=== PATIENT | male | born 1950 | race Caucasian/White ===

== ENCOUNTER 2017-04-24 11:45 | Emergency (ER) | payer MEDICARE, OTHER ==
[2017-04-24] MEDS ORDERED: Sodium Chloride 0.9% 10 ML Syringe FLUSH PRN (11:48)
[2017-04-24] MEDS ORDERED: Sodium Chloride 0.9% 2.5 ML Syringe FLUSH PRN (11:48)
[2017-04-24] MEDS ORDERED: Sodium Chloride 0.9% 1,000 ML IV ONE ×2 (11:48→12:42)
[2017-04-24] MEDS ORDERED: Aspirin 81 MG Tab.Chew PO ONE (11:48)
[2017-04-24] MEDS ORDERED: Famotidine 20 MG/2 ML SDV IVPUSH ONE (11:48)
--- NOTE | 2017-04-24 12:10 | EDM.PDOC ---
ED HPI GENERAL MEDICAL PROBLEM - General Chief Complaint: Chest Pain Stated Complaint: CHEST PAIN Time Seen by Provider: 04/24/17 12:01 Source of Information: Reports: Patient History Limitations: Reports: No Limitations - History of Present Illness INITIAL COMMENTS - FREE TEXT/NARRATIVE: HISTORY AND PHYSICAL: []67-year-old gentleman presenting with midsternal chest pain for 1 week. Pain occurred after eating something and felt like he was going to get stuck and then he has had a slight cough ever since. History of Present Illness: [Patient has a TENS unit to his back pain level 04/28. 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 Past medical history: As per history of present illness and as reviewed below otherwise noncontributory. Surgical history: As per history of present illness and as reviewed below otherwise noncontributory. Social history: No reported history of drug or alcohol abuse. Family history: As per history of present illness and as reviewed below otherwise noncontributory. Physical exam: Alert gentleman. Does not look in acute distress skin is warm and dry tattoo present to mid chest. HEENT: Atraumatic, normocehpalic, pupils reactive, negative for conjunctival pallor or scleral icterus, mucous membranes moist, throat clear, neck supple, nontender, trachea midline. Lungs: Clear to auscultation, breath sounds equal bilaterally, chest tender with palpation midsternal Heart: S1S2, regular, negative for clicks, rubs, or JVD. EKG with sinus rhythm. Abdomen: Soft, nondistended, nontender. Negative for masses or hepatossplenmegaly. Negative for costovertebral tenderness. Pelvis: Stable nontender. Genitourinary: Deferred. Rectal: Deferred Extremities: Atraumatic, negative for cords or calf pain. Neurovascular unremarkable. Neuro: Awake, alert, oriented. Cranial nerves II through XII unremarkable. Cerebellum unremarkable. Motor and sensory unremarkable throughout. Exam nonfocal. Patient's pain was reduced with nitroglycerin to a 1-2/10. Nitropaste was applied. Monitor now showing frequent sinus pauses related to reduced 20-30 bpm then returns to 60s and 70s. 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 Ledbetter at [facility] in [place], [place] who requested patient tranfer. Possible angiogram today then will determine whether pacemaker is needed. Patient is agreeable to this recommended course of action Diagnostics: [Chest pain protocol] Therapeutics: [Aspirin by mouth Nitrostat sublingual 3 Nitropaste] Impression: [Midsternal chest pain Sick sinus syndrome Plan: [Transfer to [facility] for ground ambulance FORMS have been completed] Definitive disposition and diagnosis as appropriate pending reevaluation and review of above. Onset: Gradual Duration: Day(s): (1 week), Heavy Location: Reports: Chest (Midsternal), Other (Patient back 04/28 with a Tens Unit on.) Quality: Reports: Same as Previous Episode Severity: Moderate Associated Symptoms: Reports: Chest Pain, Cough mid/sternal Pain Score (Numeric/FACES): 4 - Related Data Allergies Allergy/AdvReac Type Severity Reaction Status Date / Time No Known Allergies Allergy Verified 04/24/17 12:09 Home Meds: Home Meds Aspirin [Ecotrin] 1 tab PO DAILY 10/04/14 [History] Cholecalciferol (Vitamin D3) [D3-2000] 1,000 unit PO DAILY 10/04/14 [History] Isosorbide Mononitrate [Imdur] 1 tab PO DAILY 10/04/14 [History] Metoprolol Tartrate 50 mg PO DAILY 10/04/14 [History] Towner-3 Fatty Acids/Fish Oil [Fish Oil 1,200 mg Softgel] 1 tab PO DAILY [History] atorvaSTATin Calcium [Atorvastatin Calcium] 1 tab PO BEDTIME 10/04/14 [History] Baclofen 2 tab PO BID 01/05/17 [History] Levothyroxine 0.05 mg PO DAILY 01/05/17 [History] metFORMIN HCl [Metformin HCl] 1,000 mg PO BID 01/05/17 [History] Past Medical History HEENT History: Reports: Other (See Below) Other HEENT History: wears glasses Cardiovascular History: Reports: CAD, High Cholesterol, Hypertension Other Cardiovascular History: [place] x2 Musculoskeletal History: Reports: Back Pain, Chronic Other Musculoskeletal History: chronic neck and back pain, lumbar stenosis, chronic pain syndrome Endocrine/Metabolic History: Reports: Diabetes, Type II, Hypothyroidism Other Endocrine/Metabolic History: states "pre diabetic" Dermatologic History: Reports: Other (See Below) Other Dermatologic History: Granuloma annulare - Past Surgical History Cardiovascular Surgical History: Reports: Coronary Artery Stent Neurological Surgical History: Reports: Lumbar Spine Social & Family History - Tobacco Use Smoking Status *Q: Former Smoker Years of Tobacco use: 40 Packs/Tins Daily: 0.2 Month Tobacco Last Used: quit smoking 18 yrs ago, chews 1 can of chewing tobacco per week Second Hand Smoke Exposure: No - Alcohol Use Days Per Week of Alcohol Use: 0 Number of Drinks Per Day: 3 Total Drinks Per Week: 0 - Recreational Drug Use Recreational Drug Use: No ED ROS GENERAL - Review of Systems Review Of Systems: ROS reveals no pertinent complaints other than HPI. ED EXAM, GENERAL - Physical Exam Exam: See Below (see dictation) Course - Vital Signs Last Recorded V/S: Last Vital Signs Temp 36.2 C 04/24/17 12:09 Pulse 80 04/24/17 12:09 Resp 16 04/24/17 12:09 BP 112/67 04/24/17 12:26 Pulse Ox 95 04/24/17 12:19 - Orders/Labs/Meds Orders: Active Orders 24 hr Category Date Time Status Cardiac Monitoring [RC] . DIRECTED Care 04/24/17 11:48 Active EKG Documentation Completion [RC] STAT Care 04/24/17 11:48 Active Oxygen Therapy [RC] ASDIRECTED Care 04/24/17 11:48 Active Pulse Oximetry [RC] ASDIRECTED Care 04/24/17 11:48 Active UA W/MICROSCOPIC [URIN] Stat Lab 04/24/17 11:48 Uncollected Sodium Chloride 0.9% [Saline Flush] Med 04/24/17 11:48 Active 10 ml FLUSH ASDIRECTED PRN Sodium Chloride 0.9% [Saline Flush] Med 04/24/17 11:48 Active 2.5 ml FLUSH ASDIRECTED PRN Peripheral IV Insertion Adult [OM.PC] Stat Oth 04/24/17 11:48 Ordered Medication Orders Sodium Chloride (Saline Flush) 10 ml FLUSH ASDIRECTED PRN PRN Reason: Keep Vein Open Sodium Chloride (Saline Flush) 2.5 ml FLUSH ASDIRECTED PRN PRN Reason: Keep Vein Open Labs: Laboratory Tests 04/24/17 04/24/17 04/24/17 Range/Units 11:57 11:57 11:57 WBC 9.35 (4.0-11.0) K/uL RBC 5.48 (4.50-5.90) M/uL Hgb 17.3 H (13.0-17.0) g/dL Hct 49.0 (38.0-50.0) % MCV 89.4 (80.0-98.0) fL MCH 31.6 (27.0-32.0) pg MCHC 35.3 (31.0-37.0) g/dL RDW Std Deviation 42.7 (28.0-62.0) fl RDW Coeff of Samantha 13 (11.0-15.0) % Plt Count 167 (150-400) K/uL MPV 10.40 (7.40-12.00) fL Neut % (Auto) 64.2 (48.0-80.0) % Lymph % (Auto) 24.8 (16.0-40.0) % [place] % (Auto) 9.3 (0.0-15.0) % Eos % (Auto) 1.5 (0.0-7.0) % Baso % (Auto) 0.2 (0.0-1.5) % Neut # (Auto) 6.0 H (1.4-5.7) K/uL Lymph # (Auto) 2.3 (0.6-2.4) K/uL [place] # (Auto) 0.9 H (0.0-0.8) K/uL Eos # (Auto) 0.1 (0.0-0.7) K/uL Baso # (Auto) 0.0 (0.0-0.1) K/uL Nucleated RBC % 0.0 /100WBC Nucleated RBCs # 0 K/uL INR 1.00 (0.86-1.11) Sodium 135 L (136-146) mmol/L Potassium 3.5 (3.5-5.1) mmol/L Chloride 98 (98-110) mmol/L Carbon Dioxide 22 (21-31) mmol/L BUN 27 H (6.0-23.0) mg/dL Creatinine 1.0 (0.6-1.5) mg/dL Est Cr Clr Drug Dosing 74.25 mL/min Estimated GFR (MDRD) > 60.0 ml/min Glucose 147 H (60-110) mg/dL Calcium 9.0 (8.8-10.8) mg/dL Total Bilirubin 1.1 (0.1-1.5) mg/dL AST 34 (5-40) IU/L ALT 44 (8-54) IU/L Alkaline Phosphatase 63 (40-150) Troponin I (0.0-0.29) NG/ML Total Protein 7.6 (6.0-8.0) g/dL Albumin 4.4 (3.4-4.8) g/dL Globulin 3.2 (2.0-3.5) g/dL Albumin/Globulin Ratio 1.4 (1.3-2.8) Amylase 45 (10-90) U/L Lipase 34 (7-80) U/L /05/05 Range/Units 11:57 WBC (4.0-11.0) K/uL RBC (4.50-5.90) M/uL Hgb (13.0-17.0) g/dL Hct (38.0-50.0) % MCV (80.0-98.0) fL MCH (27.0-32.0) pg MCHC (31.0-37.0) g/dL RDW Std Deviation (28.0-62.0) fl RDW Coeff of Samantha (11.0-15.0) % Plt Count (150-400) K/uL MPV (7.40-12.00) fL Neut % (Auto) (48.0-80.0) % Lymph % (Auto) (16.0-40.0) % [place] % (Auto) (0.0-15.0) % Eos % (Auto) (0.0-7.0) % Baso % (Auto) (0.0-1.5) % Neut # (Auto) (1.4-5.7) K/uL Lymph # (Auto) (0.6-2.4) K/uL [place] # (Auto) (0.0-0.8) K/uL Eos # (Auto) (0.0-0.7) K/uL Baso # (Auto) (0.0-0.1) K/uL Nucleated RBC % /100WBC Nucleated RBCs # K/uL INR (0.86-1.11) Sodium (136-146) mmol/L Potassium (3.5-5.1) mmol/L Chloride (98-110) mmol/L Carbon Dioxide (21-31) mmol/L BUN (6.0-23.0) mg/dL Creatinine (0.6-1.5) mg/dL Est Cr Clr Drug Dosing mL/min Estimated GFR (MDRD) ml/min Glucose (60-110) mg/dL Calcium (8.8-10.8) mg/dL Total Bilirubin (0.1-1.5) mg/dL AST (5-40) IU/L ALT (8-54) IU/L Alkaline Phosphatase (40-150) Troponin I < 0.10 (0.0-0.29) NG/ML Total Protein (6.0-8.0) g/dL Albumin (3.4-4.8) g/dL Globulin (2.0-3.5) g/dL Albumin/Globulin Ratio (1.3-2.8) Amylase (10-90) U/L Lipase (7-80) U/L Meds: Medications Generic Name Dose Route Start Last Admin Trade Name Freq PRN Reason Stop Dose Admin Sodium Chloride 10 ml 04/24/17 11:48 Saline Flush FLUSH ASDIRECTED PRN Keep Vein Open Sodium Chloride 2.5 ml 04/24/17 11:48 Saline Flush FLUSH ASDIRECTED PRN Keep Vein Open Discontinued Medications Generic Name Dose Route Start Last Admin Trade Name Freq PRN Reason Stop Dose Admin Aspirin 324 mg 04/24/17 11:48 04/24/17 12:25 Aspirin PO 04/24/17 11:49 324 mg ONETIME ONE Administration Famotidine 20 mg 04/24/17 11:48 04/24/17 12:23 Pepcid IVPUSH 04/24/17 11:49 20 mg ONETIME ONE Administration Sodium Chloride 1,000 mls @ 999 mls/hr 04/24/17 11:48 04/24/17 12:23 Normal Saline IV 04/24/17 12:48 999 mls/hr .Bolus ONE Administration Sodium Chloride 1,000 mls @ 999 mls/hr 04/24/17 12:42 Normal Saline IV 04/24/17 13:42 STAT ONE Morphine Sulfate 2 mg 04/24/17 12:41 Morphine IV 04/24/17 12:42 ONETIME ONE Nitroglycerin 0.4 mg 04/24/17 12:11 04/24/17 12:26 Nitrostat SL 04/24/17 12:22 0.4 mg Q5M PRN Administration Chest Pain Nitroglycerin 1 gm 04/24/17 12:11 04/24/17 12:27 Nitro-Bid 2% TOP 04/24/17 12:12 1 gm ONETIME ONE Administration Ondansetron HCl 4 mg 04/24/17 12:41 Zofran IVPUSH 04/24/17 12:42 ONETIME ONE Departure - Departure Time of Disposition: 13:01 Disposition: DC/Tfer to Acute Hospital 02 Reason for Transfer *Q: Primary PCI Indicated Condition: good Clinical Impression: Sick sinus syndrome, Atypical chest pain Referrals: PCP,None [Primary Care Provider] - Forms: ED Department Discharge - My Orders Last 24 Hours: My Active Orders 04/24/17 11:48 Cardiac Monitoring [RC] . DIRECTED EKG Documentation Completion [RC] STAT Oxygen Therapy [RC] ASDIRECTED Pulse Oximetry [RC] ASDIRECTED UA W/MICROSCOPIC [URIN] Stat Sodium Chloride 0.9% [Saline Flush] 10 ml FLUSH ASDIRECTED PRN Sodium Chloride 0.9% [Saline Flush] 2.5 ml FLUSH ASDIRECTED PRN Peripheral IV Insertion Adult [OM.PC] Stat - Assessment/Plan Last 24 Hours: My Active Orders 04/24/17 11:48 Cardiac Monitoring [RC] . DIRECTED EKG Documentation Completion [RC] STAT Oxygen Therapy [RC] ASDIRECTED Pulse Oximetry [RC] ASDIRECTED UA W/MICROSCOPIC [URIN] Stat Sodium Chloride 0.9% [Saline Flush] 10 ml FLUSH ASDIRECTED PRN Sodium Chloride 0.9% [Saline Flush] 2.5 ml FLUSH ASDIRECTED PRN Peripheral IV Insertion Adult [OM.PC] Stat
[2017-04-24] MEDS ORDERED: Nitroglycerin 2% Oint 1 GM UD Packet TOP ONE (12:11)
--- NOTE | 2017-04-24 12:15 | CR ---
EXAMINATION: Portable chest radiograph. HISTORY: Chest pain. FINDINGS: The trachea is midline. The cardiomediastinal silhouette is within normal limits. No pulmonary infil trates, effusions or pneumothorax. Aortic calcifications are noted. Osseous structures appear unremarkable. Spinal stimulator leads project over the midthoracic spine. IMPRESSION: No acute cardiopulmonary process.
[2017-04-24] MEDS: Nitroglycerin 0.4 MG Tab.SL SL PRN ×2 (12:21→12:26)
[2017-04-24 12:33] LABS: CHLORIDE,CL 98 mmol/L (98-110); SODIUM,NA 135 mmol/L (136-146)
[2017-04-24] MEDS ORDERED: Ondansetron 4 MG/2 ML SDV IVPUSH ONE (12:41)
[2017-04-24] MEDS ORDERED: Morphine 10 MG/ML Syringe IV ONE (12:41)
[2017-04-24 15:03] VITALS: BP 111/76
== END 2017-04-24 14:57 ==
LOC: MW.ED 11:45
DX: I49.5 Sick sinus syndrome (principal); R07.89 Other chest pain; I25.10 Atherosclerotic heart disease of native coronary artery without angina pectoris; I10 Essential (primary) hypertension; E78.00 Pure hypercholesterolemia, unspecified; I25.2 Old myocardial infarction; E11.9 Type 2 diabetes mellitus without complications; E03.9 Hypothyroidism, unspecified; Z87.891 Personal history of nicotine dependence; Z79.899 Other long term (current) drug therapy; Z95.5 Presence of coronary angioplasty implant and graft; Z79.84 Long term (current) use of oral hypoglycemic drugs; Z79.82 Long term (current) use of aspirin
CPT/HCPCS: 36415; 71010; 80053; 81001; 82150; 83690; 84484; 85025; 85610; 93005; 96361; 96374; 96375; 99285; A9270; J2270; J2405; J7040

== ENCOUNTER 2017-04-30 16:13 | Emergency (ER) | payer MEDICARE, OTHER ==
--- NOTE | 2017-04-30 16:32 | EDM.PDOC ---
ED HPI GENERAL MEDICAL PROBLEM - General Chief Complaint: Chest Pain Stated Complaint: PT HAS DIFFICULTY BREATHING Time Seen by Provider: 04/30/17 16:19 Source of Information: Reports: Patient History Limitations: Reports: No Limitations - History of Present Illness INITIAL COMMENTS - FREE TEXT/NARRATIVE: History of present illness: []Patient came home from [place] 3 days ago after having 5 stents placed for ongoing chest pain. Today patient complains of left lower chest pain that he has had for over 2 months it's associated with intermittent fevers and "horrible " cough. Review of systems: As per history of present illness and below otherwise all systems reviewed and negative. Past medical history: As per history of present illness and as reviewed below otherwise noncontributory. Surgical history: As per history of present illness and as reviewed below otherwise noncontributory. Social history: No reported history of drug or alcohol abuse. Family history: As per history of present illness and as reviewed below otherwise noncontributory. Physical exam: General: Well developed, well nourished in NAD HEENT: Atraumatic, normocephalic, pupils reactive, negative for conjunctival pallor or scleral icterus, mucous membranes moist, throat clear, neck supple, nontender, trachea midline. Lungs: Crackles present in left base. Otherwise no wheezing and lungs are clear. Heart: S1S2, regular, negative for clicks, rubs, or JVD. Abdomen: Soft, nondistended, nontender. Negative for masses or hepatosplenomegaly. Negative for costovertebral tenderness. Pelvis: Stable nontender. Genitourinary: Deferred. Rectal: Deferred. Extremities: Atraumatic, negative for cords or calf pain. Neurovascular unremarkable. Neuro: Awake, alert, oriented. Cranial nerves II through XII unremarkable. Cerebellum unremarkable. Motor and sensory unremarkable throughout. Exam nonfocal. Diagnostics: []Chest x-ray and labs were done his elevated white count, x-rays are negative Therapeutics: []Patient was hydrated pain meds were given for chronic back pain while he was awaiting results Impression: []Bronchitis Plan: []Incentive spirometer, Augmentin, albuterol inhaler. Follow-up with PMD return if symptoms worsen or change Definitive disposition and diagnosis as appropriate pending reevaluation and review of above. chest Pain Score (Numeric/FACES): 5 - Related Data Allergies Allergy/AdvReac Type Severity Reaction Status Date / Time No Known Allergies Allergy Verified 04/30/17 16:20 Home Meds: Home Meds Aspirin [Ecotrin] 1 tab PO DAILY 10/04/14 [History] Cholecalciferol (Vitamin D3) [D3-2000] 1,000 unit PO DAILY 10/04/14 [History] atorvaSTATin Calcium [Atorvastatin Calcium] 80 tab PO BEDTIME 10/04/14 [History] metFORMIN HCl [Metformin HCl] 500 mg PO BID 01/05/17 [History] Albuterol Sulfate [Ventolin Hfa] 8 gm IH Q4HR PRN #1 hfa.aer.ad 04/30/17 [Rx] Amoxicillin/Clavulanate K [Augmentin 875 MG/125 MG] 1 tab PO Q12HR #14 tablet [Rx] Carvedilol 12.5 mg PO BID 04/30/17 [History] Cyclobenzaprine [Flexeril] 10 mg PO TID PRN 04/30/17 [History] Isosorbide Dinitrate 30 mg PO DAILY 04/30/17 [History] Lactobacillus Rhamnosus GG [Culturelle] 1 cap PO DAILY 04/30/17 [History] Levothyroxine [Synthroid] 50 mcg PO ACBREAKFAST 04/30/17 [History] Lisinopril 10 mg PO DAILY 04/30/17 [History] Meloxicam 15 mg PO DAILY 04/30/17 [History] Nitroglycerin [Nitrostat] 0.4 mg SL Q5M PRN 04/30/17 [History] Prasugrel HCl [Effient] 10 mg PO DAILY 04/30/17 [History] Past Medical History HEENT History: Reports: Other (See Below) Other HEENT History: wears glasses Cardiovascular History: Reports: CAD, High Cholesterol, Hypertension Other Cardiovascular History: [place] x2 Musculoskeletal History: Reports: Back Pain, Chronic Other Musculoskeletal History: chronic neck and back pain, lumbar stenosis, chronic pain syndrome Endocrine/Metabolic History: Reports: Diabetes, Type II, Hypothyroidism Other Endocrine/Metabolic History: states "pre diabetic" Dermatologic History: Reports: Other (See Below) Other Dermatologic History: Granuloma annulare - Past Surgical History Cardiovascular Surgical History: Reports: Coronary Artery Stent Neurological Surgical History: Reports: Lumbar Spine Social & Family History - Tobacco Use Smoking Status *Q: Former Smoker Years of Tobacco use: 40 Packs/Tins Daily: 0.2 Used Tobacco, but Quit: Yes Month Tobacco Last Used: quit smoking 18 yrs ago, chews 1 can of chewing tobacco per week Second Hand Smoke Exposure: No - Caffeine Use Caffeine Use: Reports: Coffee Other Caffeine Use: 1 cup a day - Alcohol Use Days Per Week of Alcohol Use: 0 Number of Drinks Per Day: 3 Total Drinks Per Week: 0 - Recreational Drug Use Recreational Drug Use: No ED ROS GENERAL - Review of Systems Review Of Systems: See Below ED EXAM, GENERAL - Physical Exam Exam: See Below (See history of present illness) Course - Vital Signs Last Recorded V/S: Last Vital Signs Temp 36.6 C 04/30/17 16:20 Pulse 71 04/30/17 16:20 Resp 20 04/30/17 16:20 BP 108/68 04/30/17 16:20 Pulse Ox 97 04/30/17 16:20 - Orders/Labs/Meds Orders: Active Orders 24 hr Category Date Time Status Chest 2V [CR] Stat Exams 04/30/17 16:27 Taken CULTURE BLOOD [BC] Stat Lab 04/30/17 16:42 Received CULTURE BLOOD [BC] Stat Lab 04/30/17 16:49 Received HYDROmorphone [Dilaudid] Med 04/30/17 17:44 Active 0.5 mg IVPUSH Q1H PRN Blood Culture x2 Reflex Set [OM.PC] Stat Oth 04/30/17 16:27 Ordered Saline Lock Insert [OM.PC] Stat Oth 04/30/17 16:26 Ordered Medication Orders Hydromorphone HCl (Dilaudid) 0.5 mg IVPUSH Q1H PRN PRN Reason: Pain Labs: Laboratory Tests 04/30/17 04/30/17 04/30/17 Range/Units 16:42 16:42 16:42 WBC 12.47 H (4.0-11.0) K/uL RBC 4.73 (4.50-5.90) M/uL Hgb 14.7 (13.0-17.0) g/dL Hct 42.9 (38.0-50.0) % MCV 90.7 (80.0-98.0) fL MCH 31.1 (27.0-32.0) pg MCHC 34.3 (31.0-37.0) g/dL RDW Std Deviation 43.5 (28.0-62.0) fl RDW Coeff of Samantha 13 (11.0-15.0) % Plt Count 335 (150-400) K/uL MPV 10.00 (7.40-12.00) fL Add Manual Diff YES Neutrophils % (Manual) 56 (48.0-80.0) % Band Neutrophils % 16 % Lymphocytes % (Manual) 21 (16.0-40.0) % Monocytes % (Manual) 4 (0.0-15.0) % Eosinophils % (Manual) 2 (0.0-7.0) % Basophils % (Manual) 1 (0.0-1.5) % Nucleated RBC % 0.0 /100WBC Absolute Seg Neuts 7.0 Band Neutrophils # 2.0 Lymphocytes # (Manual) 2.6 Monocytes # (Manual) 0.5 Eosinophils # (Manual) 0.2 Basophils # (Manual) 0 Nucleated RBCs # 0 K/uL Sodium 141 (136-146) mmol/L Potassium 3.9 (3.5-5.1) mmol/L Chloride 109 (98-110) mmol/L Carbon Dioxide 19 L (21-31) mmol/L BUN 24 H (6.0-23.0) mg/dL Creatinine 0.9 (0.6-1.5) mg/dL Est Cr Clr Drug Dosing 79.98 mL/min Estimated GFR (MDRD) > 60.0 ml/min Glucose 95 (60-110) mg/dL Calcium 9.3 (8.8-10.8) mg/dL Total Bilirubin 1.6 H (0.1-1.5) mg/dL AST 27 (5-40) IU/L ALT 27 (8-54) IU/L Alkaline Phosphatase 52 (40-150) Troponin I (0.0-0.29) NG/ML B-Natriuretic Peptide 70 (<100) PG/ML Total Protein 7.3 (6.0-8.0) g/dL Albumin 4.3 (3.4-4.8) g/dL Globulin 3.0 (2.0-3.5) g/dL Albumin/Globulin Ratio 1.4 (1.3-2.8) 04/30/17 Range/Units 16:42 WBC (4.0-11.0) K/uL RBC (4.50-5.90) M/uL Hgb (13.0-17.0) g/dL Hct (38.0-50.0) % MCV (80.0-98.0) fL MCH (27.0-32.0) pg MCHC (31.0-37.0) g/dL RDW Std Deviation (28.0-62.0) fl RDW Coeff of Samantha (11.0-15.0) % Plt Count (150-400) K/uL MPV (7.40-12.00) fL Add Manual Diff Neutrophils % (Manual) (48.0-80.0) % Band Neutrophils % % Lymphocytes % (Manual) (16.0-40.0) % Monocytes % (Manual) (0.0-15.0) % Eosinophils % (Manual) (0.0-7.0) % Basophils % (Manual) (0.0-1.5) % Nucleated RBC % /100WBC Absolute Seg Neuts Band Neutrophils # Lymphocytes # (Manual) Monocytes # (Manual) Eosinophils # (Manual) Basophils # (Manual) Nucleated RBCs # K/uL Sodium (136-146) mmol/L Potassium (3.5-5.1) mmol/L Chloride (98-110) mmol/L Carbon Dioxide (21-31) mmol/L BUN (6.0-23.0) mg/dL Creatinine (0.6-1.5) mg/dL Est Cr Clr Drug Dosing mL/min Estimated GFR (MDRD) ml/min Glucose (60-110) mg/dL Calcium (8.8-10.8) mg/dL Total Bilirubin (0.1-1.5) mg/dL AST (5-40) IU/L ALT (8-54) IU/L Alkaline Phosphatase (40-150) Troponin I 0.14 (0.0-0.29) NG/ML B-Natriuretic Peptide (<100) PG/ML Total Protein (6.0-8.0) g/dL Albumin (3.4-4.8) g/dL Globulin (2.0-3.5) g/dL Albumin/Globulin Ratio (1.3-2.8) Meds: Medications Generic Name Dose Route Start Last Admin Trade Name Freq PRN Reason Stop Dose Admin Hydromorphone HCl 0.5 mg 04/30/17 17:44 Dilaudid IVPUSH Q1H PRN Pain Discontinued Medications Generic Name Dose Route Start Last Admin Trade Name Allison PRN Reason Stop Dose Admin Ondansetron HCl 4 mg 04/30/17 17:44 Zofran IVPUSH 04/30/17 17:45 ONETIME ONE Departure - Departure Time of Disposition: 18:07 Disposition: Home, Self-Care 01 Condition: good Clinical Impression: Bronchitis Prescriptions: Albuterol Sulfate [Ventolin Hfa] 8 gm IH Q4HR PRN #1 hfa.aer.ad PRN Reason: Shortness Of Breath Amoxicillin/Clavulanate K [Augmentin 875 MG/125 MG] 1 tab PO Q12HR #14 tablet Forms: ED Department Discharge Additional Instructions: The following information is given to patients seen in the emergency department who are being discharged to home. This information is to outline your options for follow-up care. We provide all patients seen in our emergency department with a follow-up referral. The need for follow-up, as well as the timing and circumstances, are variable depending upon the specifics of your emergency department visit. If you don't have a primary care physician on staff, we will provide you with a referral. We always advise you to contact your personal physician following an emergency department visit to inform them of the circumstance of the visit and for follow-up with them and/or the need for any referrals to a consulting specialist. The emergency department will also refer you to a specialist when appropriate. This referral assures that you have the opportunity for follow-up care with a specialist. All of these measure are taken in an effort to provide you with optimal care, which includes your follow-up. Under all circumstances we always encourage you to contact your private physician who remains a resource for coordinating your care. When calling for follow-up care, please make the office aware that this follow-up is from your recent emergency room visit. If for any reason you are refused follow-up, please contact the [facility] Emergency Department at and asked to speak to the emergency department charge nurse. Albuterol and Augmentin as directed. Use incentive spirometer 3-4 times a day. Follow-up with your PMD if any symptoms worsen [facility] [address] [place] [id number] - My Orders Last 24 Hours: My Active Orders 04/30/17 16:26 Saline Lock Insert [OM.PC] Stat 04/30/17 16:27 Chest 2V [CR] Stat Blood Culture x2 Reflex Set [OM.PC] Stat 04/30/17 16:42 CULTURE BLOOD [BC] Stat 04/30/17 16:49 CULTURE BLOOD [BC] Stat 04/30/17 17:44 HYDROmorphone [Dilaudid] 0.5 mg IVPUSH Q1H PRN - Assessment/Plan Last 24 Hours: My Active Orders 04/30/17 16:26 Saline Lock Insert [OM.PC] Stat 04/30/17 16:27 Chest 2V [CR] Stat Blood Culture x2 Reflex Set [OM.PC] Stat 04/30/17 16:42 CULTURE BLOOD [BC] Stat 04/30/17 16:49 CULTURE BLOOD [BC] Stat 04/30/17 17:44 HYDROmorphone [Dilaudid] 0.5 mg IVPUSH Q1H PRN
[2017-04-30 17:25] LABS: CHLORIDE,CL 109 mmol/L (98-110); SODIUM,NA 141 mmol/L (136-146)
[2017-04-30] MEDS ORDERED: Ondansetron 4 MG/2 ML SDV IVPUSH ONE (17:44)
[2017-04-30] MEDS ORDERED: HYDROmorphone 1 MG/ML Syringe IVPUSH PRN (17:44)
[2017-04-30 18:54] VITALS: BP 100/58
--- NOTE | 2017-05-01 11:10 | CR ---
EXAM DATE: 04/30/17 PATIENT'S AGE: 67 Patient: LAW COLLINS Facility: [place], [place] Site . Site : [id number] Study: XRay Chest [id number] 5:21:37 PM Ordering Physician: Aurelio De La Cruz Final Report: INDICATION: Left-sided chest pain. TECHNIQUE: Chest 2 views. COMPARISON: 04/24/2017 FINDINGS: Cardiovascular and mediastinum: Heart size and vasculature are normal in caliber and appearance. Mediastinum is within normal limits. Lungs and pleural spaces: Lungs are clear. No sign of infiltrate or mass. No sign of pleural effusion. No pneumothorax. Bones and soft tissues: Neurostimulator projects over the mid thoracic spine noted. IMPRESSION: Unremarkable chest. Dictated by Anibal Reynolds MD @ 04/30/2017 5:54:54 PM Dictated by: Anibal Reynolds MD @ 04/30/2017 17:55:01 (Electronic Signature) Report Signed by Proxy. MARCOS
== END 2017-04-30 18:53 | disposition home or self-care (01) ==
LOC: MW.ED 16:13
DX: J40 Bronchitis, not specified as acute or chronic (principal); I10 Essential (primary) hypertension; I25.10 Atherosclerotic heart disease of native coronary artery without angina pectoris; E78.00 Pure hypercholesterolemia, unspecified; I25.2 Old myocardial infarction; E11.9 Type 2 diabetes mellitus without complications; E03.9 Hypothyroidism, unspecified; Z95.5 Presence of coronary angioplasty implant and graft; Z98.890 Other specified postprocedural states; Z87.891 Personal history of nicotine dependence; Z79.84 Long term (current) use of oral hypoglycemic drugs; Z79.899 Other long term (current) drug therapy; Z79.82 Long term (current) use of aspirin
CPT/HCPCS: 36415; 71020; 80053; 83880; 84484; 85025; 87040; 93005; 96374; 96375; 99285; J1170; J2405; 99284

== ENCOUNTER 2019-03-11 12:38 | Observation (INO) | payer OTHER ==
[2019-03-11] MEDS ORDERED: Sodium Chloride 0.9% 10 ML Syringe FLUSH PRN (12:40)
[2019-03-11] MEDS ORDERED: Sodium Chloride 0.9% 2.5 ML Syringe FLUSH PRN (12:40)
--- NOTE | 2019-03-11 12:45 | EDM.PDOC ---
ED HPI GENERAL MEDICAL PROBLEM - General Chief Complaint: Chest Pain Stated Complaint: CHEST PAINS Time Seen by Provider: 03/11/19 12:39 Source of Information: Reports: Patient History Limitations: Reports: No Limitations - History of Present Illness INITIAL COMMENTS - FREE TEXT/NARRATIVE: HISTORY AND PHYSICAL: History of present illness: Patient is a 69-year-old male whose presented to the emergency room from the [place] clinic with complaints of chest pain and left arm pain. He states he has had intermittent bouts of left-sided chest pain for several months. He states that over the past one week these episodes have become more frequent, and today it has been constant. States pain does radiate into his left shoulder. Patient states he is unsure if this is new as he does chronically have left shoulder and back pain due to a previous work-related injury. He states the pain is reproducible when he palpates on his left anterior chest. Patient does have a history of heart disease, states he has six cardiac stents. States his last AR was in 2017. He last saw a occupational rehabilitation aide, Dr. Finney last year. Patient denies any fever, chills, headache, change in vision, syncope or near syncope. Denies any back pain, shortness of breath or cough. Denies any abdominal pain, nausea, vomiting, diarrhea, constipation or dysuria. Has not noted any blood in urine or stool. Patient has been eating and drinking appropriately. Review of systems: As per history of present illness and below otherwise all systems reviewed and negative. Past medical history: As per history of present illness and as reviewed below otherwise noncontributory. Surgical history: As per history of present illness and as reviewed below otherwise noncontributory. Social history: See social history for further information Family history: As per history of present illness and as reviewed below otherwise noncontributory. Physical exam: General: Well-developed and well nourished 69-year-old male. Alert and oriented. Nontoxic appearing and in no acute distress. HEENT: Atraumatic, normocephalic, pupils equal and reactive bilaterally, negative for conjunctival pallor or scleral icterus, mucous membranes moist, TMs normal bilaterally, throat clear, neck supple, nontender, trachea midline. No drooling or trismus noted. No meningeal signs. No hot potato voice noted. Lungs: Clear to auscultation, breath sounds equal bilaterally, chest pain is reproducible to the left anterior chest wall. Heart: S1S2, regular rate and rhythm without overt murmur Abdomen: Soft, nondistended, nontender. Negative for masses or hepatosplenomegaly. Negative for costovertebral tenderness. Pelvis: Stable nontender. Genitourinary: Deferred. Rectal: Deferred. Skin: Intact, warm, dry. No lesions or rashes noted. Extremities: Atraumatic, moves all extremities per self without difficulty or deficits, negative for cords or calf pain. Neurovascular unremarkable. Neuro: Awake, alert, oriented. Cranial nerves II through XII unremarkable. Cerebellum unremarkable. Motor and sensory unremarkable throughout. Exam nonfocal. Notes: Patient had 324 mg aspirin prior to arrival. He is currently rating his pain 2 out of 10. Patient received morphine and states that it did not alleviate his discomfort. Did give him Toradol IV which she states he feels "better". Chest x-ray shows no acute findings. Lab work is within normal limits. Dr Don was consulted on this case and agreeable to keeping this patient for observation. Patient also is aware of his diagnostic findings and agreeable to staying overnight. Vital signs remain stable. We'll continue to monitor Diagnostics: CBC, CMP, troponin, PT/INR, chest x-ray, Therapeutics: Saline lock, morphine, Toradol Impression: Chest pain rule out AR Plan: Observation admission with telemetry to [facility] Definitive disposition and diagnosis as appropriate pending reevaluation and review of above. chest Pain Score (Numeric/FACES): 5 - Related Data Allergies Allergy/AdvReac Type Severity Reaction Status Date / Time No Known Allergies Allergy Verified 03/11/19 12:45 Home Meds: Home Meds Albuterol [Proventil Neb Soln] 1 dose INH ASDIRECTED 03/11/19 [History] Aspirin 81 mg PO DAILY 03/11/19 [History] Aspirin 325 mg PO DAILY 03/11/19 [History] Baclofen 20 mg PO TID 03/11/19 [History] Cetirizine HCl [All Day Allergy] 10 mg PO DAILY 03/11/19 [History] Clobetasol [Clobetasol Propionate 0.05% Cream] 1 dose TOP BID 03/11/19 [History] Clopidogrel Bisulfate [Clopidogrel] 75 mg PO DAILY 03/11/19 [History] Isosorbide Mononitrate [Imdur] 1 tab PO DAILY 03/11/19 [History] Ketotifen [Ketotifen 0.025% Ophth Soln] 1 drop EYEBOTH DAILY 03/11/19 [History] Latanoprost/Pf [Latanoprost 0.005% Eye Drop] 1 drop EYEBOTH DAILY 03/11/19 [ History] Levothyroxine Sodium 0.5 mg PO DAILY 03/11/19 [History] Losartan [Cozaar] 25 mg PO DAILY 03/11/19 [History] Metoprolol Tartrate 100 mg OP BID 03/11/19 [History] Nitroglycerin 0.4 mg PO ASDIRECTED PRN 03/11/19 [History] Olodaterol HCl [Striverdi Respimat] 2 puff INH DAILY 03/11/19 [History] Potassium Chloride 20 meq PO TID 03/11/19 [History] atorvaSTATin Calcium [Atorvastatin Calcium] 80 mg PO BEDTIME 03/11/19 [History] metFORMIN HCl [Metformin HCl] 1,000 mg PO BID 03/11/19 [History] Past Medical History HEENT History: Reports: Other (See Below) Other HEENT History: wears glasses Cardiovascular History: Reports: CAD, High Cholesterol, Hypertension Other Cardiovascular History: AR x2 Musculoskeletal History: Reports: Back Pain, Chronic Other Musculoskeletal History: chronic neck and back pain, lumbar stenosis, chronic pain syndrome Endocrine/Metabolic History: Reports: Diabetes, Type II, Hypothyroidism Other Endocrine/Metabolic History: states "pre diabetic" Dermatologic History: Reports: Other (See Below) Other Dermatologic History: Granuloma annulare - Past Surgical History Cardiovascular Surgical History: Reports: Coronary Artery Stent Neurological Surgical History: Reports: Lumbar Spine Social & Family History - Family History Family Medical History: Noncontributory - Caffeine Use Caffeine Use: Reports: Coffee Other Caffeine Use: 1 cup a day ED ROS GENERAL - Review of Systems Review Of Systems: ROS reveals no pertinent complaints other than HPI. ED EXAM, GENERAL - Physical Exam Exam: See Below (See dictation) Course - Vital Signs Last Recorded V/S: Last Vital Signs Temp 97.5 F 03/11/19 12:42 Pulse 61 03/11/19 13:23 Resp 18 03/11/19 13:23 BP 121/81 03/11/19 13:23 Pulse Ox 98 03/11/19 13:23 - Orders/Labs/Meds Orders: Active Orders 24 hr Category Date Time Status Admission Status [Patient Status] [ADT] Stat ADT 03/11/19 14:09 Ordered Cardiac Monitoring [RC] . DIRECTED Care 03/11/19 12:40 Active EKG Documentation Completion [RC] STAT Care 03/11/19 12:40 Active Sodium Chloride 0.9% [Saline Flush] Med 03/11/19 12:40 Active 10 ml FLUSH ASDIRECTED PRN Sodium Chloride 0.9% [Saline Flush] Med 03/11/19 12:40 Active 2.5 ml FLUSH ASDIRECTED PRN Saline Lock Insert [OM.PC] Stat Oth 03/11/19 12:40 Ordered Medication Orders Sodium Chloride (Saline Flush) 10 ml FLUSH ASDIRECTED PRN PRN Reason: Keep Vein Open Sodium Chloride (Saline Flush) 2.5 ml FLUSH ASDIRECTED PRN PRN Reason: Keep Vein Open Labs: Laboratory Tests 03/11/19 03/11/19 03/11/19 Range/Units 12:45 12:45 12:45 WBC 11.26 H (4.0-11.0) K/uL RBC 4.53 (4.50-5.90) M/uL Hgb 14.1 (13.0-17.0) g/dL Hct 42.2 (38.0-50.0) % MCV 93.2 (80.0-98.0) fL MCH 31.1 (27.0-32.0) pg MCHC 33.4 (31.0-37.0) g/dL RDW Std Deviation 46.4 (28.0-62.0) fl RDW Coeff of Samantha 14 (11.0-15.0) % Plt Count 235 (150-400) K/uL MPV 10.30 (7.40-12.00) fL Neut % (Auto) 66.2 (48.0-80.0) % Lymph % (Auto) 21.8 (16.0-40.0) % [place] % (Auto) 8.0 (0.0-15.0) % Eos % (Auto) 3.6 (0.0-7.0) % Baso % (Auto) 0.4 (0.0-1.5) % Neut # (Auto) 7.5 H (1.4-5.7) K/uL Lymph # (Auto) 2.5 H (0.6-2.4) K/uL [place] # (Auto) 0.9 H (0.0-0.8) K/uL Eos # (Auto) 0.4 (0.0-0.7) K/uL Baso # (Auto) 0.1 (0.0-0.1) K/uL Nucleated RBC % 0.0 /100WBC Nucleated RBCs # 0 K/uL INR 0.97 Sodium 139 (136-148) mmol/L Potassium 4.2 (3.5-5.1) mmol/L Chloride 104 (98-107) mmol/L Carbon Dioxide 22.2 (21.0-32.0) mmol/L BUN 11 (7.0-18.0) mg/dL Creatinine 0.9 (0.8-1.3) mg/dL Est Cr Clr Drug Dosing 77.73 mL/min Estimated GFR (MDRD) > 60.0 ml/min Glucose 90 (74-106) mg/dL Calcium 8.9 (8.5-10.1) mg/dL Total Bilirubin 1.1 H (0.2-1.0) mg/dL AST 23 (15-37) IU/L ALT 25 (14-63) IU/L Alkaline Phosphatase 48 (46-116) U/L Troponin I < 0.050 (0.000-0.056) ng/mL Total Protein 7.1 (6.4-8.2) g/dL Albumin 4.0 (3.4-5.0) g/dL Globulin 3.1 (2.6-4.0) g/dL Albumin/Globulin Ratio 1.3 (0.9-1.6) Meds: Medications Generic Name Dose Route Start Last Admin Trade Name Freq PRN Reason Stop Dose Admin Sodium Chloride 10 ml 03/11/19 12:40 Saline Flush FLUSH ASDIRECTED PRN Keep Vein Open Sodium Chloride 2.5 ml 03/11/19 12:40 Saline Flush FLUSH ASDIRECTED PRN Keep Vein Open Discontinued Medications Generic Name Dose Route Start Last Admin Trade Name Freq PRN Reason Stop Dose Admin Ketorolac Tromethamine 30 mg 03/11/19 13:56 03/11/19 14:02 Toradol IVPUSH 03/11/19 13:57 30 mg ONETIME ONE Administration Morphine Sulfate 2 mg 03/11/19 13:11 03/11/19 13:19 Morphine IVPUSH 03/11/19 13:12 2 mg ONETIME ONE Administration Departure - Departure Time of Disposition: 14:12 Disposition: Refer to Observation Clinical Impression: Chest pain, rule out acute myocardial infarction Referrals: PCP,None [Primary Care Provider] - Forms: ED Department Discharge - My Orders Last 24 Hours: My Active Orders 03/11/19 12:40 Cardiac Monitoring [RC] . DIRECTED EKG Documentation Completion [RC] STAT Sodium Chloride 0.9% [Saline Flush] 10 ml FLUSH ASDIRECTED PRN Sodium Chloride 0.9% [Saline Flush] 2.5 ml FLUSH ASDIRECTED PRN Saline Lock Insert [OM.PC] Stat 03/11/19 14:09 Admission Status [Patient Status] [ADT] Stat - Assessment/Plan Last 24 Hours: My Active Orders 03/11/19 12:40 Cardiac Monitoring [RC] . DIRECTED EKG Documentation Completion [RC] STAT Sodium Chloride 0.9% [Saline Flush] 10 ml FLUSH ASDIRECTED PRN Sodium Chloride 0.9% [Saline Flush] 2.5 ml FLUSH ASDIRECTED PRN Saline Lock Insert [OM.PC] Stat 03/11/19 14:09 Admission Status [Patient Status] [ADT] Stat
[2019-03-11] MEDS ORDERED: Morphine 2 MG/ML Syringe IVPUSH ONE (13:11)
--- NOTE | 2019-03-11 13:12 | CR ---
EXAMINATION: Portable chest radiograph. HISTORY: Chest pain. FINDINGS: The trachea is midline. The cardiomediastinal silhouette is within normal limits. No pulmonary infiltrates, effusions or pneumothorax. Aortic calcifications are noted. Osseous structures appear unremarkable. Spinal stimulator leads are noted projecting over the midthoracic spine. IMPRESSION: No acute cardiopulmonary process.
[2019-03-11] MEDS ORDERED: Ketorolac 30 MG/ML SDV IVPUSH ONE (13:56)
[2019-03-11 14:05] LABS: CHLORIDE,CL 104 mmol/L (98-107); SODIUM,NA 139 mmol/L (136-148)
[2019-03-11] MEDS ORDERED: Albuterol 8 GM Inhaler INH SCH (15:15)
--- NOTE | 2019-03-11 15:42 | PCM.HP ---
H&P History of Present Illness - General Date of Service: 03/11/19 Admit Problem/Dx: Admission Diagnosis/Problem Admission Diagnosis/Problem Chest pain, rule out acute myocardial infarction - History of Present Illness Initial Comments - Free Text/Narative: 69 yo male with pmh of CAD with PR in 2017 with six stents who presents to the ED with complaint of chest pain. Patient reports upper left chest pain that radiates to the back that is worse with deep inspiration. It has occurs on and off for the past two weeks. He reports shortness of breath with productive cough that is worse in the morning. He has sinus congestion with post nasal drip. In the ED he was evaluated with EKG and cardiac enzymes which were negative for sings of acute ischemia. chest Pain Score (Numeric/FACES): 4 - Related Data Allergies/Adverse Reactions: Allergies Allergy/AdvReac Type Severity Reaction Status Date / Time No Known Allergies Allergy Verified 03/11/19 12:45 Home Medications: Home Meds Albuterol [Proventil Neb Soln] 1 dose INH ASDIRECTED 03/11/19 [History] Aspirin 81 mg PO DAILY 03/11/19 [History] Aspirin 325 mg PO DAILY 03/11/19 [History] Baclofen 20 mg PO TID 03/11/19 [History] Cetirizine HCl [All Day Allergy] 10 mg PO DAILY 03/11/19 [History] Clobetasol [Clobetasol Propionate 0.05% Cream] 1 dose TOP BID 03/11/19 [History] Clopidogrel Bisulfate [Clopidogrel] 75 mg PO DAILY 03/11/19 [History] Isosorbide Mononitrate [Imdur] 1 tab PO DAILY 03/11/19 [History] Ketotifen [Ketotifen 0.025% Ophth Soln] 1 drop EYEBOTH DAILY 03/11/19 [History] Latanoprost/Pf [Latanoprost 0.005% Eye Drop] 1 drop EYEBOTH DAILY 03/11/19 [ History] Levothyroxine Sodium 0.5 mg PO DAILY 03/11/19 [History] Losartan [Cozaar] 25 mg PO DAILY 03/11/19 [History] Metoprolol Tartrate 50 mg PO BID 03/11/19 [History] Nitroglycerin 0.4 mg PO ASDIRECTED PRN 03/11/19 [History] Olodaterol HCl [Striverdi Respimat] 2 puff INH DAILY 03/11/19 [History] Potassium Chloride 20 meq PO TID 03/11/19 [History] atorvaSTATin Calcium [Atorvastatin Calcium] 80 mg PO BEDTIME 03/11/19 [History] metFORMIN HCl [Metformin HCl] 1,000 mg PO BID 03/11/19 [History] Past Medical History HEENT History: Reports: Other (See Below) Other HEENT History: wears glasses Cardiovascular History: Reports: CAD, High Cholesterol, Hypertension, Stents, Other (See Below) Other Cardiovascular History: PR x3. Carotid atherosclerosis Respiratory History: Reports: None Gastrointestinal History: Reports: None Genitourinary History: Reports: None Musculoskeletal History: Reports: Back Pain, Chronic Other Musculoskeletal History: chronic neck and back pain, lumbar stenosis, chronic pain syndrome Endocrine/Metabolic History: Reports: Diabetes, Type II, Hypothyroidism Other Endocrine/Metabolic History: states "pre diabetic" Immunologic History: Reports: None Oncologic (Cancer) History: Reports: None Dermatologic History: Reports: Other (See Below) Other Dermatologic History: Granuloma annulare - Infectious Disease History Infectious Disease History: Reports: Chicken Pox, Measles, Mumps - Past Surgical History Head Surgeries/Procedures: Reports: None Cardiovascular Surgical History: Reports: Coronary Artery Stent Neurological Surgical History: Reports: Lumbar Spine Social & Family History - Family History Family Medical History: Noncontributory - Tobacco Use Smoking Status *Q: Former Smoker Used Tobacco, but Quit: Yes Month/Year Tobacco Last Used: 1999 - Caffeine Use Caffeine Use: Reports: Coffee Other Caffeine Use: 1 cup a day Caffeine Use Comment: 2 cups of coffee in morning - Alcohol Use Days Per Week of Alcohol Use: 7 Number of Drinks Per Day: 3 Total Drinks Per Week: 21 - Recreational Drug Use Recreational Drug Use: No Drug Use in Last 12 Months: Yes Recreational Drug Type: Reports: Marijuana/Hashish Recreational Drug Use Frequency: Daily H&P Review of Systems - Review of Systems: Review Of Systems: ROS reveals no pertinent complaints other than HPI. Exam - Exam Exam: See Below - Vital Signs Vital Signs: Last Vital Signs Temp 36.2 C 03/11/19 14:37 Pulse 63 03/11/19 14:37 Resp 18 03/11/19 14:37 BP 148/89 H 03/11/19 14:37 Pulse Ox 97 03/11/19 14:37 Weight: 86.999 kg - Exam General: Alert, Oriented HEENT: Conjunctiva Clear Lungs: Clear to Auscultation, Normal Respiratory Effort Cardiovascular: Regular Rate, Regular Rhythm GI/Abdominal Exam: Soft, Non-Tender Extremities: Non-Tender, No Pedal Edema Skin: Warm, Dry, Intact - Patient Data Lab Results Last 24 hrs: Laboratory Results - last 24 hr 03/11/19 03/11/19 03/11/19 Range/Units 12:45 12:45 12:45 WBC 11.26 H (4.0-11.0) K/uL RBC 4.53 (4.50-5.90) M/uL Hgb 14.1 (13.0-17.0) g/dL Hct 42.2 (38.0-50.0) % MCV 93.2 (80.0-98.0) fL MCH 31.1 (27.0-32.0) pg MCHC 33.4 (31.0-37.0) g/dL RDW Std Deviation 46.4 (28.0-62.0) fl RDW Coeff of Samantha 14 (11.0-15.0) % Plt Count 235 (150-400) K/uL MPV 10.30 (7.40-12.00) fL Neut % (Auto) 66.2 (48.0-80.0) % Lymph % (Auto) 21.8 (16.0-40.0) % [place] % (Auto) 8.0 (0.0-15.0) % Eos % (Auto) 3.6 (0.0-7.0) % Baso % (Auto) 0.4 (0.0-1.5) % Neut # (Auto) 7.5 H (1.4-5.7) K/uL Lymph # (Auto) 2.5 H (0.6-2.4) K/uL [place] # (Auto) 0.9 H (0.0-0.8) K/uL Eos # (Auto) 0.4 (0.0-0.7) K/uL Baso # (Auto) 0.1 (0.0-0.1) K/uL Nucleated RBC % 0.0 /100WBC Nucleated RBCs # 0 K/uL INR 0.97 Sodium 139 (136-148) mmol/L Potassium 4.2 (3.5-5.1) mmol/L Chloride 104 (98-107) mmol/L Carbon Dioxide 22.2 (21.0-32.0) mmol/L BUN 11 (7.0-18.0) mg/dL Creatinine 0.9 (0.8-1.3) mg/dL Est Cr Clr Drug Dosing 77.73 mL/min Estimated GFR (MDRD) > 60.0 ml/min Glucose 90 (74-106) mg/dL Calcium 8.9 (8.5-10.1) mg/dL Total Bilirubin 1.1 H (0.2-1.0) mg/dL AST 23 (15-37) IU/L ALT 25 (14-63) IU/L Alkaline Phosphatase 48 (46-116) U/L Troponin I < 0.050 (0.000-0.056) ng/mL Total Protein 7.1 (6.4-8.2) g/dL Albumin 4.0 (3.4-5.0) g/dL Globulin 3.1 (2.6-4.0) g/dL Albumin/Globulin Ratio 1.3 (0.9-1.6) Result Diagrams: 03/12/19 05:23 03/12/19 05:23 Problem List Initiated/Reviewed/Updated: Yes Orders Last 24hrs: Active Orders 24 hr Category Date Time Status Admission Status [Patient Status] [ADT] Stat ADT 03/11/19 14:09 Active Cardiac Monitoring [RC] . DIRECTED Care 03/11/19 12:40 Active Cardiac Monitoring [RC] CONTINUOUS Care 03/11/19 15:17 Ordered EKG Documentation Completion [RC] STAT Care 03/11/19 12:40 Active Oxygen Therapy [RC] PRN Care 03/11/19 15:16 Ordered Telemetry Monitoring [Cardiac Monitoring] [RC] . Care 03/11/19 14:38 Active DIRECTED Up ad Nela [RC] ASDIRECTED Care 03/11/19 15:16 Ordered VTE/DVT Education [RC] PER UNIT ROUTINE Care 03/11/19 15:16 Ordered Vital Signs [RC] Q4H Care 03/11/19 15:16 Ordered Regular Diet [DIET] Diet 03/11/19 Breakfast Ordered BASIC METABOLIC PANEL,BMP [CHEM] AM Lab 03/12/19 05:11 Ordered CBC WITH AUTO DIFF [HEME] AM Lab 03/12/19 05:11 Ordered TROPONIN I [CHEM] Q6H Lab 03/11/19 19:00 Ordered TROPONIN I [CHEM] Q6H Lab 03/12/19 01:00 Ordered Albuterol Med 03/11/19 15:15 Ordered 1 dose INH ASDIRECTED Aspirin Med 03/12/19 09:00 Ordered 325 mg PO DAILY Baclofen [Baclofen] Med 03/11/19 22:00 Ordered 20 mg PO TID Cetirizine HCl [All Day Allergy] Med 03/12/19 09:00 Ordered 10 mg PO DAILY Clobetasol Med 03/11/19 21:00 Ordered 1 dose TOP BID Clopidogrel [Plavix] Med 03/12/19 09:00 Ordered 75 mg PO DAILY Fluticasone Propionate [Flonase] Med 03/12/19 09:00 Ordered 1 gm NASBOTH DAILY Isosorbide Mononitrate [Imdur] Med 03/12/19 09:00 Ordered 30 mg PO DAILY Ketotifen Med 03/12/19 09:00 Ordered 1 drop EYEBOTH DAILY Latanoprost/Pf [Latanoprost 0.005% Eye Drop] Med 03/12/19 09:00 Ordered 1 drop EYEBOTH DAILY Levothyroxine Sodium [Levothyroxine Sodium] Med 03/12/19 09:00 Ordered 0.5 mg PO DAILY Losartan Med 03/12/19 09:00 Ordered 25 mg PO DAILY Metoprolol Tartrate Med 03/11/19 21:00 Ordered 100 mg OP BID Olodaterol HCl [Striverdi Respimat] Med 03/12/19 09:00 Ordered 2 puff INH DAILY Sodium Chloride 0.9% [Saline Flush] Med 03/11/19 12:40 Active 10 ml FLUSH ASDIRECTED PRN Sodium Chloride 0.9% [Saline Flush] Med 03/11/19 12:40 Active 2.5 ml FLUSH ASDIRECTED PRN atorvaSTATin Calcium [Atorvastatin Calcium] Med 03/11/19 21:00 Ordered 80 mg PO BEDTIME metFORMIN HCl [Metformin HCl] Med 03/11/19 21:00 Ordered 1,000 mg PO BID Saline Lock Insert [OM.PC] Stat Oth 03/11/19 12:40 Ordered Resuscitation Status Routine Resus Stat 03/11/19 15:16 Ordered Medication Orders Albuterol (Ventolin Hfa) 1 gm INH ASDIRECTED [facility] Aspirin (Aspirin) 325 mg PO DAILY [facility] Atorvastatin Calcium (Lipitor) 80 mg PO BEDTIME [facility] Baclofen (Lioresal) 20 mg PO TID [facility] Cetirizine HCl (Zyrtec) 10 mg PO DAILY [facility] Clopidogrel Bisulfate (Plavix) 75 mg PO DAILY [facility] Fluticasone Propionate (Flonase) 1 gm NASBOTH DAILY [facility] Isosorbide Mononitrate (Imdur) 30 mg PO DAILY [facility] Latanoprost (Xalatan 0.005% Ophth Soln) 1 ml EYEBOTH DAILY [facility] Levothyroxine Sodium (Synthroid) 50 mcg PO ACBREAKFAST [facility] Losartan Potassium (Cozaar) 25 mg PO DAILY [facility] Metformin HCl (Glucophage) 1,000 mg PO BIDMEALS [facility] Metoprolol Tartrate (Lopressor) 100 mg PO BID [facility] Clobetasol 1 Dose 1 each TOP BID [facility] Ketotifen 1 Drop 1 each EYEBOTH DAILY [facility] [Striverdi Respimat] (2 Puff) 2 each INH DAILY [facility] Sodium Chloride (Saline Flush) 10 ml FLUSH ASDIRECTED PRN PRN Reason: Keep Vein Open Sodium Chloride (Saline Flush) 2.5 ml FLUSH ASDIRECTED PRN PRN Reason: Keep Vein Open Assessment/Plan Comment:: 69 yo male admitted for atypical chest pain. He was ruled out for acute coronary syndrome with serial negative cardiac enzymes and EKGs. He was discharged home to have follow up with Dr. Quinteros and his primary care physician.
[2019-03-11] MEDS: Acetaminophen 325 MG Tab PO PRN (16:25)
[2019-03-11] MEDS: metFORMIN 500 MG Tab PO SCH (17:04)
[2019-03-11] MEDS ORDERED: Baclofen 10 MG Tab PO SCH ×2 (21:00→22:00)
[2019-03-11] MEDS ORDERED: Metoprolol Tartrate 50 MG Tab PO SCH ×2 (21:00→21:30)
[2019-03-11] MEDS ORDERED: atorvaSTATin 40 MG Tab PO SCH (21:00)
[2019-03-11] MEDS: CLOBETASOL TOP SCH (21:03)
[2019-03-11] MEDS ORDERED: Benzonatate 100 MG Cap PO PRN (21:27)
[2019-03-12 06:06] LABS: CHLORIDE,CL 105 mmol/L (98-107); SODIUM,NA 141 mmol/L (136-148)
[2019-03-12] MEDS ORDERED: Levothyroxine 50 MCG Tab PO SCH (07:30)
[2019-03-12] MEDS: Acetaminophen 325 MG Tab PO PRN (07:48)
[2019-03-12 08:03] VITALS: BP 138/77
[2019-03-12] MEDS ORDERED: METFORMIN 1000 MG PO SCH (08:05)
[2019-03-12] MEDS ORDERED: VENTOLIN HFA INH PRN (08:15)
[2019-03-12] MEDS ORDERED: Baclofen 10 MG Tab PO PRN (08:15)
[2019-03-12] MEDS ORDERED: SYNTHROID 50 MCG PO SCH (08:15)
[2019-03-12] MEDS: CLOBETASOL TOP SCH (08:23)
[2019-03-12] MEDS ORDERED: Cetirizine 10 MG Tab PO SCH (09:00)
[2019-03-12] MEDS ORDERED: Patient's Own Medication 1 Each NASBOTH SCH (09:00)
[2019-03-12] MEDS ORDERED: METOPROLOL TARTRATE 100 MG PO SCH (09:00)
[2019-03-12] MEDS ORDERED: Isosorbide Mononitrate 30 MG Tab.ER PO SCH (09:00)
[2019-03-12] MEDS ORDERED: LOSARTAN 25 MG PO SCH (09:00)
[2019-03-12] MEDS ORDERED: STRIVERDI RESPIMAT INH SCH (09:00)
[2019-03-12] MEDS ORDERED: Aspirin 325 MG Tab PO SCH (09:00)
[2019-03-12] MEDS ORDERED: Clopidogrel 75 MG Tab PO SCH (09:00)
[2019-03-12] MEDS ORDERED: Ketotifen 1 DROP EYEBOTH SCH (09:00)
[2019-03-12] MEDS ORDERED: Latanoprost 0.005% Ophth Soln 2.5 ML Bottle EYEBOTH SCH (09:00)
[2019-03-12] MEDS: metFORMIN 500 MG Tab PO SCH (11:57)
== END 2019-03-12 12:07 | disposition home or self-care (01) ==
LOC: MW.ED 12:38 → MW.MS 14:27
PROVIDERS: ADMIT Internal Medicine; ATTEND Internal Medicine
DX: R07.89 Other chest pain (principal); I25.10 Atherosclerotic heart disease of native coronary artery without angina pectoris; I25.2 Old myocardial infarction; I10 Essential (primary) hypertension; E11.9 Type 2 diabetes mellitus without complications; E78.00 Pure hypercholesterolemia, unspecified; E03.9 Hypothyroidism, unspecified; Z95.5 Presence of coronary angioplasty implant and graft; Z87.891 Personal history of nicotine dependence; Z79.82 Long term (current) use of aspirin; Z79.02 Long term (current) use of antithrombotics/antiplatelets; Z79.84 Long term (current) use of oral hypoglycemic drugs; Z79.899 Other long term (current) drug therapy
CPT/HCPCS: 36415; 71045; 71045-26; 80048; 80053; 84484; 85025; 85610; 93005; 96374; 96375; 99283; 99285-25; A9270-GY; G0378; J1885; J2270

== ENCOUNTER 2019-06-01 15:11 | Observation (INO) | payer MEDICARE ==
[2019-06-01] MEDS ORDERED: Sodium Chloride 0.9% 10 ML Syringe FLUSH PRN (15:17)
[2019-06-01] MEDS ORDERED: Sodium Chloride 0.9% 2.5 ML Syringe FLUSH PRN (15:17)
[2019-06-01] MEDS ORDERED: Aspirin 81 MG Tab.Chew PO ONE (15:17)
--- NOTE | 2019-06-01 15:20 | EDM.PDOC ---
ED HPI GENERAL MEDICAL PROBLEM - General Chief Complaint: Chest Pain Stated Complaint: AMB Time Seen by Provider: 06/01/19 15:12 Source of Information: Reports: Patient History Limitations: Reports: No Limitations - History of Present Illness INITIAL COMMENTS - FREE TEXT/NARRATIVE: History of present illness: []Patient complained of dizziness approximately 45 minutes prior to arrival. EMS was called and they responded however patient refused treatment and transport. They were called back shortly to his house for complaint of chest pain. Patient has a significant history of coronary artery disease with several stents placed. Review of systems: As per history of present illness and below otherwise all systems reviewed and negative. Past medical history: As per history of present illness and as reviewed below otherwise noncontributory. Surgical history: As per history of present illness and as reviewed below otherwise noncontributory. Social history: No reported history of drug or alcohol abuse. Family history: As per history of present illness and as reviewed below otherwise noncontributory. Physical exam: General: Well developed, well nourished in NAD HEENT: Atraumatic, normocephalic, pupils reactive, negative for conjunctival pallor or scleral icterus, mucous membranes moist, throat clear, neck supple, nontender, trachea midline. Lungs: Clear to auscultation, breath sounds equal bilaterally, chest nontender. Heart: S1S2, regular, negative for clicks, rubs, or JVD. Abdomen: NABS, Soft, nondistended, nontender. Negative for masses or hepatosplenomegaly. Negative for costovertebral tenderness. Pelvis: Stable nontender. Genitourinary: Deferred. Rectal: Deferred. Extremities: Atraumatic, negative for cords or calf pain. Neurovascular unremarkable. Neuro: Awake, alert, oriented. Cranial nerves II through XII unremarkable. Cerebellum unremarkable. Motor and sensory unremarkable throughout. Exam nonfocal. Skin:warm and dry Diagnostics: EKG, CBC, chemistry, troponin, chest x-ray Therapeutics: Aspirin, nitroglycerin ED Course: Stable but Dr. Don agrees to admit Impression: Chest pain, history of coronary artery disease Prescriptions: Plan: It to [facility] telemetry for observation and rule out [place] Definitive disposition and diagnosis as appropriate pending reevaluation and review of above. Chest Pain Pain Score (Numeric/FACES): 5 - Related Data Allergies Allergy/AdvReac Type Severity Reaction Status Date / Time No Known Allergies Allergy Verified 06/01/19 15:13 Home Meds: Home Meds Albuterol [Proventil Neb Soln] 1 dose INH ASDIRECTED 03/11/19 [History] Aspirin 81 mg PO DAILY 03/11/19 [History] Aspirin 325 mg PO DAILY 03/11/19 [History] Baclofen 20 mg PO TID 03/11/19 [History] Cetirizine HCl [All Day Allergy] 10 mg PO DAILY 03/11/19 [History] Clobetasol [Clobetasol Propionate 0.05% Cream] 1 dose TOP BID 03/11/19 [History] Clopidogrel Bisulfate [Clopidogrel] 75 mg PO DAILY 03/11/19 [History] Isosorbide Mononitrate [Imdur] 1 tab PO DAILY 03/11/19 [History] Ketotifen [Ketotifen 0.025% Ophth Soln] 1 drop EYEBOTH DAILY 03/11/19 [History] Latanoprost/Pf [Latanoprost 0.005% Eye Drop] 1 drop EYEBOTH DAILY 03/11/19 [ History] Levothyroxine Sodium 0.5 mg PO DAILY 03/11/19 [History] Losartan [Cozaar] 25 mg PO DAILY 03/11/19 [History] Metoprolol Tartrate 50 mg PO BID 03/11/19 [History] Nitroglycerin 0.4 mg PO ASDIRECTED PRN 03/11/19 [History] Olodaterol HCl [Striverdi Respimat] 2 puff INH DAILY 03/11/19 [History] Potassium Chloride 20 meq PO TID 03/11/19 [History] atorvaSTATin Calcium [Atorvastatin Calcium] 80 mg PO BEDTIME 03/11/19 [History] metFORMIN HCl [Metformin HCl] 1,000 mg PO BID 03/11/19 [History] Diclofenac Sodium 100 gm TP DAILY 06/01/19 [History] Gabapentin [Neurontin] 300 mg PO DAILY 06/01/19 [History] Ranolazine [Ranexa] 500 mg PO DAILY 06/01/19 [History] Past Medical History HEENT History: Reports: Other (See Below) Other HEENT History: wears glasses Cardiovascular History: Reports: CAD, High Cholesterol, Hypertension, Stents, Other (See Below) Other Cardiovascular History: [place] x3. Carotid atherosclerosis Respiratory History: Reports: None Gastrointestinal History: Reports: None Genitourinary History: Reports: None Musculoskeletal History: Reports: Back Pain, Chronic Other Musculoskeletal History: chronic neck and back pain, lumbar stenosis, chronic pain syndrome Endocrine/Metabolic History: Reports: Diabetes, Type II, Hypothyroidism Other Endocrine/Metabolic History: states "pre diabetic" Immunologic History: Reports: None Oncologic (Cancer) History: Reports: None Dermatologic History: Reports: Other (See Below) Other Dermatologic History: Granuloma annulare - Infectious Disease History Infectious Disease History: Reports: Chicken Pox, Measles, Mumps - Past Surgical History Head Surgeries/Procedures: Reports: None Cardiovascular Surgical History: Reports: Coronary Artery Stent Neurological Surgical History: Reports: Lumbar Spine Other Neurological Surgeries/Procedures: TENS unit Social & Family History - Family History Family Medical History: Noncontributory - Tobacco Use Smoking Status *Q: Former Smoker Used Tobacco, but Quit: Yes Month/Year Tobacco Last Used: 40 - Caffeine Use Caffeine Use: Reports: Coffee Other Caffeine Use: 1 cup a day Caffeine Use Comment: 2 cups of coffee in morning - Recreational Drug Use Recreational Drug Use: Yes Drug Use in Last 12 Months: Yes Recreational Drug Type: Reports: Marijuana/Hashish Recreational Drug Use Frequency: Daily ED ROS GENERAL - Review of Systems Review Of Systems: See Below ED EXAM, GENERAL - Physical Exam Exam: See Below Course - Vital Signs Last Recorded V/S: Last Vital Signs Temp 97.9 F 06/01/19 15:13 Pulse 77 06/01/19 15:13 Resp 17 06/01/19 15:13 BP 123/88 06/01/19 15:44 Pulse Ox 97 06/01/19 15:13 - Orders/Labs/Meds Orders: Active Orders 24 hr Category Date Time Status Patient Status [ADT] Stat ADT 06/01/19 16:15 Ordered EKG Documentation Completion [RC] STAT Care 06/01/19 15:17 Active UA W/MICROSCOPIC [URIN] Stat Lab 06/01/19 16:13 Ordered Sodium Chloride 0.9% [Saline Flush] Med 06/01/19 15:17 Active 10 ml FLUSH ASDIRECTED PRN Sodium Chloride 0.9% [Saline Flush] Med 06/01/19 15:17 Active 2.5 ml FLUSH ASDIRECTED PRN Saline Lock Insert [OM.PC] Stat Oth 06/01/19 15:17 Ordered Medication Orders Sodium Chloride (Saline Flush) 10 ml FLUSH ASDIRECTED PRN PRN Reason: Keep Vein Open Last Admin: 06/01/19 15:33 Dose: 10 ml Sodium Chloride (Saline Flush) 2.5 ml FLUSH ASDIRECTED PRN PRN Reason: Keep Vein Open Last Admin: 06/01/19 15:33 Dose: 2.5 ml Labs: Laboratory Tests 06/01/19 06/01/19 Range/Units 15:25 15:25 WBC 17.71 H (4.0-11.0) K/uL RBC 4.28 L (4.50-5.90) M/uL Hgb 13.7 (13.0-17.0) g/dL Hct 40.7 (38.0-50.0) % MCV 95.1 (80.0-98.0) fL MCH 32.0 (27.0-32.0) pg MCHC 33.7 (31.0-37.0) g/dL RDW Std Deviation 46.1 (28.0-62.0) fl RDW Coeff of Samantha 13 (11.0-15.0) % Plt Count 265 (150-400) K/uL MPV 10.30 (7.40-12.00) fL Neut % (Auto) 87.1 H (48.0-80.0) % Lymph % (Auto) 7.1 L (16.0-40.0) % [facility] % (Auto) 5.1 (0.0-15.0) % Eos % (Auto) 0.6 (0.0-7.0) % Baso % (Auto) 0.1 (0.0-1.5) % Neut # (Auto) 15.4 H (1.4-5.7) K/uL Lymph # (Auto) 1.3 (0.6-2.4) K/uL [facility] # (Auto) 0.9 H (0.0-0.8) K/uL Eos # (Auto) 0.1 (0.0-0.7) K/uL Baso # (Auto) 0.0 (0.0-0.1) K/uL Nucleated RBC % 0.0 /100WBC Nucleated RBCs # 0 K/uL Sodium 137 (136-148) mmol/L Potassium 4.5 (3.5-5.1) mmol/L Chloride 103 (98-107) mmol/L Carbon Dioxide 22.6 (21.0-32.0) mmol/L BUN 20 H (7.0-18.0) mg/dL Creatinine 1.1 (0.8-1.3) mg/dL Est Cr Clr Drug Dosing 63.60 mL/min Estimated GFR (MDRD) > 60.0 ml/min Glucose 108 H (74-106) mg/dL Calcium 9.4 (8.5-10.1) mg/dL Total Bilirubin 0.6 (0.2-1.0) mg/dL AST 15 (15-37) IU/L ALT 25 (14-63) IU/L Alkaline Phosphatase 48 (46-116) U/L Troponin I < 0.050 (0.000-0.056) ng/mL Total Protein 7.0 (6.4-8.2) g/dL Albumin 3.9 (3.4-5.0) g/dL Globulin 3.1 (2.6-4.0) g/dL Albumin/Globulin Ratio 1.3 (0.9-1.6) Meds: Medications Generic Name Dose Route Start Last Admin Trade Name Freq PRN Reason Stop Dose Admin Sodium Chloride 10 ml 06/01/19 15:17 06/01/19 15:33 Saline Flush FLUSH 10 ml ASDIRECTED PRN Administration Keep Vein Open Sodium Chloride 2.5 ml 06/01/19 15:17 06/01/19 15:33 Saline Flush FLUSH 2.5 ml ASDIRECTED PRN Administration Keep Vein Open Discontinued Medications Generic Name Dose Route Start Last Admin Trade Name Freq PRN Reason Stop Dose Admin Aspirin 324 mg 06/01/19 15:17 06/01/19 15:31 Aspirin PO 06/01/19 15:18 324 mg ONETIME ONE Administration Nitroglycerin 0.4 mg 06/01/19 15:17 06/01/19 15:44 Nitrostat SL 0.4 mg Q5M PRN Administration Chest Pain Departure - Departure Time of Disposition: 16:17 Disposition: Home, Self-Care 01 Condition: Good Clinical Impression: Chest pain Qualifiers: Chest pain type: unspecified Qualified Code(s): R07.9 - Chest pain, unspecified Referrals: PCP,Unknown [Primary Care Provider] - Forms: ED Department Discharge - My Orders Last 24 Hours: My Active Orders 06/01/19 15:17 EKG Documentation Completion [RC] STAT Sodium Chloride 0.9% [Saline Flush] 10 ml FLUSH ASDIRECTED PRN Sodium Chloride 0.9% [Saline Flush] 2.5 ml FLUSH ASDIRECTED PRN Saline Lock Insert [OM.PC] Stat 06/01/19 16:13 UA W/MICROSCOPIC [URIN] Stat 06/01/19 16:15 Patient Status [ADT] Stat - Assessment/Plan Last 24 Hours: My Active Orders 06/01/19 15:17 EKG Documentation Completion [RC] STAT Sodium Chloride 0.9% [Saline Flush] 10 ml FLUSH ASDIRECTED PRN Sodium Chloride 0.9% [Saline Flush] 2.5 ml FLUSH ASDIRECTED PRN Saline Lock Insert [OM.PC] Stat 06/01/19 16:13 UA W/MICROSCOPIC [URIN] Stat 06/01/19 16:15 Patient Status [ADT] Stat
[2019-06-01] MEDS: Nitroglycerin 0.4 MG Tab.SL SL PRN ×3 (15:33→15:44)
--- NOTE | 2019-06-01 16:02 | CR ---
INDICATION: Chest pain. TECHNIQUE: AP chest. COMPARISON: March 11, 2019. FINDINGS: Clear lungs. Normal heart size and pulmonary vascularity. The included skeletal thorax is unremarkable. Spinal cord stimulation device lead wires within the thoracic spinal canal unchanged. IMPRESSION: No acute cardiopulmonary process identified. No change. Dictated by Michael Sherwood MD @ Jun 01 2019 4:01PM Signed by Dr. Michael Sherwood @ Jun 01 2019 4:02PM
[2019-06-01 16:07] LABS: CHLORIDE,CL 103 mmol/L (98-107); SODIUM,NA 137 mmol/L (136-148)
[2019-06-01] MEDS: Insulin Aspart 100 Units/ML 3 ML Pen SUBCUT SCH (17:51)
[2019-06-01] MEDS ORDERED: Albuterol 8 GM Inhaler INH PRN (20:14)
[2019-06-01] MEDS ORDERED: ALBUTEROL INH PRN (20:14)
[2019-06-01] MEDS ORDERED: Baclofen 10 MG Tab PO PRN (20:14)
[2019-06-01] MEDS ORDERED: Fluticasone Propionate Nasal Spray 16 GM Bottle NAS PRN (20:14)
[2019-06-01] MEDS ORDERED: Albuterol/Ipratropium 3.0-0.5 MG/3 ML Neb Soln NEB PRN (20:16)
--- NOTE | 2019-06-01 20:22 | PCM.HP ---
H&P History of Present Illness - General Date of Service: 06/01/19 Admit Problem/Dx: Admission Diagnosis/Problem Admission Diagnosis/Problem Chest pain - History of Present Illness Initial Comments - Free Text/Narative: 69 yo male with pmh of CAD with multiple stents who presents to the ED with complaints of chest pain. Patient reports two different types of chest pain. Patient has a sharp chest pain on his left that radiates to the back. PAtient also has a chest burning sensation that occurs after a coughing fit. He has been struggling with a chronic productive cough for a year. He reports copious amounts of clear to brownish sputum that sometimes makes it difficult for him to breath. It occurs mostly in the morning after waking up. He also reports runny nose. Dairy apparently makes it worse. He has tried antihistamines, Flonase, nebulizers, steroids, and PPI but it has not helped much. He went to an ENT and they planned on a scope when he is cleared by cardiology. Chest Pain Pain Score (Numeric/FACES): 3 Lower Back Pain Score (Numeric/FACES): 7 - Related Data Allergies/Adverse Reactions: Allergies Allergy/AdvReac Type Severity Reaction Status Date / Time No Known Allergies Allergy Verified 06/01/19 17:10 Home Medications: Home Meds Albuterol [Proventil Neb Soln] 1 dose INH BID PRN 03/11/19 [History] Aspirin 81 mg PO DAILY 03/11/19 [History] Baclofen 10 - 20 mg PO TID 03/11/19 [History] Clopidogrel Bisulfate [Clopidogrel] 75 mg PO DAILY 03/11/19 [History] Isosorbide Mononitrate [Imdur] 1 tab PO DAILY 03/11/19 [History] Latanoprost/Pf [Latanoprost 0.005% Eye Drop] 1 drop EYEBOTH BEDTIME 03/11/19 [ History] Levothyroxine Sodium 50 mcg PO DAILY 03/11/19 [History] Losartan [Cozaar] 50 mg PO DAILY 03/11/19 [History] Metoprolol Tartrate 50 mg PO BID 03/11/19 [History] Nitroglycerin 0.4 mg PO ASDIRECTED PRN 03/11/19 [History] Potassium Chloride 10 meq PO TID 03/11/19 [History] atorvaSTATin Calcium [Atorvastatin Calcium] 80 mg PO BEDTIME 03/11/19 [History] metFORMIN HCl [Metformin HCl] 1,000 mg PO BID 03/11/19 [History] Albuterol [Ventolin HFA] 1 puff IH BID PRN 06/01/19 [History] Fluticasone Propionate [Flonase Allergy Relief] 2 spray NS DAILY PRN 06/01/19 [ History] Krill/Om-3/DHA/EPA/Phospho/Ast [Megared [place]-3 Krill Oil Sfgl] 1 cap PO DAILY 06/01/19 [History] Past Medical History HEENT History: Reports: Glaucoma, Other (See Below) Other HEENT History: wears glasses Cardiovascular History: Reports: CAD, High Cholesterol, Hypertension, Stents, Other (See Below) Other Cardiovascular History: [place] x3. Carotid atherosclerosis Respiratory History: Reports: None Gastrointestinal History: Reports: None Genitourinary History: Reports: None Musculoskeletal History: Reports: Back Pain, Chronic Other Musculoskeletal History: chronic neck and back pain, lumbar stenosis, chronic pain syndrome Endocrine/Metabolic History: Reports: Diabetes, Type II, Hypothyroidism Other Endocrine/Metabolic History: states "pre diabetic" Immunologic History: Reports: None Oncologic (Cancer) History: Reports: None Dermatologic History: Reports: Other (See Below) Other Dermatologic History: Granuloma annulare - Infectious Disease History Infectious Disease History: Reports: Chicken Pox, Measles, Mumps, Shingles - Past Surgical History Head Surgeries/Procedures: Reports: None Cardiovascular Surgical History: Reports: Coronary Artery Stent Neurological Surgical History: Reports: Lumbar Spine Other Neurological Surgeries/Procedures: TENS unit Social & Family History - Family History Family Medical History: Noncontributory - Tobacco Use Smoking Status *Q: Former Smoker Used Tobacco, but Quit: Yes Month/Year Tobacco Last Used: 11/1991 Tobacco Use Comment: Client stopped smoking 25 years ago and stopped chewing 3 years ago Second Hand Smoke Exposure: No - Caffeine Use Caffeine Use: Reports: Coffee Other Caffeine Use: 1 cup a day Caffeine Use Comment: 2 cups of coffee in morning - Recreational Drug Use Recreational Drug Use: Yes Drug Use in Last 12 Months: Yes Recreational Drug Type: Reports: Marijuana/Hashish Recreational Drug Use Frequency: Daily H&P Review of Systems - Review of Systems: Review Of Systems: See Below Exam - Exam Exam: See Below - Vital Signs Vital Signs: Last Vital Signs Temp 36.6 C 06/01/19 17:00 Pulse 64 06/01/19 17:00 Resp 19 06/01/19 17:00 BP 158/75 H 06/01/19 17:00 Pulse Ox 97 06/01/19 17:00 Weight: 86.818 kg - Exam General: Alert, Oriented HEENT: Mucosa Moist & [place] Lungs: Clear to Auscultation, Normal Respiratory Effort Cardiovascular: Regular Rate, Regular Rhythm GI/Abdominal Exam: Soft, Non-Tender Extremities: Non-Tender, No Pedal Edema Skin: Warm, Dry, Intact - Patient Data Lab Results Last 24 hrs: Laboratory Results - last 24 hr 06/01/19 06/01/19 06/01/19 Range/Units 15:25 15:25 17:10 WBC 17.71 H (4.0-11.0) K/uL RBC 4.28 L (4.50-5.90) M/uL Hgb 13.7 (13.0-17.0) g/dL Hct 40.7 (38.0-50.0) % MCV 95.1 (80.0-98.0) fL MCH 32.0 (27.0-32.0) pg MCHC 33.7 (31.0-37.0) g/dL RDW Std Deviation 46.1 (28.0-62.0) fl RDW Coeff of Samantha 13 (11.0-15.0) % Plt Count 265 (150-400) K/uL MPV 10.30 (7.40-12.00) fL Neut % (Auto) 87.1 H (48.0-80.0) % Lymph % (Auto) 7.1 L (16.0-40.0) % [place] % (Auto) 5.1 (0.0-15.0) % Eos % (Auto) 0.6 (0.0-7.0) % Baso % (Auto) 0.1 (0.0-1.5) % Neut # (Auto) 15.4 H (1.4-5.7) K/uL Lymph # (Auto) 1.3 (0.6-2.4) K/uL [place] # (Auto) 0.9 H (0.0-0.8) K/uL Eos # (Auto) 0.1 (0.0-0.7) K/uL Baso # (Auto) 0.0 (0.0-0.1) K/uL Nucleated RBC % 0.0 /100WBC Nucleated RBCs # 0 K/uL Sodium 137 (136-148) mmol/L Potassium 4.5 (3.5-5.1) mmol/L Chloride 103 (98-107) mmol/L Carbon Dioxide 22.6 (21.0-32.0) mmol/L BUN 20 H (7.0-18.0) mg/dL Creatinine 1.1 (0.8-1.3) mg/dL Est Cr Clr Drug Dosing 63.60 mL/min Estimated GFR (MDRD) > 60.0 ml/min Glucose 108 H (74-106) mg/dL POC Glucose (60-110) mg/dL Calcium 9.4 (8.5-10.1) mg/dL Total Bilirubin 0.6 (0.2-1.0) mg/dL AST 15 (15-37) IU/L ALT 25 (14-63) IU/L Alkaline Phosphatase 48 (46-116) U/L Troponin I < 0.050 (0.000-0.056) ng/mL Total Protein 7.0 (6.4-8.2) g/dL Albumin 3.9 (3.4-5.0) g/dL Globulin 3.1 (2.6-4.0) g/dL Albumin/Globulin Ratio 1.3 (0.9-1.6) Urine Color YELLOW Urine Appearance CLEAR Urine pH 6.0 (5.0-8.0) Ur Specific [place] 1.015 (1.001-1.035) Urine Protein NEGATIVE (NEGATIVE) mg/dL Urine Glucose (UA) NEGATIVE (NEGATIVE) mg/dL Urine Ketones NEGATIVE (NEGATIVE) mg/dL Urine Occult Blood NEGATIVE (NEGATIVE) Urine Nitrite NEGATIVE (NEGATIVE) Urine Bilirubin NEGATIVE (NEGATIVE) Urine Urobilinogen 0.2 (<2.0) EU/dL Ur Leukocyte Esterase NEGATIVE (NEGATIVE) Urine RBC 0-2 (0-2/HPF) Urine WBC 0-3 (0-5/HPF) Ur Epithelial Cells RARE (NONE-FEW) Urine Bacteria FEW (NEGATIVE) 06/01/19 Range/Units 17:22 WBC (4.0-11.0) K/uL RBC (4.50-5.90) M/uL Hgb (13.0-17.0) g/dL Hct (38.0-50.0) % MCV (80.0-98.0) fL MCH (27.0-32.0) pg MCHC (31.0-37.0) g/dL RDW Std Deviation (28.0-62.0) fl RDW Coeff of Samantha (11.0-15.0) % Plt Count (150-400) K/uL MPV (7.40-12.00) fL Neut % (Auto) (48.0-80.0) % Lymph % (Auto) (16.0-40.0) % [place] % (Auto) (0.0-15.0) % Eos % (Auto) (0.0-7.0) % Baso % (Auto) (0.0-1.5) % Neut # (Auto) (1.4-5.7) K/uL Lymph # (Auto) (0.6-2.4) K/uL [place] # (Auto) (0.0-0.8) K/uL Eos # (Auto) (0.0-0.7) K/uL Baso # (Auto) (0.0-0.1) K/uL Nucleated RBC % /100WBC Nucleated RBCs # K/uL Sodium (136-148) mmol/L Potassium (3.5-5.1) mmol/L Chloride (98-107) mmol/L Carbon Dioxide (21.0-32.0) mmol/L BUN (7.0-18.0) mg/dL Creatinine (0.8-1.3) mg/dL Est Cr Clr Drug Dosing mL/min Estimated GFR (MDRD) ml/min Glucose (74-106) mg/dL POC Glucose 100 (60-110) mg/dL Calcium (8.5-10.1) mg/dL Total Bilirubin (0.2-1.0) mg/dL AST (15-37) IU/L ALT (14-63) IU/L Alkaline Phosphatase (46-116) U/L Troponin I (0.000-0.056) ng/mL Total Protein (6.4-8.2) g/dL Albumin (3.4-5.0) g/dL Globulin (2.6-4.0) g/dL Albumin/Globulin Ratio (0.9-1.6) Urine Color Urine Appearance Urine pH (5.0-8.0) Ur Specific [place] (1.001-1.035) Urine Protein (NEGATIVE) mg/dL Urine Glucose (UA) (NEGATIVE) mg/dL Urine Ketones (NEGATIVE) mg/dL Urine Occult Blood (NEGATIVE) Urine Nitrite (NEGATIVE) Urine Bilirubin (NEGATIVE) Urine Urobilinogen (<2.0) EU/dL Ur Leukocyte Esterase (NEGATIVE) Urine RBC (0-2/HPF) Urine WBC (0-5/HPF) Ur Epithelial Cells (NONE-FEW) Urine Bacteria (NEGATIVE) Result Diagrams: 06/02/19 03:00 06/02/19 03:00 Problem List Initiated/Reviewed/Updated: Yes Orders Last 24hrs: Active Orders 24 hr Category Date Time Status Patient Status [ADT] Stat ADT 06/01/19 16:15 Active Antiembolic Devices [RC] PER UNIT ROUTINE Care 06/01/19 20:17 Ordered Oxygen Therapy [RC] PRN Care 06/01/19 20:16 Ordered RT Aerosol Therapy [RC] ASDIRECTED Care 06/01/19 20:17 Ordered Up ad Nela [RC] ASDIRECTED Care 06/01/19 20:16 Ordered VTE/DVT Education [RC] PER UNIT ROUTINE Care 06/01/19 20:16 Ordered Vital Signs [RC] Q4H Care 06/01/19 20:16 Ordered Consult to Diabetic Nurse Specialist [CONS] Routine Cons 06/01/19 17:21 Active [employer] Diet [DIET] Diet 06/01/19 Dinner Active BASIC METABOLIC PANEL,BMP [CHEM] AM Lab 06/02/19 05:11 Ordered CBC WITH AUTO DIFF [HEME] AM Lab 06/02/19 05:11 Ordered TROPONIN I [CHEM] Routine Lab 06/01/19 21:00 Ordered TROPONIN I [CHEM] Timed Lab 06/02/19 03:00 Ordered Albuterol Med 06/01/19 20:14 Ordered 1 dose INH BID PRN Albuterol [Ventolin HFA] Med 06/01/19 20:14 Ordered DOSE gm INH BID PRN Albuterol/Ipratropium [DuoNeb 3.0-0.5 MG/3 ML] Med 06/01/19 20:16 Ordered 3 ml NEB Q4HRRT PRN Aspirin Med 06/02/19 09:00 Ordered 81 mg PO DAILY Baclofen [Baclofen] Med 06/01/19 20:14 Ordered 10 mg PO TID PRN Clopidogrel [Plavix] Med 06/02/19 09:00 Ordered 75 mg PO DAILY Fluticasone Propionate [Flonase Allergy Relief] Med 06/01/19 20:14 Ordered 2 spray NS DAILY PRN Insulin Aspart [NovoLOG] Med 06/01/19 17:00 Active See Protocol SUBCUT TIDAC Isosorbide Mononitrate [Imdur] Med 06/02/19 09:00 Ordered 30 mg PO DAILY Latanoprost [Xalatan 0.005% Ophth Soln] Med 06/01/19 21:00 Active 0 ml EYEBOTH BEDTIME Levothyroxine Sodium [Levothyroxine Sodium] Med 06/02/19 09:00 Ordered 50 mcg PO DAILY Losartan Med 06/02/19 09:00 Ordered 50 mg PO DAILY Non-Formulary Medication [NF Drug] Med 06/01/19 21:00 Active 50 each PO BID Sodium Chloride 0.9% [Saline Flush] Med 06/01/19 15:17 Active 10 ml FLUSH ASDIRECTED PRN Sodium Chloride 0.9% [Saline Flush] Med 06/01/19 15:17 Active 2.5 ml FLUSH ASDIRECTED PRN atorvaSTATin Calcium [Atorvastatin Calcium] Med 06/01/19 21:00 Active 80 mg PO BEDTIME levoFLOXacin [Levaquin] Med 06/01/19 20:15 Ordered 500 mg PO Q24H Saline Lock Insert [OM.PC] Stat Oth 06/01/19 15:17 Ordered Sequential Compression Device [OM.PC] Per Unit Routine Oth 06/01/19 20:16 Ordered Resuscitation Status Routine Resus Stat 06/01/19 20:16 Ordered Medication Orders Albuterol (Ventolin Hfa) gm INH BID PRN PRN Reason: Shortness of Breath Aspirin (Aspirin) 81 mg PO DAILY RICHARD Clopidogrel Bisulfate (Plavix) 75 mg PO DAILY RICHARD Insulin Aspart (Novolog) 0 unit SUBCUT TIDAC RICHARD; Protocol Last Admin: 06/01/19 17:51 Dose: Not Given Isosorbide Mononitrate (Imdur) 30 mg PO DAILY RICHARD Latanoprost (Xalatan 0.005% Ophth Soln) 0 ml EYEBOTH BEDTIME RICHARD Levofloxacin (Levaquin) 500 mg PO Q24H RICHARD Atorvastatin Calcium [Atorvastatin Calcium] 80mg Own Med 80 mg PO BEDTIME RICHARD Metoprolol Tartrate 100 Mg Tab Own Med 50 each PO BID RICHARD Non-Formulary Medication (Albuterol) 1 dose INH BID PRN PRN Reason: Shortness of Breath Non-Formulary Medication (Baclofen [Baclofen]) 10 mg PO TID PRN PRN Reason: spasms Non-Formulary Medication (Fluticasone Propionate [Flonase Allergy Relief]) 2 spray NS DAILY PRN PRN Reason: Allergies Non-Formulary Medication (Levothyroxine Sodium [Levothyroxine Sodium]) 50 mcg PO DAILY RICHARD Non-Formulary Medication (Losartan) 50 mg PO DAILY RICHARD Sodium Chloride (Saline Flush) 10 ml FLUSH ASDIRECTED PRN PRN Reason: Keep Vein Open Last Admin: 06/01/19 15:33 Dose: 10 ml Sodium Chloride (Saline Flush) 2.5 ml FLUSH ASDIRECTED PRN PRN Reason: Keep Vein Open Last Admin: 06/01/19 15:33 Dose: 2.5 ml Assessment/Plan Comment:: 69 yo male admitted for chest pain. He ruled out for acute coronary syndrome with serial negative cardiac enzymes. He had no events on telemetry overnight. He is to be discharged home. He was place on levaquin 500mg for five days due to his leukocytosis with history of productive cough. I recommend to him to see an gizzard peeler regarding his chronic cough and [facility] wants [facility] I also recommended that he tilt the head of his bed as his cough could also be coming from reflux.
[2019-06-01] MEDS: METOPROLOL TARTRATE 100 MG PO SCH (20:58)
[2019-06-01] MEDS ORDERED: Latanoprost 0.005% Ophth Soln 2.5 ML Bottle ** OWN MED EYEBOTH SCH (21:00)
[2019-06-01] MEDS ORDERED: ATORVASTATIN CALCIUM 80 MG PO SCH (21:00)
[2019-06-01] MEDS ORDERED: Levofloxacin 500 MG Tab PO SCH (21:00)
[2019-06-02 06:34] LABS: CHLORIDE,CL 103 mmol/L (98-107); SODIUM,NA 139 mmol/L (136-148)
[2019-06-02 08:05] VITALS: BP 140/75
[2019-06-02] MEDS: Insulin Aspart 100 Units/ML 3 ML Pen SUBCUT SCH ×2 (08:30→12:59)
[2019-06-02] MEDS: METOPROLOL TARTRATE 100 MG PO SCH (08:30)
[2019-06-02] MEDS ORDERED: Levothyroxine 50 MCG Tab PO SCH (09:00)
[2019-06-02] MEDS ORDERED: Clopidogrel 75 MG Tab PO SCH (09:00)
[2019-06-02] MEDS ORDERED: Losartan 50 MG Tab PO SCH (09:00)
[2019-06-02] MEDS ORDERED: Isosorbide Mononitrate 30 MG Tab.ER PO SCH (09:00)
[2019-06-02] MEDS ORDERED: Aspirin 81 MG Tab.Chew PO SCH (09:00)
== END 2019-06-02 12:18 | disposition home or self-care (01) ==
LOC: MW.ED 15:11 → MW.MS 16:18
PROVIDERS: ADMIT Internal Medicine; ATTEND Internal Medicine
DX: R07.9 Chest pain, unspecified (principal); I25.10 Atherosclerotic heart disease of native coronary artery without angina pectoris; I10 Essential (primary) hypertension; I25.2 Old myocardial infarction; I65.29 Occlusion and stenosis of unspecified carotid artery; E11.9 Type 2 diabetes mellitus without complications; E78.00 Pure hypercholesterolemia, unspecified; E03.9 Hypothyroidism, unspecified; Z95.5 Presence of coronary angioplasty implant and graft; Z87.891 Personal history of nicotine dependence; Z79.82 Long term (current) use of aspirin; Z79.02 Long term (current) use of antithrombotics/antiplatelets; Z79.84 Long term (current) use of oral hypoglycemic drugs; Z79.899 Other long term (current) drug therapy
CPT/HCPCS: 36415; 71045; 80048; 80053; 81001; 82962; 84484; 85025; 99285; A9270; G0378

== ENCOUNTER 2019-11-22 10:18 | Emergency (ER) | payer OTHER ==
--- NOTE | 2019-11-22 10:46 | EDM.PDOC ---
ED HPI GENERAL MEDICAL PROBLEM - General Chief Complaint: Chest Pain Stated Complaint: CHEST PAIN Time Seen by Provider: 11/22/19 10:19 Source of Information: Reports: Patient History Limitations: Reports: No Limitations - History of Present Illness INITIAL COMMENTS - FREE TEXT/NARRATIVE: Patient is a 69-year-old male with complicated history of having 3 weeks of chest discomfort on the left side that seems to radiate to the shoulder area. [facility] of his chest and x-rays of his neck and shoulder for this ongoing pain. Patient states symptoms of been much worse since last night and rates pain 10 out of 10 intensity. He denies any diaphoresis any nausea vomiting or shortness of breath beyond his usual COPD symptoms. Patient denies having any cough or fever or chills. Any bloody or tarry looking stools or swelling to his ankles or calfs. Patient denies that his pain is worse with taking a deep breath but is worse with movement of his torso. He does have a history of PTCAs with 7 stents being placed. Not remember when his last stress test was a scheduled to see his ear nose throat surgeon next week. Onset: Gradual, Unknown/Unsure Duration: Getting Worse Location: Reports: Chest Quality: Reports: Ache, Pressure Severity: Severe Improves with: Reports: None Worsens with: Reports: Movement Context: Denies: Activity Associated Symptoms: Reports: No Other Symptoms chest Pain Score (Numeric/FACES): 7 - Related Data Allergies Allergy/AdvReac Type Severity Reaction Status Date / Time No Known Allergies Allergy Verified 11/22/19 10:22 Home Meds: Home Meds Albuterol [Proventil Neb Soln] 1 dose INH BID PRN 03/11/19 [History] Aspirin 81 mg PO DAILY 03/11/19 [History] Baclofen 10 - 20 mg PO TID 03/11/19 [History] Clopidogrel Bisulfate [Clopidogrel] 75 mg PO DAILY 03/11/19 [History] Isosorbide Mononitrate [Imdur] 1 tab PO DAILY 03/11/19 [History] Latanoprost/Pf [Latanoprost 0.005% Eye Drop] 1 drop EYEBOTH BEDTIME 03/11/19 [ History] Levothyroxine Sodium 50 mcg PO DAILY 03/11/19 [History] Losartan [Cozaar] 50 mg PO DAILY 03/11/19 [History] Metoprolol Tartrate 50 mg PO BID 03/11/19 [History] Nitroglycerin 0.4 mg PO ASDIRECTED PRN 03/11/19 [History] Potassium Chloride 10 meq PO TID 03/11/19 [History] atorvaSTATin Calcium [Atorvastatin Calcium] 80 mg PO BEDTIME 03/11/19 [History] metFORMIN HCl [Metformin HCl] 1,000 mg PO BID 03/11/19 [History] Albuterol [Ventolin HFA] 1 puff IH BID PRN 06/01/19 [History] Fluticasone Propionate [Flonase Allergy Relief] 2 spray NS DAILY PRN 06/01/19 [ History] Krill/Om-3/DHA/EPA/Phospho/Ast [Megared [place]-3 Krill Oil Sfgl] 1 cap PO DAILY 06/01/19 [History] Acetaminophen/HYDROcodone [[place] 325-5 MG] 1 tab PO Q6H PRN #10 tablet 11/22/19 [Rx] Lidocaine 5% [Lidoderm 5%] 1 patch TOP DAILY PRN #10 patch 11/22/19 [Rx] Pantoprazole Sodium 1 tab PO DAILY 11/22/19 [History] Tamsulosin HCl [Flomax] 0.4 mg PO DAILY 11/22/19 [History] busPIRone [Buspar] 5 mg PO BID 11/22/19 [History] Past Medical History HEENT History: Reports: Glaucoma, Impaired Vision, Other (See Below) Other HEENT History: wears glasses Cardiovascular History: Reports: CAD, High Cholesterol, Hypertension, Stents, Other (See Below) Other Cardiovascular History: [place] x3. Carotid atherosclerosis Respiratory History: Reports: None Gastrointestinal History: Reports: None Genitourinary History: Reports: BPH Musculoskeletal History: Reports: Back Pain, Chronic Other Musculoskeletal History: chronic neck and back pain, lumbar stenosis, chronic pain syndrome Endocrine/Metabolic History: Reports: Diabetes, Type II, Hypothyroidism Other Endocrine/Metabolic History: states "pre diabetic" Immunologic History: Reports: None Oncologic (Cancer) History: Reports: None Dermatologic History: Reports: Other (See Below) Other Dermatologic History: Granuloma annulare - Infectious Disease History Infectious Disease History: Reports: Chicken Pox, Measles, Mumps, Shingles - Past Surgical History Head Surgeries/Procedures: Reports: None HEENT Surgical History: Reports: Cataract Surgery, Eye Surgery, LASIK Cardiovascular Surgical History: Reports: Coronary Artery Stent Neurological Surgical History: Reports: Lumbar Spine Other Neurological Surgeries/Procedures: TENS unit Social & Family History - Family History Family Medical History: Noncontributory - Tobacco Use Smoking Status *Q: Former Smoker Used Tobacco, but Quit: Yes Month/Year Tobacco Last Used: 1994 - Caffeine Use Caffeine Use: Reports: Coffee Other Caffeine Use: 1 cup a day Caffeine Use Comment: 2 cups of coffee in morning - Recreational Drug Use Recreational Drug Use: No ED ROS GENERAL - Review of Systems Review Of Systems: Comprehensive ROS is negative, except as noted in HPI. ED EXAM, GENERAL - Physical Exam Exam: See Below Free Text/Narrative:: Exam: See Below Exam Limited By: No Limitations Head: Atraumatic Neck: Normal Inspection. No: Carotid Bruit, Lymphadenopathy (R)(L) Respiratory/Chest: No Respiratory Distress, Lungs Clear, Normal Breath Sounds, No Accessory Muscle Use. Left-sided anterior chest is somewhat tender and partially reproduces pain symptoms. Cardiovascular: Normal Peripheral Pulses, Regular Rate, Rhythm, No Edema, No JVD GI/Abdominal: Normal Bowel Sounds, Tender. No: Non-Tender, no splenomegaly Back Exam: Normal Inspection. No: CVA Tenderness (R) Extremities: Normal Inspection. No: No Pedal Edema Neurological: Alert, Oriented, Normal Cognition Psychiatric: Normal Affect Skin Exam: Warm Lymphatic: No Adenopathy EKG INTERPRETATION EKG Date: 11/22/19 Rhythm: Other (Sinus bradycardia with a heart rate of 48) P-Wave: Present QRS: Normal ST-T: Normal Course - Vital Signs Last Recorded V/S: Last Vital Signs Temp 35.8 C 11/22/19 10:20 Pulse 48 L 11/22/19 10:20 Resp 18 11/22/19 10:20 BP 150/86 H 11/22/19 10:20 Pulse Ox 98 11/22/19 10:20 - Orders/Labs/Meds Orders: Active Orders 24 hr Category Date Time Status EKG Documentation Completion [RC] STAT Care 11/22/19 10:44 Active Labs: Laboratory Tests 11/22/19 11/22/19 11/22/19 Range/Units 10:40 10:40 10:40 WBC 12.47 H (4.0-11.0) K/uL RBC 4.45 L (4.50-5.90) M/uL Hgb 14.0 (13.0-17.0) g/dL Hct 40.7 (38.0-50.0) % MCV 91.5 (80.0-98.0) fL MCH 31.5 (27.0-32.0) pg MCHC 34.4 (31.0-37.0) g/dL RDW Std Deviation 42.2 (28.0-62.0) fl RDW Coeff of Samantha 13 (11.0-15.0) % Plt Count 259 (150-400) K/uL MPV 10.70 (7.40-12.00) fL Neut % (Auto) 71.1 (48.0-80.0) % Lymph % (Auto) 18.9 (16.0-40.0) % [place] % (Auto) 7.8 (0.0-15.0) % Eos % (Auto) 2.0 (0.0-7.0) % Baso % (Auto) 0.2 (0.0-1.5) % Neut # (Auto) 8.9 H (1.4-5.7) K/uL Lymph # (Auto) 2.4 (0.6-2.4) K/uL [place] # (Auto) 1.0 H (0.0-0.8) K/uL Eos # (Auto) 0.3 (0.0-0.7) K/uL Baso # (Auto) 0.0 (0.0-0.1) K/uL Nucleated RBC % 0.0 /100WBC Nucleated RBCs # 0 K/uL INR 1.03 D-Dimer, Quantitative 0.25 (0.0-0.50) mg/L FEU Sodium 133 L (136-148) mmol/L Potassium 4.1 (3.5-5.1) mmol/L Chloride 97 L (98-107) mmol/L Carbon Dioxide 24.1 (21.0-32.0) mmol/L BUN 14 (7.0-18.0) mg/dL Creatinine 0.8 (0.8-1.3) mg/dL Est Cr Clr Drug Dosing 87.45 mL/min Estimated GFR (MDRD) > 60.0 ml/min Glucose 92 (74-106) mg/dL Calcium 8.9 (8.5-10.1) mg/dL Total Bilirubin 1.1 H (0.2-1.0) mg/dL AST 18 (15-37) IU/L ALT 21 (14-63) IU/L Alkaline Phosphatase 52 (46-116) U/L Troponin I (0.000-0.056) ng/mL Total Protein 7.0 (6.4-8.2) g/dL Albumin 3.9 (3.4-5.0) g/dL Globulin 3.1 (2.6-4.0) g/dL Albumin/Globulin Ratio 1.3 (0.9-1.6) 11/22/19 Range/Units 10:40 WBC (4.0-11.0) K/uL RBC (4.50-5.90) M/uL Hgb (13.0-17.0) g/dL Hct (38.0-50.0) % MCV (80.0-98.0) fL MCH (27.0-32.0) pg MCHC (31.0-37.0) g/dL RDW Std Deviation (28.0-62.0) fl RDW Coeff of Samantha (11.0-15.0) % Plt Count (150-400) K/uL MPV (7.40-12.00) fL Neut % (Auto) (48.0-80.0) % Lymph % (Auto) (16.0-40.0) % [place] % (Auto) (0.0-15.0) % Eos % (Auto) (0.0-7.0) % Baso % (Auto) (0.0-1.5) % Neut # (Auto) (1.4-5.7) K/uL Lymph # (Auto) (0.6-2.4) K/uL [place] # (Auto) (0.0-0.8) K/uL Eos # (Auto) (0.0-0.7) K/uL Baso # (Auto) (0.0-0.1) K/uL Nucleated RBC % /100WBC Nucleated RBCs # K/uL INR D-Dimer, Quantitative (0.0-0.50) mg/L FEU Sodium (136-148) mmol/L Potassium (3.5-5.1) mmol/L Chloride (98-107) mmol/L Carbon Dioxide (21.0-32.0) mmol/L BUN (7.0-18.0) mg/dL Creatinine (0.8-1.3) mg/dL Est Cr Clr Drug Dosing mL/min Estimated GFR (MDRD) ml/min Glucose (74-106) mg/dL Calcium (8.5-10.1) mg/dL Total Bilirubin (0.2-1.0) mg/dL AST (15-37) IU/L ALT (14-63) IU/L Alkaline Phosphatase (46-116) U/L Troponin I < 0.050 (0.000-0.056) ng/mL Total Protein (6.4-8.2) g/dL Albumin (3.4-5.0) g/dL Globulin (2.6-4.0) g/dL Albumin/Globulin Ratio (0.9-1.6) Meds: Medications Discontinued Medications Generic Name Dose Route Start Last Admin Trade Name Allison PRN Reason Stop Dose Admin Morphine Sulfate 2 mg 11/22/19 10:48 11/22/19 10:52 Morphine IVPUSH 11/22/19 10:49 2 mg ONETIME ONE Administration - Re-Assessments/Exams Free Text/Narrative Re-Assessment/Exam: 11/22/19 11:47 Chest x-ray and lab work including troponin and d-dimer are all negative. Patient remains bradycardic with heart rate in the low 50s and high 40s. He is not symptomatic with this. Since his chest pain could be partially reproduced by pushing on his anterior chest wall I am placing a Lidoderm patch and will give him prescription for a few Norman and more lighted Derm. He has an appointment to follow-up with his PCP this week. I am recommending he stop his Lopressor secondary to his bradycardia until he sees his PCP. Departure - Departure Time of Disposition: 11:59 Disposition: Home, Self-Care 01 Condition: Good Clinical Impression: Atypical chest pain, Bradycardia, Beta jessica toxicity Instructions: Nonspecific Chest Pain, Chest Wall Pain, [id number], Bradycardia, Adult Referrals: Walker Lucio MD [Primary Care Provider] - Forms: ED Department Discharge Additional Instructions: Hold your Lopressor until you see your PCP this week. Lidoderm and Norman as needed for your chest wall pain. Return to ER if having exertional chest pain symptoms or feeling worse. The following information is given to patients seen in the emergency department who are being discharged to home. This information is to outline your options for follow-up care. We provide all patients seen in our emergency department with a follow-up referral. The need for follow-up, as well as the timing and circumstances, are variable depending upon the specifics of your emergency department visit. If you don't have a primary care physician on staff, we will provide you with a referral. We always advise you to contact your personal physician following an emergency department visit to inform them of the circumstance of the visit and for follow-up with them and/or the need for any referrals to a consulting specialist. The emergency department will also refer you to a specialist when appropriate. This referral assures that you have the opportunity for follow-up care with a specialist. All of these measure are taken in an effort to provide you with optimal care, which includes your follow-up. Under all circumstances we always encourage you to contact your private physician who remains a resource for coordinating your care. When calling for follow-up care, please make the office aware that this follow-up is from your recent emergency room visit. If for any reason you are refused follow-up, please contact the [facility] Emergency Department at and asked to speak to the emergency department charge nurse. Sepsis Event Note - Evaluation Sepsis Screening Result: No Definite Risk - Focused Exam Vital Signs: Vital Signs Temp Pulse Resp BP Pulse Ox 11/22/19 10:20 35.8 C 48 L 18 150/86 H 98 Date Exam was Performed: 11/22/19 Time Exam was Performed: 11:45 - My Orders Last 24 Hours: My Active Orders 11/22/19 10:44 EKG Documentation Completion [RC] STAT - Assessment/Plan Last 24 Hours: My Active Orders 11/22/19 10:44 EKG Documentation Completion [RC] STAT
[2019-11-22] MEDS ORDERED: Morphine 2 MG/ML Syringe IVPUSH ONE (10:48)
[2019-11-22 11:09] LABS: BLOOD UREA NITROGEN,BUN 14 mg/dL (7.0-18.0); CARBON DIOXIDE,CO2 24.1 mmol/L (21.0-32.0); CHLORIDE,CL 97 mmol/L (98-107); GLUCOSE RANDOM 92 mg/dL (74-106); POTASSIUM,K 4.1 mmol/L (3.5-5.1); SODIUM,NA 133 mmol/L (136-148)
--- NOTE | 2019-11-22 11:09 | CR ---
INDICATION: chest pain TECHNIQUE: Chest 1 view. COMPARISON: None. FINDINGS: Cardiovascular and mediastinum: Heart size and vasculature are normal in caliber and appearance. Mediastinum is within normal limits. Lungs and pleural space: Lungs are clear. No sign of infiltrate or mass. No sign of pleural effusion. No pneumothorax. Bones and soft tissues: No significant findings. IMPRESSION: Unremarkable chest. Dictated by: Anibal Reynolds MD @ 11/22/2019 11:08:40 (Electronically Signed)
[2019-11-22] MEDS ORDERED: Lidocaine 5% 700 MG Patch TOP ONE (11:56)
[2019-11-22 12:06] VITALS: BP 119/78; PULSE 49
== END 2019-11-22 12:12 | disposition home or self-care (01) ==
LOC: MW.ED 10:18
DX: R00.1 Bradycardia, unspecified (principal); R07.89 Other chest pain; T44.7X5A Adverse effect of beta-adrenoreceptor antagonists, initial encounter; I10 Essential (primary) hypertension; E11.9 Type 2 diabetes mellitus without complications; Z79.899 Other long term (current) drug therapy; Z79.82 Long term (current) use of aspirin; Z87.891 Personal history of nicotine dependence
CPT/HCPCS: 36415; 71045; 80053; 84484; 85025; 85379; 85610; 93005; 96374; 99285; A9270; J2270; 99283

== ENCOUNTER 2019-11-25 09:33 | Observation (INO) | payer MEDICARE, OTHER ==
[2019-11-25] MEDS ORDERED: Aspirin 81 MG Tab.Chew PO ONE (10:08)
[2019-11-25 10:28] LABS: BLOOD UREA NITROGEN,BUN 12 mg/dL (7.0-18.0); CARBON DIOXIDE,CO2 25.4 mmol/L (21.0-32.0); CHLORIDE,CL 100 mmol/L (98-107); GLUCOSE RANDOM 101 mg/dL (74-106); POTASSIUM,K 3.6 mmol/L (3.5-5.1); SODIUM,NA 140 mmol/L (136-148)
--- NOTE | 2019-11-25 11:02 | EDM.PDOC ---
ED [facility] GENERAL MEDICAL PROBLEM - General Chief Complaint: Chest Pain Stated Complaint: CHEST PAIN Time Seen by Provider: 11/25/19 10:20 Source of Information: Reports: Patient History Limitations: Reports: No Limitations - History of Present Illness INITIAL COMMENTS - FREE TEXT/NARRATIVE: Patient is a 69-year-old male with past medical history of hyper tension and cardiovascular disease status post 7 stents presenting with chief complaint of chest discomfort and shortness of breath. Patient states his symptoms have been ongoing for the past 3 days. Patient states they seem to have worsened this morning and he experienced a syncopal episode while in his recliner. Patient did not fall and strike his head and was appropriate and alert, recovering quickly after the event. Patient does not have any seizure history and is never had an episode like this in the past. In addition to that documented in the HPI above, the additional ROS was obtained : Constitutional: Denies fevers or chills Eyes: Denies vision changes ENMT: Denies sore throat CV: Per HPI Resp: Per HPI GI: Denies vomiting or diarrhea : Denies painful urination MSK: Denies recent trauma Skin: Denies new rashes Neuro: Denies new numbness or tingling or weakness Endocrine: Denies unexpected weight loss Heme: Denies bleeding disorders I have reviewed the triage vital signs Const: Well nourished, well developed, appears stated age Eyes: PERRL, no conjunctival injection HENT: NCAT, Neck supple without meningismus CV: RRR, Warm, well-perfused extremities RESP: Slightly tachypneic, lungs are clear bilaterally GI: soft, non-tender, non-distended, no masses MSK: No gross deformities appreciated Skin: Warm, dry. 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 Sensation and motor function of extremities grossly intact. Psych: Appropriate mood and affect Assessment and plan Patient is a 69-year-old male with a past medical history of hypertension and coronary artery disease presenting with a chief complaint of chest pain and shortness of breath. Symptom duration has been several days and have worsened today. In addition, patient had syncopal episode. Patient's labs demonstrate elevated white blood cell count to 16,000 but troponin was negative and EKG did not demonstrate any acute ischemic changes. A CT scan was done to rule out pulmonary embolism, which was negative for pulmonary embolism but did demonstrate some ground glass opacities which may represent infection but could be the source of his shortness of breath. Patient covered with antibiotics in the emergency room and will require admission to the hospital given advanced age , comorbidities and hypoxia on room air. chest Pain Score (Numeric/FACES): 6 - Related Data Allergies Allergy/AdvReac Type Severity Reaction Status Date / Time No Known Allergies Allergy Verified 11/22/19 10:22 Home Meds: Home Meds Albuterol [Proventil Neb Soln] 1 dose INH BID PRN 03/11/19 [History] Aspirin 81 mg PO DAILY 03/11/19 [History] Baclofen 10 - 20 mg PO TID 03/11/19 [History] Clopidogrel Bisulfate [Clopidogrel] 75 mg PO DAILY 03/11/19 [History] Isosorbide Mononitrate [Imdur] 1 tab PO DAILY 03/11/19 [History] Latanoprost/Pf [Latanoprost 0.005% Eye Drop] 1 drop EYEBOTH BEDTIME 03/11/19 [ History] Levothyroxine Sodium 50 mcg PO DAILY 03/11/19 [History] Losartan [Cozaar] 50 mg PO DAILY 03/11/19 [History] Metoprolol Tartrate 50 mg PO BID 03/11/19 [History] Nitroglycerin 0.4 mg PO ASDIRECTED PRN 03/11/19 [History] Potassium Chloride 10 meq PO TID 03/11/19 [History] atorvaSTATin Calcium [Atorvastatin Calcium] 80 mg PO BEDTIME 03/11/19 [History] metFORMIN HCl [Metformin HCl] 1,000 mg PO BID 03/11/19 [History] Albuterol [Ventolin HFA] 1 puff IH BID PRN 06/01/19 [History] Fluticasone Propionate [Flonase Allergy Relief] 2 spray NS DAILY PRN 06/01/19 [ History] Krill/Om-3/DHA/EPA/Phospho/Ast [Megared [place]-3 Krill Oil Sfgl] 1 cap PO DAILY 06/01/19 [History] Acetaminophen/HYDROcodone [[place] 325-5 MG] 1 tab PO Q6H PRN #10 tablet 11/22/19 [Rx] Lidocaine 5% [Lidoderm 5%] 1 patch TOP DAILY PRN #10 patch 11/22/19 [Rx] Pantoprazole Sodium 1 tab PO DAILY 11/22/19 [History] Tamsulosin HCl [Flomax] 0.4 mg PO DAILY 11/22/19 [History] busPIRone [Buspar] 5 mg PO BID 11/22/19 [History] Past Medical History HEENT History: Reports: Glaucoma, Impaired Vision, Other (See Below) Other HEENT History: wears glasses Cardiovascular History: Reports: CAD, High Cholesterol, Hypertension, Stents, Other (See Below) Other Cardiovascular History: [place] x3. Carotid atherosclerosis Respiratory History: Reports: None Gastrointestinal History: Reports: None Genitourinary History: Reports: BPH Musculoskeletal History: Reports: Back Pain, Chronic Other Musculoskeletal History: chronic neck and back pain, lumbar stenosis, chronic pain syndrome Endocrine/Metabolic History: Reports: Diabetes, Type II, Hypothyroidism Other Endocrine/Metabolic History: states "pre diabetic" Immunologic History: Reports: None Oncologic (Cancer) History: Reports: None Dermatologic History: Reports: Other (See Below) Other Dermatologic History: Granuloma annulare - Infectious Disease History Infectious Disease History: Reports: Chicken Pox, Shingles - Past Surgical History Head Surgeries/Procedures: Reports: None HEENT Surgical History: Reports: Cataract Surgery, Eye Surgery, LASIK Cardiovascular Surgical History: Reports: Coronary Artery Stent Neurological Surgical History: Reports: Lumbar Spine Other Neurological Surgeries/Procedures: TENS unit Social & Family History - Family History Family Medical History: Noncontributory - Tobacco Use Smoking Status *Q: Never Smoker - Caffeine Use Caffeine Use: Reports: Coffee Other Caffeine Use: 1 cup a day Caffeine Use Comment: 2 cups of coffee in morning - Alcohol Use Number of Drinks Per Day: 2 - Recreational Drug Use Recreational Drug Use: No ED ROS GENERAL - Review of Systems Review Of Systems: See Below ED EXAM, GENERAL - Physical Exam Exam: See Below Course - Vital Signs Last Recorded V/S: Last Vital Signs Temp 35.8 C 11/25/19 11:31 Pulse 78 11/25/19 11:31 Resp 16 11/25/19 09:37 BP 153/78 H 11/25/19 11:31 Pulse Ox 98 11/25/19 11:31 - Orders/Labs/Meds Orders: Active Orders 24 hr Category Date Time Status EKG 12 Lead [EKG Documentation Completion] [RC] STAT Care 11/25/19 10:08 Active EKG 12 Lead [EKG Documentation Completion] [RC] STAT Care 11/25/19 10:23 Active INFLUENZA A+B AG SCREEN [RM] Stat Lab 11/25/19 12:59 Ordered Azithromycin [Zithromax] 500 mg Med 11/25/19 13:00 Active Sodium Chloride 0.9% [Normal Saline (AdvBag)] 250 ml IV ONETIME cefTRIAXone [Rocephin] 1 gm Med 11/25/19 12:56 Active Sodium Chloride 0.9% [Normal Saline] 50 ml IV ONETIME Medication Orders Azithromycin 500 mg/ Sodium (Chloride) 250 mls @ 250 mls/hr IV ONETIME RICHARD Ceftriaxone Sodium 1 gm/ (Sodium Chloride) 50 mls @ 200 mls/hr IV ONETIME ONE Stop: 11/25/19 13:10 Labs: Laboratory Tests 11/25/19 11/25/19 11/25/19 Range/Units 09:38 09:38 09:38 WBC 16.06 H (4.0-11.0) K/uL RBC 5.00 (4.50-5.90) M/uL Hgb 15.9 (13.0-17.0) g/dL Hct 46.5 (38.0-50.0) % MCV 93.0 (80.0-98.0) fL MCH 31.8 (27.0-32.0) pg MCHC 34.2 (31.0-37.0) g/dL RDW Std Deviation 44.1 (28.0-62.0) fl RDW Coeff of Samantha 13 (11.0-15.0) % Plt Count 292 (150-400) K/uL MPV 11.00 (7.40-12.00) fL Neut % (Auto) 74.3 (48.0-80.0) % Lymph % (Auto) 17.7 (16.0-40.0) % [place] % (Auto) 6.4 (0.0-15.0) % Eos % (Auto) 1.4 (0.0-7.0) % Baso % (Auto) 0.2 (0.0-1.5) % Neut # (Auto) 11.9 H (1.4-5.7) K/uL Lymph # (Auto) 2.8 H (0.6-2.4) K/uL [place] # (Auto) 1.0 H (0.0-0.8) K/uL Eos # (Auto) 0.2 (0.0-0.7) K/uL Baso # (Auto) 0.0 (0.0-0.1) K/uL Nucleated RBC % 0.0 /100WBC Nucleated RBCs # 0 K/uL INR 0.96 Sodium 140 (136-148) mmol/L Potassium 3.6 (3.5-5.1) mmol/L Chloride 100 (98-107) mmol/L Carbon Dioxide 25.4 (21.0-32.0) mmol/L BUN 12 (7.0-18.0) mg/dL Creatinine 1.0 (0.8-1.3) mg/dL Est Cr Clr Drug Dosing 69.96 mL/min Estimated GFR (MDRD) > 60.0 ml/min Glucose 101 (74-106) mg/dL Calcium 10.2 H (8.5-10.1) mg/dL Total Bilirubin 0.9 (0.2-1.0) mg/dL AST 16 (15-37) IU/L ALT 24 (14-63) IU/L Alkaline Phosphatase 61 (46-116) U/L Troponin I < 0.050 (0.000-0.056) ng/mL B-Natriuretic Peptide (<100) PG/ML Total Protein 8.5 H (6.4-8.2) g/dL Albumin 4.6 (3.4-5.0) g/dL Globulin 3.9 (2.6-4.0) g/dL Albumin/Globulin Ratio 1.2 (0.9-1.6) 11/25/19 Range/Units 09:38 WBC (4.0-11.0) K/uL RBC (4.50-5.90) M/uL Hgb (13.0-17.0) g/dL Hct (38.0-50.0) % MCV (80.0-98.0) fL MCH (27.0-32.0) pg MCHC (31.0-37.0) g/dL RDW Std Deviation (28.0-62.0) fl RDW Coeff of Samantha (11.0-15.0) % Plt Count (150-400) K/uL MPV (7.40-12.00) fL Neut % (Auto) (48.0-80.0) % Lymph % (Auto) (16.0-40.0) % [place] % (Auto) (0.0-15.0) % Eos % (Auto) (0.0-7.0) % Baso % (Auto) (0.0-1.5) % Neut # (Auto) (1.4-5.7) K/uL Lymph # (Auto) (0.6-2.4) K/uL [place] # (Auto) (0.0-0.8) K/uL Eos # (Auto) (0.0-0.7) K/uL Baso # (Auto) (0.0-0.1) K/uL Nucleated RBC % /100WBC Nucleated RBCs # K/uL INR Sodium (136-148) mmol/L Potassium (3.5-5.1) mmol/L Chloride (98-107) mmol/L Carbon Dioxide (21.0-32.0) mmol/L BUN (7.0-18.0) mg/dL Creatinine (0.8-1.3) mg/dL Est Cr Clr Drug Dosing mL/min Estimated GFR (MDRD) ml/min Glucose (74-106) mg/dL Calcium (8.5-10.1) mg/dL Total Bilirubin (0.2-1.0) mg/dL AST (15-37) IU/L ALT (14-63) IU/L Alkaline Phosphatase (46-116) U/L Troponin I (0.000-0.056) ng/mL B-Natriuretic Peptide 52 (<100) PG/ML Total Protein (6.4-8.2) g/dL Albumin (3.4-5.0) g/dL Globulin (2.6-4.0) g/dL Albumin/Globulin Ratio (0.9-1.6) Meds: Medications Generic Name Dose Route Start Last Admin Trade Name Freq PRN Reason Stop Dose Admin Azithromycin 500 mg/ Sodium 250 mls @ 250 mls/hr 11/25/19 13:00 Chloride IV ONETIME RICHARD Ceftriaxone Sodium 1 gm/ 50 mls @ 200 mls/hr 11/25/19 12:56 Sodium Chloride IV 11/25/19 13:10 ONETIME ONE Discontinued Medications Generic Name Dose Route Start Last Admin Trade Name Allison PRN Reason Stop Dose Admin Aspirin 324 mg 11/25/19 10:08 11/25/19 10:38 Aspirin PO 11/25/19 10:09 324 mg ONETIME ONE Administration Iopamidol 50 ml 11/25/19 11:18 11/25/19 11:21 [id number] (76%) IV 11/25/19 11:19 50 ml ONETIME STA Administration Departure - Departure Time of Disposition: 13:07 Disposition: Admitted As Inpatient 64 Clinical Impression: Pneumonia Referrals: Eliezer Edwards, [employer] [Primary Care Provider] - Forms: ED Department Discharge Sepsis Event Note - Evaluation Sepsis Screening Result: No Definite Risk - Focused Exam Vital Signs: Vital Signs Temp Pulse Resp BP Pulse Ox 11/25/19 11:31 35.8 C 78 153/78 H 98 11/25/19 09:37 36.0 C 94 16 144/94 H 99 Date Exam was Performed: 11/25/19 Time Exam was Performed: 13:05 - My Orders Last 24 Hours: My Active Orders 11/25/19 10:08 EKG 12 Lead [EKG Documentation Completion] [RC] STAT 11/25/19 10:23 EKG 12 Lead [EKG Documentation Completion] [RC] STAT 11/25/19 12:56 cefTRIAXone [Rocephin] 1 gm Sodium Chloride 0.9% [Normal Saline] 50 ml IV ONETIME 11/25/19 12:59 INFLUENZA A+B AG SCREEN [RM] Stat 11/25/19 13:00 Azithromycin [Zithromax] 500 mg Sodium Chloride 0.9% [Normal Saline (AdvBag)] 250 ml IV ONETIME - Assessment/Plan Last 24 Hours: My Active Orders 11/25/19 10:08 EKG 12 Lead [EKG Documentation Completion] [RC] STAT 11/25/19 10:23 EKG 12 Lead [EKG Documentation Completion] [RC] STAT 11/25/19 12:56 cefTRIAXone [Rocephin] 1 gm Sodium Chloride 0.9% [Normal Saline] 50 ml IV ONETIME 11/25/19 12:59 INFLUENZA A+B AG SCREEN [RM] Stat 11/25/19 13:00 Azithromycin [Zithromax] 500 mg Sodium Chloride 0.9% [Normal Saline (AdvBag)] 250 ml IV ONETIME
[2019-11-25] MEDS ORDERED: Iopamidol 755 MG/ML 50 ML Bottle IV STA (11:18)
--- NOTE | 2019-11-25 12:45 | CT ---
INDICATION: Chest pain. Passed out. Rule out pulmonary embolism. TECHNIQUE: Volumetric helical scanning of the thorax was performed during infusion of 50 cc of Isovue 370 contrast material IV, timing optimized for pulmonary arterial opacification. Coronal and sagittal reconstructions were obtained. COMPARISON: Chest x-ray of 11/22/2019. FINDINGS: The images are of acceptable quality and demonstrate uniform vascular enhancement within the pulmonary arteries. No pulmonary arterial filling defect is identified. The heart size is normal. Calcified coronary arterial plaque is demonstrated. The fusiform enlargement of the ascending aorta to 4.4 cm in diameter is noted. Nonspecific ground-glass opacity is present in both lungs and mild bronchial wall thickening is noted. No pleural effusion is demonstrated. No mediastinal or hilar lymphadenopathy is demonstrated. Images of the upper abdomen are unremarkable. IMPRESSION: 1. Negative for pulmonary embolism. 2. Nonspecific ground-glass opacity in both lungs and mild bronchial wall thickening. 3. Coronary artery disease. 4. Fusiform enlargement of the ascending aorta to 4.4 cm in diameter. Please note that all CT scans at this facility use dose modulation, iterative reconstruction, and/or weight-based dosing when appropriate to reduce radiation dose to as low as reasonably achievable. Dictated by Get Conroy MD @ Nov 25 2019 12:39PM Signed by Dr. Get Conroy @ Nov 25 2019 12:44PM
[2019-11-25] MEDS ORDERED: cefTRIAXone 1 GM in Sodium Chloride 0.9% 50 ML IV ONE (12:56)
[2019-11-25] MEDS ORDERED: Azithromycin 500 MG in Sodium Chloride 0.9% 250 ML IV SCH (13:00)
[2019-11-25] MEDS ORDERED: cefTRIAXone 1 GM in Premix Bag 1 BAG IV ONE (13:30)
[2019-11-25] MEDS ORDERED: Acetaminophen 325 MG Tab PO PRN (14:46)
[2019-11-25] MEDS ORDERED: Ondansetron 4 MG/2 ML SDV IVPUSH PRN (14:46)
--- NOTE | 2019-11-25 14:49 | PCM.HP.2 ---
H&P History of Present Illness - General Date of Service: 11/25/19 Admit Problem/Dx: Admission Diagnosis/Problem Admission Diagnosis/Problem Shortness of breath Source of Information: Patient History Limitations: Reports: No Limitations - History of Present Illness Initial Comments - Free Text/Narative: This 69 year old male with pmh of CAD with stenting x 7, HTN, dyslipidemia, COPD and chronic pain presented to the ED today with concerns of dyspnea, chest pain and passing out. He reports the chest pain has been intermittent for ever 2 weeks, it is sharp in nature, worse with certain positioning, not necessarily activity. Nitro at home intermittently helps chest pain. It hurts worse when back is flat up against recliner back, while sitting up. He denies diaphoresis, but reports chills last night. He reports not eating or drinking well and has lost approximately 15 lbs in 2 months time, not trying. He reports he is being worked up for this, but GI recommended pulmonology clearance first, appointment is on December 17. He reports intermittent cough, non productive, but has overall started not feeling well over the last few days. Denies diarrhea or constipation, no black or blood stools. No abdominal pain or urinary concerns. No focal neurological deficits. We discussed syncope more, he reports this happens alot at home. It is mainly when he changes position and is standing when he will become lightheaded dizzy and everything goes black. Last night was very similar and felt very out of it all night. In the ED leukocytosis noted at 16,000, BMP WNL. Troponin negative. CT angio obtained to rule out PE, this revealed no PE, non specific ground glass opacity in both lungs and mild bronchial wall thickening. Thoracic aortic aneurysm noted , 4.4 cm, last measured 4.3 cm in 2016. Influenza negative. He was treated with Azithromycin and Rocephin for atypica pneumonia. He will be admitted for CAP as well as chest pain rule out ACS. Had stress test in 05/[address] Bowen. I spoke with Dr Bowen regarding admission, he recommended rule out ACS and would likely follow up with outpatient stress test unless enzymes elevate. chest Pain Score (Numeric/FACES): 6 - Related Data Allergies/Adverse Reactions: Allergies Allergy/AdvReac Type Severity Reaction Status Date / Time No Known Allergies Allergy Verified 11/25/19 14:50 Home Medications: Home Meds Albuterol [Proventil Neb Soln] 1 dose INH BID PRN 03/11/19 [History] Aspirin 81 mg PO DAILY 03/11/19 [History] Baclofen 10 - 20 mg PO TID 03/11/19 [History] Clopidogrel Bisulfate [Clopidogrel] 75 mg PO DAILY 03/11/19 [History] Isosorbide Mononitrate [Imdur] 1 tab PO DAILY 03/11/19 [History] Latanoprost/Pf [Latanoprost 0.005% Eye Drop] 1 drop EYEBOTH BEDTIME 03/11/19 [ History] Levothyroxine Sodium 50 mcg PO DAILY 03/11/19 [History] Losartan [Cozaar] 50 mg PO DAILY 03/11/19 [History] Metoprolol Tartrate 50 mg PO BID 03/11/19 [History] Nitroglycerin 0.4 mg PO ASDIRECTED PRN 03/11/19 [History] Potassium Chloride 10 meq PO TID 03/11/19 [History] atorvaSTATin Calcium [Atorvastatin Calcium] 80 mg PO BEDTIME 03/11/19 [History] metFORMIN HCl [Metformin HCl] 1,000 mg PO BID 03/11/19 [History] Albuterol [Ventolin HFA] 1 puff IH BID PRN 06/01/19 [History] Fluticasone Propionate [Flonase Allergy Relief] 2 spray NS DAILY PRN 06/01/19 [ History] Krill/Om-3/DHA/EPA/Phospho/Ast [Megared [place]-3 Krill Oil Sfgl] 1 cap PO DAILY 06/01/19 [History] Acetaminophen/HYDROcodone [[place] 325-5 MG] 1 tab PO Q6H PRN #10 tablet 11/22/19 [Rx] Lidocaine 5% [Lidoderm 5%] 1 patch TOP DAILY PRN #10 patch 11/22/19 [Rx] Pantoprazole Sodium 1 tab PO DAILY 11/22/19 [History] Tamsulosin HCl [Flomax] 0.4 mg PO DAILY 11/22/19 [History] busPIRone [Buspar] 5 mg PO BID 11/22/19 [History] Past Medical History HEENT History: Reports: Glaucoma, Impaired Vision, Other (See Below) Other HEENT History: wears glasses Cardiovascular History: Reports: CAD, High Cholesterol, Hypertension, NE, Stents , Other (See Below) Other Cardiovascular History: NE x3. Carotid atherosclerosis Respiratory History: Reports: COPD, SOB Gastrointestinal History: Reports: None Genitourinary History: Reports: BPH Musculoskeletal History: Reports: Back Pain, Chronic Other Musculoskeletal History: chronic neck and back pain, lumbar stenosis, chronic pain syndrome Endocrine/Metabolic History: Reports: Diabetes, Type II, Hypothyroidism Other Endocrine/Metabolic History: states "pre diabetic" Immunologic History: Reports: None Oncologic (Cancer) History: Reports: None Dermatologic History: Reports: Other (See Below) Other Dermatologic History: Granuloma annulare - Infectious Disease History Infectious Disease History: Reports: Chicken Pox, Shingles - Past Surgical History Head Surgeries/Procedures: Reports: None HEENT Surgical History: Reports: Cataract Surgery, Eye Surgery, LASIK Cardiovascular Surgical History: Reports: Coronary Artery Stent Neurological Surgical History: Reports: Lumbar Spine Other Neurological Surgeries/Procedures: TENS unit Social & Family History - Family History Family Medical History: Noncontributory - Tobacco Use Smoking Status *Q: Never Smoker - Caffeine Use Caffeine Use: Reports: Coffee Other Caffeine Use: 1 cup a day Caffeine Use Comment: 2 cups of coffee in morning - Alcohol Use Number of Drinks Per Day: 2 - Recreational Drug Use Recreational Drug Use: No H&P Review of Systems - Review of Systems: Review Of Systems: See Below General: Reports: Chills, Malaise, Fatigue Pulmonary: Reports: Shortness of Breath, Cough. Denies: Wheezing, Sputum, Hemoptysis Cardiovascular: Reports: Chest Pain, Lightheadedness, Syncope. Denies: Edema Genitourinary: Reports: No Symptoms. Denies: Dysuria, Frequency Musculoskeletal: Reports: Neck Pain (chronic), Back Pain (chronic), Joint Pain ( L shoulder, chronic) Psychiatric: Reports: No Symptoms Neurological: Reports: No Symptoms Hematologic/Lymphatic: Reports: No Symptoms Immunologic: Reports: No Symptoms Exam - Exam Exam: See Below - Vital Signs Vital Signs: Last Vital Signs Temp 97 F 11/25/19 14:46 Pulse 60 11/25/19 14:46 Resp 18 11/25/19 14:46 BP 141/76 H 11/25/19 14:46 Pulse Ox 98 11/25/19 14:46 Weight: 77.111 kg - Exam General: Alert, Oriented, Cooperative HEENT: Conjunctiva Clear, Mucosa Moist & [place], Posterior Pharynx Clear Lungs: Clear to Auscultation, Normal Respiratory Effort, Other (tenderness noted to palpation of L lateral chest, just medial to L axilla, reproduces pain. ) Cardiovascular: Regular Rate, Regular Rhythm GI/Abdominal Exam: Normal Bowel Sounds, Soft, Non-Tender Back Exam: Normal Inspection, Full Range of Motion Extremities: Normal Inspection, Normal Range of Motion, Non-Tender, No Pedal Edema Neuro Extensive - Mental Status: Alert, Oriented x3 Neuro Extensive - Motor, Sensory, Reflexes: CN II-XII Intact, Normal Gait Psychiatric: Alert, Anxious - Patient Data Lab Results Last 24 hrs: Laboratory Results - last 24 hr 11/25/19 11/25/19 11/25/19 Range/Units 09:38 09:38 09:38 WBC 16.06 H (4.0-11.0) K/uL RBC 5.00 (4.50-5.90) M/uL Hgb 15.9 (13.0-17.0) g/dL Hct 46.5 (38.0-50.0) % MCV 93.0 (80.0-98.0) fL MCH 31.8 (27.0-32.0) pg MCHC 34.2 (31.0-37.0) g/dL RDW Std Deviation 44.1 (28.0-62.0) fl RDW Coeff of Samantha 13 (11.0-15.0) % Plt Count 292 (150-400) K/uL MPV 11.00 (7.40-12.00) fL Neut % (Auto) 74.3 (48.0-80.0) % Lymph % (Auto) 17.7 (16.0-40.0) % [place] % (Auto) 6.4 (0.0-15.0) % Eos % (Auto) 1.4 (0.0-7.0) % Baso % (Auto) 0.2 (0.0-1.5) % Neut # (Auto) 11.9 H (1.4-5.7) K/uL Lymph # (Auto) 2.8 H (0.6-2.4) K/uL [place] # (Auto) 1.0 H (0.0-0.8) K/uL Eos # (Auto) 0.2 (0.0-0.7) K/uL Baso # (Auto) 0.0 (0.0-0.1) K/uL Nucleated RBC % 0.0 /100WBC Nucleated RBCs # 0 K/uL INR 0.96 Sodium 140 (136-148) mmol/L Potassium 3.6 (3.5-5.1) mmol/L Chloride 100 (98-107) mmol/L Carbon Dioxide 25.4 (21.0-32.0) mmol/L BUN 12 (7.0-18.0) mg/dL Creatinine 1.0 (0.8-1.3) mg/dL Est Cr Clr Drug Dosing 69.96 mL/min Estimated GFR (MDRD) > 60.0 ml/min Glucose 101 (74-106) mg/dL Calcium 10.2 H (8.5-10.1) mg/dL Total Bilirubin 0.9 (0.2-1.0) mg/dL AST 16 (15-37) IU/L ALT 24 (14-63) IU/L Alkaline Phosphatase 61 (46-116) U/L Troponin I < 0.050 (0.000-0.056) ng/mL B-Natriuretic Peptide (<100) PG/ML Total Protein 8.5 H (6.4-8.2) g/dL Albumin 4.6 (3.4-5.0) g/dL Globulin 3.9 (2.6-4.0) g/dL Albumin/Globulin Ratio 1.2 (0.9-1.6) 11/25/19 Range/Units 09:38 WBC (4.0-11.0) K/uL RBC (4.50-5.90) M/uL Hgb (13.0-17.0) g/dL Hct (38.0-50.0) % MCV (80.0-98.0) fL MCH (27.0-32.0) pg MCHC (31.0-37.0) g/dL RDW Std Deviation (28.0-62.0) fl RDW Coeff of Samantha (11.0-15.0) % Plt Count (150-400) K/uL MPV (7.40-12.00) fL Neut % (Auto) (48.0-80.0) % Lymph % (Auto) (16.0-40.0) % [place] % (Auto) (0.0-15.0) % Eos % (Auto) (0.0-7.0) % Baso % (Auto) (0.0-1.5) % Neut # (Auto) (1.4-5.7) K/uL Lymph # (Auto) (0.6-2.4) K/uL [place] # (Auto) (0.0-0.8) K/uL Eos # (Auto) (0.0-0.7) K/uL Baso # (Auto) (0.0-0.1) K/uL Nucleated RBC % /100WBC Nucleated RBCs # K/uL INR Sodium (136-148) mmol/L Potassium (3.5-5.1) mmol/L Chloride (98-107) mmol/L Carbon Dioxide (21.0-32.0) mmol/L BUN (7.0-18.0) mg/dL Creatinine (0.8-1.3) mg/dL Est Cr Clr Drug Dosing mL/min Estimated GFR (MDRD) ml/min Glucose (74-106) mg/dL Calcium (8.5-10.1) mg/dL Total Bilirubin (0.2-1.0) mg/dL AST (15-37) IU/L ALT (14-63) IU/L Alkaline Phosphatase (46-116) U/L Troponin I (0.000-0.056) ng/mL B-Natriuretic Peptide 52 (<100) PG/ML Total Protein (6.4-8.2) g/dL Albumin (3.4-5.0) g/dL Globulin (2.6-4.0) g/dL Albumin/Globulin Ratio (0.9-1.6) Result Diagrams: 11/25/19 09:38 11/25/19 09:38 [place] Results Last 24 hrs: Microbiology 11/25/19 13:28 Influenza Type A Antigen Screen - Final Nasopharyngeal Swab NEGATIVE INFLUENZA A VIRUS AG REFERENCE RANGE: NEGATIVE Influenza Type B Antigen Screen - Final NEGATIVE INFLUENZA B VIRUS AG REFERENCE RANGE: NEGATIVE EKG INTERPRETATION EKG Date: 11/25/19 Rhythm: NSR Rate (Beats/Min): 64 P-Wave: Present QRS: Normal ST-T: Normal QT: Normal Sepsis Event Note - Evaluation Sepsis Screening Result: No Definite Risk - Focused Exam Vital Signs: Vital Signs Temp Pulse Resp BP Pulse Ox 11/25/19 14:46 97 F 60 18 141/76 H 98 11/25/19 14:21 64 16 138/75 97 11/25/19 11:31 96.5 F 78 153/78 H 98 11/25/19 09:37 96.8 F 94 16 144/94 H 99 Date Exam was Performed: 11/25/19 Time Exam was Performed: 16:05 - Problem List (1) Atypical chest pain SNOMED Code(s): 399082493 ICD Code: R07.89 - OTHER CHEST PAIN Status: Acute Current Visit: No (2) Pneumonia SNOMED Code(s): 412480376 ICD Code: J18.9 - PNEUMONIA, UNSPECIFIED ORGANISM Status: Acute Current Visit: Yes Qualifiers: Pneumonia type: due to unspecified organism Laterality: bilateral Lung location: unspecified part of lung Qualified Code(s): J18.9 - Pneumonia, unspecified organism (3) HTN (hypertension) SNOMED Code(s): 48630437 ICD Code: I10 - ESSENTIAL (PRIMARY) HYPERTENSION Status: Chronic Current Visit: Yes (4) CAD (coronary artery disease) SNOMED Code(s): 37836556 ICD Code: I25.10 - ATHSCL HEART DISEASE OF [place] CORONARY ARTERY W/O ANG PCTRS Status: Chronic Current Visit: Yes (5) Dyslipidemia SNOMED Code(s): 613963317 ICD Code: E78.5 - HYPERLIPIDEMIA, UNSPECIFIED Status: Chronic Current Visit: Yes (6) History of coronary artery stent placement SNOMED Code(s): 711051804, 210046349 ICD Code: Z95.5 - PRESENCE OF CORONARY ANGIOPLASTY IMPLANT AND GRAFT Status : Chronic Current Visit: Yes (7) Back pain, chronic SNOMED Code(s): 848321814 ICD Code: M54.9 - DORSALGIA, UNSPECIFIED; G89.29 - OTHER CHRONIC PAIN Status: Acute Current Visit: No Problem List Initiated/Reviewed/Updated: Yes Orders Last 24hrs: Active Orders 24 hr Category Date Time Status Admission Status [Patient Status] [ADT] Stat ADT 11/25/19 13:39 Active EKG 12 Lead [EKG Documentation Completion] [RC] STAT Care 11/25/19 10:08 Active EKG 12 Lead [EKG Documentation Completion] [RC] STAT Care 11/25/19 10:23 Active Intake and Output [RC] QSHIFT Care 11/25/19 14:47 Ordered Oxygen Therapy [RC] PRN Care 11/25/19 14:46 Ordered Telemetry Monitoring [Cardiac Monitoring] [RC] . Care 11/25/19 14:39 Ordered DIRECTED VTE/DVT Education [RC] PER UNIT ROUTINE Care 11/25/19 14:46 Ordered Vital Signs [RC] Q4H Care 11/25/19 14:46 Ordered Heart Healthy Diet [DIET] Diet 11/25/19 Lunch Ordered BASIC METABOLIC PANEL,BMP [CHEM] AM Lab 11/26/19 05:11 Ordered CBC WITH AUTO DIFF [HEME] AM Lab 11/26/19 05:11 Ordered TROPONIN I [CHEM] Q3H Lab 11/25/19 15:00 Ordered TROPONIN I [CHEM] Q3H Lab 11/25/19 18:00 Ordered Acetaminophen [Tylenol] Med 11/25/19 14:46 Ordered 650 mg PO Q4H PRN Azithromycin [Zithromax] Med 11/26/19 09:00 Ordered 500 mg PO Q24H Azithromycin [Zithromax] 500 mg Med 11/25/19 13:00 Active Sodium Chloride 0.9% [Normal Saline (AdvBag)] 250 ml IV ONETIME Ondansetron [Zofran] Med 11/25/19 14:46 Ordered 4 mg IVPUSH Q4H PRN cefTRIAXone [Rocephin in Dextrose,Iso-Osm 1 GM/50 ML] 1 Med 11/26/19 12:00 Ordered gm Premix Bag 1 bag IV Q24H Resuscitation Status Routine Resus Stat 11/25/19 14:46 Ordered Medication Orders Azithromycin (Zithromax) 500 mg PO Q24H RICHARD Azithromycin 500 mg/ Sodium (Chloride) 250 mls @ 250 mls/hr IV ONETIME RICHARD Last Admin: 11/25/19 14:17 Dose: 250 mls/hr Ceftriaxone Sodium/Dextrose 1 (gm/ Premix) 50 mls @ 100 mls/hr IV Q24H [facility] Assessment/Plan Comment:: This 69 year old male admitted with atypical chest pain and CAP. 1. Atypical chest pain: Trend troponins, monitor on telemetry. Will give Nitro now and Morphine. PRN Oxygen as needed for comfort. 2. CAP: Suspected with Ct angio findings, will treat with Azithromycin and Rocpehin. IS every 1 hour. Duonebs PRN. 3. HTN: Hold meds for now, will check Orthostatic BPs due to syncope. IVFs for now and monitor. 4. CAD: Continue ASA statin and Plavix. Patient had been holding Metoprolol since he came to ED a few days ago, ED MD told him his heart rate was too low. 5. Chronic pain: Takes Baclofen. Continue VTE prophylaxis: Heparin Dispo: 1 day - Mortality Measure Prognosis:: Good
[2019-11-25] MEDS ORDERED: Nitroglycerin 0.4 MG Tab.SL SL PRN (15:29)
[2019-11-25] MEDS ORDERED: Pantoprazole 40 MG in Sodium Chloride 0.9% 10 ML IV SCH (15:30)
[2019-11-25] MEDS: Morphine 2 MG/ML SYRINGE IVPUSH PRN ×2 (15:45→20:14)
[2019-11-25] MEDS ORDERED: Albuterol/Ipratropium 3.0-0.5 MG/3 ML Neb Soln NEB PRN (16:25)
[2019-11-25] MEDS ORDERED: Sodium Chloride 0.9% 500 ML IV ONE (16:39)
[2019-11-25] MEDS ORDERED: Acetaminophen/HYDROcodone 325-5 MG Tab PO PRN (16:43)
[2019-11-25] MEDS: Heparin Sodium 5,000 Units/ML Vial SUBCUT SCH (17:03)
[2019-11-25] MEDS: Insulin Aspart 100 Units/ML 3 ML Pen SUBCUT SCH (17:04)
[2019-11-25] MEDS ORDERED: Alum Hydrox/Mag Hydrox/Simeth 15 ML, Lidocaine 2% 5 ML PO ONE ×2 (19:50)
[2019-11-25] MEDS ORDERED: atorvaSTATin 40 MG Tab PO SCH (21:00)
[2019-11-26] MEDS: Heparin Sodium 5,000 Units/ML Vial SUBCUT SCH ×2 (00:59→08:34)
[2019-11-26] MEDS: Morphine 2 MG/ML SYRINGE IVPUSH PRN ×3 (03:48→14:32)
[2019-11-26 06:43] LABS: BLOOD UREA NITROGEN,BUN 13 mg/dL (7.0-18.0); CARBON DIOXIDE,CO2 26.5 mmol/L (21.0-32.0); CHLORIDE,CL 104 mmol/L (98-107); GLUCOSE RANDOM 111 mg/dL (74-106); POTASSIUM,K 3.9 mmol/L (3.5-5.1); SODIUM,NA 141 mmol/L (136-148)
[2019-11-26] MEDS: Insulin Aspart 100 Units/ML 3 ML Pen SUBCUT SCH ×2 (06:43→11:35)
[2019-11-26] MEDS ORDERED: Levothyroxine 50 MCG Tab PO SCH (08:00)
[2019-11-26] MEDS ORDERED: Baclofen 10 MG Tab PO PRN (08:03)
[2019-11-26] MEDS ORDERED: Aspirin 81 MG Tab.Chew PO SCH (09:00)
[2019-11-26] MEDS ORDERED: Budesonide/Formoterol 160-4.5 MCG/Puff 6 GM Inhaler INH SCH (09:00)
[2019-11-26] MEDS ORDERED: Clopidogrel 75 MG Tab PO SCH (09:00)
[2019-11-26] MEDS ORDERED: Losartan 50 MG Tab PO SCH (09:00)
[2019-11-26] MEDS ORDERED: busPIRone 5 MG Tab PO SCH (09:00)
[2019-11-26] MEDS ORDERED: Azithromycin 250 MG Tab PO SCH (09:00)
[2019-11-26] MEDS ORDERED: Isosorbide Mononitrate 30 MG Tab.ER PO SCH (09:00)
[2019-11-26] MEDS ORDERED: Non-Formulary Medication 1 Each (Losartan 50 MG) PO SCH (09:00)
[2019-11-26] MEDS ORDERED: Lidocaine 5% 700 MG Patch TOP SCH (09:30)
[2019-11-26] MEDS ORDERED: cefTRIAXone 1 GM in Premix Bag 1 BAG IV SCH (12:00)
[2019-11-26 12:22] VITALS: BP 103/64; PULSE 84
--- NOTE | 2019-11-26 12:35 | PCM.DCSUM1 ---
Discharge Summary - Hospital Course Brief History: This 69 year old male with pmh of CAD with stenting x 7, HTN, dyslipidemia, COPD and chronic pain presented to the ED today with concerns of dyspnea, chest pain and passing out. He reports the chest pain has been intermittent for ever 2 weeks, it is sharp in nature, worse with certain positioning, not necessarily activity. Nitro at home intermittently helps chest pain. It hurts worse when back is flat up against recliner back, while sitting up. He denies diaphoresis, but reports chills last night. He reports not eating or drinking well and has lost approximately 15 lbs in 2 months time, not trying. He reports he is being worked up for this, but GI recommended pulmonology clearance first, appointment is on December 17. He reports intermittent cough, non productive, but has overall started not feeling well over the last few days. Denies diarrhea or constipation, no black or blood stools. No abdominal pain or urinary concerns. No focal neurological deficits. We discussed syncope more, he reports this happens alot at home. It is mainly when he changes position and is standing when he will become lightheaded dizzy and everything goes black. Last night was very similar and felt very out of it all night. In the ED leukocytosis noted at 16,000, BMP WNL. Troponin negative. CT angio obtained to rule out PE, this revealed no PE, non specific ground glass opacity in both lungs and mild bronchial wall thickening. Thoracic aortic aneurysm noted, 4.4 cm, last measured 4.3 cm in 2016. Influenza negative. He was treated with Azithromycin and Rocephin for atypica pneumonia. He will be admitted for CAP as well as chest pain rule out ACS. Had stress test in 05/[address] Bowen. I spoke with Dr Bowen regarding admission, he recommended rule out ACS and would likely follow up with outpatient stress test unless enzymes elevate. Diagnosis: Stroke: No - Discharge Data Discharge Date: 11/26/19 Discharge Disposition: Home, Self-Care 01 Condition: Good - Referral to Home Health Primary Care Physician: Eliezer Edwards EHR TRAINER - Discharge Diagnosis/Problem(s) (1) Atypical chest pain SNOMED Code(s): 304488812 ICD Code: R07.89 - OTHER CHEST PAIN Status: Acute (2) Pneumonia SNOMED Code(s): 506336992 ICD Code: J18.9 - PNEUMONIA, UNSPECIFIED ORGANISM Status: Acute Qualifiers: Pneumonia type: due to unspecified organism Laterality: bilateral Lung location: unspecified part of lung Qualified Code(s): J18.9 - Pneumonia, unspecified organism (3) HTN (hypertension) SNOMED Code(s): 12445615 ICD Code: I10 - ESSENTIAL (PRIMARY) HYPERTENSION Status: Chronic (4) CAD (coronary artery disease) SNOMED Code(s): 58414412 ICD Code: I25.10 - ATHSCL HEART DISEASE OF [place] CORONARY ARTERY W/O ANG PCTRS Status: Chronic (5) Dyslipidemia SNOMED Code(s): 027878848 ICD Code: E78.5 - HYPERLIPIDEMIA, UNSPECIFIED Status: Chronic (6) History of coronary artery stent placement SNOMED Code(s): 089799059, 715640316 ICD Code: Z95.5 - PRESENCE OF CORONARY ANGIOPLASTY IMPLANT AND GRAFT Status : Chronic (7) Back pain, chronic SNOMED Code(s): 734055435 ICD Code: M54.9 - DORSALGIA, UNSPECIFIED; G89.29 - OTHER CHRONIC PAIN Status: Acute - Patient Instructions Diet: Heart Healthy Diet Activity: No Strenuous Activities Activity, Other: Sling to L to help with pain Driving: Do Not Drive Showering/Bathing: May Shower Notify Provider of: Fever, Increased Pain, Swelling and Redness, Drainage, Nausea and/or Vomiting - Discharge Plan *PRESCRIPTION DRUG MONITORING PROGRAM REVIEWED*: Not Applicable *COPY OF PRESCRIPTION DRUG MONITORING REPORT IN PATIENT MERE: Not Applicable Prescriptions/Med Rec: RX: Azithromycin [Zithromax] 500 mg PO Q24H #6 tablet RX: Lidocaine 5% [Lidoderm 5%] 700 mg TOP Q24H #5 patch RX: oxyCODONE 5 mg PO Q6H PRN #20 tab PRN Reason: Pain RX: predniSONE 40 mg PO WITHBREAKFAST #8 tab Home Medications: Home Meds RX: Baclofen 10 mg PO TID PRN 03/11/19 [History] RX: Clopidogrel Bisulfate [Clopidogrel] 75 mg PO DAILY 03/11/19 [History] RX: Isosorbide Mononitrate [Imdur] 30 mg PO DAILY 03/11/19 [History] RX: Latanoprost/Pf [Latanoprost 0.005% Eye Drop] 1 drop EYEBOTH BEDTIME [History] RX: Levothyroxine Sodium 50 mcg PO ACBREAKFAST 03/11/19 [History] RX: Losartan [Cozaar] 50 mg PO DAILY 03/11/19 [History] RX: Metoprolol Tartrate 50 mg PO BID 03/11/19 [History] RX: Potassium Chloride 10 meq PO TID 03/11/19 [History] RX: atorvaSTATin Calcium [Atorvastatin Calcium] 80 mg PO BEDTIME 03/11/19 [ History] RX: metFORMIN HCl [Metformin HCl] 1,000 mg PO BID 03/11/19 [History] RX: Albuterol [Ventolin HFA] 2 puff IH Q6H PRN 06/01/19 [History] RX: Pantoprazole Sodium 40 mg PO DAILY 11/22/19 [History] RX: Tamsulosin HCl [Flomax] 0.4 mg PO DAILY 11/22/19 [History] RX: busPIRone [Buspar] 10 mg PO BID 11/22/19 [History] RX: Aspirin 81 mg PO DAILY 11/25/19 [History] RX: Budesonide/Formoterol [Symbicort 160-4.5 MCG] 2 puff INH BID 11/25/19 [ History] RX: Azithromycin [Zithromax] 500 mg PO Q24H #6 tablet 11/26/19 [Rx] RX: Lidocaine 5% [Lidoderm 5%] 700 mg TOP Q24H #5 patch 11/26/19 [Rx] RX: oxyCODONE 5 mg PO Q6H PRN #20 tab 11/26/19 [Rx] RX: predniSONE 40 mg PO WITHBREAKFAST #8 tab 11/26/19 [Rx] Patient Handouts: Shoulder Pain, Oxycodone tablets or capsules, Nonspecific Chest Pain, Azithromycin tablets, Prednisone tablets, Lidocaine dermal patch, Community-Acquired Pneumonia, Adult, [id number] Referrals: Jim Mooer MD [Physician] - 12/04/19 9:30 am Eliezer Edwards NP [Primary Care Provider] - - Discharge Summary/Plan Comment DC Time >30 min.: No Discharge Summary/Plan Comment: Admitting Diagnoses: Atypical chest pain L shoulder pain CAP Discharge Diagnoses: Atypical chest pain L shoulder pain CAP Other PMH: CAD, [place] with stenting x7 HTN COPD U[place]ano was admitted related to chest pain and significant CAD risk. ACS was ruled out x 2, troponins negative and EKG remained SR with no ST elevation. He was reporting L shoulder and L pectoral pain especially with movement of his L shoulder. He reports an old oild field injury years ago, that has progressively started given him pain. He says over the last month this pain has progressed to its worst which is now. He says the pain has gotten so bad that it has caused his to pass out at times at home. He reports [facility],but doesn't want to rely on those as they just make him feel off. He was previously given Lidocaine patch, which helped a lot with pain. Xrays and Chest CT from previous ED do not show any acute fractures. We discussed pain control so we are able to get him to outpatient Orthopedic surgery, which he agrees with. He will be discharged home with some Oxycodone to help with pain PRN along with Lidocaine patches. We will refer him to Orthopedics for further evaluation for pain of L shoulder. Provided sling as movement of L shoulder exacerbates pain significantly. Neck pain is included, but denies parasthesias. Pain is located in L pectoralis region and L shoulder, which again is exacerbated by movement. He was also suspected to have mild bronchitis vs CAP. He was treated with Azithromycin and Rocephin. He will be sent home on Azithromycin for 4 more days as well as short taper of Prednisone, 40 mg x 4 days. He is to return to ED or clinic for concerns. - General Info Date of Service: 11/26/19 Admission Dx/Problem (Free Text: Admission Diagnosis/Problem Admission Diagnosis/Problem Shortness of breath Subjective Update: Feeling ok this morning, reports pain continues, improved slightly with lidocaine patch. Functional Status: Reports: Pain Controlled - Review of Systems General: Reports: No Symptoms. Denies: Weakness, Fatigue Pulmonary: Reports: No Symptoms. Denies: Shortness of Breath Cardiovascular: Reports: No Symptoms. Denies: Chest Pain Gastrointestinal: Reports: No Symptoms. Denies: Abdominal Pain, Nausea, Vomiting Genitourinary: Reports: No Symptoms. Denies: Dysuria, Frequency Musculoskeletal: Reports: Shoulder Pain (L shoulder and pectoralis pain) Neurological: Reports: No Symptoms Psychiatric: Reports: No Symptoms - Patient Data Vitals - Most Recent: Last Vital Signs Temp 97.3 F 11/26/19 12:00 Pulse 84 11/26/19 12:00 Resp 16 11/26/19 12:00 BP 103/64 11/26/19 12:00 Pulse Ox 95 11/26/19 12:00 Orthostatic Blood Pressure [ 182/98 Standing] Orthostatic Blood Pressure [ 125/80 Supine] Orthostatic Blood Pressure [ 147/85 Sitting] Weight - Most Recent: 77.111 kg I&O - Last 24 hours: Intake & Output 11/25/19 11/26/19 11/26/19 22:59 06:59 14:59 Intake Total 310 800 Output Total 200 400 Balance 110 400 Lab Results - Last 24 hrs: Laboratory Results - last 24 hr 11/25/19 11/25/19 11/25/19 Range/Units 15:07 17:00 17:49 WBC (4.0-11.0) K/uL RBC (4.50-5.90) M/uL Hgb (13.0-17.0) g/dL Hct (38.0-50.0) % MCV (80.0-98.0) fL MCH (27.0-32.0) pg MCHC (31.0-37.0) g/dL RDW Std Deviation (28.0-62.0) fl RDW Coeff of Samantha (11.0-15.0) % Plt Count (150-400) K/uL MPV (7.40-12.00) fL Neut % (Auto) (48.0-80.0) % Lymph % (Auto) (16.0-40.0) % [place] % (Auto) (0.0-15.0) % Eos % (Auto) (0.0-7.0) % Baso % (Auto) (0.0-1.5) % Neut # (Auto) (1.4-5.7) K/uL Lymph # (Auto) (0.6-2.4) K/uL [place] # (Auto) (0.0-0.8) K/uL Eos # (Auto) (0.0-0.7) K/uL Baso # (Auto) (0.0-0.1) K/uL Nucleated RBC % /100WBC Nucleated RBCs # K/uL Sodium (136-148) mmol/L Potassium (3.5-5.1) mmol/L Chloride (98-107) mmol/L Carbon Dioxide (21.0-32.0) mmol/L BUN (7.0-18.0) mg/dL Creatinine (0.8-1.3) mg/dL Est Cr Clr Drug Dosing mL/min Estimated GFR (MDRD) ml/min Glucose (74-106) mg/dL POC Glucose 80 (60-110) mg/dL Calcium (8.5-10.1) mg/dL Troponin I < 0.050 < 0.050 (0.000-0.056) ng/mL Urine Color Urine Appearance Urine pH (5.0-8.0) Ur Specific [place] (1.001-1.035) Urine Protein (NEGATIVE) mg/dL Urine Glucose (UA) (NEGATIVE) mg/dL Urine Ketones (NEGATIVE) mg/dL Urine Occult Blood (NEGATIVE) Urine Nitrite (NEGATIVE) Urine Bilirubin (NEGATIVE) Urine Urobilinogen (<2.0) EU/dL Ur Leukocyte Esterase (NEGATIVE) Urine RBC (0-2/HPF) Urine WBC (0-5/HPF) Ur Epithelial Cells (NONE-FEW) Urine Bacteria (NEGATIVE) Urine Mucus (NONE-MOD) Urine Sperm (NEGATIVE) Urine Opiates Screen (NEGATIVE) Ur Oxycodone Screen (NEGATIVE) Urine Methadone Screen (NEGATIVE) Ur Barbiturates Screen (NEGATIVE) Ur Phencyclidine Scrn (NEGATIVE) Ur Amphetamine Screen (NEGATIVE) U Methamphetamines Scrn (NEGATIVE) U Benzodiazepines Scrn (NEGATIVE) U Cocaine Metab Screen (NEGATIVE) U Marijuana (THC) Screen (NEGATIVE) 11/25/19 11/25/19 11/25/19 Range/Units 19:17 19:17 20:19 WBC (4.0-11.0) K/uL RBC (4.50-5.90) M/uL Hgb (13.0-17.0) g/dL Hct (38.0-50.0) % MCV (80.0-98.0) fL MCH (27.0-32.0) pg MCHC (31.0-37.0) g/dL RDW Std Deviation (28.0-62.0) fl RDW Coeff of Samantha (11.0-15.0) % Plt Count (150-400) K/uL MPV (7.40-12.00) fL Neut % (Auto) (48.0-80.0) % Lymph % (Auto) (16.0-40.0) % [place] % (Auto) (0.0-15.0) % Eos % (Auto) (0.0-7.0) % Baso % (Auto) (0.0-1.5) % Neut # (Auto) (1.4-5.7) K/uL Lymph # (Auto) (0.6-2.4) K/uL [place] # (Auto) (0.0-0.8) K/uL Eos # (Auto) (0.0-0.7) K/uL Baso # (Auto) (0.0-0.1) K/uL Nucleated RBC % /100WBC Nucleated RBCs # K/uL Sodium (136-148) mmol/L Potassium (3.5-5.1) mmol/L Chloride (98-107) mmol/L Carbon Dioxide (21.0-32.0) mmol/L BUN (7.0-18.0) mg/dL Creatinine (0.8-1.3) mg/dL Est Cr Clr Drug Dosing mL/min Estimated GFR (MDRD) ml/min Glucose (74-106) mg/dL POC Glucose (60-110) mg/dL Calcium (8.5-10.1) mg/dL Troponin I < 0.050 (0.000-0.056) ng/mL Urine Color YELLOW Urine Appearance SLT CLOUDY Urine pH 8.5 H (5.0-8.0) Ur Specific [place] 1.020 (1.001-1.035) Urine Protein 30 H (NEGATIVE) mg/dL Urine Glucose (UA) NEGATIVE (NEGATIVE) mg/dL Urine Ketones 40 H (NEGATIVE) mg/dL Urine Occult Blood NEGATIVE (NEGATIVE) Urine Nitrite NEGATIVE (NEGATIVE) Urine Bilirubin NEGATIVE (NEGATIVE) Urine Urobilinogen 1.0 (<2.0) EU/dL Ur Leukocyte Esterase NEGATIVE (NEGATIVE) Urine RBC NONE SEEN (0-2/HPF) Urine WBC 0-1 (0-5/HPF) Ur Epithelial Cells NOT SEEN (NONE-FEW) Urine Bacteria RARE (NEGATIVE) Urine Mucus LIGHT (NONE-MOD) Urine Sperm FEW (NEGATIVE) Urine Opiates Screen POSITIVE (NEGATIVE) Ur Oxycodone Screen NEGATIVE (NEGATIVE) Urine Methadone Screen NEGATIVE (NEGATIVE) Ur Barbiturates Screen NEGATIVE (NEGATIVE) Ur Phencyclidine Scrn NEGATIVE (NEGATIVE) Ur Amphetamine Screen NEGATIVE (NEGATIVE) U Methamphetamines Scrn NEGATIVE (NEGATIVE) U Benzodiazepines Scrn NEGATIVE (NEGATIVE) U Cocaine Metab Screen NEGATIVE (NEGATIVE) U Marijuana (THC) Screen POSITIVE (NEGATIVE) 11/25/19 11/26/19 11/26/19 Range/Units 22:45 01:45 05:57 WBC 10.64 (4.0-11.0) K/uL RBC 4.33 L (4.50-5.90) M/uL Hgb 13.6 (13.0-17.0) g/dL Hct 40.6 (38.0-50.0) % MCV 93.8 (80.0-98.0) fL MCH 31.4 (27.0-32.0) pg MCHC 33.5 (31.0-37.0) g/dL RDW Std Deviation 44.8 (28.0-62.0) fl RDW Coeff of Samantha 13 (11.0-15.0) % Plt Count 228 (150-400) K/uL MPV 10.80 (7.40-12.00) fL Neut % (Auto) 73.2 (48.0-80.0) % Lymph % (Auto) 17.3 (16.0-40.0) % [place] % (Auto) 7.2 (0.0-15.0) % Eos % (Auto) 2.0 (0.0-7.0) % Baso % (Auto) 0.3 (0.0-1.5) % Neut # (Auto) 7.8 H (1.4-5.7) K/uL Lymph # (Auto) 1.8 (0.6-2.4) K/uL [place] # (Auto) 0.8 (0.0-0.8) K/uL Eos # (Auto) 0.2 (0.0-0.7) K/uL Baso # (Auto) 0.0 (0.0-0.1) K/uL Nucleated RBC % 0.0 /100WBC Nucleated RBCs # 0 K/uL Sodium (136-148) mmol/L Potassium (3.5-5.1) mmol/L Chloride (98-107) mmol/L Carbon Dioxide (21.0-32.0) mmol/L BUN (7.0-18.0) mg/dL Creatinine (0.8-1.3) mg/dL Est Cr Clr Drug Dosing mL/min Estimated GFR (MDRD) ml/min Glucose (74-106) mg/dL POC Glucose (60-110) mg/dL Calcium (8.5-10.1) mg/dL Troponin I < 0.050 < 0.050 (0.000-0.056) ng/mL Urine Color Urine Appearance Urine pH (5.0-8.0) Ur Specific [place] (1.001-1.035) Urine Protein (NEGATIVE) mg/dL Urine Glucose (UA) (NEGATIVE) mg/dL Urine Ketones (NEGATIVE) mg/dL Urine Occult Blood (NEGATIVE) Urine Nitrite (NEGATIVE) Urine Bilirubin (NEGATIVE) Urine Urobilinogen (<2.0) EU/dL Ur Leukocyte Esterase (NEGATIVE) Urine RBC (0-2/HPF) Urine WBC (0-5/HPF) Ur Epithelial Cells (NONE-FEW) Urine Bacteria (NEGATIVE) Urine Mucus (NONE-MOD) Urine Sperm (NEGATIVE) Urine Opiates Screen (NEGATIVE) Ur Oxycodone Screen (NEGATIVE) Urine Methadone Screen (NEGATIVE) Ur Barbiturates Screen (NEGATIVE) Ur Phencyclidine Scrn (NEGATIVE) Ur Amphetamine Screen (NEGATIVE) U Methamphetamines Scrn (NEGATIVE) U Benzodiazepines Scrn (NEGATIVE) U Cocaine Metab Screen (NEGATIVE) U Marijuana (THC) Screen (NEGATIVE) 11/26/19 11/26/19 11/26/19 Range/Units 05:57 06:05 11:32 WBC (4.0-11.0) K/uL RBC (4.50-5.90) M/uL Hgb (13.0-17.0) g/dL Hct (38.0-50.0) % MCV (80.0-98.0) fL MCH (27.0-32.0) pg MCHC (31.0-37.0) g/dL RDW Std Deviation (28.0-62.0) fl RDW Coeff of Samantha (11.0-15.0) % Plt Count (150-400) K/uL MPV (7.40-12.00) fL Neut % (Auto) (48.0-80.0) % Lymph % (Auto) (16.0-40.0) % [place] % (Auto) (0.0-15.0) % Eos % (Auto) (0.0-7.0) % Baso % (Auto) (0.0-1.5) % Neut # (Auto) (1.4-5.7) K/uL Lymph # (Auto) (0.6-2.4) K/uL [place] # (Auto) (0.0-0.8) K/uL Eos # (Auto) (0.0-0.7) K/uL Baso # (Auto) (0.0-0.1) K/uL Nucleated RBC % /100WBC Nucleated RBCs # K/uL Sodium 141 (136-148) mmol/L Potassium 3.9 (3.5-5.1) mmol/L Chloride 104 (98-107) mmol/L Carbon Dioxide 26.5 (21.0-32.0) mmol/L BUN 13 (7.0-18.0) mg/dL Creatinine 0.8 (0.8-1.3) mg/dL Est Cr Clr Drug Dosing 87.45 mL/min Estimated GFR (MDRD) > 60.0 ml/min Glucose 111 H (74-106) mg/dL POC Glucose 111 H 127 H (60-110) mg/dL Calcium 9.1 (8.5-10.1) mg/dL Troponin I (0.000-0.056) ng/mL Urine Color Urine Appearance Urine pH (5.0-8.0) Ur Specific [place] (1.001-1.035) Urine Protein (NEGATIVE) mg/dL Urine Glucose (UA) (NEGATIVE) mg/dL Urine Ketones (NEGATIVE) mg/dL Urine Occult Blood (NEGATIVE) Urine Nitrite (NEGATIVE) Urine Bilirubin (NEGATIVE) Urine Urobilinogen (<2.0) EU/dL Ur Leukocyte Esterase (NEGATIVE) Urine RBC (0-2/HPF) Urine WBC (0-5/HPF) Ur Epithelial Cells (NONE-FEW) Urine Bacteria (NEGATIVE) Urine Mucus (NONE-MOD) Urine Sperm (NEGATIVE) Urine Opiates Screen (NEGATIVE) Ur Oxycodone Screen (NEGATIVE) Urine Methadone Screen (NEGATIVE) Ur Barbiturates Screen (NEGATIVE) Ur Phencyclidine Scrn (NEGATIVE) Ur Amphetamine Screen (NEGATIVE) U Methamphetamines Scrn (NEGATIVE) U Benzodiazepines Scrn (NEGATIVE) U Cocaine Metab Screen (NEGATIVE) U Marijuana (THC) Screen (NEGATIVE) MARY ELLEN Results - Last 24 hrs: Microbiology 11/25/19 13:28 Influenza Type A Antigen Screen - Final Nasopharyngeal Swab NEGATIVE INFLUENZA A VIRUS AG REFERENCE RANGE: NEGATIVE Influenza Type B Antigen Screen - Final NEGATIVE INFLUENZA B VIRUS AG REFERENCE RANGE: NEGATIVE Med Orders - Current: Current Medications Acetaminophen (Tylenol) 650 mg PO Q4H PRN PRN Reason: Pain (Mild 1-3)/fever Hydrocodone Bitart/Acetaminophen ([place] 325-5 Mg) 1 tab PO Q4H PRN PRN Reason: Pain Last Admin: 11/26/19 11:04 Dose: 1 tab Albuterol/Ipratropium (Duoneb 3.0-0.5 Mg/3 Ml) 3 ml NEB Q4HRRT PRN PRN Reason: wheezing,sob Last Admin: 11/25/19 16:51 Dose: 3 ml Aspirin (Aspirin) 81 mg PO DAILY [facility] Last Admin: 11/26/19 08:34 Dose: 81 mg Atorvastatin Calcium (Lipitor) 80 mg PO BEDTIME [facility] Last Admin: 11/25/19 20:13 Dose: 80 mg Azithromycin (Zithromax) 500 mg PO Q24H [facility] Last Admin: 11/26/19 08:33 Dose: 500 mg Baclofen (Lioresal) 10 mg PO TID PRN PRN Reason: Muscle Spasm Buspirone HCl (Buspar) 10 mg PO BID [facility] Last Admin: 11/26/19 08:34 Dose: 10 mg Clopidogrel Bisulfate (Plavix) 75 mg PO DAILY [facility] Last Admin: 11/26/19 08:34 Dose: 75 mg Heparin Sodium (Porcine) (Heparin Sodium) 5,000 units SUBCUT Q8H [facility] Last Admin: 11/26/19 08:34 Dose: 5,000 units Ceftriaxone Sodium/Dextrose 1 (gm/ Premix) 50 mls @ 100 mls/hr IV Q24H [facility] Last Admin: 11/26/19 11:10 Dose: 100 mls/hr Pantoprazole Sodium 40 mg/ (Sodium Chloride) 10 mls @ 300 mls/hr IV Q24H [facility] Last Admin: 11/25/19 15:44 Dose: 300 mls/hr Insulin Aspart (Novolog) 0 unit SUBCUT TIDAC [facility]; Protocol Last Admin: 11/26/19 11:35 Dose: Not Given Isosorbide Mononitrate (Imdur) 30 mg PO DAILY [facility] Last Admin: 11/26/19 08:32 Dose: 30 mg Latanoprost (Xalatan 0.005% Ophth Soln) 1 ml EYEBOTH BEDTIME [facility] Levothyroxine Sodium (Synthroid) 50 mcg PO ACBREAKFAST [facility] Last Admin: 11/26/19 09:23 Dose: 50 mcg Lidocaine (Lidoderm 5%) 700 mg TOP Q24H [facility] Last Admin: 11/26/19 10:23 Dose: 700 mg Losartan Potassium (Cozaar) 25 mg PO DAILY [facility] Last Admin: 11/26/19 08:33 Dose: 25 mg Morphine Sulfate (Morphine) 2 mg IVPUSH Q4H PRN PRN Reason: Pain Last Admin: 11/26/19 08:25 Dose: 2 mg Nitroglycerin (Nitrostat) 0.4 mg SL Q5M PRN PRN Reason: Chest Pain Last Admin: 11/25/19 15:45 Dose: 0.4 mg Ondansetron HCl (Zofran) 4 mg IVPUSH Q4H PRN PRN Reason: Nausea Last Admin: 11/26/19 09:35 Dose: 4 mg Budesonide/Formoterol 160-4.5 Mcg/Puff 6 Gm Inhaler 2 each INH BID [facility] Last Admin: 11/26/19 08:36 Dose: Not Given Discontinued Medications Aspirin (Aspirin) 324 mg PO ONETIME ONE Stop: 11/25/19 10:09 Last Admin: 11/25/19 10:38 Dose: 324 mg Al Hydroxide/Mg Hydroxide 15 (ml/ Lidocaine HCl 5 ml) 0 ml PO ONETIME ONE Stop: 11/25/19 19:51 Last Admin: 11/25/19 21:01 Dose: 1 each Azithromycin 500 mg/ Sodium (Chloride) 250 mls @ 250 mls/hr IV ONETIME [facility] Last Admin: 11/25/19 14:17 Dose: 250 mls/hr Ceftriaxone Sodium 1 gm/ (Sodium Chloride) 50 mls @ 200 mls/hr IV ONETIME ONE Stop: 11/25/19 13:10 Last Admin: 11/25/19 15:24 Dose: Not Given Ceftriaxone Sodium/Dextrose 1 (gm/ Premix) 50 mls @ 200 mls/hr IV ONETIME ONE Stop: 11/25/19 13:44 Last Admin: 11/25/19 13:30 Dose: 200 mls/hr Sodium Chloride (Normal Saline) 500 mls @ 150 mls/hr IV ONETIME ONE Stop: 11/25/19 19:58 Last Admin: 11/25/19 17:03 Dose: 150 mls/hr Iopamidol (Isovue-370 (76%)) 50 ml IV ONETIME STA Stop: 11/25/19 11:19 Last Admin: 11/25/19 11:21 Dose: 50 ml Non-Formulary Medication (Losartan) 50 mg PO DAILY RICHARD - Exam General: Reports: Alert, Oriented, Cooperative, No Acute Distress Neck: Reports: Supple, Other (hurts with movement towards left, otherwise no other pain. ) Lungs: Reports: Clear to Auscultation, Normal Respiratory Effort Cardiovascular: Reports: Regular Rate, Regular Rhythm GI/Abdominal Exam: Normal Bowel Sounds, Soft, Non-Tender Back Exam: Reports: Normal Inspection, Full Range of Motion Neurological: Reports: No New Focal Deficit Psy/Mental Status: Reports: Alert, Normal Affect, Normal Mood
[2019-11-26] MEDS ORDERED: Latanoprost 0.005% Ophth Soln 2.5 ML Bottle EYEBOTH SCH (21:00)
== END 2019-11-26 14:50 | disposition home or self-care (01) ==
LOC: MW.ED 09:33 → MW.MS 13:54
PROVIDERS: ADMIT Student in an Organized Health Care Education/Training Program; ATTEND Student in an Organized Health Care Education/Training Program
DX: R07.89 Other chest pain (principal); J18.9 Pneumonia, unspecified organism; I25.10 Atherosclerotic heart disease of native coronary artery without angina pectoris; I10 Essential (primary) hypertension; E78.5 Hyperlipidemia, unspecified; J44.9 Chronic obstructive pulmonary disease, unspecified; D72.829 Elevated white blood cell count, unspecified; E78.00 Pure hypercholesterolemia, unspecified; N40.0 Benign prostatic hyperplasia without lower urinary tract symptoms; E11.9 Type 2 diabetes mellitus without complications; E03.9 Hypothyroidism, unspecified; M54.9 Dorsalgia, unspecified; G89.29 Other chronic pain; Z95.5 Presence of coronary angioplasty implant and graft; Z79.82 Long term (current) use of aspirin; Z79.02 Long term (current) use of antithrombotics/antiplatelets; Z79.84 Long term (current) use of oral hypoglycemic drugs; Z79.899 Other long term (current) drug therapy
CPT/HCPCS: 36415; 71275; 80048; 80053; 80305; 81001; 82962; 83880; 84484; 85025; 85610; 87804; 93005; 94640; 96361; 96365; 96372; 96375; 96376; 99285; A9270; C9113; G0378; J0456; J0696; J1644; J2270; J2405; J7040; J7050; Q9967; 96374; J7620-GY

== ENCOUNTER 2020-09-21 15:17 | Emergency (ER) | payer MEDICARE, OTHER ==
--- NOTE | 2020-09-21 15:22 | EDM.PDOC ---
ED HPI GENERAL MEDICAL PROBLEM - General Stated Complaint: POSSIBLE COVID SYMPTOMS Time Seen by Provider: 09/21/20 15:18 Source of Information: Reports: Patient - History of Present Illness INITIAL COMMENTS - FREE TEXT/NARRATIVE: 70-year-old male past medical history CAD w/ stents, hypertension, COPD not on home O2 presents for concern for Covid infection. Patient notes symptoms for roughly 2 days. He notes a nonproductive cough, body aches, chest tightness, nausea without vomiting, diarrhea, shortness of breath. Shortness of breath is worse with ambulation. He notes positive exposure via his son who tested positive, and a friend of his who was over the last week who also tested positive. He has had subjective fevers with chills, sweats. Chest Pain Score (Numeric/FACES): 3 - Related Data Allergies Allergy/AdvReac Type Severity Reaction Status Date / Time No Known Allergies Allergy Verified 09/21/20 15:30 Home Meds: Home Meds Baclofen 10 mg PO TID PRN 03/11/19 [History] Clopidogrel Bisulfate [Clopidogrel] 75 mg PO DAILY 03/11/19 [History] Isosorbide Mononitrate [Imdur] 30 mg PO DAILY 03/11/19 [History] Latanoprost/Pf [Latanoprost 0.005% Eye Drop] 1 drop EYEBOTH BEDTIME 03/11/19 [History] Levothyroxine Sodium 50 mcg PO ACBREAKFAST 03/11/19 [History] Losartan [Cozaar] 50 mg PO DAILY 03/11/19 [History] Metoprolol Tartrate 50 mg PO BID 03/11/19 [History] Potassium Chloride 10 meq PO TID 03/11/19 [History] atorvaSTATin Calcium [Atorvastatin Calcium] 80 mg PO BEDTIME 03/11/19 [History] metFORMIN HCl [Metformin HCl] 1,000 mg PO BID 03/11/19 [History] Albuterol [Ventolin HFA] 2 puff IH Q6H PRN 06/01/19 [History] Pantoprazole Sodium 40 mg PO DAILY 11/22/19 [History] Tamsulosin HCl [Flomax] 0.4 mg PO DAILY 11/22/19 [History] busPIRone [Buspar] 10 mg PO BID 11/22/19 [History] Aspirin 81 mg PO DAILY 11/25/19 [History] Budesonide/Formoterol [Symbicort 160-4.5 MCG] 2 puff INH BID 11/25/19 [History] Azithromycin [Zithromax] 500 mg PO Q24H #6 tablet 11/26/19 [Rx] Lidocaine 5% [Lidoderm 5%] 700 mg TOP Q24H #5 patch 11/26/19 [Rx] oxyCODONE 5 mg PO Q6H PRN #20 tab 11/26/19 [Rx] predniSONE 40 mg PO WITHBREAKFAST #8 tab 11/26/19 [Rx] Past Medical History HEENT History: Reports: Glaucoma, Impaired Vision, Other (See Below) Other HEENT History: wears glasses Cardiovascular History: Reports: CAD, High Cholesterol, Hypertension, SC, Stents, Other (See Below) Other Cardiovascular History: SC x3. Carotid atherosclerosis Respiratory History: Reports: COPD, SOB Gastrointestinal History: Reports: None Genitourinary History: Reports: BPH Musculoskeletal History: Reports: Back Pain, Chronic Other Musculoskeletal History: chronic neck and back pain, lumbar stenosis, chronic pain syndrome Endocrine/Metabolic History: Reports: Diabetes, Type II, Hypothyroidism Other Endocrine/Metabolic History: states "pre diabetic" Immunologic History: Reports: None Oncologic (Cancer) History: Reports: None Dermatologic History: Reports: Other (See Below) Other Dermatologic History: Granuloma annulare - Infectious Disease History Infectious Disease History: Reports: Chicken Pox, Shingles - Past Surgical History Head Surgeries/Procedures: Reports: None HEENT Surgical History: Reports: Cataract Surgery, Eye Surgery, LASIK Cardiovascular Surgical History: Reports: Coronary Artery Stent Neurological Surgical History: Reports: Lumbar Spine Other Neurological Surgeries/Procedures: TENS unit Social & Family History - Family History Family Medical History: Noncontributory HEENT: Reports: Cataract Cardiac: Reports: CAD, SC OBGYN: Reports: Neurological: Reports: CVA, TIA Endocrine/Metabolic: Reports: Diabetes, Type I, Diabetes, type II - Caffeine Use Caffeine Use: Reports: Coffee Other Caffeine Use: 1 cup a day Caffeine Use Comment: 2 cups of coffee in morning ED ROS GENERAL - Review of Systems Review Of Systems: Comprehensive ROS is negative, except as noted in HPI. ED EXAM, GENERAL - Physical Exam Exam: See Below Exam Limited By: No Limitations General Appearance: Alert, WD/WN, No Apparent Distress Throat/Mouth: Normal Voice, No Airway Compromise Head: Atraumatic, Normocephalic Neck: Normal Inspection Respiratory/Chest: No Respiratory Distress, Lungs Clear, Normal Breath Sounds, No Accessory Muscle Use Cardiovascular: Normal Peripheral Pulses, No Edema, Tachycardia GI/Abdominal: Soft, Non-Tender Extremities: Normal Inspection Neurological: Alert Psychiatric: Normal Affect, Normal Mood Skin Exam: Warm, Dry, Intact, Normal Color #1 Interpretation EKG Date: 09/21/20 Time: 16:06 Rhythm: NSR Rate (Beats/Min): 94 Reynolds: Normal P-Wave: Present QRS: Normal ST-T: Normal QT: Normal Comparison: NA - No Prior EKG Course - Vital Signs Last Recorded V/S: Last Vital Signs Temp 97 F 09/21/20 16:15 Pulse 77 09/21/20 18:11 Resp 14 09/21/20 18:11 BP 114/79 09/21/20 18:11 Pulse Ox 93 L 09/21/20 18:11 - Orders/Labs/Meds Orders: Active Orders 24 hr Category Date Time Status Cardiac Monitoring [RC] . DIRECTED Care 09/21/20 15:30 Active EKG Documentation Completion [RC] STAT Care 09/21/20 15:30 Active Pulse Oximetry [RC] ASDIRECTED Care 09/21/20 15:30 Active B-TYPE NATRIURETIC PEPTIDE,BNP [CHEM] Stat Lab 09/21/20 15:45 Received CORONAVIRUS COVID-19 PCR PHL Stat Lab 09/21/20 15:45 Received CULTURE BLOOD [BC] Stat Lab 09/21/20 15:45 Received CULTURE BLOOD [BC] Stat Lab 09/21/20 16:30 Received Sodium Chloride 0.9% [Saline Flush] Med 09/21/20 15:30 Active 10 ml FLUSH ASDIRECTED PRN Sodium Chloride 0.9% [Saline Flush] Med 09/21/20 15:30 Active 2.5 ml FLUSH ASDIRECTED PRN Blood Culture x2 Reflex Set [OM.PC] Stat Oth 09/21/20 16:14 Ordered Saline Lock Insert [OM.PC] Stat Oth 09/21/20 15:30 Ordered Medication Orders Sodium Chloride (Saline Flush) 10 ml FLUSH ASDIRECTED PRN PRN Reason: Keep Vein Open Last Admin: 09/21/20 15:57 Dose: 10 ml Documented by: NORMA Sodium Chloride (Saline Flush) 2.5 ml FLUSH ASDIRECTED PRN PRN Reason: Keep Vein Open Last Admin: 09/21/20 15:57 Dose: 2.5 ml Documented by: NORMA Labs: Laboratory Tests 09/21/20 09/21/20 09/21/20 Range/Units 15:45 15:45 15:45 WBC 9.09 (4.0-11.0) K/uL RBC 4.80 (4.50-5.90) M/uL Hgb 14.3 (13.0-17.0) g/dL Hct 44.5 (38.0-50.0) % MCV 92.7 (80.0-98.0) fL MCH 29.8 (27.0-32.0) pg MCHC 32.1 (31.0-37.0) g/dL RDW Std Deviation 48.0 (28.0-62.0) fl RDW Coeff of Samantha 14 (11.0-15.0) % Plt Count 271 (150-400) K/uL MPV 10.20 (7.40-12.00) fL Neut % (Auto) 83.6 H (48.0-80.0) % Lymph % (Auto) 10.1 L (16.0-40.0) % [facility] % (Auto) 6.2 (0.0-15.0) % Eos % (Auto) 0.0 (0.0-7.0) % Baso % (Auto) 0.1 (0.0-1.5) % Neut # (Auto) 7.6 H (1.4-5.7) K/uL Lymph # (Auto) 0.9 (0.6-2.4) K/uL [facility] [place] # (Auto) 0.6 (0.0-0.8) K/uL Eos # (Auto) 0.0 (0.0-0.7) K/uL Baso # (Auto) 0.0 (0.0-0.1) K/uL Nucleated RBC % 0.0 /100WBC Nucleated RBCs # 0 K/uL INR APTT (18.6-31.3) SEC D-Dimer, Quantitative 0.56 H (0.0-0.50) mg/L FEU ABG pH (7.35-7.45) ABG pCO2 (35-45) mmHG ABG pO2 (75-100) mmHG ABG HCO3 (22-26) mEq/L ABG Total CO2 ABG Base Excess (-2.0-2.0) Lactate 6.3 H* (0.20-2.00) mmol/L Sodium (136-148) mmol/L Potassium (3.5-5.1) mmol/L Chloride (98-107) mmol/L Carbon Dioxide (21.0-32.0) mmol/L BUN (7.0-18.0) mg/dL Creatinine (0.8-1.3) mg/dL Est Cr Clr Drug Dosing mL/min Estimated GFR (MDRD) ml/min Glucose (74-106) mg/dL Calcium (8.5-10.1) mg/dL Total Bilirubin (0.2-1.0) mg/dL AST (15-37) IU/L ALT (14-63) IU/L Alkaline Phosphatase (46-116) U/L Troponin I (0.000-0.056) ng/mL C-Reactive Protein (0.00-0.90) mg/dL Total Protein (6.4-8.2) g/dL Albumin (3.4-5.0) g/dL Globulin (2.6-4.0) g/dL Albumin/Globulin Ratio (0.9-1.6) SARS CoV-2 RNA Rapid JESSICA (NEGATIVE) 09/21/20 09/21/20 09/21/20 Range/Units 15:45 15:45 15:45 WBC (4.0-11.0) K/uL RBC (4.50-5.90) M/uL Hgb (13.0-17.0) g/dL Hct (38.0-50.0) % MCV (80.0-98.0) fL MCH (27.0-32.0) pg MCHC (31.0-37.0) g/dL RDW Std Deviation (28.0-62.0) fl RDW Coeff of Samantha (11.0-15.0) % Plt Count (150-400) K/uL MPV (7.40-12.00) fL Neut % (Auto) (48.0-80.0) % Lymph % (Auto) (16.0-40.0) % [facility] [place] % (Auto) (0.0-15.0) % Eos % (Auto) (0.0-7.0) % Baso % (Auto) (0.0-1.5) % Neut # (Auto) (1.4-5.7) K/uL Lymph # (Auto) (0.6-2.4) K/uL [facility] [place] [facility] # (Auto) (0.0-0.8) K/uL Eos # (Auto) (0.0-0.7) K/uL Baso # (Auto) (0.0-0.1) K/uL Nucleated RBC % /100WBC Nucleated RBCs # K/uL INR 0.97 APTT 23.6 (18.6-31.3) SEC D-Dimer, Quantitative (0.0-0.50) mg/L FEU ABG pH (7.35-7.45) ABG pCO2 (35-45) mmHG ABG pO2 (75-100) mmHG ABG HCO3 (22-26) mEq/L ABG Total CO2 ABG Base Excess (-2.0-2.0) Lactate (0.20-2.00) mmol/L Sodium 139 (136-148) mmol/L Potassium 4.5 (3.5-5.1) mmol/L Chloride 100 (98-107) mmol/L Carbon Dioxide 20.5 L (21.0-32.0) mmol/L BUN 15 (7.0-18.0) mg/dL Creatinine 1.2 (0.8-1.3) mg/dL Est Cr Clr Drug Dosing 57.45 mL/min Estimated GFR (MDRD) 59.5 ml/min Glucose 124 H (74-106) mg/dL Calcium 9.4 (8.5-10.1) mg/dL Total Bilirubin 0.4 (0.2-1.0) mg/dL AST 40 H (15-37) IU/L ALT 55 (14-63) IU/L Alkaline Phosphatase 59 (46-116) U/L Troponin I < 0.050 (0.000-0.056) ng/mL C-Reactive Protein <0.20 (0.00-0.90) mg/dL Total Protein 7.7 (6.4-8.2) g/dL Albumin 4.2 (3.4-5.0) g/dL Globulin 3.5 (2.6-4.0) g/dL Albumin/Globulin Ratio 1.2 (0.9-1.6) SARS CoV-2 RNA Rapid JESSICA POSITIVE H (NEGATIVE) 09/21/20 09/21/20 Range/Units 16:22 18:25 WBC (4.0-11.0) K/uL RBC (4.50-5.90) M/uL Hgb (13.0-17.0) g/dL Hct (38.0-50.0) % MCV (80.0-98.0) fL MCH (27.0-32.0) pg MCHC (31.0-37.0) g/dL RDW Std Deviation (28.0-62.0) fl RDW Coeff of Samantha (11.0-15.0) % Plt Count (150-400) K/uL MPV (7.40-12.00) fL Neut % (Auto) (48.0-80.0) % Lymph % (Auto) (16.0-40.0) % [facility] [place] [facility] % (Auto) (0.0-15.0) % Eos % (Auto) (0.0-7.0) % Baso % (Auto) (0.0-1.5) % Neut # (Auto) (1.4-5.7) K/uL Lymph # (Auto) (0.6-2.4) K/uL [facility] [place] [facility] # (Auto) (0.0-0.8) K/uL Eos # (Auto) (0.0-0.7) K/uL Baso # (Auto) (0.0-0.1) K/uL Nucleated RBC % /100WBC Nucleated RBCs # K/uL INR APTT (18.6-31.3) SEC D-Dimer, Quantitative (0.0-0.50) mg/L FEU ABG pH 7.400 (7.35-7.45) ABG pCO2 31 L (35-45) mmHG ABG pO2 89 (75-100) mmHG ABG HCO3 19 L (22-26) mEq/L ABG Total CO2 17.1 ABG Base Excess -4.6 L (-2.0-2.0) Lactate 5.2 H* (0.20-2.00) mmol/L Sodium (136-148) mmol/L Potassium (3.5-5.1) mmol/L Chloride (98-107) mmol/L Carbon Dioxide (21.0-32.0) mmol/L BUN (7.0-18.0) mg/dL Creatinine (0.8-1.3) mg/dL Est Cr Clr Drug Dosing mL/min Estimated GFR (MDRD) ml/min Glucose (74-106) mg/dL Calcium (8.5-10.1) mg/dL Total Bilirubin (0.2-1.0) mg/dL AST (15-37) IU/L ALT (14-63) IU/L Alkaline Phosphatase (46-116) U/L Troponin I (0.000-0.056) ng/mL C-Reactive Protein (0.00-0.90) mg/dL Total Protein (6.4-8.2) g/dL Albumin (3.4-5.0) g/dL Globulin (2.6-4.0) g/dL Albumin/Globulin Ratio (0.9-1.6) SARS CoV-2 RNA Rapid JESSICA (NEGATIVE) Meds: Medications Generic Name Dose Route Start Last Admin Trade Name Freq PRN Reason Stop Dose Admin Sodium Chloride 10 ml 09/21/20 15:30 09/21/20 15:57 Saline Flush FLUSH 10 ml ASDIRECTED PRN Administration Keep Vein Open Sodium Chloride 2.5 ml 09/21/20 15:30 09/21/20 15:57 Saline Flush FLUSH 2.5 ml ASDIRECTED PRN Administration Keep Vein Open Discontinued Medications Generic Name Dose Route Start Last Admin Trade Name Freq PRN Reason Stop Dose Admin Acetaminophen 1,000 mg 09/21/20 15:30 09/21/20 15:56 Tylenol Extra Strength PO 09/21/20 15:31 1,000 mg ONETIME ONE Administration Sodium Chloride 1,000 mls @ 999 mls/hr 09/21/20 15:30 09/21/20 15:56 Normal Saline IV 09/21/20 16:30 999 mls/hr .Bolus ONE Administration Sodium Chloride 1,000 mls @ 999 mls/hr 09/21/20 16:39 09/21/20 16:59 Normal Saline IV 09/21/20 17:39 999 mls/hr .Bolus ONE Administration Ketorolac Tromethamine 15 mg 09/21/20 15:31 09/21/20 15:55 Toradol IVPUSH 09/21/20 15:32 15 mg ONETIME ONE Administration - Re-Assessments/Exams Free Text/Narrative Re-Assessment/Exam: 09/21/20 15:33 Patient presents with signs and symptoms consistent with COVID-19 infection. Will get Covid swab. Will get chest x-ray, labs, EKG. Will treat symptomatically with IV fluid bolus, Toradol, Tylenol. Patient is oxygenating well on room air. We will follow up results and disposition accordingly. 09/21/20 16:09 Lactate markedly elevated to 6. Will get ABG to check patient's acid-base status. 09/21/20 16:54 Covid testing is positive, chest x-ray is without evidence of Covid pneumonia. D-dimer is negative when age-adjusted. will follow-up repeat lactate after fluid bolus and disposition accordingly. 09/21/20 18:39 Patient's repeat lactate is still quite elevated. I had a very long discussion with patient regarding admission. Patient is not wanting to stay in the hospital, especially considering we do not have any beds available at this hospital and he would require transfer. He does not have evidence of pneumonia on his chest x-ray, and the rest of his labs are unremarkable. No evidence of blood clot considering age-adjusted D-dimer is normal. His oxygenation has remained normal throughout his stay despite no supplemental O2. I explained the results of the elevated lactate to the patient, and that this can be a sign of severe illness. He is understanding, but still elects not to stay in the hospital. He states that he lives nearby, he will return to the hospital for any worsening symptoms. I explained to the patient that with Covid patients can often appear well and then quickly turn. He is understanding of this, he understands the risks of going home. I will not make the patient signed out AGAINST MEDICAL ADVICE. Departure - Departure Time of Disposition: 18:41 Disposition: Home, Self-Care 01 Condition: Fair Clinical Impression: COVID-19 - Discharge Information Instructions: COVID-19, COVID-19: How to Protect Yourself and Others - CDC, Prevent the Spread of COVID-19 if You Are Sick - [facility] Referrals: PCP,None [Primary Care Provider] - Additional Instructions: Your lab work is remarkable for positive COVID-19 infection. Your chest x-ray does not show any evidence of Covid pneumonia. Your blood work elevated lactate, this is a lab that we used to determine severity of infection. If you start to feel worsening shortness of breath, chest tightness, or any concerning symptom development, you are encouraged to return to the emergency department for reassessment. Patients with COVID-19 will often feel well initially, and deteriorate quickly. For this reason you were encouraged to come to the emergency department for any changes in symptoms that are concerning to you. The following information is given to patients seen in the emergency department who are being discharged to home. This information is to outline your options for follow-up care. We provide all patients seen in our emergency department with a follow-up referral. The need for follow-up, as well as the timing and circumstances, are variable depending upon the specifics of your emergency department visit. If you don't have a primary care physician on staff, we will provide you with a referral. We always advise you to contact your personal physician following an emergency department visit to inform them of the circumstance of the visit and for follow-up with them and/or the need for any referrals to a consulting specialist. The emergency department will also refer you to a specialist when appropriate. This referral assures that you have the opportunity for follow-up care with a specialist. All of these measure are taken in an effort to provide you with optimal care, which includes your follow-up. Under all circumstances we always encourage you to contact your private physician who remains a resource for coordinating your care. When calling for follow-up care, please make the office aware that this follow-up is from your recent emergency room visit. If for any reason you are refused follow-up, please contact the [facility] Emergency Department at and asked to speak to the emergency department charge nurse. Please follow up with your primary care physician. If you do not have a primary care physician, see below: [facility] [address] [place] [address] [id number] [address] Sepsis Event Note (ED) - Focused Exam Vital Signs: Vital Signs Temp Pulse Resp BP Pulse Ox 09/21/20 18:11 77 14 114/79 93 L 09/21/20 17:56 86 26 H 106/72 95 09/21/20 17:41 84 19 114/69 94 L 09/21/20 17:26 89 20 110/77 94 L 09/21/20 17:11 89 25 H 126/87 94 L 09/21/20 16:56 89 26 H 127/74 93 L 09/21/20 16:41 91 27 H 127/84 95 09/21/20 16:28 84 17 93 L 09/21/20 16:15 97 F 95 18 119/75 91 L 09/21/20 15:30 97.2 F 110 H 20 141/78 H 96 - My Orders Last 24 Hours: My Active Orders 09/21/20 15:30 Cardiac Monitoring [RC] . DIRECTED EKG Documentation Completion [RC] STAT Pulse Oximetry [RC] ASDIRECTED Sodium Chloride 0.9% [Saline Flush] 10 ml FLUSH ASDIRECTED PRN Sodium Chloride 0.9% [Saline Flush] 2.5 ml FLUSH ASDIRECTED PRN Saline Lock Insert [OM.PC] Stat 09/21/20 15:45 B-TYPE NATRIURETIC PEPTIDE,BNP [CHEM] Stat CORONAVIRUS COVID-19 PCR PHL Stat CULTURE BLOOD [BC] Stat 09/21/20 16:14 Blood Culture x2 Reflex Set [OM.PC] Stat 09/21/20 16:30 CULTURE BLOOD [BC] Stat - Assessment/Plan Last 24 Hours: My Active Orders 09/21/20 15:30 Cardiac Monitoring [RC] . DIRECTED EKG Documentation Completion [RC] STAT Pulse Oximetry [RC] ASDIRECTED Sodium Chloride 0.9% [Saline Flush] 10 ml FLUSH ASDIRECTED PRN Sodium Chloride 0.9% [Saline Flush] 2.5 ml FLUSH ASDIRECTED PRN Saline Lock Insert [OM.PC] Stat 09/21/20 15:45 B-TYPE NATRIURETIC PEPTIDE,BNP [CHEM] Stat CORONAVIRUS COVID-19 PCR PHL Stat CULTURE BLOOD [BC] Stat 09/21/20 16:14 Blood Culture x2 Reflex Set [OM.PC] Stat 09/21/20 16:30 CULTURE BLOOD [BC] Stat
[2020-09-21] MEDS ORDERED: Acetaminophen 500 MG Tab PO ONE (15:30)
[2020-09-21] MEDS ORDERED: Sodium Chloride 0.9% 10 ML Syringe FLUSH PRN (15:30)
[2020-09-21] MEDS ORDERED: Sodium Chloride 0.9% 2.5 ML Syringe FLUSH PRN (15:30)
[2020-09-21] MEDS ORDERED: Sodium Chloride 0.9% 1,000 ML IV ONE ×2 (15:30→16:39)
[2020-09-21] MEDS ORDERED: Ketorolac 15 MG/ML SDV IVPUSH ONE (15:31)
[2020-09-21 16:23] LABS: BLOOD UREA NITROGEN,BUN 15 mg/dL (7.0-18.0); CARBON DIOXIDE,CO2 20.5 mmol/L (21.0-32.0); CHLORIDE,CL 100 mmol/L (98-107); GLUCOSE RANDOM 124 mg/dL (74-106); POTASSIUM,K 4.5 mmol/L (3.5-5.1); SODIUM,NA 139 mmol/L (136-148)
--- NOTE | 2020-09-21 16:24 | CR ---
INDICATION: Cough, sahu virus 19 infection TECHNIQUE: Chest 1 views COMPARISON: Two view chest December 05, 2019 FINDINGS: There is mild hyperinflation and chronic interstitial change without evidence of dense consolidation, effusion, or pneumothorax. The cardiac silhouette is mildly prominent, similar to previous exam. The bony thorax is grossly intact. There is no pneumothorax. IMPRESSION: Stable mild hyperinflation and chronic interstitial change without dense consolidation. Dictated by Gab Santiago MD @ Sep 21 2020 4:21PM Signed by Dr. Gab Santiago @ Sep 21 2020 4:22PM
[2020-09-21 19:00] VITALS: BP 125/85; PULSE 84
== END 2020-09-21 19:01 | disposition home or self-care (01) ==
LOC: MW.ED 15:17
DX: U07.1 COVID-19 (principal); I25.2 Old myocardial infarction; I10 Essential (primary) hypertension; E03.9 Hypothyroidism, unspecified; J44.9 Chronic obstructive pulmonary disease, unspecified; I25.10 Atherosclerotic heart disease of native coronary artery without angina pectoris; E11.9 Type 2 diabetes mellitus without complications; Z95.5 Presence of coronary angioplasty implant and graft; Z79.82 Long term (current) use of aspirin; Z79.84 Long term (current) use of oral hypoglycemic drugs; Z79.02 Long term (current) use of antithrombotics/antiplatelets; Z79.899 Other long term (current) drug therapy
CPT/HCPCS: 36415; 36600; 71045; 80053; 82803; 83605; 83880; 84484; 85025; 85379; 85610; 85730; 86140; 87040; 93005; 96374; 99284; A9270; J1885; J7030; U0002; 93010; 99283

== ENCOUNTER 2020-09-25 05:11 | Emergency (ER) | payer MEDICARE, OTHER ==
[2020-09-25] MEDS ORDERED: Sodium Chloride 0.9% 2.5 ML Syringe FLUSH PRN (05:32)
[2020-09-25] MEDS ORDERED: Sodium Chloride 0.9% 10 ML Syringe FLUSH PRN (05:32)
[2020-09-25] MEDS ORDERED: Sodium Chloride 0.9% 1,000 ML IV ONE (05:34)
--- NOTE | 2020-09-25 05:35 | EDM.PDOC ---
ED HPI GENERAL MEDICAL PROBLEM - General Chief Complaint: General Stated Complaint: SOB Time Seen by Provider: 09/25/20 05:14 - History of Present Illness INITIAL COMMENTS - FREE TEXT/NARRATIVE: HISTORY AND PHYSICAL: History of present illness: This is a 70-year-old gentleman with a history significant for coronary disease, COPD, sick sinus syndrome, hypertension, hyperlipidemia, recently tested positive for coronavirus who presents ER today secondary to waking up at approximately 3 in the morning with a headache and increased shortness of breath. Patient denies any recent fevers, shakes, chills. Patient reports has been nauseous but no vomiting or diarrhea. Patient denies any dysuria, frequency, urgency. Patient denies any chest pain or pressure, or abdominal pain. Patient reports has been taking Tylenol at home for his headache symptoms. Review of systems: As per history of present illness and below otherwise all systems reviewed and negative. Past medical history: As per history of present illness and as reviewed below otherwise noncontributory. Surgical history: As per history of present illness and as reviewed below otherwise noncontributory. Social history: No reported history of drug or alcohol abuse. Family history: As per history of present illness and as reviewed below otherwise noncontributory. Physical exam: HEENT: Atraumatic, normocephalic, pupils reactive, negative for conjunctival pallor or scleral icterus, mucous membranes moist, throat clear, neck supple, nontender, trachea midline. Lungs: Clear to auscultation, breath sounds equal bilaterally, chest nontender. Heart: S1S2, regular, negative for clicks, rubs, or JVD. Abdomen: Soft, nondistended, nontender. Negative for masses or hepatosplenomegaly. Negative for costovertebral tenderness. Pelvis: Stable nontender. Genitourinary: Deferred. Rectal: Deferred. Extremities: Atraumatic, negative for cords or calf pain. Neurovascular unremarkable. Neuro: Awake, alert, oriented. Cranial nerves II through XII unremarkable. Cerebellum unremarkable. Motor and sensory unremarkable throughout. Exam nonfocal. Neck supple, no nuchal rigidity, no photophobia, no Kernig's sign or Brudzinski sign, patient does not present with signs or symptoms of be consistent with meningitis. Diagnostics: EKG: As interpreted by ER physician: Joanna: Nonspecific ST-T wave abnormalities Normal axis No evidence of ST elevation TX Normal sinus rhythm heart rate of 87 Chest Xray: Normal cardiac silhouette No infiltrates or effusions identified. No PTX No evidence of acute bony fracture. As interpreted by ER MD: Joanna CBC, CMP, troponin, D-dimer within normal limits Assessment and plan: This is a 70-year-old gentleman who was recently diagnosed with coronavirus who presents ER today secondary to shortness of breath and headache. Patient denies any other symptomatology at this time. Patient reports that he has COPD but does not utilize any O2 at home. Here in the ER, patient's lungs are clear without any wheezing rales or rhonchi. Patient appears to be no respiratory distress. Patient is oxygen level is 96% on room air and is resting comfortably speaking in full sentences does not appear to be in any respiratory distress. Patient's ER work-up is been unremarkable. Patient has a normal CBC, CMP, troponin, D-dimer. Patient's chest x-ray reveals no significant pathology or concerns. Patient is clinically hemodynamically stable for discharge to home. I have discussed with the patient return precautions. Reassessment at the time of disposition demonstrates that the patient is in no acute distress. The patie nt has remained stable throughout the entire ED visit and is without objective evidence for acute process requiring urgent intervention or hospitalization. The patient is stable for discharge, counseling is provided as documented above, discussed symptomatic treatment and specific conditions for return. I have spoken with the patient/caregiver and discussed todays findings, in addition to providing specific details for the plan of care. Questions are answered and there is agreement with the plan. [] Definitive disposition and diagnosis as appropriate pending reevaluation and review of above. chronic chest pain Pain Score (Numeric/FACES): 3 - Related Data Allergies Allergy/AdvReac Type Severity Reaction Status Date / Time No Known Allergies Allergy Verified 09/25/20 05:23 Home Meds: Home Meds Baclofen 10 mg PO TID PRN 03/11/19 [History] Clopidogrel Bisulfate [Clopidogrel] 75 mg PO DAILY 03/11/19 [History] Isosorbide Mononitrate [Imdur] 30 mg PO DAILY 03/11/19 [History] Latanoprost/Pf [Latanoprost 0.005% Eye Drop] 1 drop EYEBOTH BEDTIME 03/11/19 [History] Levothyroxine Sodium 50 mcg PO ACBREAKFAST 03/11/19 [History] Losartan [Cozaar] 50 mg PO DAILY 03/11/19 [History] Metoprolol Tartrate 50 mg PO BID 03/11/19 [History] Potassium Chloride 10 meq PO TID 03/11/19 [History] atorvaSTATin Calcium [Atorvastatin Calcium] 80 mg PO BEDTIME 03/11/19 [History] metFORMIN HCl [Metformin HCl] 1,000 mg PO BID 03/11/19 [History] Albuterol [Ventolin HFA] 2 puff IH Q6H PRN 06/01/19 [History] Pantoprazole Sodium 40 mg PO DAILY 11/22/19 [History] Tamsulosin HCl [Flomax] 0.4 mg PO DAILY 11/22/19 [History] busPIRone [Buspar] 10 mg PO BID 11/22/19 [History] Aspirin 81 mg PO DAILY 11/25/19 [History] Budesonide/Formoterol [Symbicort 160-4.5 MCG] 2 puff INH BID 11/25/19 [History] Azithromycin [Zithromax] 500 mg PO Q24H #6 tablet 11/26/19 [Rx] Lidocaine 5% [Lidoderm 5%] 700 mg TOP Q24H #5 patch 11/26/19 [Rx] oxyCODONE 5 mg PO Q6H PRN #20 tab 11/26/19 [Rx] predniSONE 40 mg PO WITHBREAKFAST #8 tab 11/26/19 [Rx] Past Medical History HEENT History: Reports: Glaucoma, Impaired Vision, Other (See Below) Other HEENT History: wears glasses Cardiovascular History: Reports: CAD, High Cholesterol, Hypertension, [place], Stents, Other (See Below) Other Cardiovascular History: TX x3. Carotid atherosclerosis Respiratory History: Reports: COPD, SOB Gastrointestinal History: Reports: None Genitourinary History: Reports: BPH Musculoskeletal History: Reports: Back Pain, Chronic Other Musculoskeletal History: chronic neck and back pain, lumbar stenosis, chronic pain syndrome Endocrine/Metabolic History: Reports: Diabetes, Type II, Hypothyroidism Other Endocrine/Metabolic History: states "pre diabetic" Immunologic History: Reports: None Oncologic (Cancer) History: Reports: None Dermatologic History: Reports: Other (See Below) Other Dermatologic History: Granuloma annulare - Infectious Disease History Infectious Disease History: Reports: Chicken Pox, Measles, Mumps, Rubella - Past Surgical History Head Surgeries/Procedures: Reports: None HEENT Surgical History: Reports: Cataract Surgery, Eye Surgery, LASIK Cardiovascular Surgical History: Reports: Coronary Artery Stent Neurological Surgical History: Reports: Lumbar Spine Other Neurological Surgeries/Procedures: TENS unit Social & Family History - Family History Family Medical History: Noncontributory HEENT: Reports: Cataract Cardiac: Reports: CAD, TX OBGYN: Reports: Neurological: Reports: CVA, TIA Endocrine/Metabolic: Reports: Diabetes, Type I, Diabetes, type II - Caffeine Use Caffeine Use: Reports: Coffee Other Caffeine Use: 1 cup a day Caffeine Use Comment: 2 cups of coffee in morning - Recreational Drug Use Recreational Drug Type: Reports: Marijuana/Hashish ED ROS GENERAL - Review of Systems Review Of Systems: See Below ED EXAM, GENERAL - Physical Exam Exam: See Below Exam Limited By: No Limitations General Appearance: Alert, WD/WN, No Apparent Distress Ears: Normal External Exam Nose: Normal Inspection Throat/Mouth: Normal Inspection, Normal Lips Head: Atraumatic, Normocephalic Neck: Normal Inspection, Supple, Non-Tender Respiratory/Chest: No Respiratory Distress, Lungs Clear, Normal Breath Sounds, No Accessory Muscle Use, Chest Non-Tender Cardiovascular: Normal Peripheral Pulses, Regular Rate, Rhythm, No Edema, No JVD GI/Abdominal: Normal Bowel Sounds, Soft, Non-Tender, No Organomegaly, No Distention, No Abnormal Bruit, No Mass, Pelvis Stable (Male) Exam: No Hernia Back Exam: Normal Inspection Extremities: Normal Inspection, Normal Range of Motion Neurological: Alert, Oriented, CN II-XII Intact, Normal Cognition, Normal Gait, Normal Reflexes, No Motor/Sensory Deficits Psychiatric: Normal Affect Skin Exam: Warm, Dry, Intact Lymphatic: No Adenopathy #1 Interpretation EKG Interpretation Comments: EKG: As interpreted by ER physician: Joanna: Nonspecific ST-T wave abnormalities Normal axis No evidence of ST elevation TX Normal sinus rhythm heart rate of 87 Course - Vital Signs Last Recorded V/S: Last Vital Signs Temp 96.3 F L 09/25/20 05:19 Pulse 92 09/25/20 05:19 Resp 18 09/25/20 05:19 BP 120/80 09/25/20 05:19 Pulse Ox 96 09/25/20 05:19 - Orders/Labs/Meds Orders: Active Orders 24 hr Category Date Time Status EKG Documentation Completion [RC] AM Care 09/25/20 05:32 Active Sodium Chloride 0.9% [Saline Flush] Med 09/25/20 05:32 Active 10 ml FLUSH ASDIRECTED PRN Sodium Chloride 0.9% [Saline Flush] Med 09/25/20 05:32 Active 2.5 ml FLUSH ASDIRECTED PRN Saline Lock Insert [OM.PC] Stat Oth 09/25/20 05:32 Ordered Medication Orders Sodium Chloride (Saline Flush) 10 ml FLUSH ASDIRECTED PRN PRN Reason: Keep Vein Open Last Admin: 09/25/20 05:41 Dose: 10 ml Documented by: MEDARDO Sodium Chloride (Saline Flush) 2.5 ml FLUSH ASDIRECTED PRN PRN Reason: Keep Vein Open Last Admin: 09/25/20 05:41 Dose: 2.5 ml Documented by: [id number] Labs: Laboratory Tests 09/25/20 09/25/20 09/25/20 Range/Units 05:40 05:40 05:40 WBC 10.77 (4.0-11.0) K/uL RBC 4.44 L (4.50-5.90) M/uL Hgb 13.4 (13.0-17.0) g/dL Hct 40.8 (38.0-50.0) % MCV 91.9 (80.0-98.0) fL MCH 30.2 (27.0-32.0) pg MCHC 32.8 (31.0-37.0) g/dL RDW Std Deviation 46.8 (28.0-62.0) fl RDW Coeff of Samantha 14 (11.0-15.0) % Plt Count 231 (150-400) K/uL MPV 10.80 (7.40-12.00) fL Neut % (Auto) 82.8 H (48.0-80.0) % Lymph % (Auto) 7.3 L (16.0-40.0) % Holt % (Auto) 9.2 (0.0-15.0) % Eos % (Auto) 0.6 (0.0-7.0) % Baso % (Auto) 0.1 (0.0-1.5) % Neut # (Auto) 8.9 H (1.4-5.7) K/uL Lymph # (Auto) 0.8 (0.6-2.4) K/uL Holt # (Auto) 1.0 H (0.0-0.8) K/uL Eos # (Auto) 0.1 (0.0-0.7) K/uL Baso # (Auto) 0.0 (0.0-0.1) K/uL Nucleated RBC % 0.0 /100WBC Nucleated RBCs # 0 K/uL D-Dimer, Quantitative 0.22 (0.0-0.50) mg/L FEU Sodium 137 (136-148) mmol/L Potassium 3.6 (3.5-5.1) mmol/L Chloride 99 (98-107) mmol/L Carbon Dioxide 26.4 (21.0-32.0) mmol/L BUN 21 H (7.0-18.0) mg/dL Creatinine 1.0 (0.8-1.3) mg/dL Est Cr Clr Drug Dosing 68.94 mL/min Estimated GFR (MDRD) > 60.0 ml/min Glucose 99 (74-106) mg/dL Calcium 9.1 (8.5-10.1) mg/dL Total Bilirubin 0.4 (0.2-1.0) mg/dL AST 25 (15-37) IU/L ALT 43 (14-63) IU/L Alkaline Phosphatase 60 (46-116) U/L Troponin I < 0.050 (0.000-0.056) ng/mL Total Protein 6.4 (6.4-8.2) g/dL Albumin 3.7 (3.4-5.0) g/dL Globulin 2.7 (2.6-4.0) g/dL Albumin/Globulin Ratio 1.4 (0.9-1.6) Meds: Medications Generic Name Dose Route Start Last Admin Trade Name Freq PRN Reason Stop Dose Admin Sodium Chloride 10 ml 09/25/20 05:32 09/25/20 05:41 Saline Flush FLUSH 10 ml ASDIRECTED PRN Administration Keep Vein Open Sodium Chloride 2.5 ml 09/25/20 05:32 09/25/20 05:41 Saline Flush FLUSH 2.5 ml ASDIRECTED PRN Administration Keep Vein Open Discontinued Medications Generic Name Dose Route Start Last Admin Trade Name Allison PRN Reason Stop Dose Admin Sodium Chloride 1,000 mls @ 999 mls/hr 09/25/20 05:34 09/25/20 05:42 Normal Saline IV 09/25/20 06:34 999 mls/hr .Bolus ONE Administration Departure - Departure Time of Disposition: 06:49 Disposition: Home, Self-Care 01 Condition: Good Clinical Impression: COVID-19 virus infection - Discharge Information Instructions: COVID-19 Frequently Asked Questions, COVID-19: How to Protect Yourself and Others - CDC, Prevent the Spread of COVID-19 if You Are Sick - CDC, COVID-19 Referrals: PCP,None [Primary Care Provider] - Forms: ED Department Discharge Additional Instructions: You were seen and evaluated in the ER today secondary to your coronavirus infection resulting in headaches and shortness of breath. Your work-up in the ER is unremarkable. Your EKG does not show any evidence of any damage to your heart. Your chest x-ray does not show any inflammation within your lungs. All your labs including your CBC and your electrolytes are all normal. Your heart enzyme does not show any damage to your heart. 1. Your COVID-19 screening is positive. That means you do have the coronavirus and you are considered contagious. Your vital signs and oxygen saturation are well enough that you were able to monitor your symptoms at home. Continue to monitor for trouble breathing, new confusion or inability to arouse, bluish lips or face or any of the other symptoms we discussed -if this occurs please return to the emergency room. 2. Please self quarantine over the next 10 days. Inform any persons that you have been in contact with since you started becoming symptomatic that you have tested positive; they should be made aware and take the appropriate steps as needed. 3. You can take NyQuil during the evening to help get a restful night sleep. May alternate Tylenol and ibuprofen as needed for pain and fever management. 4. The [facility] department will be calling you and following up with you. The [facility] COVID 19 Hotline phone number , They are open Sunday - Sunday 7am - 7pm. Follow up with your primary care provider for re-evaluation and re-testing after the 10 day quarantine and discuss when you should be seen. The following information is given to patients seen in the emergency department who are being discharged to home. This information is to outline your options for follow-up care. We provide all patients seen in our emergency department with a follow-up referral. The need for follow-up, as well as the timing and circumstances, are variable depending upon the specifics of your emergency department visit. If you don't have a primary care physician on staff, we will provide you with a referral. We always advise you to contact your personal physician following an emergency department visit to inform them of the circumstance of the visit and for follow-up with them and/or the need for any referrals to a consulting specialist. The emergency department will also refer you to a specialist when appropriate. This referral assures that you have the opportunity for follow-up care with a specialist. All of these measure are taken in an effort to provide you with optimal care, which includes your follow-up. Under all circumstances we always encourage you to contact your private physician who remains a resource for coordinating your care. When calling for follow-up care, please make the office aware that this follow-up is from your recent emergency room visit. If for any reason you are refused follow-up, please contact the [facility] Emergency Department at and asked to speak to the emergency department charge nurse. [facility] [address] [place] [address] [place] [address] Sepsis Event Note (ED) - Evaluation Sepsis Screening Result: No Definite Risk - Focused Exam Vital Signs: Vital Signs Temp Pulse Resp BP Pulse Ox 09/25/20 05:19 96.3 F L 92 18 120/80 96 - My Orders Last 24 Hours: My Active Orders 09/25/20 05:32 EKG Documentation Completion [RC] AM Sodium Chloride 0.9% [Saline Flush] 10 ml FLUSH ASDIRECTED PRN Sodium Chloride 0.9% [Saline Flush] 2.5 ml FLUSH ASDIRECTED PRN Saline Lock Insert [OM.PC] Stat - Assessment/Plan Last 24 Hours: My Active Orders 09/25/20 05:32 EKG Documentation Completion [RC] AM Sodium Chloride 0.9% [Saline Flush] 10 ml FLUSH ASDIRECTED PRN Sodium Chloride 0.9% [Saline Flush] 2.5 ml FLUSH ASDIRECTED PRN Saline Lock Insert [OM.PC] Stat
[2020-09-25 06:43] LABS: BLOOD UREA NITROGEN,BUN 21 mg/dL (7.0-18.0); CARBON DIOXIDE,CO2 26.4 mmol/L (21.0-32.0); CHLORIDE,CL 99 mmol/L (98-107); GLUCOSE RANDOM 99 mg/dL (74-106); POTASSIUM,K 3.6 mmol/L (3.5-5.1); SODIUM,NA 137 mmol/L (136-148)
--- NOTE | 2020-09-25 06:43 | CR ---
Indication: Shortness of breath, COVID Technique: Chest 1 view Comparison: Chest x-ray 09/21/2020 Findings/Impression: Cardiovascular and mediastinum: Normal heart size with atherosclerotic calcification. Lungs and pleural space: Lungs are clear. No sign of infiltrate or mass. No sign of pleural effusion. No pneumothorax. Bones and soft tissues: Stimulator wires overlie the mid thoracic spine. Dictated by Nura Seay MD @ Sep 25 2020 6:41AM Signed by Dr. Nura Seay @ Sep 25 2020 6:42AM
[2020-09-25 06:52] VITALS: BP 147/76; PULSE 68
== END 2020-09-25 06:55 | disposition home or self-care (01) ==
LOC: MW.ED 05:11
DX: U07.1 COVID-19 (principal); J44.9 Chronic obstructive pulmonary disease, unspecified; I25.10 Atherosclerotic heart disease of native coronary artery without angina pectoris; I10 Essential (primary) hypertension; E78.5 Hyperlipidemia, unspecified; E11.9 Type 2 diabetes mellitus without complications; E03.9 Hypothyroidism, unspecified; N40.0 Benign prostatic hyperplasia without lower urinary tract symptoms; I25.2 Old myocardial infarction; Z79.84 Long term (current) use of oral hypoglycemic drugs; Z79.899 Other long term (current) drug therapy; Z79.82 Long term (current) use of aspirin; Z79.02 Long term (current) use of antithrombotics/antiplatelets; Z95.5 Presence of coronary angioplasty implant and graft
CPT/HCPCS: 36415; 71045; 80053; 84484; 85025; 85379; 93005; 99285; J7030; 93010; 99283

== ENCOUNTER 2020-10-15 12:40 | Emergency (ER) | payer OTHER ==
[2020-10-15] MEDS ORDERED: Sodium Chloride 0.9% 10 ML Syringe FLUSH PRN ×2 (12:55→13:35)
[2020-10-15] MEDS ORDERED: Aspirin 325 MG Tab PO ONE (12:56)
[2020-10-15] MEDS ORDERED: Morphine 4 MG/ML Syringe IVPUSH ONE (13:06)
[2020-10-15] MEDS ORDERED: Morphine 4 MG/ML Syringe ONE (13:08)
[2020-10-15] MEDS: Sodium Chloride 0.9% 2.5 ML Syringe FLUSH PRN ×2 (13:13→13:16)
[2020-10-15 13:22] LABS: BLOOD UREA NITROGEN,BUN 16 mg/dL (7.0-18.0); CARBON DIOXIDE,CO2 27.8 mmol/L (21.0-32.0); CHLORIDE,CL 100 mmol/L (98-107); GLUCOSE RANDOM 146 mg/dL (74-106); POTASSIUM,K 3.7 mmol/L (3.5-5.1); SODIUM,NA 138 mmol/L (136-148)
--- NOTE | 2020-10-15 13:27 | CR ---
Indication: Chest pain Technique: Chest 1 view Comparison: September 25, 2020 Findings/Impression: Normal cardiomediastinal silhouette. i there s some new patchy opacity in the left mid lung field. This may represent atelectasis or infection. No sign of pleural effusion or pneumothorax. Neurostimulator device projects over the lower thoracic spine. Dictated by Thelma Kelley MD @ Oct 15 2020 1:24PM Signed by Dr. Thelma Kelley @ Oct 15 2020 1:25PM
[2020-10-15] MEDS ORDERED: Magnesium Sulfate (4.06 MEQ/ML) 5 GM/10 ML SDV IV STA (13:30)
[2020-10-15] MEDS ORDERED: Sodium Chloride 0.9% 1,000 ML IV ONE ×2 (13:35→13:38)
[2020-10-15] MEDS ORDERED: Sodium Chloride 0.9% 2.5 ML Syringe FLUSH PRN (13:35)
[2020-10-15] MEDS ORDERED: cefTRIAXone 1 GM in Sodium Chloride 0.9% 100 ML IV ONE (13:35)
[2020-10-15] MEDS ORDERED: cefTRIAXone 1 GM in Premix Bag 1 BAG IV ONE (13:42)
[2020-10-15] MEDS ORDERED: Azithromycin 500 MG in Sodium Chloride 0.9% 250 ML IV SCH (13:45)
[2020-10-15] MEDS ORDERED: Magnesium Sulfate/Water 2 GM/50 ML BAG IV ONE (13:45)
[2020-10-15] MEDS ORDERED: Iopamidol 755 MG/ML 500 ML Multipack Bottle IVPUSH ONE (15:11)
--- NOTE | 2020-10-15 15:36 | CT ---
INDICATION: Patient with elevated D-dimer. History of COVID 3 weeks prior COMPARISON: A chest radiograph from 10/15/[address] dated November 25, 2019 TECHNIQUE: : CT examination of the chest was performed with the uneventful intravenous administration of 100 cc of Isovue 370 while thin axial sections were obtained from above the apices of the lungs to the lung bases. Please note that all CT scans at this facility use dose modulation, iterative reconstruction, and/or weight-based dosing when appropriate to reduce radiation dose to as low as reasonably achievable. FINDINGS: : HEART and MEDIASTINUM: Heart size normal. No mediastinal or hilar adenopathy or mass. Significant appearing atherosclerotic vascular calcifications including the coronary is and the great vessels. There is valvular calcification. There is fusiform aneurysmal dilatation of the ascending aorta at 4.5 centimeters. No visible dissection. PULMONARY ARTERIAL CIRCULATION: There is no visible intraluminal filling defect to suggest pulmonary embolus. LUNGS: Patchy ground-glass opacities almost exclusively on the left. Bibasilar atelectasis. The appearance is relatively typical of COVID but the unilateral nature is not. There is no pleural effusion or pneumothorax. PLEURAL SPACES: There is no pleural effusion, pneumothorax or pleural based mass. VISUALIZED UPPER ABDOMEN: The limited visualized upper abdominal structures appear normal. OSSEOUS STRUCTURES: Age-appropriate appearance. No acute fracture or destructive process. TUBES and LINES: None. IMPRESSION: 1. There is no evidence of pulmonary embolus. 2. Patchy ground-glass opacities almost exclusively on the left. This is relatively mild. Bibasilar atelectasis. The appearance is consistent with the history of COVID though other etiologies are possible. The unilateral nature is somewhat unusual. 3. Atherosclerotic vascular and valvular calcifications. Fusiform aneurysmal dilatation of the ascending aorta of 4.5 centimeters. No visible dissection. No adenopathy. No pericardial effusion Please note that all CT scans at this facility use dose modulation, iterative reconstruction, and/or weight-based dosing when appropriate to reduce radiation dose to as low as reasonably achievable. Dictated by Huang Desir MD @ Oct 15 2020 3:26PM Signed by Dr. Huang Desir @ Oct 15 2020 3:34PM
--- NOTE | 2020-10-15 16:10 | EDM.PDOC ---
ED HPI GENERAL MEDICAL PROBLEM - General Chief Complaint: Chest Pain Stated Complaint: CHEST PAIN Time Seen by Provider: 10/15/20 12:46 - History of Present Illness INITIAL COMMENTS - FREE TEXT/NARRATIVE: CHIEF COMPLAINT(S): Chest pain HISTORY OF PRESENT ILLNESS: This is a 70-year-old man with a past medical history of coronavirus, CAD status post stents who comes to the emergency department with a chief complaint of chest pain. The patient states that he got his shingles shot approximately 4 days ago in his left shoulder. He states that he feels like he got sick after it. He states that he has been experiencing fatigue and then he started to develop left-sided chest pain which started in his right shoulder radiating up his neck into his left chest. He states that he did not have any vomiting but did feel nauseous. He denies any exertional chest pain or dyspnea but states that he does experience some shortness of breath. He denies any cough. He states that he rates his pain as 10 out of 10. States that he is not yet tried any thing for the pain. He denies any relieving symptoms. He describes the pain as constant and sharp. He denies any numbness or tingling. He states he has continued headache from the coronavirus which feels the same. REVIEW OF SYSTEMS: Constitutional: Denies fever, chills. Eyes: Denies eye pain Ears, Nose, Mouth, & Throat: Denies earache Cardiovascular: Positive for chest pain Respiratory: Denies shortness of breath Gastrointestinal: Denies Nausea, vomiting, diarrhea, hematochezia. Genitourinary: Denies hematuria Skin:Denies a rash Neurological: Denies blurred vision Psychiatric: Denies depression PAST MEDICAL HISTORY: As per history of present illness and as reviewed below otherwise noncontributory. SURGICAL HISTORY: As per history of present illness and as reviewed below otherwise noncontributory. SOCIAL HISTORY: As per history of present illness and as reviewed below otherwise noncontributory. FAMILY HISTORY: As per history of present illness and as reviewed below otherwise noncontributory. EXAMINATION OF ORGAN SYSTEMS/BODY AREAS: Constitutional: Blood pressure is 170/96, heart rate 106, respiratory rate 22 with an oxygen saturation 96% on room air. Temperature 36.8 General: Overall well-appearing man who is in no acute distress Psychiatric: Appropriate mood and affect. Eyes: No scleral icterus or conjunctival erythema ENMT: Moist mucous membranes. No pharyngeal erythema Cardiovascular: Tachycardic but regular no gallops, murmurs, or rubs. Bilateral upper extremity pulses symmetric and intact. No peripheral edema. No JVD. Respiratory: Patient is speaking in full sentences. Does not appear to be in any respiratory distress. There are crackles in the left lower lung field posteriorly. Otherwise lungs are clear. No wheezes. Gastrointestinal: Soft, non-tender, non-distended. Normoactive bowel sounds Genitourinary: No suprapubic tenderness Musculoskeletal: Normal range of motion. Left upper extremity Skin: No lesions or abrasions. No overlying skin changes of the left deltoid Neurological: Alert, GCS 15 MEDICAL DECISION MAKING AND COURSE IN THE ED WITH INTERPRETATION/REVIEW OF DIAGNOSTIC STUDIES: This is a 70-year-old man and with a past medical history of CAD status post stents and recent coronavirus infection who comes to the emergency department with acute left-sided chest pain and shortness of breath wh o is mildly tachycardic but overall appears well. An EKG was obtained which did not reveal any acute signs of ischemia. Will obtain CBC, CMP, troponin, D- dimer. Will obtain a chest x-ray. Differential at this time includes pneumonia, ACS Laboratory: CBC reveals a leukocytosis of 19.9 with lymphopenia and neutrophilic predominance. D-dimer is elevated at 0.69. CMP reveals hyperglycemia at 146, hypomagnesemia at 1.6 mild elevation in bilirubin at 1.4 and an AST of 13. Twelve-lead EKG interpreted by myself. Sinus tachycardia at a rate of 108beats per minute. Left axis. ME interval is 154ms. QRS duration is 84ms. ST segments are normal without elevations or depressions. No Q waves present. Hypertrophy not noted. No changes demonstrated from prior EKG dated September 21, 2020. Interpretation: Sinus tachycardia After labs and given the initial tachycardia and tachypnea I did order blood cultures, lactic acid and provided the patient with 2 L of normal saline. I started the patient on ceftriaxone and azithromycin for community-acquired pneumonia. Given the elevated D-dimer I did obtain a CT PE. Patient was amenable to this plan. On my reevaluation the patient stated the pain had significantly improved. Given the hypomagnesemia I also replenish the patient with magnesium IV. The radiological images were viewed by myself along with reading the report from the radiologist. Chest x-ray reveals a patchy opacity in the mid left lung. Angiogram of the chest does not reveal any evidence of acute pulmonary embolism. There is patchy groundglass opacities mostly exclusively on the left. There is fusiform aneurysmal dilation of the ascending aorta of 4.5 cm. No visible dissection. No pericardial effusion. Laboratory: Lactic acid was 1.4. On reevaluation I did discuss the results with the patient. At this time his tachycardia had resolved and the patient remained normotensive without any hypoxia. Given no lactic acidosis and signs of pneumonia on chest x-ray I do believe the patient is stable for discharge. I described to the patient that he should turkey picker cefdinir and azithromycin and use them as prescribed. Given the thoracic aortic aneurysm I did review the patient's chart and this does appear to be in prior CTs. The patient was not aware of this. Therefore I contacted cardiothoracic surgeon Dr. Lan to ensure follow-up for the patient. I did provide the patient with a number to contact to set up an appointment. Patient will return to the emergency department for any new or worsening symptoms. The patient was amenable discharge at this time and had no further questions DISPOSITION: The patient was discharged home in stable condition. The patient will follow up with cardiothoracic surgery and primary care physician CONDITION: Fair PROCEDURES: None FINAL IMPRESSION(S)/DIAGNOSES: 1. Acute left sided pneumonia 2. Acute coronavirus 3. Thoracic aortic aneurysm [place] Al M.D. chest Pain Score (Numeric/FACES): 9 - Related Data Allergies Allergy/AdvReac Type Severity Reaction Status Date / Time No Known Allergies Allergy Verified 10/15/20 12:52 Home Meds: Home Meds Baclofen 10 mg PO TID PRN 03/11/19 [History] Clopidogrel Bisulfate [Clopidogrel] 75 mg PO DAILY 03/11/19 [History] Isosorbide Mononitrate [Imdur] 30 mg PO DAILY 03/11/19 [History] Latanoprost/Pf [Latanoprost 0.005% Eye Drop] 1 drop EYEBOTH BEDTIME 03/11/19 [History] Levothyroxine Sodium 50 mcg PO ACBREAKFAST 03/11/19 [History] Losartan [Cozaar] 50 mg PO DAILY 03/11/19 [History] Metoprolol Tartrate 50 mg PO BID 03/11/19 [History] Potassium Chloride 10 meq PO TID 03/11/19 [History] atorvaSTATin Calcium [Atorvastatin Calcium] 80 mg PO BEDTIME 03/11/19 [History] metFORMIN HCl [Metformin HCl] 1,000 mg PO BID 03/11/19 [History] Albuterol [Ventolin HFA] 2 puff IH Q6H PRN 06/01/19 [History] Pantoprazole Sodium 40 mg PO DAILY 11/22/19 [History] Tamsulosin HCl [Flomax] 0.4 mg PO DAILY 11/22/19 [History] busPIRone [Buspar] 10 mg PO BID 11/22/19 [History] Aspirin 81 mg PO DAILY 11/25/19 [History] Budesonide/Formoterol [Symbicort 160-4.5 MCG] 2 puff INH BID 11/25/19 [History] Azithromycin [Zithromax] 500 mg PO Q24H #6 tablet 11/26/19 [Rx] Lidocaine 5% [Lidoderm 5%] 700 mg TOP Q24H #5 patch 11/26/19 [Rx] oxyCODONE 5 mg PO Q6H PRN #20 tab 11/26/19 [Rx] predniSONE 40 mg PO WITHBREAKFAST #8 tab 11/26/19 [Rx] Azithromycin 500 mg PO ONETIME #1 tablet 10/15/20 [Rx] Azithromycin [Zithromax] 250 mg PO DAILY #4 tab 10/15/20 [Rx] Cefdinir 300 mg PO BID #14 capsule 10/15/20 [Rx] Past Medical History HEENT History: Reports: Glaucoma, Impaired Vision, Other (See Below) Other HEENT History: wears glasses Cardiovascular History: Reports: CAD, High Cholesterol, Hypertension, [place], Stents, Other (See Below) Other Cardiovascular History: [place] x3. Carotid atherosclerosis Respiratory History: Reports: COPD, SOB Gastrointestinal History: Reports: None Genitourinary History: Reports: BPH Musculoskeletal History: Reports: Back Pain, Chronic Other Musculoskeletal History: chronic neck and back pain, lumbar stenosis, chronic pain syndrome Neurological History: Reports: None Endocrine/Metabolic History: Reports: Diabetes, Type II, Hypothyroidism Other Endocrine/Metabolic History: states "pre diabetic" Immunologic History: Reports: None Oncologic (Cancer) History: Reports: None Dermatologic History: Reports: Other (See Below) Other Dermatologic History: Granuloma annulare - Infectious Disease History Infectious Disease History: Reports: Chicken Pox, Measles, Mumps, Rubella - Past Surgical History Head Surgeries/Procedures: Reports: None HEENT Surgical History: Reports: Cataract Surgery, Eye Surgery, LASIK Cardiovascular Surgical History: Reports: Coronary Artery Stent Respiratory Surgical History: Reports: None Male Surgical History: Reports: None Endocrine Surgical History: Reports: None Neurological Surgical History: Reports: Lumbar Spine Other Neurological Surgeries/Procedures: TENS unit Other Musculoskeletal Surgeries/Procedures:: back surgery x2 Dermatological Surgical History: Reports: None Social & Family History - Family History Family Medical History: No Pertinent Family History HEENT: Reports: Cataract Cardiac: Reports: CAD, [place] OBGYN: Reports: Neurological: Reports: CVA, TIA Endocrine/Metabolic: Reports: Diabetes, Type I, Diabetes, type II - Tobacco Use Tobacco Use Status *Q: Former Tobacco User Used Tobacco, but Quit: Yes Month/Year Tobacco Last Used: "over 20 years" - Caffeine Use Caffeine Use: Reports: Coffee Other Caffeine Use: 1 cup a day Caffeine Use Comment: 2 cups of coffee in morning - Recreational Drug Use Recreational Drug Use: No ED ROS GENERAL - Review of Systems Review Of Systems: See Below ED EXAM, GENERAL - Physical Exam Exam: See Below Course - Vital Signs Last Recorded V/S: Last Vital Signs Temp 36.8 C 10/15/20 12:47 Pulse 88 10/15/20 14:47 Resp 20 10/15/20 14:47 BP 145/88 H 10/15/20 14:47 Pulse Ox 96 10/15/20 14:47 - Orders/Labs/Meds Orders: Active Orders 24 hr Category Date Time Status Blood Pressure Mgt: Sepsis [RC] Q15MX2 Care 10/15/20 13:36 Active Cardiac Monitoring [RC] . DIRECTED Care 10/15/20 12:55 Active EKG 12 Lead [EKG Documentation Completion] [RC] STAT Care 10/15/20 13:07 Active EKG 12 Lead [EKG Documentation Completion] [RC] STAT Care 10/15/20 13:17 Active Pulse Oximetry [RC] ASDIRECTED Care 10/15/20 12:55 Active CULTURE BLOOD [BC] Stat Lab 10/15/20 13:55 Received CULTURE BLOOD [BC] Stat Lab 10/15/20 13:56 Received Azithromycin [Zithromax] 500 mg Med 10/15/20 13:45 Active Sodium Chloride 0.9% [Normal Saline (AdvBag)] 250 ml IV ONETIME Sodium Chloride 0.9% [Saline Flush] Med 10/15/20 12:55 Active 10 ml FLUSH ASDIRECTED PRN Sodium Chloride 0.9% [Saline Flush] Med 10/15/20 13:35 Active 10 ml FLUSH ASDIRECTED PRN Sodium Chloride 0.9% [Saline Flush] Med 10/15/20 12:55 Active 2.5 ml FLUSH ASDIRECTED PRN Sodium Chloride 0.9% [Saline Flush] Med 10/15/20 13:35 Active 2.5 ml FLUSH ASDIRECTED PRN Blood Culture x2 Reflex Set [OM.PC] Stat Oth 10/15/20 13:35 Ordered Saline Lock Insert [OM.PC] Stat Oth 10/15/20 12:55 Ordered Saline Lock Insert [OM.PC] Stat Oth 10/15/20 13:35 Ordered Medication Orders Azithromycin 500 mg/ Sodium (Chloride) 250 mls @ 250 mls/hr IV ONETIME RICHARD Last Admin: 10/15/20 14:36 Dose: 250 mls/hr Documented by: SERENA Sodium Chloride (Saline Flush) 10 ml FLUSH ASDIRECTED PRN PRN Reason: Keep Vein Open Sodium Chloride (Saline Flush) 2.5 ml FLUSH ASDIRECTED PRN PRN Reason: Keep Vein Open Last Admin: 10/15/20 13:16 Dose: 2.5 ml Documented by: Admin: 10/15/20 13:13 Dose: 2.5 ml Documented by: SERENA Sodium Chloride (Saline Flush) 10 ml FLUSH ASDIRECTED PRN PRN Reason: Keep Vein Open Sodium Chloride (Saline Flush) 2.5 ml FLUSH ASDIRECTED PRN PRN Reason: Keep Vein Open Labs: Laboratory Tests 10/15/20 10/15/20 10/15/20 Range/Units 12:49 12:49 12:49 WBC 19.19 H (4.0-11.0) K/uL RBC 4.67 (4.50-5.90) M/uL Hgb 13.9 (13.0-17.0) g/dL Hct 42.9 (38.0-50.0) % MCV 91.9 (80.0-98.0) fL MCH 29.8 (27.0-32.0) pg MCHC 32.4 (31.0-37.0) g/dL RDW Std Deviation 45.9 (28.0-62.0) fl RDW Coeff of Samantha 14 (11.0-15.0) % Plt Count 365 (150-400) K/uL MPV 10.20 (7.40-12.00) fL Neut % (Auto) 79.0 (48.0-80.0) % Lymph % (Auto) 10.0 L (16.0-40.0) % [place] % (Auto) 10.0 (0.0-15.0) % Eos % (Auto) 0.9 (0.0-7.0) % Baso % (Auto) 0.1 (0.0-1.5) % Neut # (Auto) 15.2 H (1.4-5.7) K/uL Lymph # (Auto) 1.9 (0.6-2.4) K/uL [place] # (Auto) 1.9 H (0.0-0.8) K/uL Eos # (Auto) 0.2 (0.0-0.7) K/uL Baso # (Auto) 0.0 (0.0-0.1) K/uL Nucleated RBC % 0.0 /100WBC Nucleated RBCs # 0 K/uL D-Dimer, Quantitative 0.69 H (0.0-0.50) mg/L FEU Lactate (0.20-2.00) mmol/L Sodium 138 (136-148) mmol/L Potassium 3.7 (3.5-5.1) mmol/L Chloride 100 (98-107) mmol/L Carbon Dioxide 27.8 (21.0-32.0) mmol/L BUN 16 (7.0-18.0) mg/dL Creatinine 0.9 (0.8-1.3) mg/dL Est Cr Clr Drug Dosing TNP Estimated GFR (MDRD) > 60.0 ml/min Glucose 146 H (74-106) mg/dL Calcium 9.4 (8.5-10.1) mg/dL Magnesium 1.6 L (1.8-2.4) mg/dL Total Bilirubin 1.4 H (0.2-1.0) mg/dL AST 13 L (15-37) IU/L ALT 30 (14-63) IU/L Alkaline Phosphatase 73 (46-116) U/L Troponin I < 0.050 (0.000-0.056) ng/mL Total Protein 8.5 H (6.4-8.2) g/dL Albumin 3.6 (3.4-5.0) g/dL Globulin 4.9 H (2.6-4.0) g/dL Albumin/Globulin Ratio 0.7 L (0.9-1.6) 10/15/20 Range/Units 13:56 WBC (4.0-11.0) K/uL RBC (4.50-5.90) M/uL Hgb (13.0-17.0) g/dL Hct (38.0-50.0) % MCV (80.0-98.0) fL MCH (27.0-32.0) pg MCHC (31.0-37.0) g/dL RDW Std Deviation (28.0-62.0) fl RDW Coeff of Samantha (11.0-15.0) % Plt Count (150-400) K/uL MPV (7.40-12.00) fL Neut % (Auto) (48.0-80.0) % Lymph % (Auto) (16.0-40.0) % [place] % (Auto) (0.0-15.0) % Eos % (Auto) (0.0-7.0) % Baso % (Auto) (0.0-1.5) % Neut # (Auto) (1.4-5.7) K/uL Lymph # (Auto) (0.6-2.4) K/uL [place] # (Auto) (0.0-0.8) K/uL Eos # (Auto) (0.0-0.7) K/uL Baso # (Auto) (0.0-0.1) K/uL Nucleated RBC % /100WBC Nucleated RBCs # K/uL D-Dimer, Quantitative (0.0-0.50) mg/L FEU Lactate 1.4 (0.20-2.00) mmol/L Sodium (136-148) mmol/L Potassium (3.5-5.1) mmol/L Chloride (98-107) mmol/L Carbon Dioxide (21.0-32.0) mmol/L BUN (7.0-18.0) mg/dL Creatinine (0.8-1.3) mg/dL Est Cr Clr Drug Dosing Estimated GFR (MDRD) ml/min Glucose (74-106) mg/dL Calcium (8.5-10.1) mg/dL Magnesium (1.8-2.4) mg/dL Total Bilirubin (0.2-1.0) mg/dL AST (15-37) IU/L ALT (14-63) IU/L Alkaline Phosphatase (46-116) U/L Troponin I (0.000-0.056) ng/mL Total Protein (6.4-8.2) g/dL Albumin (3.4-5.0) g/dL Globulin (2.6-4.0) g/dL Albumin/Globulin Ratio (0.9-1.6) Meds: Medications Generic Name Dose Route Start Last Admin Trade Name Freq PRN Reason Stop Dose Admin Azithromycin 500 mg/ Sodium 250 mls @ 250 mls/hr 10/15/20 13:45 10/15/20 14:36 Chloride IV 250 mls/hr ONETIME RICHARD Administration Sodium Chloride 10 ml 10/15/20 12:55 Saline Flush FLUSH ASDIRECTED PRN Keep Vein Open Sodium Chloride 2.5 ml 10/15/20 12:55 10/15/20 13:16 Saline Flush FLUSH 2.5 ml ASDIRECTED PRN Administration Keep Vein Open Sodium Chloride 10 ml 10/15/20 13:35 Saline Flush FLUSH ASDIRECTED PRN Keep Vein Open Sodium Chloride 2.5 ml 10/15/20 13:35 Saline Flush FLUSH ASDIRECTED PRN Keep Vein Open Discontinued Medications Generic Name Dose Route Start Last Admin Trade Name Freq PRN Reason Stop Dose Admin Aspirin 325 mg 10/15/20 12:56 10/15/20 13:12 Aspirin PO 10/15/20 12:57 325 mg ONETIME ONE Administration Magnesium Sulfate 2 gm in 50 mls @ 50 mls/hr 10/15/20 13:45 10/15/20 13:57 Magnesium Sulfate In Water Premix IV 10/15/20 14:44 50 mls/hr ONETIME ONE Administration Sodium Chloride 1,000 mls @ 999 mls/hr 10/15/20 13:35 10/15/20 13:49 Normal Saline IV 10/15/20 14:35 999 mls/hr BOLUS ONE Administration Protocol Sodium Chloride 1,000 mls @ 999 mls/hr 10/15/20 13:38 10/15/20 14:42 Normal Saline IV 10/15/20 14:38 999 mls/hr .Bolus ONE Administration Ceftriaxone Sodium/Dextrose 1 50 mls @ 100 mls/hr 10/15/20 13:42 10/15/20 13:47 gm/ Premix IV 10/15/20 14:11 100 mls/hr ONETIME ONE Administration Ceftriaxone Sodium/Dextrose Confirm 10/15/20 13:41 10/15/20 14:07 Rocephin In Dextrose,Iso-Osm 1 Gm/50 Ml Administered 10/15/20 13:42 Not Given Dose 50 mls @ as directed .ROUTE .STK-MED ONE Iopamidol 100 ml 10/15/20 15:11 10/15/20 15:12 Isovue Multipack-370 (76%) IVPUSH 10/15/20 15:12 100 ml ONETIME ONE Administration Morphine Sulfate 4 mg 10/15/20 13:06 10/15/20 13:13 Morphine IVPUSH 10/15/20 13:07 4 mg ONETIME ONE Administration Morphine Sulfate Confirm 10/15/20 13:08 10/15/20 13:15 Morphine Administered 10/15/20 13:09 Not Given Dose 4 mg .ROUTE .STK-MED ONE Departure - Departure Time of Disposition: 16:06 Disposition: Home, Self-Care 01 Condition: Fair Clinical Impression: COVID-19 virus infection, Pneumonia Aortic aneurysm Qualifiers: Aortic location: thoracic aorta Presence of rupture: without rupture Qualified Code(s): I71.2 - Thoracic aortic aneurysm, without rupture - Discharge Information *PRESCRIPTION DRUG MONITORING PROGRAM REVIEWED*: No *COPY OF PRESCRIPTION DRUG MONITORING REPORT IN PATIENT MERE: No Prescriptions: Azithromycin 500 mg PO ONETIME #1 tablet Cefdinir 300 mg PO BID #14 capsule Azithromycin [Zithromax] 250 mg PO DAILY #4 tab Instructions: COVID-19, Thoracic Aortic Aneurysm, Community-Acquired Pneumonia, Adult, [id number] Referrals: PCP,None [Primary Care Provider] - Forms: ED Department Discharge Additional Instructions: The patient is informed of any results of their evaluation and diagnostic workup and all questions are answered. They are given discharge instructions and return precautions. The patient is stable for discharge. The patient states they understand and agree with the plan and that they will return if their symptoms get worse or if they have any new concerns. The following information is given to patients seen in the emergency department who are being discharged to home. This information is to outline your options for follow-up care. We provide all patients seen in our emergency department with a follow-up referral. The need for follow-up, as well as the timing and circumstances, are variable depending upon the specifics of your emergency department visit. If you don't have a primary care physician on staff, we will provide you with a referral. We always advise you to contact your personal physician following an emergency department visit to inform them of the circumstance of the visit and for follow-up with them and/or the need for any referrals to a consulting specialist. The emergency department will also refer you to a specialist when appropriate. This referral assures that you have the opportunity for follow-up care with a specialist. All of these measure are taken in an effort to provide you with optimal care, which includes your follow-up. Under all circumstances we always encourage you to contact your private physician who remains a resource for coordinating your care. When calling for follow-up care, please make the office aware that this follow-up is from your recent emergency room visit. If for any reason you are refused follow-up, please contact the [facility] Emergency Department at and asked to speak to the emergency department charge nurse. Your evaluated today on an emergent basis. You were diagnosed with a left sided pneumonia. Please take the cefdinir and azithromycin as prescribed. In addition incidentally were found to have a thoracic aortic aneurysm. I did contact a cardiothoracic surgeon at [facility] Dr. Lan. Please contact his office to schedule a follow up appointment. Please return to the emergency department if you are to have any new or worsening symptoms such as chest pain or worsening shortness of breath. Continue to take Tylenol and Motrin for pain relief. [facility] - Cardiothoracic Surgery [phone] [facility] - Primary Care [address], [place] [address] [facility] [address] [place] [address] Sepsis Event Note (ED) - Evaluation Sepsis Screening Result: No Definite Risk - Focused Exam Vital Signs: Vital Signs Temp Pulse Resp BP Pulse Ox 10/15/20 14:47 88 20 145/88 H 96 10/15/20 14:00 95 19 151/96 H 97 10/15/20 13:45 100 20 149/95 H 95 10/15/20 13:30 99 20 139/93 H 97 10/15/20 13:15 103 H 20 155/95 H 95 10/15/20 13:00 104 H 20 157/97 H 94 L 10/15/20 12:47 36.8 C 106 H 22 H 170/96 H 96 - My Orders Last 24 Hours: My Active Orders 10/15/20 12:55 Cardiac Monitoring [RC] . DIRECTED Pulse Oximetry [RC] ASDIRECTED Sodium Chloride 0.9% [Saline Flush] 10 ml FLUSH ASDIRECTED PRN Sodium Chloride 0.9% [Saline Flush] 2.5 ml FLUSH ASDIRECTED PRN Saline Lock Insert [OM.PC] Stat 10/15/20 13:07 EKG 12 Lead [EKG Documentation Completion] [RC] STAT 10/15/20 13:17 EKG 12 Lead [EKG Documentation Completion] [RC] STAT 10/15/20 13:35 Sodium Chloride 0.9% [Saline Flush] 10 ml FLUSH ASDIRECTED PRN Sodium Chloride 0.9% [Saline Flush] 2.5 ml FLUSH ASDIRECTED PRN Blood Culture x2 Reflex Set [OM.PC] Stat Saline Lock Insert [OM.PC] Stat 10/15/20 13:36 Blood Pressure Mgt: Sepsis [RC] Q15MX2 10/15/20 13:45 Azithromycin [Zithromax] 500 mg Sodium Chloride 0.9% [Normal Saline (AdvBag)] 250 ml IV ONETIME 10/15/20 13:55 CULTURE BLOOD [BC] Stat 10/15/20 13:56 CULTURE BLOOD [BC] Stat - Assessment/Plan Last 24 Hours: My Active Orders 10/15/20 12:55 Cardiac Monitoring [RC] . DIRECTED Pulse Oximetry [RC] ASDIRECTED Sodium Chloride 0.9% [Saline Flush] 10 ml FLUSH ASDIRECTED PRN Sodium Chloride 0.9% [Saline Flush] 2.5 ml FLUSH ASDIRECTED PRN Saline Lock Insert [OM.PC] Stat 10/15/20 13:07 EKG 12 Lead [EKG Documentation Completion] [RC] STAT 10/15/20 13:17 EKG 12 Lead [EKG Documentation Completion] [RC] STAT 10/15/20 13:35 Sodium Chloride 0.9% [Saline Flush] 10 ml FLUSH ASDIRECTED PRN Sodium Chloride 0.9% [Saline Flush] 2.5 ml FLUSH ASDIRECTED PRN Blood Culture x2 Reflex Set [OM.PC] Stat Saline Lock Insert [OM.PC] Stat 10/15/20 13:36 Blood Pressure Mgt: Sepsis [RC] Q15MX2 10/15/20 13:45 Azithromycin [Zithromax] 500 mg Sodium Chloride 0.9% [Normal Saline (AdvBag)] 250 ml IV ONETIME 10/15/20 13:55 CULTURE BLOOD [BC] Stat 10/15/20 13:56 CULTURE BLOOD [BC] Stat
[2020-10-15 18:13] VITALS: BP 147/89; PULSE 88
== END 2020-10-15 16:25 | disposition home or self-care (01) ==
LOC: MW.ED 12:40
DX: U07.1 COVID-19 (principal); J12.89 Other viral pneumonia; I71.2 Thoracic aortic aneurysm, without rupture; I25.10 Atherosclerotic heart disease of native coronary artery without angina pectoris; I10 Essential (primary) hypertension; I25.2 Old myocardial infarction; J44.9 Chronic obstructive pulmonary disease, unspecified; E11.9 Type 2 diabetes mellitus without complications; E03.9 Hypothyroidism, unspecified; E78.00 Pure hypercholesterolemia, unspecified; N40.0 Benign prostatic hyperplasia without lower urinary tract symptoms; Z95.5 Presence of coronary angioplasty implant and graft; Z79.02 Long term (current) use of antithrombotics/antiplatelets; Z87.891 Personal history of nicotine dependence; Z79.84 Long term (current) use of oral hypoglycemic drugs; Z79.82 Long term (current) use of aspirin
CPT/HCPCS: 36415; 71045; 71275; 80053; 83605; 83735; 84484; 85025; 85379; 87040; 93005; 96365; 96368; 96375; 99285; A9270; J0456; J0696; J2270; J3475; J7030; J7050; Q9967; 93010; 99283

== ENCOUNTER 2021-01-28 11:16 | Emergency (ER) | payer MEDICARE, OTHER ==
[2021-01-28] MEDS ORDERED: methylPREDNISolone Sodium Succinate 125 MG/2 ML SDV IVPUSH ONE (11:25)
[2021-01-28] MEDS ORDERED: Sodium Chloride 0.9% 10 ML Syringe FLUSH PRN (11:25)
[2021-01-28] MEDS ORDERED: Albuterol/Ipratropium 3.0-0.5 MG/3 ML Neb Soln NEB ONE (11:25)
[2021-01-28] MEDS ORDERED: Sodium Chloride 0.9% 2.5 ML Syringe FLUSH PRN (11:25)
--- NOTE | 2021-01-28 11:31 | EDM.PDOC ---
ED HPI GENERAL MEDICAL PROBLEM - General Chief Complaint: Respiratory Problem Stated Complaint: HARD TO BREATH Time Seen by Provider: 01/28/21 11:18 - History of Present Illness INITIAL COMMENTS - FREE TEXT/NARRATIVE: History of present illness: [] Patient has 2 weeks of increasing shortness of breath, pain with soreness when he coughs in the anterior chest. The patient has no fever and chills. His pain was bad enough [facility] told to come directly [facility]. The patient has coronary vessel stents and is on clopidogrel. The patient also has COPD and has inhalers and nebulizers. The patient has been on prednisone in the past but is not currently. His diabetes is not difficult to manage even when he is on steroids. Review of systems: As per history of present illness and below otherwise all systems reviewed and negative. Past medical history: As per history of present illness and as reviewed below otherwise noncontributory. Surgical history: As per history of present illness and as reviewed below otherwise noncontributory. Social history: No reported history of drug or alcohol abuse. Family history: As per history of present illness and as reviewed below otherwise noncontributor y. Physical exam: Constitutional - well developed, well-nourished and in no acute distress HEENT - normocephalic, no evidence of trauma - external nose and mouth normal - no mass in neck and no JVD - mucosae moist EYES - full EOM, PERRL, no icterus - no evidence of inflammation, injection, or drainage Respiratory - no respiratory distress, equal bilateral expansion, lungs clear to auscultation and diminished in both lungs. He has prolonged expiratory phase of respiration and uses accessory muscle slightly. Cardiovascular - Regular Rhythm with S1 and S2 appreciated and no murmur, gallop or rub. GI - abdomen soft without distension or organomegaly - normal bowel sounds - no guard or rebound Musculoskeletal no gross deformity of long bones or joints - no tenderness, swelling or edema Neurologic - Alert and oriented times four - CN II-XII grossly intact - motor sensory and coordination symmetrically normal Psychiatric - appropriate mood and affect with normal thought content Hematologic - No petechiae or purpura - mucosa appropriate color and sclera not pale - normal nail bed color and refill Integument - no rash or evidence of trauma - normal turgor Diagnostics: [] Therapeutics: [] Impression: [] Plan: [] Definitive disposition and diagnosis as appropriate pending reevaluation and review of above. Chest Pain Score (Numeric/FACES): 4 - Related Data Allergies Allergy/AdvReac Type Severity Reaction Status Date / Time No Known Allergies Allergy Verified 01/28/21 11:28 Home Meds: Home Meds Baclofen 10 mg PO TID PRN 03/11/19 [History] Clopidogrel Bisulfate [Clopidogrel] 75 mg PO DAILY 03/11/19 [History] Isosorbide Mononitrate [Imdur] 30 mg PO DAILY 03/11/19 [History] Latanoprost/Pf [Latanoprost 0.005% Eye Drop] 1 drop EYEBOTH BEDTIME 03/11/19 [History] Levothyroxine Sodium 50 mcg PO ACBREAKFAST 03/11/19 [History] Losartan [Cozaar] 50 mg PO DAILY 03/11/19 [History] Metoprolol Tartrate 50 mg PO BID 03/11/19 [History] Potassium Chloride 10 meq PO TID 03/11/19 [History] atorvaSTATin Calcium [Atorvastatin Calcium] 80 mg PO BEDTIME 03/11/19 [History] metFORMIN HCl [Metformin HCl] 1,000 mg PO BID 03/11/19 [History] Albuterol [Ventolin HFA] 2 puff IH Q6H PRN 06/01/19 [History] Pantoprazole Sodium 40 mg PO DAILY 11/22/19 [History] Tamsulosin HCl [Flomax] 0.4 mg PO DAILY 11/22/19 [History] busPIRone [Buspar] 10 mg PO BID 11/22/19 [History] Aspirin 81 mg PO DAILY 11/25/19 [History] Budesonide/Formoterol [Symbicort 160-4.5 MCG] 2 puff INH BID 11/25/19 [History] Azithromycin [Zithromax] 500 mg PO Q24H #6 tablet 11/26/19 [Rx] Lidocaine 5% [Lidoderm 5%] 700 mg TOP Q24H #5 patch 11/26/19 [Rx] oxyCODONE 5 mg PO Q6H PRN #20 tab 11/26/19 [Rx] predniSONE 40 mg PO WITHBREAKFAST #8 tab 11/26/19 [Rx] Azithromycin 500 mg PO ONETIME #1 tablet 11/27/20 [Rx] Azithromycin [Zithromax] 250 mg PO DAILY #4 tab 10/15/20 [Rx] Cefdinir 300 mg PO BID #14 capsule 10/15/20 [Rx] predniSONE [Prednisone] 60 mg PO DAILY #21 tablet 01/28/21 [Rx] Past Medical History HEENT History: Reports: Glaucoma, Impaired Vision, Other (See Below) Other HEENT History: wears glasses Cardiovascular History: Reports: CAD, High Cholesterol, Hypertension, MA, Stents, Other (See Below) Other Cardiovascular History: MA x3. Carotid atherosclerosis Respiratory History: Reports: COPD, SOB Gastrointestinal History: Reports: None Genitourinary History: Reports: BPH Musculoskeletal History: Reports: Back Pain, Chronic Other Musculoskeletal History: chronic neck and back pain, lumbar stenosis, chronic pain syndrome Neurological History: Reports: None Endocrine/Metabolic History: Reports: Diabetes, Type II, Hypothyroidism Other Endocrine/Metabolic History: states "pre diabetic" Immunologic History: Reports: None Oncologic (Cancer) History: Reports: None Dermatologic History: Reports: Other (See Below) Other Dermatologic History: Granuloma annulare - Infectious Disease History Infectious Disease History: Reports: Chicken Pox, Measles, Mumps, Rubella - Past Surgical History Head Surgeries/Procedures: Reports: None HEENT Surgical History: Reports: Cataract Surgery, Eye Surgery, LASIK Cardiovascular Surgical History: Reports: Coronary Artery Stent Respiratory Surgical History: Reports: None Male Surgical History: Reports: None Endocrine Surgical History: Reports: None Neurological Surgical History: Reports: Lumbar Spine Other Neurological Surgeries/Procedures: TENS unit Other Musculoskeletal Surgeries/Procedures:: back surgery x2 Dermatological Surgical History: Reports: None Social & Family History - Family History Family Medical History: No Pertinent Family History HEENT: Reports: Cataract Cardiac: Reports: CAD, MA OBGYN: Reports: Neurological: Reports: CVA, TIA Endocrine/Metabolic: Reports: Diabetes, Type I, Diabetes, type II - Caffeine Use Caffeine Use: Reports: Coffee Other Caffeine Use: 1 cup a day Caffeine Use Comment: 2 cups of coffee in morning ED ROS GENERAL - Review of Systems Review Of Systems: Comprehensive ROS is negative, except as noted in HPI. ED EXAM, GENERAL - Physical Exam Exam: See Below Free Text/Narrative:: My physical exam is in the HPI #1 Interpretation EKG Interpretation Comments: EKG done at 11:14 AM sinus rhythm heart rate 91 axis -3 SD interval 164 QT 436 normal R wave progression with some nonspecific T wave abnormalities in the lateral leads. Compared to 10/15/2020 no obvious change but PACs no longer present-impression no acute injury. Course - Vital Signs Text/Narrative:: 1230 hrs. patient feels better breathing well. Awaiting Covid results and BNP. Last Recorded V/S: Last Vital Signs Temp 36.8 C 01/28/21 11:28 Pulse 90 01/28/21 12:27 Resp 18 01/28/21 11:28 BP 120/71 01/28/21 12:27 Pulse Ox 94 L 01/28/21 12:27 - Orders/Labs/Meds Orders: Active Orders 24 hr Category Date Time Status EKG Documentation Completion [RC] AM Care 01/28/21 11:25 Active Sodium Chloride 0.9% [Saline Flush] Med 01/28/21 11:25 Active 10 ml FLUSH ASDIRECTED PRN Sodium Chloride 0.9% [Saline Flush] Med 01/28/21 11:25 Active 2.5 ml FLUSH ASDIRECTED PRN Saline Lock Insert [OM.PC] Stat Oth 01/28/21 11:25 Ordered Labs: Laboratory Tests 01/28/21 01/28/21 01/28/21 Range/Units 11:22 11:22 11:22 WBC 13.17 H (4.0-11.0) K/uL RBC 4.80 (4.50-5.90) M/uL Hgb 13.9 (13.0-17.0) g/dL Hct 43.5 (38.0-50.0) % MCV 90.6 (80.0-98.0) fL MCH 29.0 (27.0-32.0) pg MCHC 32.0 (31.0-37.0) g/dL RDW Std Deviation 49.6 (28.0-62.0) fl RDW Coeff of Samantha 15 (11.0-15.0) % Plt Count 305 (150-400) K/uL MPV 10.70 (7.40-12.00) fL Neut % (Auto) 70.4 (48.0-80.0) % Lymph % (Auto) 19.9 (16.0-40.0) % [place] % (Auto) 6.8 (0.0-15.0) % Eos % (Auto) 2.7 (0.0-7.0) % Baso % (Auto) 0.2 (0.0-1.5) % Neut # (Auto) 9.3 H (1.4-5.7) K/uL Lymph # (Auto) 2.6 H (0.6-2.4) K/uL [place] # (Auto) 0.9 H (0.0-0.8) K/uL Eos # (Auto) 0.4 (0.0-0.7) K/uL Baso # (Auto) 0.0 (0.0-0.1) K/uL Nucleated RBC % 0.0 /100WBC Nucleated RBCs # 0 K/uL Sodium 136 (136-148) mmol/L Potassium 4.5 (3.5-5.1) mmol/L Chloride 101 (98-107) mmol/L Carbon Dioxide 24.7 (21.0-32.0) mmol/L BUN 15 (7.0-18.0) mg/dL Creatinine 0.9 (0.8-1.3) mg/dL Est Cr Clr Drug Dosing 75.48 mL/min Estimated GFR (MDRD) > 60.0 ml/min Glucose 90 (74-106) mg/dL Calcium 9.4 (8.5-10.1) mg/dL Total Bilirubin 0.5 (0.2-1.0) mg/dL AST 22 (15-37) IU/L ALT 37 (14-63) IU/L Alkaline Phosphatase 59 (46-116) U/L Troponin I < 0.050 (0.000-0.056) ng/mL B-Natriuretic Peptide 59 (<100) PG/ML Total Protein 7.6 (6.4-8.2) g/dL Albumin 3.9 (3.4-5.0) g/dL Globulin 3.7 (2.6-4.0) g/dL Albumin/Globulin Ratio 1.1 (0.9-1.6) Influenza Type A RNA (NEGATIVE) Influenza Type B RNA (NEGATIVE) SARS-CoV-2 RNA (JESSICA) (NEGATIVE) 01/28/21 Range/Units 11:36 WBC (4.0-11.0) K/uL RBC (4.50-5.90) M/uL Hgb (13.0-17.0) g/dL Hct (38.0-50.0) % MCV (80.0-98.0) fL MCH (27.0-32.0) pg MCHC (31.0-37.0) g/dL RDW Std Deviation (28.0-62.0) fl RDW Coeff of Samantha (11.0-15.0) % Plt Count (150-400) K/uL MPV (7.40-12.00) fL Neut % (Auto) (48.0-80.0) % Lymph % (Auto) (16.0-40.0) % [place] % (Auto) (0.0-15.0) % Eos % (Auto) (0.0-7.0) % Baso % (Auto) (0.0-1.5) % Neut # (Auto) (1.4-5.7) K/uL Lymph # (Auto) (0.6-2.4) K/uL [place] # (Auto) (0.0-0.8) K/uL Eos # (Auto) (0.0-0.7) K/uL Baso # (Auto) (0.0-0.1) K/uL Nucleated RBC % /100WBC Nucleated RBCs # K/uL Sodium (136-148) mmol/L Potassium (3.5-5.1) mmol/L Chloride (98-107) mmol/L Carbon Dioxide (21.0-32.0) mmol/L BUN (7.0-18.0) mg/dL Creatinine (0.8-1.3) mg/dL Est Cr Clr Drug Dosing mL/min Estimated GFR (MDRD) ml/min Glucose (74-106) mg/dL Calcium (8.5-10.1) mg/dL Total Bilirubin (0.2-1.0) mg/dL AST (15-37) IU/L ALT (14-63) IU/L Alkaline Phosphatase (46-116) U/L Troponin I (0.000-0.056) ng/mL B-Natriuretic Peptide (<100) PG/ML Total Protein (6.4-8.2) g/dL Albumin (3.4-5.0) g/dL Globulin (2.6-4.0) g/dL Albumin/Globulin Ratio (0.9-1.6) Influenza Type A RNA NEGATIVE (NEGATIVE) Influenza Type B RNA NEGATIVE (NEGATIVE) SARS-CoV-2 RNA (JESSICA) NEGATIVE (NEGATIVE) Departure - Departure Time of Disposition: 12:44 Disposition: Home, Self-Care 01 Condition: Good Clinical Impression: COPD exacerbation Chest pain Qualifiers: Chest pain type: unspecified Qualified Code(s): R07.9 - Chest pain, unspecified - Discharge Information Instructions: Chronic Obstructive Pulmonary Disease Referrals: Eliezer Edwards NP [Primary Care Provider] - Forms: ED Department Discharge Additional Instructions: [facility] - Primary Care [address] [place] [id number] [facility] [address] [place] [id number] The following information is given to patients seen in the emergency department who are being discharged to home. This information is to outline your options for follow-up care. We provide all patients seen in our emergency department with a follow-up referral. The need for follow-up, as well as the timing and circumstances, are variable depending upon the specifics of your emergency department visit. If you don't have a primary care physician on staff, we will provide you with a referral. We always advise you to contact your personal physician following an emergency department visit to inform them of the circumstance of the visit and for follow-up with them and/or the need for any referrals to a consulting specialist. The emergency department will also refer you to a specialist when appropriate. This referral assures that you have the opportunity for follow-up care with a specialist. All of these measure are taken in an effort to provide you with optimal care, which includes your follow-up. Under all circumstances we always encourage you to contact your private physician who remains a resource for coordinating your care. When calling for follow-up care, please make the office aware that this follow-up is from your recent emergency room visit. If for any reason you are refused follow-up, please contact the [facility] Emergency Department at and asked to speak to the emergency department charge nurse. Sepsis Event Note (ED) - Focused Exam Vital Signs: Vital Signs Temp Pulse Resp BP Pulse Ox 01/28/21 12:27 90 120/71 94 L 01/28/21 12:12 83 107/61 94 L 01/28/21 11:28 36.8 C 88 18 149/84 H 96 - My Orders Last 24 Hours: My Active Orders 01/28/21 11:25 EKG Documentation Completion [RC] AM Sodium Chloride 0.9% [Saline Flush] 10 ml FLUSH ASDIRECTED PRN Sodium Chloride 0.9% [Saline Flush] 2.5 ml FLUSH ASDIRECTED PRN Saline Lock Insert [OM.PC] Stat - Assessment/Plan Last 24 Hours: My Active Orders 01/28/21 11:25 EKG Documentation Completion [RC] AM Sodium Chloride 0.9% [Saline Flush] 10 ml FLUSH ASDIRECTED PRN Sodium Chloride 0.9% [Saline Flush] 2.5 ml FLUSH ASDIRECTED PRN Saline Lock Insert [OM.PC] Stat
--- NOTE | 2021-01-28 11:48 | CR ---
INDICATION: Cough; dyspnea. COMPARISON: Portable AP chest 10/15/2020. TECHNIQUE: Portable AP chest. FINDINGS: Normal size cardiac silhouette. Clear lung car without evidence of acute pneumonic infiltrates or CHF. No pneumothorax or pleural effusion. IMPRESSION: Negative chest. Dictated by Stefania Dumont MD @ Jan 28 2021 11:46AM Signed by Dr. Stefania Dumont @ Jan 28 2021 11:47AM
[2021-01-28 12:00] LABS: BLOOD UREA NITROGEN,BUN 15 mg/dL (7.0-18.0); CARBON DIOXIDE,CO2 24.7 mmol/L (21.0-32.0); CHLORIDE,CL 101 mmol/L (98-107); GLUCOSE RANDOM 90 mg/dL (74-106); POTASSIUM,K 4.5 mmol/L (3.5-5.1); SODIUM,NA 136 mmol/L (136-148)
[2021-01-28 12:31] LABS: CORONAVIRUS COVID-19 NAA NEGATIVE (NEGATIVE); INFLUENZA A NAA NEGATIVE (NEGATIVE); INFLUENZA B NAA NEGATIVE (NEGATIVE)
[2021-01-28 12:40] VITALS: BP 120/71; PULSE 90
== END 2021-01-28 13:06 | disposition home or self-care (01) ==
LOC: MW.ED 11:16
DX: J44.1 Chronic obstructive pulmonary disease with (acute) exacerbation (principal); I25.10 Atherosclerotic heart disease of native coronary artery without angina pectoris; E78.00 Pure hypercholesterolemia, unspecified; I10 Essential (primary) hypertension; I25.2 Old myocardial infarction; N40.0 Benign prostatic hyperplasia without lower urinary tract symptoms; E11.9 Type 2 diabetes mellitus without complications; E03.9 Hypothyroidism, unspecified; Z79.02 Long term (current) use of antithrombotics/antiplatelets; Z79.82 Long term (current) use of aspirin; Z79.84 Long term (current) use of oral hypoglycemic drugs; Z79.899 Other long term (current) drug therapy; Z20.822 Contact with and (suspected) exposure to COVID-19
CPT/HCPCS: 0240U; 36415; 71045; 80053; 83880; 84484; 85025; 93005; 96374; 99285; J2930; 93010; 99283; J7620-GY

== ENCOUNTER 2021-05-09 14:13 | Emergency (ER) | payer OTHER, MEDICARE ==
[2021-05-09 14:31] VITALS: BP 134/86; PULSE 103
== END 2021-05-09 15:11 | disposition left against medical advice (07) ==
LOC: MW.ED 14:13
DX: M54.9 Dorsalgia, unspecified (principal); Z53.21 Procedure and treatment not carried out due to patient leaving prior to being seen by health care provider

== ENCOUNTER 2021-08-23 10:09 | Emergency (ER) | payer MEDICARE, OTHER ==
[2021-08-23] MEDS ORDERED: Sodium Chloride 0.9% 10 ML Syringe FLUSH PRN (10:11)
[2021-08-23] MEDS ORDERED: Sodium Chloride 0.9% 2.5 ML Syringe FLUSH PRN (10:11)
--- NOTE | 2021-08-23 10:21 | EDM.PDOC ---
ED HPI GENERAL MEDICAL PROBLEM - General Chief Complaint: Chest Pain Stated Complaint: CHEST PAIN Time Seen by Provider: 08/23/21 10:11 Source of Information: Reports: Patient History Limitations: Reports: No Limitations - History of Present Illness INITIAL COMMENTS - FREE TEXT/NARRATIVE: 71-year-old male past medical history CAD, hypertension, hyperlipidemia, aortic aneurysm, COPD, Covid infection earlier this year presents for chest/abd pain x1-week. Patient notes the pain started in his left-sided upper and lower abdomen. It seems to radiate up into his left chest. Is been going on for about a week. It seems to be worsening. Patient thought that he might be constipated so tried some stool softeners but has not relieved the pain. He has been having normal bowel movements. Associated with mild shortness of breath. He notes his last cardiac cath was about 3 years ago. He states that he thinks he has around 3-7 stents. - Related Data Allergies Allergy/AdvReac Type Severity Reaction Status Date / Time No Known Allergies Allergy Verified 08/23/21 10:35 Home Meds: Home Meds Clopidogrel Bisulfate [Clopidogrel] 75 mg PO DAILY 03/11/19 [History] Isosorbide Mononitrate [Imdur] 30 mg PO DAILY 03/11/19 [History] Latanoprost/Pf [Latanoprost 0.005% Eye Drop] 1 drop EYEBOTH BEDTIME 03/11/19 [History] Levothyroxine Sodium 50 mcg PO ACBREAKFAST 03/11/19 [History] Losartan [Cozaar] 25 mg PO DAILY 03/11/19 [History] Metoprolol Tartrate 50 mg PO BID 03/11/19 [History] Potassium Chloride 10 meq PO TID 03/11/19 [History] atorvaSTATin Calcium [Atorvastatin Calcium] 80 mg PO BEDTIME 03/11/19 [History] metFORMIN HCl [Metformin HCl] 1,000 mg PO BID 03/11/19 [History] Albuterol [Ventolin HFA] 2 puff IH Q6H PRN 06/01/19 [History] Pantoprazole Sodium 40 mg PO DAILY 11/22/19 [History] Tamsulosin HCl [Flomax] 0.4 mg PO DAILY 11/22/19 [History] busPIRone [Buspar] 10 mg PO BID 11/22/19 [History] Aspirin 81 mg PO DAILY 11/25/19 [History] Lidocaine 5% [Lidoderm 5%] 700 mg TOP Q24H #5 patch 11/26/19 [Rx] Fluticasone Propionate [Flonase Allergy Relief] 2 spray NASBOTH DAILY 01/28/21 [History] Gabapentin [Neurontin] 100 mg PO TID PRN 01/28/21 [History] Nitroglycerin [Nitrostat] 0.4 mg SL ASDIRECTED PRN 01/28/21 [History] predniSONE [Prednisone] 60 mg PO DAILY #21 tablet 01/28/21 [Rx] Amoxicillin/Potassium Clav [Augmentin 875-125 Tablet] 1 each PO BID 10 Days #20 tablet 08/23/21 [Rx] Past Medical History HEENT History: Reports: Glaucoma, Impaired Vision, Other (See Below) Other HEENT History: wears glasses Cardiovascular History: Reports: CAD, High Cholesterol, Hypertension, MO, Stents, Other (See Below) Other Cardiovascular History: MO x3. Carotid atherosclerosis Respiratory History: Reports: COPD, SOB Gastrointestinal History: Reports: None Genitourinary History: Reports: BPH Musculoskeletal History: Reports: Back Pain, Chronic Other Musculoskeletal History: chronic neck and back pain, lumbar stenosis, chronic pain syndrome Neurological History: Reports: None Endocrine/Metabolic History: Reports: Diabetes, Type II, Hypothyroidism Other Endocrine/Metabolic History: states "pre diabetic" Immunologic History: Reports: None Oncologic (Cancer) History: Reports: None Dermatologic History: Reports: Other (See Below) Other Dermatologic History: Granuloma annulare - Infectious Disease History Infectious Disease History: Reports: Chicken Pox, Measles, Mumps, Rubella - Past Surgical History Head Surgeries/Procedures: Reports: None HEENT Surgical History: Reports: Cataract Surgery, Eye Surgery, LASIK Cardiovascular Surgical History: Reports: Coronary Artery Stent Respiratory Surgical History: Reports: None Male Surgical History: Reports: None Endocrine Surgical History: Reports: None Neurological Surgical History: Reports: Lumbar Spine Other Neurological Surgeries/Procedures: TENS unit Other Musculoskeletal Surgeries/Procedures:: back surgery x2 Dermatological Surgical History: Reports: None Social & Family History - Family History Family Medical History: No Pertinent Family History HEENT: Reports: Cataract Cardiac: Reports: CAD, MO OBGYN: Reports: Neurological: Reports: CVA, TIA Endocrine/Metabolic: Reports: Diabetes, Type I, Diabetes, type II - Caffeine Use Caffeine Use: Reports: None Other Caffeine Use: 1 cup a day Caffeine Use Comment: 2 cups of coffee in morning ED ROS GENERAL - Review of Systems Review Of Systems: Comprehensive ROS is negative, except as noted in HPI. ED EXAM, GENERAL - Physical Exam Exam: See Below Exam Limited By: No Limitations General Appearance: Alert, WD/WN, No Apparent Distress Ears: Hearing Grossly Normal Throat/Mouth: Normal Voice, No Airway Compromise Head: Atraumatic, Normocephalic Respiratory/Chest: No Respiratory Distress, Lungs Clear, Normal Breath Sounds, No Accessory Muscle Use Cardiovascular: Normal Peripheral Pulses, Regular Rate, Rhythm, No Edema GI/Abdominal: Soft, Non-Tender Extremities: Normal Inspection Neurological: Alert, Normal Cognition, Normal Gait Psychiatric: Normal Affect, Normal Mood Skin Exam: Warm, Dry, Intact, Normal Color #1 Interpretation EKG Date: 08/23/21 Time: 10:20 Rhythm: NSR Rate (Beats/Min): 98 [place]: Normal P-Wave: Present QRS: Normal ST-T: Normal QT: Normal CA/PQ Interval: 162 EKG Interpretation Comments: no acute ischemic changes Course - Vital Signs Last Recorded V/S: Last Vital Signs Temp 97.0 F 08/23/21 10:36 Pulse 96 08/23/21 13:47 Resp 16 08/23/21 13:47 BP 126/86 08/23/21 13:47 Pulse Ox 96 08/23/21 13:47 - Orders/Labs/Meds Orders: Active Orders 24 hr Category Date Time Status Saline Lock Insert [OM.PC] Stat Oth 08/23/21 10:11 Ordered Labs: Laboratory Tests 08/23/21 08/23/21 08/23/21 Range/Units 10:31 10:31 11:01 WBC 13.30 H (4.0-11.0) K/uL RBC 4.64 (4.50-5.90) M/uL Hgb 14.5 (13.0-17.0) g/dL Hct 43.1 (38.0-50.0) % MCV 92.9 (80.0-98.0) fL MCH 31.3 (27.0-32.0) pg MCHC 33.6 (31.0-37.0) g/dL RDW Std Deviation 51.7 (28.0-62.0) fl RDW Coeff of Samantha 15 (11.0-15.0) % Plt Count 318 (150-400) K/uL MPV 10.20 (7.40-12.00) fL Neut % (Auto) 75.3 (48.0-80.0) % Lymph % (Auto) 16.2 (16.0-40.0) % Barren % (Auto) 6.8 (0.0-15.0) % Eos % (Auto) 1.5 (0.0-7.0) % Baso % (Auto) 0.2 (0.0-1.5) % Neut # (Auto) 10.0 H (1.4-5.7) K/uL Lymph # (Auto) 2.2 (0.6-2.4) K/uL Barren # (Auto) 0.9 H (0.0-0.8) K/uL Eos # (Auto) 0.2 (0.0-0.7) K/uL Baso # (Auto) 0.0 (0.0-0.1) K/uL Nucleated RBC % 0.0 /100WBC Nucleated RBCs # 0 K/uL Sodium 141 (136-148) mmol/L Potassium 4.3 (3.5-5.1) mmol/L Chloride 102 (98-107) mmol/L Carbon Dioxide 27.8 (21.0-32.0) mmol/L BUN 13 (7.0-18.0) mg/dL Creatinine 1.0 (0.8-1.3) mg/dL Est Cr Clr Drug Dosing TNP Estimated GFR (MDRD) > 60.0 ml/min Glucose 136 H (74-106) mg/dL Calcium 8.7 (8.5-10.1) mg/dL Total Bilirubin 1.2 H (0.2-1.0) mg/dL AST 38 H (15-37) IU/L ALT 49 (14-63) IU/L Alkaline Phosphatase 75 (46-116) U/L Troponin I < 0.050 (0.000-0.056) ng/mL Total Protein 7.1 (6.4-8.2) g/dL Albumin 3.6 (3.4-5.0) g/dL Globulin 3.5 (2.6-4.0) g/dL Albumin/Globulin Ratio 1.0 (0.9-1.6) SARS-CoV-2 RNA (JESSICA) NEGATIVE (NEGATIVE) Meds: Medications Discontinued Medications Generic Name Dose Route Start Last Admin Trade Name Allison PRN Reason Stop Dose Admin Iopamidol 100 ml 08/23/21 11:44 08/23/21 11:44 Iopamidol 755 Mg/Ml 500 Ml Multipack Bottle IVPUSH 08/23/21 11:45 100 ml ONETIME STA Administration Morphine Sulfate 4 mg 08/23/21 10:40 08/23/21 13:08 Morphine 4 Mg/Ml Vial IVPUSH 08/23/21 10:41 Not Given ONETIME ONE Morphine Sulfate 4 mg 08/23/21 11:09 08/23/21 11:16 Morphine 4 Mg/Ml Syringe IVPUSH 08/23/21 11:10 4 mg ONETIME ONE Administration Ondansetron HCl 4 mg 08/23/21 10:40 08/23/21 11:16 Ondansetron 4 Mg/2 Ml Sdv IVPUSH 08/23/21 10:41 4 mg ONETIME ONE Administration Sodium Chloride 10 ml 08/23/21 10:11 Sodium Chloride 0.9% 10 Ml Syringe FLUSH ASDIRECTED PRN Keep Vein Open Sodium Chloride 2.5 ml 08/23/21 10:11 Sodium Chloride 0.9% 2.5 Ml Syringe FLUSH ASDIRECTED PRN Keep Vein Open - Re-Assessments/Exams Free Text/Narrative Re-Assessment/Exam: 08/23/21 10:39 EKG without acute ischemic changes. Will get labs including troponin. Will get CTA chest abdomen pelvis to assess aortic aneurysm. Departure - Departure Time of Disposition: 14:17 Disposition: Home, Self-Care 01 Condition: Good Clinical Impression: Diverticulitis - Discharge Information Prescriptions: Amoxicillin/Potassium Clav [Augmentin 875-125 Tablet] 1 each PO BID 10 Days #20 tablet Instructions: Diverticulitis Referrals: PCP,None [Primary Care Provider] - Forms: ED Department Discharge Additional Instructions: Your labs and imaging were unremarkable. Your pain however is consistent with diverticulitis so we will treat you with antibiotics. Please keep your follow- up appointment with your doctor on . If anything changes pain now and then please come back to the emergency department for reassessment. The following information is given to patients seen in the emergency department who are being discharged to home. This information is to outline your options for follow-up care. We provide all patients seen in our emergency department with a follow-up referral. The need for follow-up, as well as the timing and circumstances, are variable depending upon the specifics of your emergency department visit. If you don't have a primary care physician on staff, we will provide you with a referral. We always advise you to contact your personal physician following an emergency department visit to inform them of the circumstance of the visit and for follow-up with them and/or the need for any referrals to a consulting specialist. The emergency department will also refer you to a specialist when appropriate. This referral assures that you have the opportunity for follow-up care with a specialist. All of these measure are taken in an effort to provide you with optimal care, which includes your follow-up. Under all circumstances we always encourage you to contact your private physician who remains a resource for coordinating your care. When calling for follow-up care, please make the office aware that this follow-up is from your recent emergency room visit. If for any reason you are refused follow-up, please contact the [facility] Emergency Department at and asked to speak to the emergency department charge nurse. Please follow up with your primary care physician. If you do not have a primary care physician, see below: [facility] [address] [place] [id number] [facility] [address] [place] [id number] [facility] [address] [place] [id number] Sepsis Event Note (ED) - Focused Exam Vital Signs: Vital Signs Temp Pulse Resp BP Pulse Ox 08/23/21 13:47 96 16 126/86 96 08/23/21 12:47 85 16 131/91 H 96 08/23/21 11:29 82 15 136/90 95 08/23/21 10:36 97.0 F 93 16 144/96 H 98 08/23/21 10:28 102 H 16 155/81 H 95
[2021-08-23] MEDS ORDERED: Morphine 4 MG/ML VIAL IVPUSH ONE (10:40)
[2021-08-23] MEDS ORDERED: Ondansetron 4 MG/2 ML SDV IVPUSH ONE (10:40)
[2021-08-23] MEDS ORDERED: Morphine 4 MG/ML Syringe IVPUSH ONE (11:09)
[2021-08-23 11:13] LABS: BLOOD UREA NITROGEN,BUN 13 mg/dL (7.0-18.0); CARBON DIOXIDE,CO2 27.8 mmol/L (21.0-32.0); CHLORIDE,CL 102 mmol/L (98-107); GLUCOSE RANDOM 136 mg/dL (74-106); POTASSIUM,K 4.3 mmol/L (3.5-5.1); SODIUM,NA 141 mmol/L (136-148)
--- NOTE | 2021-08-23 11:21 | CR ---
INDICATION: Chest pain TECHNIQUE: Chest 1 view. COMPARISON: 01/28/21 FINDINGS: Cardiovascular and mediastinum: Heart size and vasculature are normal in caliber and appearance. Mediastinum is within normal limits. Lungs and pleural space: Lungs are clear. No sign of infiltrate or mass. No sign of pleural effusion. No pneumothorax. Bones and soft tissues: No significant findings. IMPRESSION: Unremarkable chest. Dictated by: Anibal Reynolds MD @ 08/23/2021 11:20:15 (Electronically Signed)
[2021-08-23] MEDS ORDERED: Iopamidol 755 MG/ML 500 ML Multipack Bottle IVPUSH STA (11:44)
--- NOTE | 2021-08-23 14:06 | CT ---
INDICATION: History of aortic aneurysm ; Left-sided chest pain and abdominal pain. COMPARISON: CT chest with intravenous contrast 10/15/2020. TECHNIQUE: CT chest without intravenous contrast; CT angio chest with intravenous contrast; coronal and sagittal reformats. FINDINGS: The ascending thoracic aorta is dilated measuring 4.7 cm in diameter; was measuring 4.4 cm on in September 2020 . No evidence of intramural hematoma involving the thoracic aorta. No evidence of aortic aneurysm or dissection. The origin of the great vessels is unremarkable . Normal size cardiac silhouette without any pericardial effusion. Coronary artery calcifications. No CT evidence of pulmonary thromboembolism . No abnormal intra pulmonary nodular densities are identified .no evidence of pleural effusion or chest wall pathology. No endobronchial pathology. IMPRESSION: 1. Dilated ascending thoracic aorta measuring 4.7 cm in diameter; was measuring 4.4 cm in 2019. 2. No evidence of intramural hematoma involving the thoracic aorta. 3. No evidence of aortic aneurysm or dissection. 4. No evidence of pulmonary thromboembolism. Please note that all CT scans at this facility use dose modulation, iterative reconstruction, and/or weight-based dosing when appropriate to reduce radiation dose to as low as reasonably achievable. Dictated by Stefania Dumont MD @ 08/23/2021 2:04:34 PM (Electronically Signed)
--- NOTE | 2021-08-23 14:10 | CT ---
INDICATION: History of aortic aneurysm; chest pain; abdominal pain. COMPARISON: CT angio chest with intravenous contrast 10/15/2008. TECHNIQUE: CT abdomen and pelvis without intravenous contrast; CT angio abdomen and pelvis with intravenous contrast; coronal and sagittal reformats. FINDINGS: No focal hepatic or splenic pathology. No pancreatic pathology. Gallbladder is unremarkable. No adrenal pathology. No kidney stones or obstructive uropathy. Symmetric perfusion of both the kidneys without any obstructive uropathy or perinephric pathology. No retroperitoneal lymphadenopathy. Diverticulosis sigmoid colon without any CT evidence of diverticulitis or abscess. No pneumoperitoneum or intestinal obstruction . The abdominal aorta and the visceral arteries are unremarkable. No CT evidence of intestinal ischemia or infarction . Intrathecal catheter identified at the level of T7 and T8 . IMPRESSION: 1. No evidence of abdominal aortic aneurysm . 2. The visceral arteries are unremarkable. 3. Intrathecal catheter identified. 4. Negative CT abdomen and pelvis with intravenous contrast otherwise. Please note that all CT scans at this facility use dose modulation, iterative reconstruction, and/or weight-based dosing when appropriate to reduce radiation dose to as low as reasonably achievable. Dictated by Stefania Dumont MD @ 08/23/2021 2:09:41 PM (Electronically Signed)
[2021-08-23 14:44] VITALS: BP 141/84; PULSE 93
== END 2021-08-23 14:40 | disposition home or self-care (01) ==
LOC: MW.ED 10:09
DX: K57.32 Diverticulitis of large intestine without perforation or abscess without bleeding (principal); I25.10 Atherosclerotic heart disease of native coronary artery without angina pectoris; I10 Essential (primary) hypertension; J44.9 Chronic obstructive pulmonary disease, unspecified; E78.00 Pure hypercholesterolemia, unspecified; I25.2 Old myocardial infarction; E11.9 Type 2 diabetes mellitus without complications; E03.9 Hypothyroidism, unspecified; Z79.82 Long term (current) use of aspirin; Z79.899 Other long term (current) drug therapy; Z20.822 Contact with and (suspected) exposure to COVID-19
CPT/HCPCS: 36415; 71045; 71275; 74174; 80053; 84484; 85025; 93005; 96374; 96375; 99284; J2270; J2405; Q9967; U0002

== ENCOUNTER 2021-09-14 11:43 | Inpatient (IN) | payer OTHER, MEDICARE ==
[2021-09-14] MEDS ORDERED: Sodium Chloride 0.9% 1,000 ML IV ONE (11:53)
[2021-09-14] MEDS ORDERED: Morphine 2 MG/ML SYRINGE IVPUSH ONE ×3 (11:57→14:34)
[2021-09-14] MEDS ORDERED: Alum Hydrox/Mag Hydrox/Simeth 15 ML, Metoclopramide 5 MG, Lidocaine 2% 5 ML PO ONE ×3 (11:59)
--- NOTE | 2021-09-14 11:59 | PCM.EKG ---
#1 Interpretation EKG Date: 09/14/21 Time: 11:44 EKG Interpretation Comments: 111, sinus tachycardia, ST depression in lead II aVF and anterior precordial leads, relatively unchanged as compared to 08/23/2021
--- NOTE | 2021-09-14 12:10 | EDM.PDOC ---
ED HPI GENERAL MEDICAL PROBLEM - General Chief Complaint: Chest Pain Stated Complaint: CHEST PAIN Time Seen by Provider: 09/14/21 11:53 Source of Information: Reports: Patient History Limitations: Reports: No Limitations - History of Present Illness INITIAL COMMENTS - FREE TEXT/NARRATIVE: HISTORY AND PHYSICAL: History of present illness: Patient is a 71-year-old male, with a history of coronary artery disease, hypertension, hyperlipidemia, aortic aneurysm, COPD, who presents emergency room today with concern of left sided lower chest pain and upper abdominal pain that has been ongoing for the past 1 month, worsening over the past 2 days, with now pain radiating to the back. Patient states he has a hard time differentiating chest versus abdominal pain as he states that it feels like it is both. Patient states that it has been constant for 1 month and states that he has had multiple emergency room evaluations, and follow-up with his primary [facility] provider [facility]. However, patient states over the past 2 days, now the pain has become more intense and states that he is also had associated nausea. Patient states that since the onset of his discomfort 1 month ago, he has lost approximately 15 to 20 pounds as he is having a hard time eating. Patient states he did have a cardiac catheterization about 3 years ago and has approximately 3-7 stents, but is unsure of the exact number. Patient does state he had a HIDA scan done by the [facility] in relation to this pain and was told his "bowels are dying off "but states patient has no idea what this means and unsure of any diagnosis. Patient also notes that sometimes the pain comes in waves and states that it is sharp and does make him feel short of breath during these intense moments of pain, but states he is otherwise not short of breath. Patient denies fever, chills, or cough. Denies headache, neck stiff ness, change in vision, syncope, or near syncope. Denies vomiting, diarrhea, constipation, or dysuria. Has not noted any blood in urine or stool. Review of systems: As per history of present illness and below otherwise all systems reviewed and negative. Past medical history: As per history of present illness and as reviewed below otherwise noncontributory. Surgical history: As per history of present illness and as reviewed below otherwise noncontributory. Social history: See social history for further information Family history: As per history of present illness and as reviewed below otherwise noncontributory. Physical exam: General: Patient is alert, oriented, and in no acute distress. Patient sitting on exam table, appearing uncomfortable, holding lower chest/upper abdomen. Patient is mildly tachycardic 110s on exam, otherwise vitally stable and reviewed by me HEENT: Atraumatic, normocephalic, pupils equal and reactive bilaterally, negative for conjunctival pallor or scleral icterus, mucous membranes moist, throat clear, neck supple, nontender, trachea midline. No drooling or trismus noted. No meningeal signs. No hot potato voice noted. Lungs: Clear to auscultation, breath sounds equal bilaterally, chest nontender. Heart: S1S2, regular rate and rhythm without overt murmur Abdomen: RUQ/LUE pain to palpation of exam. Otherwise, soft, nondistended. Negative for masses or hepatosplenomegaly. Negative for costovertebral tenderness. Pelvis: Stable nontender. Genitourinary: Deferred. Rectal: Deferred. Skin: Intact, warm, dry. No lesions or rashes noted. Extremities: Atraumatic, negative for cords or calf pain. Neurovascular unremarkable. Neuro: Awake, alert, oriented. Cranial nerves II through XII unremarkable. Cerebellum unremarkable. Motor and sensory unremarkable throughout. Exam nonfocal. Notes: Patient is a 71 year old male, with a history of coronary artery disease status post multiple stents, hypertension, hyperlipidemia, aortic aneurysm, and COPD, who presents emergency room today with difficulty discerning chest versus upper abdominal pain x 1 month worsening the past 1-2 days, now radiating to the back. Upon arrival to the ED, patient is uncomfortable appearing holding his lower chest/upper abdomen area. He is mildly tachycardic 110s on exam, otherwise vitally stable. Patient does have tenderness to palpation of his upper abdomen with negative Batres's and negative rebound tenderness, no pulsatile mass. Otherwise, remainder of exam unremarkable. At this time, with patient's known aortic aneurysm, with new onset radiation of pain to the back, concerning for possible aneurysm rupture versus dissection. Will obtain cardiac evaluation, angiography chest abdomen pelvis. See Dr. Flores dictation for specific EKG interpretation. However, on his tachycardia with rate of 111. Unchanged from prior EKG on 08/23/2021. CBC does show a leukocytosis with white blood cell count of 15.04, otherwise mild derangements of CBC unremarkable. CMP mild derangements are unremarkable. Troponin negative. Lipase is mildly elevated at 437, concerning for possible pancreatitis. Repeat delta trop remains negative. Angiography of the chest shows no aortic dissection or pulmonary embolism. Stable dilation of the ascending aorta. Coronary artery disease. Angiography of the abdomen and pelvis shows no abdominal aortic aneurysm or dissection. No acute intra-abdominal process identified. Hepatic steatosis. Colonic diverticulosis Upon reevaluation of patient, he does have improvement of his symptoms with therapeutics given today in the emergency room. Patient did not discuss this in his initial HPI, but upon second interview, patient notes that he has had diarrhea over the past 1 month and states that he has been on vancomycin PO empirically for possible C. difficile infection. Given unclear clinical cause at this time for patients symptoms,and patient complicated medical history, differential including possible cdiff colitis vs early pancreatitis, vs ACS, I did recommend admission for further observation, telemetry and diagnostic completion. Pending stool studies at this time. I did call and speak to the hospitalist on-call, Dr. Slater, and thoroughly discussed patient's case. Will admit to inpatient to Dr. Slater on telemetry. Voices understanding and is agreeable to plan of care. Denies any further questions or concerns at this time. Diagnostics: EKG, CBC, CMP, Lipase, UA, Lactate, Angio CTA chest/abd/pelvis, Stool culture/shiga, ova and parasite, cdiff Therapeutics: NS, GI cocktail, Morphine, ASA, dilaudid Impression: Chest pain, r/o ACS Mild pancreatitis Diarrhea, possible c difficile colitis, pending stool studies Plan: Admit to inpatient to Dr. Slater on telemetry Definitive disposition and diagnosis as appropriate pending reevaluation and review of above. - Related Data Allergies Allergy/AdvReac Type Severity Reaction Status Date / Time No Known Allergies Allergy Verified 08/23/21 10:35 Home Meds: Home Meds Clopidogrel Bisulfate [Clopidogrel] 75 mg PO DAILY 03/11/19 [History] Isosorbide Mononitrate [Imdur] 30 mg PO DAILY 03/11/19 [History] Latanoprost/Pf [Latanoprost 0.005% Eye Drop] 1 drop EYEBOTH BEDTIME 03/11/19 [History] Levothyroxine Sodium 50 mcg PO ACBREAKFAST 03/11/19 [History] Losartan [Cozaar] 25 mg PO DAILY 03/11/19 [History] Metoprolol Tartrate 50 mg PO BID 03/11/19 [History] Potassium Chloride 10 meq PO TID 03/11/19 [History] atorvaSTATin Calcium [Atorvastatin Calcium] 80 mg PO BEDTIME 03/11/19 [History] metFORMIN HCl [Metformin HCl] 1,000 mg PO BID 03/11/19 [History] Albuterol [Ventolin HFA] 2 puff IH Q6H PRN 06/01/19 [History] Pantoprazole Sodium 40 mg PO DAILY 11/22/19 [History] Tamsulosin HCl [Flomax] 0.4 mg PO DAILY 11/22/19 [History] busPIRone [Buspar] 10 mg PO BID 11/22/19 [History] Aspirin 81 mg PO DAILY 11/25/19 [History] Lidocaine 5% [Lidoderm 5%] 700 mg TOP Q24H #5 patch 11/26/19 [Rx] Fluticasone Propionate [Flonase Allergy Relief] 2 spray NASBOTH DAILY 01/28/21 [History] Gabapentin [Neurontin] 100 mg PO TID PRN 01/28/21 [History] Nitroglycerin [Nitrostat] 0.4 mg SL ASDIRECTED PRN 01/28/21 [History] predniSONE [Prednisone] 60 mg PO DAILY #21 tablet 01/28/21 [Rx] Amoxicillin/Potassium Clav [Augmentin 875-125 Tablet] 1 each PO BID 10 Days #20 tablet 08/23/21 [Rx] Past Medical History HEENT History: Reports: Glaucoma, Impaired Vision, Other (See Below) Other HEENT History: wears glasses Cardiovascular History: Reports: CAD, High Cholesterol, Hypertension, [place], Chucky nts, Other (See Below) Other Cardiovascular History: [place] x3. Carotid atherosclerosis Respiratory History: Reports: COPD, SOB Gastrointestinal History: Reports: None Genitourinary History: Reports: BPH Musculoskeletal History: Reports: Back Pain, Chronic Other Musculoskeletal History: chronic neck and back pain, lumbar stenosis, chronic pain syndrome Neurological History: Reports: None Endocrine/Metabolic History: Reports: Diabetes, Type II, Hypothyroidism Other Endocrine/Metabolic History: states "pre diabetic" Immunologic History: Reports: None Oncologic (Cancer) History: Reports: None Dermatologic History: Reports: Other (See Below) Other Dermatologic History: Granuloma annulare - Infectious Disease History Infectious Disease History: Reports: Chicken Pox, Measles, Mumps, Rubella - Past Surgical History Head Surgeries/Procedures: Reports: None HEENT Surgical History: Reports: Cataract Surgery, Eye Surgery, LASIK Cardiovascular Surgical History: Reports: Coronary Artery Stent Respiratory Surgical History: Reports: None Male Surgical History: Reports: None Endocrine Surgical History: Reports: None Neurological Surgical History: Reports: Lumbar Spine Other Neurological Surgeries/Procedures: TENS unit Other Musculoskeletal Surgeries/Procedures:: back surgery x2 Dermatological Surgical History: Reports: None Social & Family History - Family History Family Medical History: No Pertinent Family History HEENT: Reports: Cataract Cardiac: Reports: CAD, [place] OBGYN: Reports: Neurological: Reports: CVA, TIA Endocrine/Metabolic: Reports: Diabetes, Type I, Diabetes, type II - Caffeine Use Caffeine Use: Reports: None Other Caffeine Use: 1 cup a day Caffeine Use Comment: 2 cups of coffee in morning ED ROS GENERAL - Review of Systems Review Of Systems: Comprehensive ROS is negative, except as noted in HPI. ED EXAM, GENERAL - Physical Exam Exam: See Below (see dictation) Course - Vital Signs Last Recorded V/S: Last Vital Signs Temp 97.1 F 09/14/21 12:30 Pulse 83 09/14/21 12:30 Resp 16 09/14/21 12:30 BP 101/52 L 09/14/21 12:30 Pulse Ox 97 09/14/21 12:30 - Orders/Labs/Meds Orders: Active Orders 24 hr Category Date Time Status C DIFFICILE AG/TOXIN W/REFLEX [RM] Stat Lab 09/14/21 13:21 Ordered OVA & PARASITES BY IMMUNOASSAY [MREF] Stat Lab 09/14/21 13:21 Ordered STOOL CULTURE/SHIGA TOXIN [MREF] Stat Lab 09/14/21 13:21 Ordered Labs: Laboratory Tests 09/14/21 09/14/21 09/14/21 Range/Units 11:44 11:44 11:44 WBC 15.04 H (4.0-11.0) K/uL RBC 4.82 (4.50-5.90) M/uL Hgb 15.2 (13.0-17.0) g/dL Hct 44.3 (38.0-50.0) % MCV 91.9 (80.0-98.0) fL MCH 31.5 (27.0-32.0) pg MCHC 34.3 (31.0-37.0) g/dL RDW Std Deviation 47.9 (28.0-62.0) fl RDW Coeff of Samantha 14 (11.0-15.0) % Plt Count 395 (150-400) K/uL MPV 10.60 (7.40-12.00) fL Neut % (Auto) 75.9 (48.0-80.0) % Lymph % (Auto) 14.3 L (16.0-40.0) % [place] % (Auto) 7.5 (0.0-15.0) % Eos % (Auto) 2.1 (0.0-7.0) % Baso % (Auto) 0.2 (0.0-1.5) % Neut # (Auto) 11.4 H (1.4-5.7) K/uL Lymph # (Auto) 2.2 (0.6-2.4) K/uL [place] # (Auto) 1.1 H (0.0-0.8) K/uL Eos # (Auto) 0.3 (0.0-0.7) K/uL Baso # (Auto) 0.0 (0.0-0.1) K/uL Nucleated RBC % 0.0 /100WBC Nucleated RBCs # 0 K/uL Sodium 139 (136-148) mmol/L Potassium 3.7 (3.5-5.1) mmol/L Chloride 99 (98-107) mmol/L Carbon Dioxide 24.9 (21.0-32.0) mmol/L BUN 12 (7.0-18.0) mg/dL Creatinine 0.9 (0.8-1.3) mg/dL Est Cr Clr Drug Dosing TNP Estimated GFR (MDRD) > 60.0 ml/min Glucose 116 H (74-106) mg/dL Lactic Acid 1.7 (0.4-2.0) mmol/L Calcium 9.9 (8.5-10.1) mg/dL Total Bilirubin 0.9 (0.2-1.0) mg/dL AST 20 (15-37) IU/L ALT 34 (14-63) IU/L Alkaline Phosphatase 70 (46-116) U/L Troponin I < 0.050 (0.000-0.056) ng/mL Total Protein 8.5 H (6.4-8.2) g/dL Albumin 3.9 (3.4-5.0) g/dL Globulin 4.6 H (2.6-4.0) g/dL Albumin/Globulin Ratio 0.9 (0.9-1.6) Lipase 437 H (73-393) U/L 09/14/21 Range/Units 13:30 WBC (4.0-11.0) K/uL RBC (4.50-5.90) M/uL Hgb (13.0-17.0) g/dL Hct (38.0-50.0) % MCV (80.0-98.0) fL MCH (27.0-32.0) pg MCHC (31.0-37.0) g/dL RDW Std Deviation (28.0-62.0) fl RDW Coeff of Samantha (11.0-15.0) % Plt Count (150-400) K/uL MPV (7.40-12.00) fL Neut % (Auto) (48.0-80.0) % Lymph % (Auto) (16.0-40.0) % [place] % (Auto) (0.0-15.0) % Eos % (Auto) (0.0-7.0) % Baso % (Auto) (0.0-1.5) % Neut # (Auto) (1.4-5.7) K/uL Lymph # (Auto) (0.6-2.4) K/uL [place] # (Auto) (0.0-0.8) K/uL Eos # (Auto) (0.0-0.7) K/uL Baso # (Auto) (0.0-0.1) K/uL Nucleated RBC % /100WBC Nucleated RBCs # K/uL Sodium (136-148) mmol/L Potassium (3.5-5.1) mmol/L Chloride (98-107) mmol/L Carbon Dioxide (21.0-32.0) mmol/L BUN (7.0-18.0) mg/dL Creatinine (0.8-1.3) mg/dL Est Cr Clr Drug Dosing Estimated GFR (MDRD) ml/min Glucose (74-106) mg/dL Lactic Acid (0.4-2.0) mmol/L Calcium (8.5-10.1) mg/dL Total Bilirubin (0.2-1.0) mg/dL AST (15-37) IU/L ALT (14-63) IU/L Alkaline Phosphatase (46-116) U/L Troponin I < 0.050 (0.000-0.056) ng/mL Total Protein (6.4-8.2) g/dL Albumin (3.4-5.0) g/dL Globulin (2.6-4.0) g/dL Albumin/Globulin Ratio (0.9-1.6) Lipase (73-393) U/L Meds: Medications Discontinued Medications Generic Name Dose Route Start Last Admin Trade Name Freq PRN Reason Stop Dose Admin Aspirin 324 mg 09/14/21 13:14 09/14/21 13:19 Aspirin 81 Mg Tab.Chew PO 09/14/21 13:15 324 mg ONETIME ONE Administration Al Hydroxide/Mg Hydroxide 15 0 ml 09/14/21 11:59 09/14/21 13:06 ml/ Metoclopramide HCl 5 mg/ PO 09/14/21 12:00 20 each Lidocaine HCl 5 ml ONETIME ONE Administration Hydromorphone HCl 0.5 mg 09/14/21 16:38 Hydromorphone 2 Mg/Ml Syringe IVPUSH 09/14/21 16:39 ONETIME ONE Sodium Chloride 1,000 mls @ 999 mls/hr 09/14/21 11:53 09/14/21 13:12 Normal Saline IV 09/14/21 12:53 999 mls/hr BOLUS ONE Administration Pantoprazole Sodium 80 mg/ 20 mls @ 420 mls/hr 09/14/21 13:14 09/14/21 13:21 Sodium Chloride IVPUSH 09/14/21 13:16 420 mls/hr ONETIME ONE Administration Iopamidol 100 ml 09/14/21 12:22 09/14/21 12:22 Iopamidol 755 Mg/Ml 500 Ml Multipack Bottle IVPUSH 09/14/21 12:23 100 ml ONETIME STA Administration Morphine Sulfate 2 mg 09/14/21 11:57 09/14/21 13:09 Morphine 2 Mg/Ml Syringe IVPUSH 09/14/21 11:58 2 mg ONETIME ONE Administration Morphine Sulfate 2 mg 09/14/21 11:58 09/14/21 13:13 Morphine 2 Mg/Ml Syringe IVPUSH 09/14/21 11:59 2 mg ONETIME ONE Administration Morphine Sulfate 2 mg 09/14/21 14:34 09/14/21 14:50 Morphine 2 Mg/Ml Syringe IVPUSH 09/14/21 14:35 2 mg ONETIME ONE Administration Departure - Departure Time of Disposition: 14:50 Disposition: Admitted As Inpatient 64 Clinical Impression: Chest pain, rule out acute myocardial infarction Pancreatitis Qualifiers: Pancreatitis type: unspecified pancreatitis type Acute pancreatitis complication: unspecified Diarrhea Qualifiers: Diarrhea type: unspecified type Qualified Code(s): R19.7 - Diarrhea, unspecified - Discharge Information Sepsis Event Note (ED) - Focused Exam Vital Signs: Vital Signs Temp Pulse Resp BP Pulse Ox 09/14/21 12:30 97.1 F 83 16 101/52 L 97 - My Orders Last 24 Hours: My Active Orders 09/14/21 13:21 C DIFFICILE AG/TOXIN W/REFLEX [RM] Stat OVA & PARASITES BY IMMUNOASSAY [MREF] Stat STOOL CULTURE/SHIGA TOXIN [MREF] Stat - Assessment/Plan Last 24 Hours: My Active Orders 09/14/21 13:21 C DIFFICILE AG/TOXIN W/REFLEX [RM] Stat OVA & PARASITES BY IMMUNOASSAY [MREF] Stat STOOL CULTURE/SHIGA TOXIN [MREF] Stat
[2021-09-14] MEDS ORDERED: Iopamidol 755 MG/ML 500 ML Multipack Bottle IVPUSH STA (12:22)
[2021-09-14 12:29] LABS: BLOOD UREA NITROGEN,BUN 12 mg/dL (7.0-18.0); CARBON DIOXIDE,CO2 24.9 mmol/L (21.0-32.0); CHLORIDE,CL 99 mmol/L (98-107); GLUCOSE RANDOM 116 mg/dL (74-106); LIPASE 437 U/L (73-393); POTASSIUM,K 3.7 mmol/L (3.5-5.1); SODIUM,NA 139 mmol/L (136-148)
--- NOTE | 2021-09-14 12:56 | CT ---
INDICATION: Chest pain radiating to back, known aneurysm TECHNIQUE: CTA of the chest performed after administration 100 cc Omnipaque 350 COMPARISON: August 23, 2021 FINDINGS: Cardiovascular structures: No thoracic aortic dissection or aneurysm. Dilatation of the ascending aorta measuring 4.3 cm, stable. No pulmonary embolism. Normal cardiac size. Coronary artery calcifications. Mediastinum and rigoberto: No mass or adenopathy. Lungs: Clear. Pleura and pericardium: No effusions. Chest wall and axilla: No mass or adenopathy. Bones: Unremarkable for age. Neurostimulator device enters the spinal canal at the T9-T10 level and extends to the T7 level. IMPRESSION: No aortic dissection or pulmonary embolism. Stable dilatation of the ascending aorta. Coronary artery disease. Please note that all CT scans at this facility use dose modulation, iterative reconstruction, and/or weight-based dosing when appropriate to reduce radiation dose to as low as reasonably achievable. Dictated by Thelma Kelley MD @ 09/14/2021 12:55:34 PM (Electronically Signed)
--- NOTE | 2021-09-14 13:03 | CT ---
INDICATION: Chest pain radiating to the back, known aortic aneurysm TECHNIQUE: CT angiogram abdomen and pelvis acquired with 100 cc Isovue 370 IV contrast. COMPARISON: August 23, 2021 FINDINGS: Lower chest: Unremarkable. Liver: Hepatic steatosis. Spleen: Unremarkable. Pancreas: Unremarkable. Gallbladder and bile ducts: Unremarkable. Adrenal glands: Unremarkable. Kidneys: Unremarkable. GI tract: Colonic diverticulosis. Vascular structures: No abdominal aortic aneurysm or dissection. Moderate aortoiliac calcifications. Patent mesenteric, renal, and iliac vessels. Lymph nodes: Unremarkable. Miscellaneous: Unremarkable. No free air or significant free fluid. Pelvic Organs: Unremarkable. Bones: Internal fixation hardware at L5-S1. IMPRESSION: No abdominal aortic aneurysm or dissection. No acute intra-abdominal process identified. Hepatic steatosis. Colonic diverticulosis. Please note that all CT scans at this facility use dose modulation, iterative reconstruction, and/or weight-based dosing when appropriate to reduce radiation dose to as low as reasonably achievable. Dictated by Thelma Kelley MD @ 09/14/2021 1:00:57 PM (Electronically Signed)
[2021-09-14] MEDS ORDERED: Pantoprazole 80 MG in Sodium Chloride 0.9% 20 ML IVPUSH ONE (13:14)
[2021-09-14] MEDS ORDERED: Aspirin 81 MG Tab.Chew PO ONE (13:14)
--- NOTE | 2021-09-14 16:30 | PCM.HP.2 ---
<Yonny Lincoln - Last Filed: 09/14/21 17:18> H&P History of Present Illness - General Date of Service: 09/14/21 Admit Problem/Dx: Admission Diagnosis/Problem Admission Diagnosis/Problem Chest pain - History of Present Illness Initial Comments - Free Text/Narative: 71-year-old male with a history of CAD, HTN, HLD, COPD, aortic aneurysm presents to the ER complaining of epigastric pain for more than 1 month which is worsened over the past 2 days. Pain is now radiating to the back. Patient has had multiple ER visits. Patient states over the last 2 days the pain has become more intense and constant. Patient endorses nausea denies vomiting. Patient has had diarrhea for 1 month. Patient states he lost 15 pounds over the last 1 month due to difficulty eating. Previous to this, pain was intermittent, waxing and waning, sharp, worsened by deep inspiration. Patient is also seen at the [place] [facility] where he had a HIDA scan done. Patient has been taking p.o. vancomycin for 3 days possible C. difficile infection. Patient states he was given an amoxicillin prescription at the end of July for a possible stomach infection. Patient denies palpitations, vomiting, abdominal distention, obstipation, bloody stools, fever or chills. Denies headaches, dizziness, loss of consciousness. ER course: Patient is visibly uncomfortable on exam holding his stomach. Tachycardic, pulse 110. Right and left upper extremity tender to palpation. Nondistended. Negative for guarding. Batres sign negative. EKG: HR111, sinus tachycardia, ST depression in lead II aVF and anterior preco rdial leads, relatively unchanged as compared to 08/23/2021. WBC 15. Troponin negative. Lipase 437. CT angiography shows no dissection or pulmonary embolism. Stable dilation of ascending aorta. Coronary artery disease. CT abdomen pelvis shows no acute intra-abdominal process. Hepatic steatosis and colonic diverticulosis. T 97.1. P 83. RR 16. BP 101/52. WBC 15. Hgb 15.2. Platelet count 395. BMP wnl. Lipase 437. Therapy: Aspirin 81mg. GI cocktail. Protonix 80mg. Morphine 2mg IV. Past medical history: CAD with stents x7. HTN, HLD. COPD. Chronic pain. Glaucoma. BPH. Hypothyroidism. Type 2 diabetes mellitus. Medications: Clopidogrel 75 mg. Imdur 30 mg. Latanoprost eyedrop. Levothyroxine 50 mcg. Losartan 25 mg. Metoprolol tartrate 50 mg bid. Potassium chloride 10 mEq TID. Atorvastatin 80 mg. Metformin 1000 mg bid. Albuterol inhaler. Tamsulosin 0.4 mg. Buspirone 10 mg bid. Aspirin 81 mg. Gabapentin 100 mg tid prn. Nitroglycerin SL prn. Allergies: No known drug allergies. Social History: Patient stopped smoking >20 years ago. 4 twisted tea alcoholic beverages per day. Uses marijuana. CODE STATUS: FULL CODE. - Related Data Allergies/Adverse Reactions: Allergies Allergy/AdvReac Type Severity Reaction Status Date / Time No Known Allergies Allergy Verified 09/19/21 13:58 Home Medications: Home Meds Clopidogrel Bisulfate [Clopidogrel] 75 mg PO DAILY 03/11/19 [History] Isosorbide Mononitrate [Imdur] 30 mg PO DAILY 03/11/19 [History] Latanoprost/Pf [Latanoprost 0.005% Eye Drop] 1 drop EYEBOTH BEDTIME 03/11/19 [History] Levothyroxine Sodium 50 mcg PO ACBREAKFAST 03/11/19 [History] Losartan [Cozaar] 25 mg PO DAILY 03/11/19 [History] Potassium Chloride 10 meq PO TID 03/11/19 [History] atorvaSTATin Calcium [Atorvastatin Calcium] 80 mg PO BEDTIME 03/11/19 [History] metFORMIN HCl [Metformin HCl] 1,000 mg PO BID 03/11/19 [History] Albuterol [Ventolin HFA] 2 puff IH Q6H PRN 06/01/19 [History] Pantoprazole Sodium 40 mg PO DAILY 11/22/19 [History] Tamsulosin HCl [Flomax] 0.4 mg PO WITHDINNER 11/22/19 [History] Fluticasone Propionate [Flonase Allergy Relief] 2 spray NASBOTH DAILY 01/28/21 [History] Aspirin [Halfprin] 81 mg PO DAILY 09/15/21 [History] Dicyclomine [Bentyl] 10 mg PO TID 09/15/21 [History] Fluticasone Propion/Salmeterol [Advair 250-50 Diskus] 1 inh IH Q12H 09/15/21 [History] Nitroglycerin 0.4 mg SL .EVERY 5 MINUTES PRN MDD 3 TABLETS 09/15/21 [History] Tiotropium [place] [Spiriva Respimat] 2.5 mcg INH Q24H 09/15/21 [History] Vancomycin [Vancocin 125 MG Capsule] 125 mg PO QID 09/15/21 [History] Vancomycin [First-Vancomycin 25 Compounding Kit] 125 mg PO Q6H bottle 09/17/21 [Rx] Past Medical History HEENT History: Reports: Glaucoma, Impaired Vision, Other (See Below) Other HEENT History: wears glasses Cardiovascular History: Reports: Aneurysm, CAD, High Cholesterol, Hypertension, PR, Stents, Other (See Below) Other Cardiovascular History: PR x3. Carotid atherosclerosis. thoracic aneurysm Respiratory History: Reports: COPD, SOB Gastrointestinal History: Reports: None, Other (See Below) Other Gastrointestinal History: c diff Genitourinary History: Reports: BPH Musculoskeletal History: Reports: Back Pain, Chronic Other Musculoskeletal History: chronic neck and back pain, lumbar stenosis, chronic pain syndrome Neurological History: Reports: None Endocrine/Metabolic History: Reports: Diabetes, Type II, Hypothyroidism Other Endocrine/Metabolic History: states "pre diabetic" Immunologic History: Reports: None Oncologic (Cancer) History: Reports: None Dermatologic History: Reports: Other (See Below) Other Dermatologic History: Granuloma annulare - Infectious Disease History Infectious Disease History: Reports: Chicken Pox, Measles, Mumps, Rubella - Past Surgical History Head Surgeries/Procedures: Reports: None HEENT Surgical History: Reports: Cataract Surgery, Eye Surgery, LASIK Cardiovascular Surgical History: Reports: Aneurysm, Coronary Artery Stent Respiratory Surgical History: Reports: None GI Surgical History: Reports: None Male Surgical History: Reports: None Endocrine Surgical History: Reports: None Neurological Surgical History: Reports: Lumbar Spine Other Neurological Surgeries/Procedures: TENS unit Other Musculoskeletal Surgeries/Procedures:: back surgery x2 Dermatological Surgical History: Reports: None Social & Family History - Family History Family Medical History: No Pertinent Family History HEENT: Reports: Cataract Cardiac: Reports: CAD, PR OBGYN: Reports: Neurological: Reports: CVA, TIA Endocrine/Metabolic: Reports: Diabetes, Type I, Diabetes, type II - Tobacco Use Tobacco Use Status *Q: Former Tobacco User Years of Tobacco use: 30 Packs/Tins Daily: 2 Used Tobacco, but Quit: No - Caffeine Use Caffeine Use: Reports: None Other Caffeine Use: 1 cup a day Caffeine Use Comment: 2 cups of coffee in morning - Alcohol Use Days Per Week of Alcohol Use: 7 Number of Drinks Per Day: 6 Total Drinks Per Week: 42 - Recreational Drug Use Recreational Drug Use: Yes Recreational Drug Type: Reports: Marijuana/Hashish H&P Review of Systems - Review of Systems: Review Of Systems: See Below General: Reports: Fatigue, Weight Loss. Denies: Fever, Chills HEENT: Denies: Headaches, Sore Throat Pulmonary: Denies: Shortness of Breath, Wheezing, Pleuritic Chest Pain Cardiovascular: Reports: Edema. Denies: Chest Pain, Palpitations Gastrointestinal: Reports: Abdominal Pain, Anorexia, Diarrhea, Nausea. Denies: Black Stool, Bloody Stool, Constipation, Decreased Appetite, Distension, Hematochezia, Melena, Stool Incontinence Genitourinary: Denies: Dysuria Musculoskeletal: Reports: Back Pain Skin: Denies: Cyanosis Psychiatric: Denies: Confusion Neurological: Denies: Confusion, Dizziness, Headache, Numbness, Paresthesia Exam - Exam Exam: See Below - Vital Signs Vital Signs: Last Vital Signs Temp 97.1 F 09/14/21 12:30 Pulse 83 09/14/21 12:30 Resp 16 09/14/21 12:30 BP 101/52 L 09/14/21 12:30 Pulse Ox 97 09/14/21 12:30 - Exam General: Alert, Oriented, Cooperative, Mild Distress HEENT: Conjunctiva Clear, EACs Clear, Mucosa Moist & [place]. No: Scleral Icterus Neck: Supple, Trachea Midline, +2 Carotid Pulse wo Bruit. No: JVD Lungs: Clear to Auscultation, Normal Respiratory Effort Cardiovascular: Regular Rate, Regular Rhythm GI/Abdominal Exam: Soft, No Distention, Tender. No: Rigid, Rebound Back Exam: Normal Inspection, Decreased Range of Motion, Paraspinal Tenderness Extremities: Normal Inspection, Pedal Edema. No: Faustino's Sign, Leg Pain Peripheral Pulses: 2+: Dorsalis Pedis (L), Dorsalis Pedis (R) Skin: Warm, Dry Neurological: Cranial Nerves Intact, Strength Equal Bilateral Neuro Extensive - Mental Status: Alert, Oriented x3 - Patient Data Lab Results Last 24 hrs: Laboratory Results - last 24 hr 09/14/21 09/14/21 09/14/21 Range/Units 11:44 11:44 11:44 WBC 15.04 H (4.0-11.0) K/uL RBC 4.82 (4.50-5.90) M/uL Hgb 15.2 (13.0-17.0) g/dL Hct 44.3 (38.0-50.0) % MCV 91.9 (80.0-98.0) fL MCH 31.5 (27.0-32.0) pg MCHC 34.3 (31.0-37.0) g/dL RDW Std Deviation 47.9 (28.0-62.0) fl RDW Coeff of Samantha 14 (11.0-15.0) % Plt Count 395 (150-400) K/uL MPV 10.60 (7.40-12.00) fL Neut % (Auto) 75.9 (48.0-80.0) % Lymph % (Auto) 14.3 L (16.0-40.0) % Dickens % (Auto) 7.5 (0.0-15.0) % Eos % (Auto) 2.1 (0.0-7.0) % Baso % (Auto) 0.2 (0.0-1.5) % Neut # (Auto) 11.4 H (1.4-5.7) K/uL Lymph # (Auto) 2.2 (0.6-2.4) K/uL Dickens # (Auto) 1.1 H (0.0-0.8) K/uL Eos # (Auto) 0.3 (0.0-0.7) K/uL Baso # (Auto) 0.0 (0.0-0.1) K/uL Nucleated RBC % 0.0 /100WBC Nucleated RBCs # 0 K/uL Sodium 139 (136-148) mmol/L Potassium 3.7 (3.5-5.1) mmol/L Chloride 99 (98-107) mmol/L Carbon Dioxide 24.9 (21.0-32.0) mmol/L BUN 12 (7.0-18.0) mg/dL Creatinine 0.9 (0.8-1.3) mg/dL Est Cr Clr Drug Dosing TNP Estimated GFR (MDRD) > 60.0 ml/min Glucose 116 H (74-106) mg/dL Lactic Acid 1.7 (0.4-2.0) mmol/L Calcium 9.9 (8.5-10.1) mg/dL Total Bilirubin 0.9 (0.2-1.0) mg/dL AST 20 (15-37) IU/L ALT 34 (14-63) IU/L Alkaline Phosphatase 70 (46-116) U/L Troponin I < 0.050 (0.000-0.056) ng/mL Total Protein 8.5 H (6.4-8.2) g/dL Albumin 3.9 (3.4-5.0) g/dL Globulin 4.6 H (2.6-4.0) g/dL Albumin/Globulin Ratio 0.9 (0.9-1.6) Lipase 437 H (73-393) U/L Urine Color Urine Appearance Urine pH (5.0-8.0) Ur Specific [place] (1.001-1.035) Urine Protein (NEGATIVE) mg/dL Urine Glucose (UA) (NEGATIVE) mg/dL Urine Ketones (NEGATIVE) mg/dL Urine Occult Blood (NEGATIVE) Urine Nitrite (NEGATIVE) Urine Bilirubin (NEGATIVE) Urine Urobilinogen (<2.0) EU/dL Ur Leukocyte Esterase (NEGATIVE) 09/14/21 09/14/21 Range/Units 13:30 14:48 WBC (4.0-11.0) K/uL RBC (4.50-5.90) M/uL Hgb (13.0-17.0) g/dL Hct (38.0-50.0) % MCV (80.0-98.0) fL MCH (27.0-32.0) pg MCHC (31.0-37.0) g/dL RDW Std Deviation (28.0-62.0) fl RDW Coeff of Samantha (11.0-15.0) % Plt Count (150-400) K/uL MPV (7.40-12.00) fL Neut % (Auto) (48.0-80.0) % Lymph % (Auto) (16.0-40.0) % Dickens % (Auto) (0.0-15.0) % Eos % (Auto) (0.0-7.0) % Baso % (Auto) (0.0-1.5) % Neut # (Auto) (1.4-5.7) K/uL Lymph # (Auto) (0.6-2.4) K/uL Dickens # (Auto) (0.0-0.8) K/uL Eos # (Auto) (0.0-0.7) K/uL Baso # (Auto) (0.0-0.1) K/uL Nucleated RBC % /100WBC Nucleated RBCs # K/uL Sodium (136-148) mmol/L Potassium (3.5-5.1) mmol/L Chloride (98-107) mmol/L Carbon Dioxide (21.0-32.0) mmol/L BUN (7.0-18.0) mg/dL Creatinine (0.8-1.3) mg/dL Est Cr Clr Drug Dosing Estimated GFR (MDRD) ml/min Glucose (74-106) mg/dL Lactic Acid (0.4-2.0) mmol/L Calcium (8.5-10.1) mg/dL Total Bilirubin (0.2-1.0) mg/dL AST (15-37) IU/L ALT (14-63) IU/L Alkaline Phosphatase (46-116) U/L Troponin I < 0.050 (0.000-0.056) ng/mL Total Protein (6.4-8.2) g/dL Albumin (3.4-5.0) g/dL Globulin (2.6-4.0) g/dL Albumin/Globulin Ratio (0.9-1.6) Lipase (73-393) U/L Urine Color YELLOW Urine Appearance CLEAR Urine pH 6.0 (5.0-8.0) Ur Specific [place] <= 1.005 (1.001-1.035) Urine Protein NEGATIVE (NEGATIVE) mg/dL Urine Glucose (UA) NEGATIVE (NEGATIVE) mg/dL Urine Ketones TRACE H (NEGATIVE) mg/dL Urine Occult Blood NEGATIVE (NEGATIVE) Urine Nitrite NEGATIVE (NEGATIVE) Urine Bilirubin NEGATIVE (NEGATIVE) Urine Urobilinogen 0.2 (<2.0) EU/dL Ur Leukocyte Esterase NEGATIVE (NEGATIVE) Result Diagrams: 09/14/21 11:44 09/14/21 11:44 Sepsis Event Note - Focused Exam Vital Signs: Vital Signs Temp Pulse Resp BP Pulse Ox 09/14/21 12:30 97.1 F 83 16 101/52 L 97 - Problem List (1) C. difficile diarrhea SNOMED Code(s): 6526643146111 ICD Code: A04.72 - ENTEROCOLITIS D/T CLOSTRIDIUM DIFFICILE, NOT SPCF RECUR Status: Acute (2) Pancreatitis SNOMED Code(s): 35108644 ICD Code: K85.90 - ACUTE PANCREATITIS WITHOUT NECROSIS OR INFECTION, UNSP Status: Acute Qualifiers: Pancreatitis type: unspecified pancreatitis type Acute pancreatitis complication: unspecified (3) HTN (hypertension) SNOMED Code(s): 46794162 ICD Code: I10 - ESSENTIAL (PRIMARY) HYPERTENSION Status: Chronic (4) History of coronary artery stent placement SNOMED Code(s): 242091788, 565727077 ICD Code: Z95.5 - PRESENCE OF CORONARY ANGIOPLASTY IMPLANT AND GRAFT Status: Chronic Problem List Initiated/Reviewed/Updated: Yes Orders Last 24hrs: Active Orders 24 hr Category Date Time Status Admission Status [Patient Status] [ADT] Stat ADT 09/14/21 14:07 Active C DIFFICILE AG/TOXIN W/REFLEX [RM] Stat Lab 09/14/21 13:21 Ordered OVA & PARASITES BY IMMUNOASSAY [MREF] Stat Lab 09/14/21 13:21 Ordered STOOL CULTURE/SHIGA TOXIN [MREF] Stat Lab 09/14/21 13:21 Ordered Assessment/Plan Comment:: 71-year-old male admitted for acute pancreatitis. -NPO. -Lactated Ringer's at 125 mL/h. -Pain management with 2 mg IV morphine q 4hrs prn. -We will advance diet as tolerated. Patient was started on vancomycin p.o. on 09/12/2021 for C. difficile. We will get a C. difficile stool antigen and continue vancomycin. <Maxine Slater - Last Filed: 09/20/21 16:42> H&P History of Present Illness - General Admit Problem/Dx: Admission Diagnosis/Problem Admission Diagnosis/Problem Chest pain Exam - Vital Signs Vital Signs: Last Vital Signs Temp 37.1 C 09/17/21 08:00 Pulse 72 09/17/21 08:00 Resp 14 09/17/21 08:00 BP 140/67 09/17/21 09:01 Pulse Ox 98 09/17/21 08:00 - Patient Data Result Diagrams: 09/17/21 06:35 09/17/21 06:35 Antonio Results Last 24 hrs: Microbiology 09/14/21 21:45 Stool Culture - Final Stool / Feces Shiga Toxin I & II - Final Assessment/Plan Comment:: I performed a history and physical exam of the patient and discussed management with resident. I have reviewed the residents note and agree with documented f indings and plan unless otherwise specified in my note.
[2021-09-14] MEDS ORDERED: Ondansetron 4 MG/2 ML SDV IVPUSH PRN (16:36)
[2021-09-14] MEDS ORDERED: HYDROmorphone 2 MG/ML Syringe IVPUSH ONE (16:38)
[2021-09-14] MEDS ORDERED: Glucagon,Human Recombinant 1 MG Vial IM PRN (18:47)
[2021-09-14] MEDS ORDERED: 50% Dextrose in Water 50 ML Syringe IVPUSH PRN (18:47)
[2021-09-14] MEDS ORDERED: Non-Formulary Medication 1 Each (Metoprolol Tartrate 100 MG Tablet) PO SCH (21:00)
[2021-09-14] MEDS ORDERED: BUSPIRONE 10 MG PO SCH (21:00)
[2021-09-14] MEDS: Vancomycin 25 MG/ML Compounding Kit PO SCH (21:29)
[2021-09-14] MEDS: Morphine 2 MG/ML SYRINGE IVPUSH PRN (21:30)
[2021-09-14] MEDS: Lactated Ringers 1,000 ML IV SCH (21:32)
[2021-09-15] MEDS: Acetaminophen 325 MG Tab PO PRN ×2 (00:06→06:00)
[2021-09-15] MEDS: Vancomycin 25 MG/ML Compounding Kit PO SCH ×4 (02:05→20:12)
[2021-09-15] MEDS: Lactated Ringers 1,000 ML IV SCH ×5 (02:07→23:25)
[2021-09-15] MEDS: Morphine 2 MG/ML SYRINGE IVPUSH PRN ×4 (02:10→20:14)
[2021-09-15] MEDS: Insulin Aspart 100 Units/ML 3 ML Pen SUBCUT SCH ×3 (06:52→18:04)
[2021-09-15 07:41] LABS: BLOOD UREA NITROGEN,BUN 12 mg/dL (7.0-18.0); CARBON DIOXIDE,CO2 26.1 mmol/L (21.0-32.0); CHLORIDE,CL 102 mmol/L (98-107); GLUCOSE RANDOM 97 mg/dL (74-106); POTASSIUM,K 3.8 mmol/L (3.5-5.1); SODIUM,NA 139 mmol/L (136-148)
[2021-09-15] MEDS ORDERED: Pantoprazole 40 MG Vial IV SCH (09:00)
[2021-09-15] MEDS: Pantoprazole 40 MG in Sodium Chloride 0.9% 10 ML IV SCH (09:03)
[2021-09-15] MEDS: Levothyroxine 50 MCG Tab PO SCH (12:23)
[2021-09-15] MEDS: Losartan 50 MG Tab PO SCH (12:23)
[2021-09-15] MEDS: Aspirin 81 MG Tab.EC PO SCH (12:24)
[2021-09-15] MEDS: Clopidogrel 75 MG Tab PO SCH (12:24)
--- NOTE | 2021-09-15 12:32 | PCM.PN ---
<Yonny Lincoln - Last Filed: 09/15/21 19:48> - General Info Date of Service: 09/15/21 Admission Dx/Problem (Free Text): Admission Diagnosis/Problem Admission Diagnosis/Problem Chest pain Subjective Update: 71-year-old male admitted for acute pancreatitis. Patient has been n.p.o. and on IV fluids. Patient states his abdominal pain is improving and he now feels hungry. Patient would like to try and eat later today. We will try clear liqu ids. Patient denies fever, chills, nausea, vomiting, diarrhea, chest pain, palpitations, difficulty breathing, headaches, dizziness. - Review of Systems General: Denies: Fever, Chills HEENT: Denies: Headaches Pulmonary: Denies: Shortness of Breath, Pleuritic Chest Pain, Cough Cardiovascular: Denies: Chest Pain, Palpitations, Edema Gastrointestinal: Reports: Abdominal Pain. Denies: Constipation, Diarrhea, Nausea, Vomiting Genitourinary: Denies: Dysuria Musculoskeletal: Denies: Leg Pain Skin: Denies: Cyanosis Neurological: Denies: Confusion - Patient Data Vitals - Most Recent: Last Vital Signs Temp 98.3 F 09/15/21 12:25 Pulse 67 09/15/21 12:25 Resp 16 09/15/21 12:25 BP 154/77 H 09/15/21 12:25 Pulse Ox 96 09/15/21 12:25 Weight - Most Recent: 79.379 kg I&O - Last 24 Hours: Intake & Output 09/14/21 09/15/21 09/15/21 22:59 06:59 14:59 Intake Total 998 Output Total 0 Balance 998 Lab Results Last 24 Hours: Laboratory Results - last 24 hr 09/14/21 09/14/21 09/14/21 Range/Units 13:30 14:48 19:10 WBC (4.0-11.0) K/uL RBC (4.50-5.90) M/uL Hgb (13.0-17.0) g/dL Hct (38.0-50.0) % MCV (80.0-98.0) fL MCH (27.0-32.0) pg MCHC (31.0-37.0) g/dL RDW Std Deviation (28.0-62.0) fl RDW Coeff of Samantha (11.0-15.0) % Plt Count (150-400) K/uL MPV (7.40-12.00) fL Neut % (Auto) (48.0-80.0) % Lymph % (Auto) (16.0-40.0) % [place] % (Auto) (0.0-15.0) % Eos % (Auto) (0.0-7.0) % Baso % (Auto) (0.0-1.5) % Neut # (Auto) (1.4-5.7) K/uL Lymph # (Auto) (0.6-2.4) K/uL [place] # (Auto) (0.0-0.8) K/uL Eos # (Auto) (0.0-0.7) K/uL Baso # (Auto) (0.0-0.1) K/uL Nucleated RBC % /100WBC Nucleated RBCs # K/uL Sodium (136-148) mmol/L Potassium (3.5-5.1) mmol/L Chloride (98-107) mmol/L Carbon Dioxide (21.0-32.0) mmol/L BUN (7.0-18.0) mg/dL Creatinine (0.8-1.3) mg/dL Est Cr Clr Drug Dosing mL/min Estimated GFR (MDRD) ml/min Glucose (74-106) mg/dL POC Glucose (70-99) mg/dL Calcium (8.5-10.1) mg/dL Total Bilirubin (0.2-1.0) mg/dL AST (15-37) IU/L ALT (14-63) IU/L Alkaline Phosphatase (46-116) U/L Troponin I < 0.050 < 0.050 (0.000-0.056) ng/mL Total Protein (6.4-8.2) g/dL Albumin (3.4-5.0) g/dL Globulin (2.6-4.0) g/dL Albumin/Globulin Ratio (0.9-1.6) Urine Color YELLOW Urine Appearance CLEAR Urine pH 6.0 (5.0-8.0) Ur Specific [place] <= 1.005 (1.001-1.035) Urine Protein NEGATIVE (NEGATIVE) mg/dL Urine Glucose (UA) NEGATIVE (NEGATIVE) mg/dL Urine Ketones TRACE H (NEGATIVE) mg/dL Urine Occult Blood NEGATIVE (NEGATIVE) Urine Nitrite NEGATIVE (NEGATIVE) Urine Bilirubin NEGATIVE (NEGATIVE) Urine Urobilinogen 0.2 (<2.0) EU/dL Ur Leukocyte Esterase NEGATIVE (NEGATIVE) 09/15/21 09/15/21 09/15/21 Range/Units 05:55 06:00 06:00 WBC 9.50 (4.0-11.0) K/uL RBC 4.28 L (4.50-5.90) M/uL Hgb 13.2 (13.0-17.0) g/dL Hct 39.6 (38.0-50.0) % MCV 92.5 (80.0-98.0) fL MCH 30.8 (27.0-32.0) pg MCHC 33.3 (31.0-37.0) g/dL RDW Std Deviation 48.4 (28.0-62.0) fl RDW Coeff of Samantha 14 (11.0-15.0) % Plt Count 326 (150-400) K/uL MPV 10.60 (7.40-12.00) fL Neut % (Auto) 68.0 (48.0-80.0) % Lymph % (Auto) 20.0 (16.0-40.0) % [place] % (Auto) 7.9 (0.0-15.0) % Eos % (Auto) 3.8 (0.0-7.0) % Baso % (Auto) 0.3 (0.0-1.5) % Neut # (Auto) 6.5 H (1.4-5.7) K/uL Lymph # (Auto) 1.9 (0.6-2.4) K/uL [place] # (Auto) 0.8 (0.0-0.8) K/uL Eos # (Auto) 0.4 (0.0-0.7) K/uL Baso # (Auto) 0.0 (0.0-0.1) K/uL Nucleated RBC % 0.0 /100WBC Nucleated RBCs # 0 K/uL Sodium 139 (136-148) mmol/L Potassium 3.8 (3.5-5.1) mmol/L Chloride 102 (98-107) mmol/L Carbon Dioxide 26.1 (21.0-32.0) mmol/L BUN 12 (7.0-18.0) mg/dL Creatinine 0.8 (0.8-1.3) mg/dL Est Cr Clr Drug Dosing 84.91 mL/min Estimated GFR (MDRD) > 60.0 ml/min Glucose 97 (74-106) mg/dL POC Glucose 92 (70-99) mg/dL Calcium 8.6 (8.5-10.1) mg/dL Total Bilirubin 0.6 (0.2-1.0) mg/dL AST 19 (15-37) IU/L ALT 30 (14-63) IU/L Alkaline Phosphatase 57 (46-116) U/L Troponin I (0.000-0.056) ng/mL Total Protein 6.9 (6.4-8.2) g/dL Albumin 3.2 L (3.4-5.0) g/dL Globulin 3.7 (2.6-4.0) g/dL Albumin/Globulin Ratio 0.9 (0.9-1.6) Urine Color Urine Appearance Urine pH (5.0-8.0) Ur Specific [place] (1.001-1.035) Urine Protein (NEGATIVE) mg/dL Urine Glucose (UA) (NEGATIVE) mg/dL Urine Ketones (NEGATIVE) mg/dL Urine Occult Blood (NEGATIVE) Urine Nitrite (NEGATIVE) Urine Bilirubin (NEGATIVE) Urine Urobilinogen (<2.0) EU/dL Ur Leukocyte Esterase (NEGATIVE) 09/15/21 Range/Units 11:58 WBC (4.0-11.0) K/uL RBC (4.50-5.90) M/uL Hgb (13.0-17.0) g/dL Hct (38.0-50.0) % MCV (80.0-98.0) fL MCH (27.0-32.0) pg MCHC (31.0-37.0) g/dL RDW Std Deviation (28.0-62.0) fl RDW Coeff of Samantha (11.0-15.0) % Plt Count (150-400) K/uL MPV (7.40-12.00) fL Neut % (Auto) (48.0-80.0) % Lymph % (Auto) (16.0-40.0) % [place] % (Auto) (0.0-15.0) % Eos % (Auto) (0.0-7.0) % Baso % (Auto) (0.0-1.5) % Neut # (Auto) (1.4-5.7) K/uL Lymph # (Auto) (0.6-2.4) K/uL [place] # (Auto) (0.0-0.8) K/uL Eos # (Auto) (0.0-0.7) K/uL Baso # (Auto) (0.0-0.1) K/uL Nucleated RBC % /100WBC Nucleated RBCs # K/uL Sodium (136-148) mmol/L Potassium (3.5-5.1) mmol/L Chloride (98-107) mmol/L Carbon Dioxide (21.0-32.0) mmol/L BUN (7.0-18.0) mg/dL Creatinine (0.8-1.3) mg/dL Est Cr Clr Drug Dosing mL/min Estimated GFR (MDRD) ml/min Glucose (74-106) mg/dL POC Glucose 70 (70-99) mg/dL Calcium (8.5-10.1) mg/dL Total Bilirubin (0.2-1.0) mg/dL AST (15-37) IU/L ALT (14-63) IU/L Alkaline Phosphatase (46-116) U/L Troponin I (0.000-0.056) ng/mL Total Protein (6.4-8.2) g/dL Albumin (3.4-5.0) g/dL Globulin (2.6-4.0) g/dL Albumin/Globulin Ratio (0.9-1.6) Urine Color Urine Appearance Urine pH (5.0-8.0) Ur Specific [place] (1.001-1.035) Urine Protein (NEGATIVE) mg/dL Urine Glucose (UA) (NEGATIVE) mg/dL Urine Ketones (NEGATIVE) mg/dL Urine Occult Blood (NEGATIVE) Urine Nitrite (NEGATIVE) Urine Bilirubin (NEGATIVE) Urine Urobilinogen (<2.0) EU/dL Ur Leukocyte Esterase (NEGATIVE) Antonio Results Last 24 Hours: Microbiology 09/14/21 21:45 C. difficile Antigen & Toxins A,B - Final Stool / Feces Med Orders - Current: Current Medications Acetaminophen (Acetaminophen 325 Mg Tab) 650 mg PO Q4H PRN PRN Reason: Pain (Mild 1-3)/fever Last Admin: 09/15/21 06:00 Dose: 650 mg Documented by: Aspirin (Aspirin 81 Mg Tab.Ec) 81 mg PO DAILY [facility] Last Admin: 09/15/21 12:24 Dose: 81 mg Documented by: Atorvastatin Calcium (Atorvastatin 40 Mg Tab) 80 mg PO BEDTIME RICHARD Clopidogrel Bisulfate (Clopidogrel 75 Mg Tab) 75 mg PO DAILY [facility] Last Admin: 09/15/21 12:24 Dose: 75 mg Documented by: Dextrose/Water (50% Dextrose In Water 50 Ml Syringe) 50 ml IVPUSH ASDIRECTED PRN PRN Reason: Hypoglycemia Glucagon (Glucagon,Human Recombinant 1 Mg Vial) 1 mg IM ASDIRECTED PRN PRN Reason: Hypoglycemia Lactated Ringer's (Ringers, Lactated) 1,000 mls @ 125 mls/hr IV Q8H [facility] Last Admin: 09/15/21 05:53 Dose: 125 mls/hr Documented by: Pantoprazole Sodium 40 mg/ (Sodium Chloride) 10 mls @ 300 mls/hr IV DAILY [facility] Last Admin: 09/15/21 09:03 Dose: 300 mls/hr Documented by: Insulin Aspart (Insulin Aspart 100 Units/Ml 3 Ml Pen) 0 unit SUBCUT TIDAC [facility]; Protocol Last Admin: 09/15/21 12:12 Dose: Not Given Documented by: Latanoprost (Latanoprost 0.005% Ophth Soln 2.5 Ml Bottle) 1 ml EYEBOTH BEDTIME [facility] Levothyroxine Sodium (Levothyroxine 50 Mcg Tab) 50 mcg PO ACBREAKFAST [facility] Last Admin: 09/15/21 12:23 Dose: 50 mcg Documented by: Losartan Potassium (Losartan 50 Mg Tab) 25 mg PO DAILY [facility] Last Admin: 09/15/21 12:23 Dose: 25 mg Documented by: Morphine Sulfate (Morphine 2 Mg/Ml Syringe) 2 mg IVPUSH Q4H PRN PRN Reason: Pain (severe 7-10) Stop: 09/15/21 16:39 Last Admin: 09/15/21 09:04 Dose: 2 mg Documented by: Ondansetron HCl (Ondansetron 4 Mg/2 Ml Sdv) 4 mg IVPUSH Q4H PRN PRN Reason: Nausea Vancomycin HCl (Vancomycin 25 Mg/Ml Compounding Kit) 125 mg PO Q6H RICHARD Stop: 09/24/21 14:01 Last Admin: 09/15/21 09:03 Dose: 125 mg Documented by: Discontinued Medications Aspirin (Aspirin 81 Mg Tab.Chew) 324 mg PO ONETIME ONE Stop: 09/14/21 13:15 Last Admin: 09/14/21 13:19 Dose: 324 mg Documented by: Al Hydroxide/Mg Hydroxide 15 ml/ Metoclopramide HCl 5 mg/Lidocaine HCl 5 ml 0 ml PO ONETIME ONE Stop: 09/14/21 12:00 Last Admin: 09/14/21 13:06 Dose: 20 each Documented by: Hydromorphone HCl (Hydromorphone 2 Mg/Ml Syringe) 0.5 mg IVPUSH ONETIME ONE Stop: 09/14/21 16:39 Last Admin: 09/14/21 16:46 Dose: 0.5 mg Documented by: Sodium Chloride (Normal Saline) 1,000 mls @ 999 mls/hr IV BOLUS ONE Stop: 09/14/21 12:53 Last Admin: 09/14/21 13:12 Dose: 999 mls/hr Documented by: Pantoprazole Sodium 80 mg/ (Sodium Chloride) 20 mls @ 420 mls/hr IVPUSH ONETIME ONE Stop: 09/14/21 13:16 Last Admin: 09/14/21 13:21 Dose: 420 mls/hr Documented by: Iopamidol (Iopamidol 755 Mg/Ml 500 Ml Multipack Bottle) 100 ml IVPUSH ONETIME STA Stop: 09/14/21 12:23 Last Admin: 09/14/21 12:22 Dose: 100 ml Documented by: Morphine Sulfate (Morphine 2 Mg/Ml Syringe) 2 mg IVPUSH ONETIME ONE Stop: 09/14/21 11:58 Last Admin: 09/14/21 13:09 Dose: 2 mg Documented by: Morphine Sulfate (Morphine 2 Mg/Ml Syringe) 2 mg IVPUSH ONETIME ONE Stop: 09/14/21 11:59 Last Admin: 09/14/21 13:13 Dose: 2 mg Documented by: Morphine Sulfate (Morphine 2 Mg/Ml Syringe) 2 mg IVPUSH ONETIME ONE Stop: 09/14/21 14:35 Last Admin: 09/14/21 14:50 Dose: 2 mg Documented by: Vancomycin HCl (Pharmacy To Dose - Vancomycin) 1 dose .XX ASDIRECTED RICHARD - Exam General: Alert, Oriented, Cooperative, No Acute Distress HEENT: Pupils Equal, Pupils Reactive Neck: Supple, Trachea Midline Lungs: Clear to Auscultation Cardiovascular: Regular Rate, Regular Rhythm GI/Abdominal Exam: Soft, No Distention. No: Guarding, Rigid, Rebound, Tender Back Exam: Normal Inspection. No: CVA Tenderness (L), CVA Tenderness (R) Extremities: Normal Inspection, No Pedal Edema. No: Faustino's Sign Peripheral Pulses: 2+: Dorsalis Pedis (L), Dorsalis Pedis (R) Skin: Warm, Dry, Intact Neurological: No New Focal Deficit - Patient Data Lab Results Last 24 hrs: Laboratory Results - last 24 hr 09/14/21 09/14/21 09/14/21 Range/Units 13:30 14:48 19:10 WBC (4.0-11.0) K/uL RBC (4.50-5.90) M/uL Hgb (13.0-17.0) g/dL Hct (38.0-50.0) % MCV (80.0-98.0) fL MCH (27.0-32.0) pg MCHC (31.0-37.0) g/dL RDW Std Deviation (28.0-62.0) fl RDW Coeff of Samantha (11.0-15.0) % Plt Count (150-400) K/uL MPV (7.40-12.00) fL Neut % (Auto) (48.0-80.0) % Lymph % (Auto) (16.0-40.0) % [place] % (Auto) (0.0-15.0) % Eos % (Auto) (0.0-7.0) % Baso % (Auto) (0.0-1.5) % Neut # (Auto) (1.4-5.7) K/uL Lymph # (Auto) (0.6-2.4) K/uL [place] # (Auto) (0.0-0.8) K/uL Eos # (Auto) (0.0-0.7) K/uL Baso # (Auto) (0.0-0.1) K/uL Nucleated RBC % /100WBC Nucleated RBCs # K/uL Sodium (136-148) mmol/L Potassium (3.5-5.1) mmol/L Chloride (98-107) mmol/L Carbon Dioxide (21.0-32.0) mmol/L BUN (7.0-18.0) mg/dL Creatinine (0.8-1.3) mg/dL Est Cr Clr Drug Dosing mL/min Estimated GFR (MDRD) ml/min Glucose (74-106) mg/dL POC Glucose (70-99) mg/dL Calcium (8.5-10.1) mg/dL Total Bilirubin (0.2-1.0) mg/dL AST (15-37) IU/L ALT (14-63) IU/L Alkaline Phosphatase (46-116) U/L Troponin I < 0.050 < 0.050 (0.000-0.056) ng/mL Total Protein (6.4-8.2) g/dL Albumin (3.4-5.0) g/dL Globulin (2.6-4.0) g/dL Albumin/Globulin Ratio (0.9-1.6) Urine Color YELLOW Urine Appearance CLEAR Urine pH 6.0 (5.0-8.0) Ur Specific [place] <= 1.005 (1.001-1.035) Urine Protein NEGATIVE (NEGATIVE) mg/dL Urine Glucose (UA) NEGATIVE (NEGATIVE) mg/dL Urine Ketones TRACE H (NEGATIVE) mg/dL Urine Occult Blood NEGATIVE (NEGATIVE) Urine Nitrite NEGATIVE (NEGATIVE) Urine Bilirubin NEGATIVE (NEGATIVE) Urine Urobilinogen 0.2 (<2.0) EU/dL Ur Leukocyte Esterase NEGATIVE (NEGATIVE) 09/15/21 09/15/21 09/15/21 Range/Units 05:55 06:00 06:00 WBC 9.50 (4.0-11.0) K/uL RBC 4.28 L (4.50-5.90) M/uL Hgb 13.2 (13.0-17.0) g/dL Hct 39.6 (38.0-50.0) % MCV 92.5 (80.0-98.0) fL MCH 30.8 (27.0-32.0) pg MCHC 33.3 (31.0-37.0) g/dL RDW Std Deviation 48.4 (28.0-62.0) fl RDW Coeff of Samantha 14 (11.0-15.0) % Plt Count 326 (150-400) K/uL MPV 10.60 (7.40-12.00) fL Neut % (Auto) 68.0 (48.0-80.0) % Lymph % (Auto) 20.0 (16.0-40.0) % [place] % (Auto) 7.9 (0.0-15.0) % Eos % (Auto) 3.8 (0.0-7.0) % Baso % (Auto) 0.3 (0.0-1.5) % Neut # (Auto) 6.5 H (1.4-5.7) K/uL Lymph # (Auto) 1.9 (0.6-2.4) K/uL [place] # (Auto) 0.8 (0.0-0.8) K/uL Eos # (Auto) 0.4 (0.0-0.7) K/uL Baso # (Auto) 0.0 (0.0-0.1) K/uL Nucleated RBC % 0.0 /100WBC Nucleated RBCs # 0 K/uL Sodium 139 (136-148) mmol/L Potassium 3.8 (3.5-5.1) mmol/L Chloride 102 (98-107) mmol/L Carbon Dioxide 26.1 (21.0-32.0) mmol/L BUN 12 (7.0-18.0) mg/dL Creatinine 0.8 (0.8-1.3) mg/dL Est Cr Clr Drug Dosing 84.91 mL/min Estimated GFR (MDRD) > 60.0 ml/min Glucose 97 (74-106) mg/dL POC Glucose 92 (70-99) mg/dL Calcium 8.6 (8.5-10.1) mg/dL Total Bilirubin 0.6 (0.2-1.0) mg/dL AST 19 (15-37) IU/L ALT 30 (14-63) IU/L Alkaline Phosphatase 57 (46-116) U/L Troponin I (0.000-0.056) ng/mL Total Protein 6.9 (6.4-8.2) g/dL Albumin 3.2 L (3.4-5.0) g/dL Globulin 3.7 (2.6-4.0) g/dL Albumin/Globulin Ratio 0.9 (0.9-1.6) Urine Color Urine Appearance Urine pH (5.0-8.0) Ur Specific [place] (1.001-1.035) Urine Protein (NEGATIVE) mg/dL Urine Glucose (UA) (NEGATIVE) mg/dL Urine Ketones (NEGATIVE) mg/dL Urine Occult Blood (NEGATIVE) Urine Nitrite (NEGATIVE) Urine Bilirubin (NEGATIVE) Urine Urobilinogen (<2.0) EU/dL Ur Leukocyte Esterase (NEGATIVE) 09/15/21 Range/Units 11:58 WBC (4.0-11.0) K/uL RBC (4.50-5.90) M/uL Hgb (13.0-17.0) g/dL Hct (38.0-50.0) % MCV (80.0-98.0) fL MCH (27.0-32.0) pg MCHC (31.0-37.0) g/dL RDW Std Deviation (28.0-62.0) fl RDW Coeff of Samantha (11.0-15.0) % Plt Count (150-400) K/uL MPV (7.40-12.00) fL Neut % (Auto) (48.0-80.0) % Lymph % (Auto) (16.0-40.0) % [place] % (Auto) (0.0-15.0) % Eos % (Auto) (0.0-7.0) % Baso % (Auto) (0.0-1.5) % Neut # (Auto) (1.4-5.7) K/uL Lymph # (Auto) (0.6-2.4) K/uL [place] # (Auto) (0.0-0.8) K/uL Eos # (Auto) (0.0-0.7) K/uL Baso # (Auto) (0.0-0.1) K/uL Nucleated RBC % /100WBC Nucleated RBCs # K/uL Sodium (136-148) mmol/L Potassium (3.5-5.1) mmol/L Chloride (98-107) mmol/L Carbon Dioxide (21.0-32.0) mmol/L BUN (7.0-18.0) mg/dL Creatinine (0.8-1.3) mg/dL Est Cr Clr Drug Dosing mL/min Estimated GFR (MDRD) ml/min Glucose (74-106) mg/dL POC Glucose 70 (70-99) mg/dL Calcium (8.5-10.1) mg/dL Total Bilirubin (0.2-1.0) mg/dL AST (15-37) IU/L ALT (14-63) IU/L Alkaline Phosphatase (46-116) U/L Troponin I (0.000-0.056) ng/mL Total Protein (6.4-8.2) g/dL Albumin (3.4-5.0) g/dL Globulin (2.6-4.0) g/dL Albumin/Globulin Ratio (0.9-1.6) Urine Color Urine Appearance Urine pH (5.0-8.0) Ur Specific [place] (1.001-1.035) Urine Protein (NEGATIVE) mg/dL Urine Glucose (UA) (NEGATIVE) mg/dL Urine Ketones (NEGATIVE) mg/dL Urine Occult Blood (NEGATIVE) Urine Nitrite (NEGATIVE) Urine Bilirubin (NEGATIVE) Urine Urobilinogen (<2.0) EU/dL Ur Leukocyte Esterase (NEGATIVE) Result Diagrams: 09/15/21 06:00 09/15/21 06:00 Antonio Results Last 24 hrs: Microbiology 09/14/21 21:45 C. difficile Antigen & Toxins A,B - Final Stool / Feces Sepsis Event Note - Evaluation Sepsis Screening Result: No Definite Risk - Focused Exam Vital Signs: Vital Signs Temp Pulse Resp BP BP Pulse Ox 09/15/21 12:25 98.3 F 67 16 154/77 H 96 09/15/21 12:23 154/77 H 09/15/21 08:00 98.4 F 85 18 156/93 H 97 09/15/21 04:00 97.6 F 73 18 149/86 H 93 L - Problem List & Annotations (1) C. difficile diarrhea SNOMED Code(s): 6073077373163 Code(s): A04.72 - ENTEROCOLITIS D/T CLOSTRIDIUM DIFFICILE, NOT SPCF RECUR Status: Acute (2) Pancreatitis SNOMED Code(s): 77172489 Code(s): K85.90 - ACUTE PANCREATITIS WITHOUT NECROSIS OR INFECTION, UNSP Status: Acute Qualifiers: Pancreatitis type: unspecified pancreatitis type Acute pancreatitis complication: unspecified (3) HTN (hypertension) SNOMED Code(s): 96158311 Code(s): I10 - ESSENTIAL (PRIMARY) HYPERTENSION Status: Chronic (4) History of coronary artery stent placement SNOMED Code(s): 693176199, 283018933 Code(s): Z95.5 - PRESENCE OF CORONARY ANGIOPLASTY IMPLANT AND GRAFT Status: Chronic - Problem List Review Problem List Initiated/Reviewed/Updated: Yes - My Orders Last 24 Hours: My Active Orders 09/14/21 16:36 Ambulate [RC] ASDIRECTED Blood Glucose Check, Bedside [RC] TIDAC Acetaminophen [TylenoL] 650 mg PO Q4H PRN Morphine 2 mg IVPUSH Q4H PRN Ondansetron [Zofran] 4 mg IVPUSH Q4H PRN 09/14/21 16:37 Antiembolic Devices [RC] PER UNIT ROUTINE Cardiac Monitoring [RC] CONTINUOUS Oxygen Therapy [RC] PRN VTE/DVT Education [RC] PER UNIT ROUTINE Vital Signs [RC] Q4H Sequential Compression Device [OM.PC] Per Unit Routine 09/14/21 16:45 Lactated Ringers [Ringers, Lactated] 1,000 ml IV Q8H 09/14/21 17:17 Code Status [Resuscitation Status] Routine 09/14/21 18:47 Dextrose 50% in Water 50 ml IVPUSH ASDIRECTED PRN Glucagon,Human Recombinant [GlucaGen] 1 mg IM ASDIRECTED PRN 09/14/21 20:00 Vancomycin [First-Vancomycin 25 Compounding Kit] 125 mg PO Q6H 09/15/21 07:30 Insulin Aspart [NovoLOG] See Protocol SUBCUT TIDAC 09/15/21 09:00 Pantoprazole [ProTONIX IV] 40 mg Sodium Chloride 0.9% [Normal Saline] 10 ml IV DAILY 09/15/21 11:30 Levothyroxine [Synthroid] 50 mcg PO ACBREAKFAST 09/15/21 12:00 Aspirin [Halfprin] 81 mg PO DAILY Clopidogrel [Plavix] 75 mg PO DAILY Losartan [Cozaar] 25 mg PO DAILY 09/15/21 21:00 Latanoprost [Xalatan 0.005% Ophth Soln] 1 ml EYEBOTH BEDTIME atorvaSTATin [Lipitor] 80 mg PO BEDTIME 09/16/21 05:11 CBC WITH AUTO DIFF [HEME] DAILY COMPREHENSIVE METABOLIC PN,CMP [CHEM] DAILY 09/17/21 05:11 CBC WITH AUTO DIFF [HEME] DAILY COMPREHENSIVE METABOLIC PN,CMP [CHEM] DAILY - Plan Plan:: 71-year-old male admitted for acute pancreatitis. -We will advance diet as tolerated. -Lactated Ringer's at 125 mL/h. -Pain management with 2 mg IV morphine q 4hrs prn. Patient was started on vancomycin p.o. on 09/12/2021 for C. difficile. We will get a C. difficile stool antigen and continue vancomycin. <Maxine Slater - Last Filed: 09/19/21 13:12> - Patient Data Vitals - Most Recent: Last Vital Signs Temp 37.1 C 09/17/21 08:00 Pulse 72 09/17/21 08:00 Resp 14 09/17/21 08:00 BP 140/67 09/17/21 09:01 Pulse Ox 98 09/17/21 08:00 Antonio Results Last 24 Hours: Microbiology 09/14/21 21:45 Stool Culture - Preliminary Stool / Feces Shiga Toxin I & II - Final Med Orders - Current: Current Medications Discontinued Medications Acetaminophen (Acetaminophen 325 Mg Tab) 650 mg PO Q4H PRN PRN Reason: Pain (Mild 1-3)/fever Last Admin: 09/15/21 06:00 Dose: 650 mg Documented by: Aspirin (Aspirin 81 Mg Tab.Chew) 324 mg PO ONETIME ONE Stop: 09/14/21 13:15 Last Admin: 09/14/21 13:19 Dose: 324 mg Documented by: Aspirin (Aspirin 81 Mg Tab.Ec) 81 mg PO DAILY [facility] Last Admin: 09/17/21 09:02 Dose: 81 mg Documented by: Atorvastatin Calcium (Atorvastatin 40 Mg Tab) 80 mg PO BEDTIME [facility] Last Admin: 09/16/21 20:08 Dose: 80 mg Documented by: Clopidogrel Bisulfate (Clopidogrel 75 Mg Tab) 75 mg PO DAILY [facility] Last Admin: 09/17/21 09:00 Dose: 75 mg Documented by: Al Hydroxide/Mg Hydroxide 15 ml/ Metoclopramide HCl 5 mg/Lidocaine HCl 5 ml 0 ml PO ONETIME ONE Stop: 09/14/21 12:00 Last Admin: 09/14/21 13:06 Dose: 20 each Documented by: Cyclobenzaprine HCl (Cyclobenzaprine 10 Mg Tab) 10 mg PO ONETIME ONE Stop: 09/16/21 19:41 Last Admin: 09/16/21 20:07 Dose: 10 mg Documented by: Dextrose/Water (50% Dextrose In Water 50 Ml Syringe) 50 ml IVPUSH ASDIRECTED PRN PRN Reason: Hypoglycemia Fluticasone Propionate (Fluticasone Propionate Nasal [place] 16 Gm Bottle) 0 gm NASBOTH DAILY [facility] Last Admin: 09/17/21 09:01 Dose: 2 puff Documented by: Glucagon (Glucagon,Human Recombinant 1 Mg Vial) 1 mg IM ASDIRECTED PRN PRN Reason: Hypoglycemia Hydromorphone HCl (Hydromorphone 2 Mg/Ml Syringe) 0.5 mg IVPUSH ONETIME ONE Stop: 09/14/21 16:39 Last Admin: 09/14/21 16:46 Dose: 0.5 mg Documented by: Sodium Chloride (Normal Saline) 1,000 mls @ 999 mls/hr IV BOLUS ONE Stop: 09/14/21 12:53 Last Admin: 09/14/21 13:12 Dose: 999 mls/hr Documented by: Pantoprazole Sodium 80 mg/ (Sodium Chloride) 20 mls @ 420 mls/hr IVPUSH ONETIME ONE Stop: 09/14/21 13:16 Last Admin: 09/14/21 13:21 Dose: 420 mls/hr Documented by: Lactated Ringer's (Ringers, Lactated) 1,000 mls @ 125 mls/hr IV Q8H [facility] Last Admin: 09/17/21 09:03 Dose: Not Given Documented by: Pantoprazole Sodium 40 mg/ (Sodium Chloride) 10 mls @ 300 mls/hr IV DAILY [facility] Last Admin: 09/17/21 08:55 Dose: 300 mls/hr Documented by: Piperacillin Sod/Tazobactam (Sod 3.375 gm/ Sodium Chloride) 50 mls @ 100 mls/hr IV Q8H [facility] Last Admin: 09/17/21 06:52 Dose: 100 mls/hr Documented by: Insulin Aspart (Insulin Aspart 100 Units/Ml 3 Ml Pen) 0 unit SUBCUT TIDAC [facility]; Protocol Last Admin: 09/17/21 07:48 Dose: Not Given Documented by: Iopamidol (Iopamidol 755 Mg/Ml 500 Ml Multipack Bottle) 100 ml IVPUSH ONETIME STA Stop: 09/14/21 12:23 Last Admin: 09/14/21 12:22 Dose: 100 ml Documented by: Isosorbide Mononitrate (Isosorbide Mononitrate 30 Mg Tab.Er) 30 mg PO DAILY [facility] Last Admin: 09/17/21 09:01 Dose: 30 mg Documented by: Latanoprost (Latanoprost 0.005% Ophth Soln 2.5 Ml Bottle) 1 ml EYEBOTH BEDTIME [facility] Last Admin: 09/16/21 20:16 Dose: 1 ea Documented by: Levothyroxine Sodium (Levothyroxine 50 Mcg Tab) 50 mcg PO ACBREAKFAST [facility] Last Admin: 09/17/21 06:32 Dose: 50 mcg Documented by: Losartan Potassium (Losartan 50 Mg Tab) 25 mg PO DAILY [facility] Last Admin: 09/17/21 09:00 Dose: 25 mg Documented by: Melatonin (Melatonin 3 Mg Tab) 3 mg PO BEDTIME PRN PRN Reason: Insomnia Last Admin: 09/16/21 20:08 Dose: 3 mg Documented by: Morphine Sulfate (Morphine 2 Mg/Ml Syringe) 2 mg IVPUSH ONETIME ONE Stop: 09/14/21 11:58 Last Admin: 09/14/21 13:09 Dose: 2 mg Documented by: Morphine Sulfate (Morphine 2 Mg/Ml Syringe) 2 mg IVPUSH ONETIME ONE Stop: 09/14/21 11:59 Last Admin: 09/14/21 13:13 Dose: 2 mg Documented by: Morphine Sulfate (Morphine 2 Mg/Ml Syringe) 2 mg IVPUSH ONETIME ONE Stop: 09/14/21 14:35 Last Admin: 09/14/21 14:50 Dose: 2 mg Documented by: Morphine Sulfate (Morphine 2 Mg/Ml Syringe) 2 mg IVPUSH Q4H PRN PRN Reason: Pain (severe 7-10) Stop: 09/15/21 16:39 Last Admin: 09/15/21 13:57 Dose: 2 mg Documented by: Morphine Sulfate (Morphine 2 Mg/Ml Syringe) 2 mg IVPUSH Q4H PRN PRN Reason: Pain (severe 7-10) Last Admin: 09/17/21 06:22 Dose: 2 mg Documented by: Nitroglycerin (Nitroglycerin 0.4 Mg Tab.Sl) 0.4 mg SL .EVERY 5 MINUTES PRN PRN Reason: Chest Pain Ondansetron HCl (Ondansetron 4 Mg/2 Ml Sdv) 4 mg IVPUSH Q4H PRN PRN Reason: Nausea Potassium Chloride (Potassium Chloride 20 Meq Tab.Er) 40 meq PO ONETIME ONE Stop: 09/16/21 08:50 Last Admin: 09/16/21 09:09 Dose: 40 meq Documented by: Fluticasone/Salmeterol (Fluticasone/Salmeterol 250-50 Mcg Inhalation Powder 14/Diskus) 1 puff INH BID [facility] Last Admin: 09/17/21 09:01 Dose: 1 puff Documented by: Tamsulosin HCl (Tamsulosin 0.4 Mg Cap.Er) 0.4 mg PO WITHDINNER [facility] Last Admin: 09/16/21 17:55 Dose: 0.4 mg Documented by: Vancomycin HCl (Pharmacy To Dose - Vancomycin) 1 dose .XX ASDIRECTED [facility] Vancomycin HCl (Vancomycin 25 Mg/Ml Compounding Kit) 125 mg PO Q6H [facility] Stop: 09/24/21 14:01 Last Admin: 09/17/21 07:49 Dose: 125 mg Documented by: - Patient Data Result Diagrams: 09/17/21 06:35 09/17/21 06:35 Antonio Results Last 24 hrs: Microbiology 09/14/21 21:45 Stool Culture - Preliminary Stool / Feces Shiga Toxin I & II - Final - Plan Plan:: I have seen and evaluated the patient and agree with the residents note unless specified in my note
[2021-09-15] MEDS ORDERED: Nitroglycerin 0.4 MG Tab.SL SL PRN (15:40)
[2021-09-15] MEDS: Tamsulosin 0.4 MG Cap.ER PO SCH (16:47)
[2021-09-15] MEDS: Isosorbide Mononitrate 30 MG Tab.ER PO SCH (16:47)
[2021-09-15] MEDS: Fluticasone/Salmeterol 250-50 MCG Inhalation Powder 14/Diskus INH SCH ×2 (16:47→20:13)
[2021-09-15] MEDS: Piperacillin/Tazobactam 3.375 GM in Sodium Chloride 0.9% 50 ML IV SCH ×2 (16:48→23:25)
[2021-09-15] MEDS: Melatonin 3 MG Tab PO PRN (20:14)
[2021-09-15] MEDS: atorvaSTATin 40 MG Tab PO SCH (20:14)
[2021-09-15] MEDS: Latanoprost 0.005% Ophth Soln 2.5 ML Bottle EYEBOTH SCH (20:26)
[2021-09-16] MEDS: Morphine 2 MG/ML SYRINGE IVPUSH PRN ×2 (00:35→07:51)
[2021-09-16] MEDS: Lactated Ringers 1,000 ML IV SCH ×3 (01:02→17:59)
[2021-09-16] MEDS: Vancomycin 25 MG/ML Compounding Kit PO SCH ×4 (03:17→20:09)
[2021-09-16] MEDS: Insulin Aspart 100 Units/ML 3 ML Pen SUBCUT SCH ×3 (06:36→17:54)
[2021-09-16] MEDS: Levothyroxine 50 MCG Tab PO SCH (06:37)
[2021-09-16] MEDS: Piperacillin/Tazobactam 3.375 GM in Sodium Chloride 0.9% 50 ML IV SCH ×2 (06:46→14:46)
--- NOTE | 2021-09-16 07:05 | PCM.PN ---
- General Info Date of Service: 09/16/21 Admission Dx/Problem (Free Text): Admission Diagnosis/Problem Admission Diagnosis/Problem Chest pain Subjective Update: 71-year-old male admitted for acute pancreatitis. Patient tolerated chicken broth. We will continue to advance diet. Patient states he went to the bathroom 5 times last night and had to sit for a while. Patient states he was passing lots of gas. Bloating improved. Patient's abdominal pain has subsided. Patient denies fever, chills, nausea, vomiting, diarrhea, chest pain, palpitations, difficulty breathing, headaches, dizziness. - Review of Systems General: Denies: Fever, Chills HEENT: Denies: Headaches Pulmonary: Denies: Shortness of Breath, Pleuritic Chest Pain, Cough Cardiovascular: Denies: Chest Pain, Palpitations Gastrointestinal: Reports: Flatus. Denies: Abdominal Pain, Constipation, Diarrhea, Nausea, Vomiting Genitourinary: Denies: Dysuria Musculoskeletal: Denies: Leg Pain Skin: Denies: Pruritis, Rash Neurological: Denies: Confusion, Dizziness, Headache, Numbness, Paresthesia - Patient Data Vitals - Most Recent: Last Vital Signs Temp 97 F 09/16/21 04:29 Pulse 77 09/16/21 04:29 Resp 16 09/16/21 04:29 BP 125/70 09/16/21 04:29 Pulse Ox 96 09/16/21 04:29 Weight - Most Recent: 175 lb I&O - Last 24 Hours: Intake & Output 09/15/21 09/16/21 09/16/21 22:59 06:59 14:59 Intake Total 250 1520 Output Total 425 Balance 250 1095 Lab Results Last 24 Hours: Laboratory Results - last 24 hr 09/15/21 09/15/21 09/15/21 Range/Units 06:00 11:58 17:33 Sodium 139 (136-148) mmol/L Potassium 3.8 (3.5-5.1) mmol/L Chloride 102 (98-107) mmol/L Carbon Dioxide 26.1 (21.0-32.0) mmol/L BUN 12 (7.0-18.0) mg/dL Creatinine 0.8 (0.8-1.3) mg/dL Est Cr Clr Drug Dosing 84.91 mL/min Estimated GFR (MDRD) > 60.0 ml/min Glucose 97 (74-106) mg/dL POC Glucose 70 83 (70-99) mg/dL Calcium 8.6 (8.5-10.1) mg/dL Total Bilirubin 0.6 (0.2-1.0) mg/dL AST 19 (15-37) IU/L ALT 30 (14-63) IU/L Alkaline Phosphatase 57 (46-116) U/L Total Protein 6.9 (6.4-8.2) g/dL Albumin 3.2 L (3.4-5.0) g/dL Globulin 3.7 (2.6-4.0) g/dL Albumin/Globulin Ratio 0.9 (0.9-1.6) 09/16/21 Range/Units 06:21 Sodium (136-148) mmol/L Potassium (3.5-5.1) mmol/L Chloride (98-107) mmol/L Carbon Dioxide (21.0-32.0) mmol/L BUN (7.0-18.0) mg/dL Creatinine (0.8-1.3) mg/dL Est Cr Clr Drug Dosing mL/min Estimated GFR (MDRD) ml/min Glucose (74-106) mg/dL POC Glucose 100 H (70-99) mg/dL Calcium (8.5-10.1) mg/dL Total Bilirubin (0.2-1.0) mg/dL AST (15-37) IU/L ALT (14-63) IU/L Alkaline Phosphatase (46-116) U/L Total Protein (6.4-8.2) g/dL Albumin (3.4-5.0) g/dL Globulin (2.6-4.0) g/dL Albumin/Globulin Ratio (0.9-1.6) Med Orders - Current: Current Medications Acetaminophen (Acetaminophen 325 Mg Tab) 650 mg PO Q4H PRN PRN Reason: Pain (Mild 1-3)/fever Last Admin: 09/15/21 06:00 Dose: 650 mg Documented by: Aspirin (Aspirin 81 Mg Tab.Ec) 81 mg PO DAILY [facility] Last Admin: 09/15/21 12:24 Dose: 81 mg Documented by: Atorvastatin Calcium (Atorvastatin 40 Mg Tab) 80 mg PO BEDTIME [facility] Last Admin: 09/15/21 20:14 Dose: 80 mg Documented by: Clopidogrel Bisulfate (Clopidogrel 75 Mg Tab) 75 mg PO DAILY [facility] Last Admin: 09/15/21 12:24 Dose: 75 mg Documented by: Dextrose/Water (50% Dextrose In Water 50 Ml Syringe) 50 ml IVPUSH ASDIRECTED PRN PRN Reason: Hypoglycemia Fluticasone Propionate (Fluticasone Propionate Nasal [place] 16 Gm Bottle) 0 gm NASBOTH DAILY [facility] Glucagon (Glucagon,Human Recombinant 1 Mg Vial) 1 mg IM ASDIRECTED PRN PRN Reason: Hypoglycemia Lactated Ringer's (Ringers, Lactated) 1,000 mls @ 125 mls/hr IV Q8H [facility] Last Admin: 09/16/21 01:02 Dose: Not Given Documented by: Pantoprazole Sodium 40 mg/ (Sodium Chloride) 10 mls @ 300 mls/hr IV DAILY [facility] Last Admin: 09/15/21 09:03 Dose: 300 mls/hr Documented by: Piperacillin Sod/Tazobactam (Sod 3.375 gm/ Sodium Chloride) 50 mls @ 100 mls/hr IV Q8H [facility] Last Admin: 09/16/21 06:46 Dose: 100 mls/hr Documented by: Insulin Aspart (Insulin Aspart 100 Units/Ml 3 Ml Pen) 0 unit SUBCUT TIDAC [facility]; Protocol Last Admin: 09/16/21 06:36 Dose: Not Given Documented by: Isosorbide Mononitrate (Isosorbide Mononitrate 30 Mg Tab.Er) 30 mg PO DAILY [facility] Last Admin: 09/15/21 16:47 Dose: 30 mg Documented by: Latanoprost (Latanoprost 0.005% Ophth Soln 2.5 Ml Bottle) 1 ml EYEBOTH BEDTIME [facility] Last Admin: 09/15/21 20:26 Dose: 1 ea Documented by: Levothyroxine Sodium (Levothyroxine 50 Mcg Tab) 50 mcg PO ACBREAKFAST [facility] Last Admin: 09/16/21 06:37 Dose: 50 mcg Documented by: Losartan Potassium (Losartan 50 Mg Tab) 25 mg PO DAILY [facility] Last Admin: 09/15/21 12:23 Dose: 25 mg Documented by: Melatonin (Melatonin 3 Mg Tab) 3 mg PO BEDTIME PRN PRN Reason: Insomnia Last Admin: 09/15/21 20:14 Dose: 3 mg Documented by: Morphine Sulfate (Morphine 2 Mg/Ml Syringe) 2 mg IVPUSH Q4H PRN PRN Reason: Pain (severe 7-10) Last Admin: 09/16/21 00:35 Dose: 2 mg Documented by: Nitroglycerin (Nitroglycerin 0.4 Mg Tab.Sl) 0.4 mg SL .EVERY 5 MINUTES PRN PRN Reason: Chest Pain Ondansetron HCl (Ondansetron 4 Mg/2 Ml Sdv) 4 mg IVPUSH Q4H PRN PRN Reason: Nausea Fluticasone/Salmeterol (Fluticasone/Salmeterol 250-50 Mcg Inhalation Powder 14/Diskus) 1 puff INH BID [facility] Last Admin: 09/15/21 20:13 Dose: 1 puff Documented by: Tamsulosin HCl (Tamsulosin 0.4 Mg Cap.Er) 0.4 mg PO WITHDINNER [facility] Last Admin: 09/15/21 16:47 Dose: 0.4 mg Documented by: Vancomycin HCl (Vancomycin 25 Mg/Ml Compounding Kit) 125 mg PO Q6H [facility] Stop: 09/24/21 14:01 Last Admin: 09/16/21 03:17 Dose: 125 mg Documented by: Discontinued Medications Aspirin (Aspirin 81 Mg Tab.Chew) 324 mg PO ONETIME ONE Stop: 09/14/21 13:15 Last Admin: 09/14/21 13:19 Dose: 324 mg Documented by: Al Hydroxide/Mg Hydroxide 15 ml/ Metoclopramide HCl 5 mg/Lidocaine HCl 5 ml 0 ml PO ONETIME ONE Stop: 09/14/21 12:00 Last Admin: 09/14/21 13:06 Dose: 20 each Documented by: Hydromorphone HCl (Hydromorphone 2 Mg/Ml Syringe) 0.5 mg IVPUSH ONETIME ONE Stop: 09/14/21 16:39 Last Admin: 09/14/21 16:46 Dose: 0.5 mg Documented by: Sodium Chloride (Normal Saline) 1,000 mls @ 999 mls/hr IV BOLUS ONE Stop: 09/14/21 12:53 Last Admin: 09/14/21 13:12 Dose: 999 mls/hr Documented by: Pantoprazole Sodium 80 mg/ (Sodium Chloride) 20 mls @ 420 mls/hr IVPUSH ONETIME ONE Stop: 09/14/21 13:16 Last Admin: 09/14/21 13:21 Dose: 420 mls/hr Documented by: Iopamidol (Iopamidol 755 Mg/Ml 500 Ml Multipack Bottle) 100 ml IVPUSH ONETIME STA Stop: 09/14/21 12:23 Last Admin: 09/14/21 12:22 Dose: 100 ml Documented by: Morphine Sulfate (Morphine 2 Mg/Ml Syringe) 2 mg IVPUSH ONETIME ONE Stop: 09/14/21 11:58 Last Admin: 09/14/21 13:09 Dose: 2 mg Documented by: Morphine Sulfate (Morphine 2 Mg/Ml Syringe) 2 mg IVPUSH ONETIME ONE Stop: 09/14/21 11:59 Last Admin: 09/14/21 13:13 Dose: 2 mg Documented by: Morphine Sulfate (Morphine 2 Mg/Ml Syringe) 2 mg IVPUSH ONETIME ONE Stop: 09/14/21 14:35 Last Admin: 09/14/21 14:50 Dose: 2 mg Documented by: Morphine Sulfate (Morphine 2 Mg/Ml Syringe) 2 mg IVPUSH Q4H PRN PRN Reason: Pain (severe 7-10) Stop: 09/15/21 16:39 Last Admin: 09/15/21 13:57 Dose: 2 mg Documented by: Vancomycin HCl (Pharmacy To Dose - Vancomycin) 1 dose .XX ASDIRECTED RICHARD - Exam General: Alert, Oriented, Cooperative, No Acute Distress HEENT: Pupils Equal, Pupils Reactive Neck: Supple, Trachea Midline Lungs: Clear to Auscultation Cardiovascular: Regular Rate, Regular Rhythm GI/Abdominal Exam: Soft, Non-Tender, No Organomegaly, No Distention. No: Guarding, Rigid, Rebound Extremities: Normal Inspection. No: Faustino's Sign Peripheral Pulses: 2+: Dorsalis Pedis (L), Dorsalis Pedis (R) Neurological: No New Focal Deficit - Patient Data Lab Results Last 24 hrs: Laboratory Results - last 24 hr 09/15/21 09/15/21 09/15/21 Range/Units 06:00 11:58 17:33 Sodium 139 (136-148) mmol/L Potassium 3.8 (3.5-5.1) mmol/L Chloride 102 (98-107) mmol/L Carbon Dioxide 26.1 (21.0-32.0) mmol/L BUN 12 (7.0-18.0) mg/dL Creatinine 0.8 (0.8-1.3) mg/dL Est Cr Clr Drug Dosing 84.91 mL/min Estimated GFR (MDRD) > 60.0 ml/min Glucose 97 (74-106) mg/dL POC Glucose 70 83 (70-99) mg/dL Calcium 8.6 (8.5-10.1) mg/dL Total Bilirubin 0.6 (0.2-1.0) mg/dL AST 19 (15-37) IU/L ALT 30 (14-63) IU/L Alkaline Phosphatase 57 (46-116) U/L Total Protein 6.9 (6.4-8.2) g/dL Albumin 3.2 L (3.4-5.0) g/dL Globulin 3.7 (2.6-4.0) g/dL Albumin/Globulin Ratio 0.9 (0.9-1.6) 09/16/21 Range/Units 06:21 Sodium (136-148) mmol/L Potassium (3.5-5.1) mmol/L Chloride (98-107) mmol/L Carbon Dioxide (21.0-32.0) mmol/L BUN (7.0-18.0) mg/dL Creatinine (0.8-1.3) mg/dL Est Cr Clr Drug Dosing mL/min Estimated GFR (MDRD) ml/min Glucose (74-106) mg/dL POC Glucose 100 H (70-99) mg/dL Calcium (8.5-10.1) mg/dL Total Bilirubin (0.2-1.0) mg/dL AST (15-37) IU/L ALT (14-63) IU/L Alkaline Phosphatase (46-116) U/L Total Protein (6.4-8.2) g/dL Albumin (3.4-5.0) g/dL Globulin (2.6-4.0) g/dL Albumin/Globulin Ratio (0.9-1.6) Result Diagrams: 09/16/21 07:08 09/16/21 07:08 Sepsis Event Note - Evaluation Sepsis Screening Result: No Definite Risk - Focused Exam Vital Signs: Vital Signs Temp Pulse Resp BP Pulse Ox 09/16/21 04:29 97 F 77 16 125/70 96 09/15/21 23:38 97.6 F 76 16 100/63 96 09/15/21 20:10 97.0 F 72 18 116/56 L 98 - Problem List & Annotations (1) C. difficile diarrhea SNOMED Code(s): 5744025547144 Code(s): A04.72 - ENTEROCOLITIS D/T CLOSTRIDIUM DIFFICILE, NOT SPCF RECUR Status: Acute Current Visit: Yes (2) Pancreatitis SNOMED Code(s): 52987518 Code(s): K85.90 - ACUTE PANCREATITIS WITHOUT NECROSIS OR INFECTION, UNSP Status: Acute Current Visit: Yes Qualifiers: Pancreatitis type: unspecified pancreatitis type Acute pancreatitis complication: unspecified (3) HTN (hypertension) SNOMED Code(s): 04541236 Code(s): I10 - ESSENTIAL (PRIMARY) HYPERTENSION Status: Chronic Current Visit: No (4) History of coronary artery stent placement SNOMED Code(s): 194862525, 804751377 Code(s): Z95.5 - PRESENCE OF CORONARY ANGIOPLASTY IMPLANT AND GRAFT Status: Chronic Current Visit: No - Problem List Review Problem List Initiated/Reviewed/Updated: Yes - My Orders Last 24 Hours: My Active Orders 09/15/21 07:30 Insulin Aspart [NovoLOG] See Protocol SUBCUT TIDAC 09/15/21 09:00 Pantoprazole [ProTONIX IV] 40 mg Sodium Chloride 0.9% [Normal Saline] 10 ml IV DAILY 09/15/21 11:30 Levothyroxine [Synthroid] 50 mcg PO ACBREAKFAST 09/15/21 12:00 Aspirin [Halfprin] 81 mg PO DAILY Clopidogrel [Plavix] 75 mg PO DAILY Losartan [Cozaar] 25 mg PO DAILY 09/15/21 19:45 Morphine 2 mg IVPUSH Q4H PRN 09/15/21 19:48 Melatonin 3 mg PO BEDTIME PRN 09/15/21 21:00 Latanoprost [Xalatan 0.005% Ophth Soln] 1 ml EYEBOTH BEDTIME atorvaSTATin [Lipitor] 80 mg PO BEDTIME 09/16/21 05:11 CBC WITH AUTO DIFF [HEME] DAILY COMPREHENSIVE METABOLIC PN,CMP [CHEM] DAILY 09/17/21 05:11 CBC WITH AUTO DIFF [HEME] DAILY COMPREHENSIVE METABOLIC PN,CMP [CHEM] DAILY - Plan Plan:: 71-year-old male admitted for acute pancreatitis. -We will advance diet as tolerated. -Pain management with 2 mg IV morphine q 4hrs prn.
[2021-09-16 07:59] LABS: BLOOD UREA NITROGEN,BUN 8 mg/dL (7.0-18.0); CARBON DIOXIDE,CO2 26.2 mmol/L (21.0-32.0); CHLORIDE,CL 100 mmol/L (98-107); GLUCOSE RANDOM 108 mg/dL (74-106); POTASSIUM,K 3.5 mmol/L (3.5-5.1); SODIUM,NA 138 mmol/L (136-148)
[2021-09-16] MEDS ORDERED: Potassium Chloride 20 MEQ Tab.ER PO ONE (08:49)
[2021-09-16] MEDS: Fluticasone/Salmeterol 250-50 MCG Inhalation Powder 14/Diskus INH SCH ×2 (09:03→20:09)
[2021-09-16] MEDS: Pantoprazole 40 MG in Sodium Chloride 0.9% 10 ML IV SCH (09:10)
[2021-09-16] MEDS: Aspirin 81 MG Tab.EC PO SCH (09:10)
[2021-09-16] MEDS: Clopidogrel 75 MG Tab PO SCH (09:10)
[2021-09-16] MEDS: Isosorbide Mononitrate 30 MG Tab.ER PO SCH (09:19)
[2021-09-16] MEDS: Losartan 50 MG Tab PO SCH (09:19)
[2021-09-16] MEDS: Fluticasone Propionate Nasal Spray 16 GM Bottle NASBOTH SCH (09:34)
[2021-09-16] MEDS: Tamsulosin 0.4 MG Cap.ER PO SCH (17:55)
[2021-09-16] MEDS ORDERED: Cyclobenzaprine 10 MG Tab PO ONE (19:40)
[2021-09-16] MEDS: atorvaSTATin 40 MG Tab PO SCH (20:08)
[2021-09-16] MEDS: Melatonin 3 MG Tab PO PRN (20:08)
[2021-09-16] MEDS: Latanoprost 0.005% Ophth Soln 2.5 ML Bottle EYEBOTH SCH (20:16)
[2021-09-17] MEDS: Piperacillin/Tazobactam 3.375 GM in Sodium Chloride 0.9% 50 ML IV SCH ×2 (00:37→06:52)
[2021-09-17] MEDS: Lactated Ringers 1,000 ML IV SCH ×2 (01:15→09:03)
[2021-09-17] MEDS: Vancomycin 25 MG/ML Compounding Kit PO SCH ×2 (01:18→07:49)
[2021-09-17] MEDS: Morphine 2 MG/ML SYRINGE IVPUSH PRN (06:22)
[2021-09-17] MEDS: Levothyroxine 50 MCG Tab PO SCH (06:32)
[2021-09-17] MEDS: Insulin Aspart 100 Units/ML 3 ML Pen SUBCUT SCH (07:48)
[2021-09-17 07:52] LABS: BLOOD UREA NITROGEN,BUN 4 mg/dL (7.0-18.0); CARBON DIOXIDE,CO2 27.2 mmol/L (21.0-32.0); CHLORIDE,CL 101 mmol/L (98-107); GLUCOSE RANDOM 116 mg/dL (74-106); POTASSIUM,K 3.4 mmol/L (3.5-5.1); SODIUM,NA 138 mmol/L (136-148)
--- NOTE | 2021-09-17 07:58 | PCM.DCSUM1 ---
Discharge Summary - Hospital Course Free Text/Narrative:: 71-year-old male with a history of CAD, HTN, HLD, COPD, aortic aneurysm was admitted for acute pancreatitis. Patient presented to the ER complaining of epigastric pain for more than 1 month which is worsened over the prior 2 days. Pain was radiating to the back. Patient has had multiple ER visits. Patient stated over the last 2 days the pain has become more intense and constant. Patient endorsed nausea denies vomiting. Patient had diarrhea for 1 month. Patient lost 15 pounds over the last 1 month due to difficulty eating. Previous to this, pain was intermittent, waxing and waning, sharp, worsened by deep inspiration. Patient is also seen at the [place] [facility] where he had a HIDA scan done. Patient was taking p.o. vancomycin for 3 days possible C. difficile infection. Patient stated was given an amoxicillin prescription at the end of July for a possible stomach infection. Patient was tachycardic, pulse 110. Right and left upper extremity tender to palpation. Nondistended. Negative for guarding. Batres sign negative. EKG: HR111, sinus tachycardia, ST depression in lead II aVF and anterior precordial leads, relatively unchanged as compared to 08/23/2021. WBC 15. Troponin negative. Lipase 437. CT angiography shows no dissection or pulmonary embolism. Stable dilation of ascending aorta. Coronary artery disease. CT abdomen pelvis shows no acute intra-abdominal process. Hepatic steatosis and colonic diverticulosis. T 97.1. P 83. RR 16. BP 101/52. WBC 15. Hgb 15.2. Platelet count 395. BMP wnl. Lipase 437. Patient was admitted and treated with IV fluids and pain was managed with morphine. Patient's abdominal pain improved in less than 24 hours at which point he was started on a clear liquid diet. Patient tolerated this and his diet was advanced to regular diet. Patient stable for discharge. Patient will continue taking his oral vancomycin until 09/24/2021. - Discharge Data Discharge Date: 09/17/21 Discharge Disposition: Home, Self-Care 01 Condition: Stable - Referral to Home Health Primary Care Physician: PCP None - Discharge Diagnosis/Problem(s) (1) C. difficile diarrhea SNOMED Code(s): 7718228978732 ICD Code: A04.72 - ENTEROCOLITIS D/T CLOSTRIDIUM DIFFICILE, NOT SPCF RECUR Status: Acute Current Visit: Yes (2) Pancreatitis SNOMED Code(s): 81070316 ICD Code: K85.90 - ACUTE PANCREATITIS WITHOUT NECROSIS OR INFECTION, UNSP Status: Acute Current Visit: Yes Qualifiers: Pancreatitis type: unspecified pancreatitis type Acute pancreatitis complication: unspecified (3) HTN (hypertension) SNOMED Code(s): 63243782 ICD Code: I10 - ESSENTIAL (PRIMARY) HYPERTENSION Status: Chronic Current Visit: No (4) History of coronary artery stent placement SNOMED Code(s): 852245804, 475860592 ICD Code: Z95.5 - PRESENCE OF CORONARY ANGIOPLASTY IMPLANT AND GRAFT Status: Chronic Current Visit: No - Discharge Plan Home Medications: Home Meds Clopidogrel Bisulfate [Clopidogrel] 75 mg PO DAILY 03/11/19 [History] Isosorbide Mononitrate [Imdur] 30 mg PO DAILY 03/11/19 [History] Latanoprost/Pf [Latanoprost 0.005% Eye Drop] 1 drop EYEBOTH BEDTIME 03/11/19 [History] Levothyroxine Sodium 50 mcg PO ACBREAKFAST 03/11/19 [History] Losartan [Cozaar] 25 mg PO DAILY 03/11/19 [History] Potassium Chloride 10 meq PO TID 03/11/19 [History] atorvaSTATin Calcium [Atorvastatin Calcium] 80 mg PO BEDTIME 03/11/19 [History] metFORMIN HCl [Metformin HCl] 1,000 mg PO BID 03/11/19 [History] Albuterol [Ventolin HFA] 2 puff IH Q6H PRN 06/01/19 [History] Pantoprazole Sodium 40 mg PO DAILY 11/22/19 [History] Tamsulosin HCl [Flomax] 0.4 mg PO WITHDINNER 11/22/19 [History] Fluticasone Propionate [Flonase Allergy Relief] 2 spray NASBOTH DAILY 01/28/21 [History] Aspirin [Halfprin] 81 mg PO DAILY 09/15/21 [History] Dicyclomine [Bentyl] 10 mg PO TID 09/15/21 [History] Fluticasone Propion/Salmeterol [Advair 250-50 Diskus] 1 inh IH Q12H 09/15/21 [History] Nitroglycerin 0.4 mg SL .EVERY 5 MINUTES PRN MDD 3 TABLETS 09/15/21 [History] Tiotropium Lampe [Spiriva Respimat] 2.5 mcg INH Q24H 09/15/21 [History] Vancomycin [Vancocin 125 MG Capsule] 125 mg PO QID 09/15/21 [History] Vancomycin [First-Vancomycin 25 Compounding Kit] 125 mg PO Q6H bottle 09/17/21 [Rx] Patient Handouts: High-Fiber Eating Plan, Diverticulitis, [id number], Acute Pancreatitis, [id number], Pancreatitis Eating Plan, Constipation, Adult, [id number], Food Choices to Help Relieve Diarrhea, Adult, Nonspecific Chest Pain, Adult, [id number], Diverticulosis, Diarrhea, Adult, [id number] Referrals: PCP,None [Primary Care Provider] - - Discharge Summary/Plan Comment DC Time >30 min.: Yes Total # of Minutes for Discharge Time: 45 - General Info Admission Dx/Problem (Free Text: Admission Diagnosis/Problem Admission Diagnosis/Problem Chest pain - Review of Systems General: Denies: Fever, Chills Pulmonary: Denies: Shortness of Breath, Pleuritic Chest Pain, Cough Cardiovascular: Denies: Chest Pain, Palpitations, Edema Gastrointestinal: Reports: Flatus. Denies: Abdominal Pain, Constipation, Decreased Appetite, Diarrhea, Hematochezia, Melena, Nausea, Vomiting Genitourinary: Denies: Dysuria Musculoskeletal: Denies: Leg Pain Skin: Denies: Cyanosis Neurological: Denies: Confusion - Patient Data Vitals - Most Recent: Last Vital Signs Temp 97.1 F 09/17/21 04:30 Pulse 79 09/17/21 04:30 Resp 18 09/17/21 06:21 BP 154/87 H 09/17/21 06:21 Pulse Ox 97 09/17/21 06:21 Weight - Most Recent: 175 lb I&O - Last 24 hours: Intake & Output 09/16/21 09/17/21 09/17/21 22:59 06:59 14:59 Intake Total 1996 1246 50 Output Total 0 650 Balance 1996 596 50 Lab Results - Last 24 hrs: Laboratory Results - last 24 hr 09/16/21 09/16/21 09/16/21 Range/Units 07:08 07:08 11:45 WBC 10.67 (4.0-11.0) K/uL RBC 4.14 L (4.50-5.90) M/uL Hgb 12.8 L (13.0-17.0) g/dL Hct 38.1 (38.0-50.0) % MCV 92.0 (80.0-98.0) fL MCH 30.9 (27.0-32.0) pg MCHC 33.6 (31.0-37.0) g/dL RDW Std Deviation 47.6 (28.0-62.0) fl RDW Coeff of Samantha 14 (11.0-15.0) % Plt Count 306 (150-400) K/uL MPV 10.40 (7.40-12.00) fL Neut % (Auto) 82.5 H (48.0-80.0) % Lymph % (Auto) 9.7 L (16.0-40.0) % [place] % (Auto) 6.4 (0.0-15.0) % Eos % (Auto) 1.1 (0.0-7.0) % Baso % (Auto) 0.3 (0.0-1.5) % Neut # (Auto) 8.8 H (1.4-5.7) K/uL Lymph # (Auto) 1.0 (0.6-2.4) K/uL [place] # (Auto) 0.7 (0.0-0.8) K/uL Eos # (Auto) 0.1 (0.0-0.7) K/uL Baso # (Auto) 0.0 (0.0-0.1) K/uL Nucleated RBC % 0.0 /100WBC Nucleated RBCs # 0 K/uL Sodium 138 (136-148) mmol/L Potassium 3.5 (3.5-5.1) mmol/L Chloride 100 (98-107) mmol/L Carbon Dioxide 26.2 (21.0-32.0) mmol/L BUN 8 (7.0-18.0) mg/dL Creatinine 0.7 L (0.8-1.3) mg/dL Est Cr Clr Drug Dosing 97.04 mL/min Estimated GFR (MDRD) > 60.0 ml/min Glucose 108 H (74-106) mg/dL POC Glucose 163 H (70-99) mg/dL Calcium 8.4 L (8.5-10.1) mg/dL Total Bilirubin 0.8 (0.2-1.0) mg/dL AST 17 (15-37) IU/L ALT 24 (14-63) IU/L Alkaline Phosphatase 56 (46-116) U/L Total Protein 6.2 L (6.4-8.2) g/dL Albumin 3.2 L (3.4-5.0) g/dL Globulin 3.0 (2.6-4.0) g/dL Albumin/Globulin Ratio 1.1 (0.9-1.6) 09/16/21 09/17/21 Range/Units 17:53 06:35 WBC 9.94 (4.0-11.0) K/uL RBC 4.24 L (4.50-5.90) M/uL Hgb 13.0 (13.0-17.0) g/dL Hct 38.5 (38.0-50.0) % MCV 90.8 (80.0-98.0) fL MCH 30.7 (27.0-32.0) pg MCHC 33.8 (31.0-37.0) g/dL RDW Std Deviation 46.1 (28.0-62.0) fl RDW Coeff of Samantha 14 (11.0-15.0) % Plt Count 304 (150-400) K/uL MPV 10.40 (7.40-12.00) fL Neut % (Auto) 75.4 (48.0-80.0) % Lymph % (Auto) 14.1 L (16.0-40.0) % [place] % (Auto) 7.4 (0.0-15.0) % Eos % (Auto) 3.0 (0.0-7.0) % Baso % (Auto) 0.1 (0.0-1.5) % Neut # (Auto) 7.5 H (1.4-5.7) K/uL Lymph # (Auto) 1.4 (0.6-2.4) K/uL [place] # (Auto) 0.7 (0.0-0.8) K/uL Eos # (Auto) 0.3 (0.0-0.7) K/uL Baso # (Auto) 0.0 (0.0-0.1) K/uL Nucleated RBC % 0.0 /100WBC Nucleated RBCs # 0 K/uL Sodium (136-148) mmol/L Potassium (3.5-5.1) mmol/L Chloride (98-107) mmol/L Carbon Dioxide (21.0-32.0) mmol/L BUN (7.0-18.0) mg/dL Creatinine (0.8-1.3) mg/dL Est Cr Clr Drug Dosing mL/min Estimated GFR (MDRD) ml/min Glucose (74-106) mg/dL POC Glucose 108 H (70-99) mg/dL Calcium (8.5-10.1) mg/dL Total Bilirubin (0.2-1.0) mg/dL AST (15-37) IU/L ALT (14-63) IU/L Alkaline Phosphatase (46-116) U/L Total Protein (6.4-8.2) g/dL Albumin (3.4-5.0) g/dL Globulin (2.6-4.0) g/dL Albumin/Globulin Ratio (0.9-1.6) MARY ELLEN Results - Last 24 hrs: Microbiology 09/14/21 21:45 Cryptosporidium/Giardia - Final Stool / Feces 09/14/21 21:45 Shiga Toxin I & II - Final Stool / Feces Med Orders - Current: Current Medications Acetaminophen (Acetaminophen 325 Mg Tab) 650 mg PO Q4H PRN PRN Reason: Pain (Mild 1-3)/fever Last Admin: 09/15/21 06:00 Dose: 650 mg Documented by: Aspirin (Aspirin 81 Mg Tab.Ec) 81 mg PO DAILY [facility] Last Admin: 09/16/21 09:10 Dose: 81 mg Documented by: Atorvastatin Calcium (Atorvastatin 40 Mg Tab) 80 mg PO BEDTIME [facility] Last Admin: 09/16/21 20:08 Dose: 80 mg Documented by: Clopidogrel Bisulfate (Clopidogrel 75 Mg Tab) 75 mg PO DAILY [facility] Last Admin: 09/16/21 09:10 Dose: 75 mg Documented by: Dextrose/Water (50% Dextrose In Water 50 Ml Syringe) 50 ml IVPUSH ASDIRECTED PRN PRN Reason: Hypoglycemia Fluticasone Propionate (Fluticasone Propionate Nasal [place] 16 Gm Bottle) 0 gm NASBOTH DAILY [facility] Last Admin: 09/16/21 09:34 Dose: 2 puff Documented by: Glucagon (Glucagon,Human Recombinant 1 Mg Vial) 1 mg IM ASDIRECTED PRN PRN Reason: Hypoglycemia Lactated Ringer's (Ringers, Lactated) 1,000 mls @ 125 mls/hr IV Q8H [facility] Last Admin: 09/17/21 01:15 Dose: 125 mls/hr Documented by: Pantoprazole Sodium 40 mg/ (Sodium Chloride) 10 mls @ 300 mls/hr IV DAILY [facility] Last Admin: 09/16/21 09:10 Dose: 300 mls/hr Documented by: Piperacillin Sod/Tazobactam (Sod 3.375 gm/ Sodium Chloride) 50 mls @ 100 mls/hr IV Q8H [facility] Last Admin: 09/17/21 06:52 Dose: 100 mls/hr Documented by: Insulin Aspart (Insulin Aspart 100 Units/Ml 3 Ml Pen) 0 unit SUBCUT TIDAC [facility]; Protocol Last Admin: 09/17/21 07:48 Dose: Not Given Documented by: Isosorbide Mononitrate (Isosorbide Mononitrate 30 Mg Tab.Er) 30 mg PO DAILY [facility] Last Admin: 09/16/21 09:19 Dose: 30 mg Documented by: Latanoprost (Latanoprost 0.005% Ophth Soln 2.5 Ml Bottle) 1 ml EYEBOTH BEDTIME [facility] Last Admin: 09/16/21 20:16 Dose: 1 ea Documented by: Levothyroxine Sodium (Levothyroxine 50 Mcg Tab) 50 mcg PO ACBREAKFAST [facility] Last Admin: 09/17/21 06:32 Dose: 50 mcg Documented by: Losartan Potassium (Losartan 50 Mg Tab) 25 mg PO DAILY [facility] Last Admin: 09/16/21 09:19 Dose: 25 mg Documented by: Melatonin (Melatonin 3 Mg Tab) 3 mg PO BEDTIME PRN PRN Reason: Insomnia Last Admin: 09/16/21 20:08 Dose: 3 mg Documented by: Morphine Sulfate (Morphine 2 Mg/Ml Syringe) 2 mg IVPUSH Q4H PRN PRN Reason: Pain (severe 7-10) Last Admin: 09/17/21 06:22 Dose: 2 mg Documented by: Nitroglycerin (Nitroglycerin 0.4 Mg Tab.Sl) 0.4 mg SL .EVERY 5 MINUTES PRN PRN Reason: Chest Pain Ondansetron HCl (Ondansetron 4 Mg/2 Ml Sdv) 4 mg IVPUSH Q4H PRN PRN Reason: Nausea Fluticasone/Salmeterol (Fluticasone/Salmeterol 250-50 Mcg Inhalation Powder 14/Diskus) 1 puff INH BID [facility] Last Admin: 09/16/21 20:09 Dose: 1 puff Documented by: Tamsulosin HCl (Tamsulosin 0.4 Mg Cap.Er) 0.4 mg PO WITHDINNER [facility] Last Admin: 09/16/21 17:55 Dose: 0.4 mg Documented by: Vancomycin HCl (Vancomycin 25 Mg/Ml Compounding Kit) 125 mg PO Q6H [facility] Stop: 09/24/21 14:01 Last Admin: 09/17/21 07:49 Dose: 125 mg Documented by: Discontinued Medications Aspirin (Aspirin 81 Mg Tab.Chew) 324 mg PO ONETIME ONE Stop: 09/14/21 13:15 Last Admin: 09/14/21 13:19 Dose: 324 mg Documented by: Al Hydroxide/Mg Hydroxide 15 ml/ Metoclopramide HCl 5 mg/Lidocaine HCl 5 ml 0 ml PO ONETIME ONE Stop: 09/14/21 12:00 Last Admin: 09/14/21 13:06 Dose: 20 each Documented by: Cyclobenzaprine HCl (Cyclobenzaprine 10 Mg Tab) 10 mg PO ONETIME ONE Stop: 09/16/21 19:41 Last Admin: 09/16/21 20:07 Dose: 10 mg Documented by: Hydromorphone HCl (Hydromorphone 2 Mg/Ml Syringe) 0.5 mg IVPUSH ONETIME ONE Stop: 09/14/21 16:39 Last Admin: 09/14/21 16:46 Dose: 0.5 mg Documented by: Sodium Chloride (Normal Saline) 1,000 mls @ 999 mls/hr IV BOLUS ONE Stop: 09/14/21 12:53 Last Admin: 09/14/21 13:12 Dose: 999 mls/hr Documented by: Pantoprazole Sodium 80 mg/ (Sodium Chloride) 20 mls @ 420 mls/hr IVPUSH ONETIME ONE Stop: 09/14/21 13:16 Last Admin: 09/14/21 13:21 Dose: 420 mls/hr Documented by: Iopamidol (Iopamidol 755 Mg/Ml 500 Ml Multipack Bottle) 100 ml IVPUSH ONETIME STA Stop: 09/14/21 12:23 Last Admin: 09/14/21 12:22 Dose: 100 ml Documented by: Morphine Sulfate (Morphine 2 Mg/Ml Syringe) 2 mg IVPUSH ONETIME ONE Stop: 09/14/21 11:58 Last Admin: 09/14/21 13:09 Dose: 2 mg Documented by: Morphine Sulfate (Morphine 2 Mg/Ml Syringe) 2 mg IVPUSH ONETIME ONE Stop: 09/14/21 11:59 Last Admin: 09/14/21 13:13 Dose: 2 mg Documented by: Morphine Sulfate (Morphine 2 Mg/Ml Syringe) 2 mg IVPUSH ONETIME ONE Stop: 09/14/21 14:35 Last Admin: 09/14/21 14:50 Dose: 2 mg Documented by: Morphine Sulfate (Morphine 2 Mg/Ml Syringe) 2 mg IVPUSH Q4H PRN PRN Reason: Pain (severe 7-10) Stop: 09/15/21 16:39 Last Admin: 09/15/21 13:57 Dose: 2 mg Documented by: Potassium Chloride (Potassium Chloride 20 Meq Tab.Er) 40 meq PO ONETIME ONE Stop: 09/16/21 08:50 Last Admin: 09/16/21 09:09 Dose: 40 meq Documented by: Vancomycin HCl (Pharmacy To Dose - Vancomycin) 1 dose .XX ASDIRECTED RICHARD - Exam General: Reports: Alert, Oriented, Cooperative, No Acute Distress HEENT: Reports: Pupils Equal, Pupils Reactive Neck: Reports: Supple, Trachea Midline Lungs: Reports: Clear to Auscultation Cardiovascular: Reports: Regular Rate, Regular Rhythm GI/Abdominal Exam: Normal Bowel Sounds, Soft, Non-Tender Back Exam: Reports: Normal Inspection Extremities: Normal Inspection, No Pedal Edema. No: Faustino's Sign Skin: Reports: Warm, Dry Neurological: Reports: No New Focal Deficit
[2021-09-17 08:05] VITALS: BP 140/67; PULSE 72
[2021-09-17] MEDS: Pantoprazole 40 MG in Sodium Chloride 0.9% 10 ML IV SCH (08:55)
[2021-09-17] MEDS: Clopidogrel 75 MG Tab PO SCH (09:00)
[2021-09-17] MEDS: Losartan 50 MG Tab PO SCH (09:00)
[2021-09-17] MEDS: Fluticasone/Salmeterol 250-50 MCG Inhalation Powder 14/Diskus INH SCH (09:01)
[2021-09-17] MEDS: Fluticasone Propionate Nasal Spray 16 GM Bottle NASBOTH SCH (09:01)
[2021-09-17] MEDS: Isosorbide Mononitrate 30 MG Tab.ER PO SCH (09:01)
[2021-09-17] MEDS: Aspirin 81 MG Tab.EC PO SCH (09:02)
== END 2021-09-17 09:15 | disposition home or self-care (01) | DRG 439 ==
LOC: MW.ED 11:43 → MW.MS 14:07
PROVIDERS: ADMIT Student in an Organized Health Care Education/Training Program; ATTEND Student in an Organized Health Care Education/Training Program
DX: R07.9 Chest pain, unspecified (principal); K85.90 Acute pancreatitis without necrosis or infection, unspecified; R19.7 Diarrhea, unspecified; A04.72 Enterocolitis due to Clostridium difficile, not specified as recurrent; I10 Essential (primary) hypertension; I25.10 Atherosclerotic heart disease of native coronary artery without angina pectoris; J44.9 Chronic obstructive pulmonary disease, unspecified; N40.0 Benign prostatic hyperplasia without lower urinary tract symptoms; E03.9 Hypothyroidism, unspecified; H54.7 Unspecified visual loss; E78.00 Pure hypercholesterolemia, unspecified; M54.9 Dorsalgia, unspecified; G89.4 Chronic pain syndrome; H40.9 Unspecified glaucoma; M54.2 Cervicalgia; M48.061 Spinal stenosis, lumbar region without neurogenic claudication; Z95.5 Presence of coronary angioplasty implant and graft; Z79.82 Long term (current) use of aspirin; Z79.890 Hormone replacement therapy; Z79.899 Other long term (current) drug therapy; Z79.52 Long term (current) use of systemic steroids; I25.2 Old myocardial infarction; Z98.49 Cataract extraction status, unspecified eye; Z87.891 Personal history of nicotine dependence; Z79.84 Long term (current) use of oral hypoglycemic drugs; Z79.02 Long term (current) use of antithrombotics/antiplatelets
CPT/HCPCS: 36415; 71275; 74174; 80053; 83605; 83690; 84484 ×2; 85025; 93005; 96374; 96375; 99285; A9270 ×4; C9113; J2270 ×2; J7030; Q9967; 81003; 82947; 87045; 87046; 87324; 87328; 87329; 87449; 87899; J1170; J1815-GY; J2543; J7120

== ENCOUNTER 2021-09-19 08:24 | Inpatient (IN) | payer OTHER, MEDICARE ==
[2021-09-19] MEDS ORDERED: Sodium Chloride 0.9% 10 ML Syringe FLUSH PRN (08:43)
[2021-09-19] MEDS ORDERED: Sodium Chloride 0.9% 2.5 ML Syringe FLUSH PRN (08:43)
[2021-09-19] MEDS ORDERED: Morphine 4 MG/ML Syringe IVPUSH ONE (08:49)
[2021-09-19] MEDS ORDERED: Ondansetron 4 MG/2 ML SDV IVPUSH ONE (08:49)
[2021-09-19] MEDS ORDERED: Morphine 4 MG/ML VIAL IVPUSH ONE (09:00)
--- NOTE | 2021-09-19 09:01 | EDM.PDOC ---
ED HPI GENERAL MEDICAL PROBLEM - General Chief Complaint: Chest Pain Stated Complaint: CHEST PAIN/SOB Time Seen by Provider: 09/19/21 08:42 - History of Present Illness INITIAL COMMENTS - FREE TEXT/NARRATIVE: 71-year-old male with history of multiple medical problems including recurrent presentations for chest pain history of pancreatitis history of diverticulitis who was discharged from the hospital just a few days ago after a bout of pancreatitis is presenting with epigastric and left lower quadrant abdominal pain. Patient states that he felt relatively well when he left the hospital a few days ago. However, he had gradually worsening pain over the weekend. He reports having some chicken noodle soup followed an hour or so later by severe abdominal pain. Patient took milk of magnesia and had good results from that in terms of a bowel movement but it did not relieve his symptoms. He continues to have now 7 out of 10 epigastric pain as well as 7 out of 10 left lower quadrant pain. Some nausea but no continuing vomiting. No fevers no cough the pain radiates from the epigastrium up into the chest but no primary chest pain no shortness of breath syncope or near syncope. Chest Pain Score (Numeric/FACES): 7 - Related Data Allergies Allergy/AdvReac Type Severity Reaction Status Date / Time No Known Allergies Allergy Verified 09/19/21 08:35 Home Meds: Home Meds Clopidogrel Bisulfate [Clopidogrel] 75 mg PO DAILY 03/11/19 [History] Isosorbide Mononitrate [Imdur] 30 mg PO DAILY 03/11/19 [History] Latanoprost/Pf [Latanoprost 0.005% Eye Drop] 1 drop EYEBOTH BEDTIME 03/11/19 [History] Levothyroxine Sodium 50 mcg PO ACBREAKFAST 03/11/19 [History] Losartan [Cozaar] 25 mg PO DAILY 03/11/19 [History] Potassium Chloride 10 meq PO TID 03/11/19 [History] atorvaSTATin Calcium [Atorvastatin Calcium] 80 mg PO BEDTIME 03/11/19 [History] metFORMIN HCl [Metformin HCl] 1,000 mg PO BID 03/11/19 [History] Albuterol [Ventolin HFA] 2 puff IH Q6H PRN 06/01/19 [History] Pantoprazole Sodium 40 mg PO DAILY 11/22/19 [History] Tamsulosin HCl [Flomax] 0.4 mg PO WITHDINNER 11/22/19 [History] Fluticasone Propionate [Flonase Allergy Relief] 2 spray NASBOTH DAILY 01/28/21 [History] Aspirin [Halfprin] 81 mg PO DAILY 09/15/21 [History] Dicyclomine [Bentyl] 10 mg PO TID 09/15/21 [History] Fluticasone Propion/Salmeterol [Advair 250-50 Diskus] 1 inh IH Q12H 09/15/21 [History] Nitroglycerin 0.4 mg SL .EVERY 5 MINUTES PRN MDD 3 TABLETS 09/15/21 [History] Tiotropium [place] [Spiriva Respimat] 2.5 mcg INH Q24H 09/15/21 [History] Vancomycin [Vancocin 125 MG Capsule] 125 mg PO QID 09/15/21 [History] Vancomycin [First-Vancomycin 25 Compounding Kit] 125 mg PO Q6H bottle 09/17/21 [Rx] Past Medical History HEENT History: Reports: Glaucoma, Impaired Vision, Other (See Below) Other HEENT History: wears glasses Cardiovascular History: Reports: Aneurysm, CAD, High Cholesterol, Hypertension, [place], Stents, Other (See Below) Other Cardiovascular History: [place] x3. Carotid atherosclerosis. thoracic aneurysm Respiratory History: Reports: COPD, SOB Gastrointestinal History: Reports: Pancreatitis, Other (See Below) Other Gastrointestinal History: c diff Genitourinary History: Reports: BPH Musculoskeletal History: Reports: Back Pain, Chronic Other Musculoskeletal History: chronic neck and back pain, lumbar stenosis, chronic pain syndrome Neurological History: Reports: None Endocrine/Metabolic History: Reports: Diabetes, Type II, Hypothyroidism Other Endocrine/Metabolic History: states "pre diabetic" Immunologic History: Reports: None Oncologic (Cancer) History: Reports: None Dermatologic History: Reports: Other (See Below) Other Dermatologic History: Granuloma annulare - Infectious Disease History Infectious Disease History: Reports: Chicken Pox, Measles, Mumps, Rubella - Past Surgical History Head Surgeries/Procedures: Reports: None HEENT Surgical History: Reports: Cataract Surgery, Eye Surgery, LASIK Cardiovascular Surgical History: Reports: Aneurysm, Coronary Artery Stent Respiratory Surgical History: Reports: None GI Surgical History: Reports: None Male Surgical History: Reports: None Endocrine Surgical History: Reports: None Neurological Surgical History: Reports: Lumbar Spine Other Neurological Surgeries/Procedures: TENS unit Other Musculoskeletal Surgeries/Procedures:: back surgery x2 Dermatological Surgical History: Reports: Other (See Below) Social & Family History - Family History Family Medical History: No Pertinent Family History HEENT: Reports: Cataract Cardiac: Reports: CAD, [place] OBGYN: Reports: Neurological: Reports: CVA, TIA Endocrine/Metabolic: Reports: Diabetes, Type I, Diabetes, type II - Tobacco Use Tobacco Use Status *Q: Former Tobacco User Years of Tobacco use: 30 Packs/Tins Daily: 2 Used Tobacco, but Quit: Yes Month/Year Tobacco Last Used: 11/1994 - Caffeine Use Caffeine Use: Reports: None Other Caffeine Use: 1 cup a day Caffeine Use Comment: 2 cups of coffee in morning - Alcohol Use Days Per Week of Alcohol Use: 7 Number of Drinks Per Day: 4 Total Drinks Per Week: 28 - Recreational Drug Use Recreational Drug Use: Yes Recreational Drug Type: Reports: Marijuana/Hashish ED ROS GENERAL - Review of Systems Review Of Systems: See Below Free Text/Narrative/Comment: General: No fever. Skin: No rash. Eyes: No vision problems. ENT: No sore throat. Neck: No neck stiffness. Respiratory: No shortness of breath. Cardiac: Per HPI Gastrointestinal: Per HPI Urinary: No dysuria. Musculoskeletal: No myalgias/arthralgias. Neurologic: No headache. ED EXAM, GENERAL - Physical Exam Exam: See Below Free Text/Narrative:: General Appearance: No acute distress, appears comfortable Skin: No rash HEENT: Normocephalic/atraumatic, sclera anicteric, mucous membranes dry Neck: Normal range of motion Chest and Lungs: Bilateral breath sounds, clear to auscultation Cardiovascular: Regular rate and rhythm Abdomen: Soft, epigastric and right lower quadrant tenderness no guarding or rebound Back: Normal Musculoskeletal: No edema or tenderness Neurologic: Awake, alert, no obvious deficits, moving all extremities Psychiatric: Appropriate, cooperative #1 Interpretation EKG Date: 09/19/21 Time: 09:01 EKG Interpretation Comments: Sinus arrhythmia rate of 93 normal axis and intervals no acute ischemia Course - Vital Signs Last Recorded V/S: Last Vital Signs Temp 97.6 F 09/19/21 08:30 Pulse 92 09/19/21 08:30 Resp 24 H 09/19/21 08:30 BP 133/96 H 09/19/21 08:30 Pulse Ox 98 09/19/21 08:30 - Orders/Labs/Meds Orders: Active Orders 24 hr Category Date Time Status CORONAVIRUS COVID-19 JESSICA [MOLEC] Stat Lab 09/19/21 11:10 Ordered Sodium Chloride 0.9% [Normal Saline] 1,000 ml Med 09/19/21 11:15 Active IV ASDIRECTED Sodium Chloride 0.9% [Saline Flush] Med 09/19/21 08:43 Active 10 ml FLUSH ASDIRECTED PRN Sodium Chloride 0.9% [Saline Flush] Med 09/19/21 08:43 Active 2.5 ml FLUSH ASDIRECTED PRN Saline Lock Insert [OM.PC] Stat Oth 09/19/21 08:43 Ordered Medication Orders Sodium Chloride (Normal Saline) 1,000 mls @ 125 mls/hr IV ASDIRECTED RICHARD Sodium Chloride (Sodium Chloride 0.9% 10 Ml Syringe) 10 ml FLUSH ASDIRECTED PRN PRN Reason: Keep Vein Open Last Admin: 09/19/21 08:49 Dose: 10 ml Documented by: SAMIR Sodium Chloride (Sodium Chloride 0.9% 2.5 Ml Syringe) 2.5 ml FLUSH ASDIRECTED PRN PRN Reason: Keep Vein Open Last Admin: 09/19/21 08:49 Dose: 2.5 ml Documented by: SAMIR Labs: Laboratory Tests 09/19/21 09/19/21 Range/Units 08:35 08:35 WBC 13.89 H (4.0-11.0) K/uL RBC 4.70 (4.50-5.90) M/uL Hgb 14.8 (13.0-17.0) g/dL Hct 42.8 (38.0-50.0) % MCV 91.1 (80.0-98.0) fL MCH 31.5 (27.0-32.0) pg MCHC 34.6 (31.0-37.0) g/dL RDW Std Deviation 46.0 (28.0-62.0) fl RDW Coeff of Samantha 14 (11.0-15.0) % Plt Count 380 (150-400) K/uL MPV 10.40 (7.40-12.00) fL Neut % (Auto) 70.7 (48.0-80.0) % Lymph % (Auto) 19.8 (16.0-40.0) % Sequoyah % (Auto) 6.8 (0.0-15.0) % Eos % (Auto) 2.5 (0.0-7.0) % Baso % (Auto) 0.2 (0.0-1.5) % Neut # (Auto) 9.8 H (1.4-5.7) K/uL Lymph # (Auto) 2.8 H (0.6-2.4) K/uL Sequ[place]ah # (Auto) 0.9 H (0.0-0.8) K/uL Eos # (Auto) 0.4 (0.0-0.7) K/uL Baso # (Auto) 0.0 (0.0-0.1) K/uL Nucleated RBC % 0.0 /100WBC Nucleated RBCs # 0 K/uL Sodium 138 (136-148) mmol/L Potassium 3.6 (3.5-5.1) mmol/L Chloride 99 (98-107) mmol/L Carbon Dioxide 24.2 (21.0-32.0) mmol/L BUN 12 (7.0-18.0) mg/dL Creatinine 0.8 (0.8-1.3) mg/dL Est Cr Clr Drug Dosing 84.91 mL/min Estimated GFR (MDRD) > 60.0 ml/min Glucose 102 (74-106) mg/dL Calcium 9.2 (8.5-10.1) mg/dL Total Bilirubin 0.8 (0.2-1.0) mg/dL AST 22 (15-37) IU/L ALT 30 (14-63) IU/L Alkaline Phosphatase 68 (46-116) U/L Troponin I < 0.050 (0.000-0.056) ng/mL Total Protein 7.8 (6.4-8.2) g/dL Albumin 3.5 (3.4-5.0) g/dL Globulin 4.3 H (2.6-4.0) g/dL Albumin/Globulin Ratio 0.8 L (0.9-1.6) Lipase 346 (73-393) U/L Meds: Medications Generic Name Dose Route Start Last Admin Trade Name Freq PRN Reason Stop Dose Admin Sodium Chloride 1,000 mls @ 125 mls/hr 09/19/21 11:15 Normal Saline IV ASDIRECTED RICHARD Sodium Chloride 10 ml 09/19/21 08:43 09/19/21 08:49 Sodium Chloride 0.9% 10 Ml Syringe FLUSH 10 ml ASDIRECTED PRN Administration Keep Vein Open Sodium Chloride 2.5 ml 09/19/21 08:43 09/19/21 08:49 Sodium Chloride 0.9% 2.5 Ml Syringe FLUSH 2.5 ml ASDIRECTED PRN Administration Keep Vein Open Discontinued Medications Generic Name Dose Route Start Last Admin Trade Name Freq PRN Reason Stop Dose Admin Iopamidol 100 ml 09/19/21 10:07 09/19/21 10:08 Iopamidol 755 Mg/Ml 500 Ml Multipack Bottle IVPUSH 09/19/21 10:08 100 ml ONETIME STA Administration Morphine Sulfate 4 mg 09/19/21 08:49 09/19/21 09:26 Morphine 4 Mg/Ml Syringe IVPUSH 09/19/21 08:50 Not Given ONETIME ONE Morphine Sulfate 4 mg 09/19/21 09:00 09/19/21 09:26 Morphine 4 Mg/Ml Vial IVPUSH 09/19/21 09:01 4 mg ONETIME ONE Administration Ondansetron HCl 4 mg 09/19/21 08:49 09/19/21 08:54 Ondansetron 4 Mg/2 Ml Sdv IVPUSH 09/19/21 08:50 4 mg ONETIME ONE Administration Departure - Departure Time of Disposition: 11:15 Disposition: Admitted As Inpatient 64 Condition: Fair Clinical Impression: Pancreatitis Qualifiers: Pancreatitis type: unspecified pancreatitis type Acute pancreatitis complication: unspecified - Discharge Information Referrals: Eliezer Edwards PIPING DESIGNER [Primary Care Provider] - Forms: ED Department Discharge Sepsis Event Note (ED) - Evaluation Sepsis Screening Result: No Definite Risk - Focused Exam Vital Signs: Vital Signs Temp Pulse Resp BP Pulse Ox 09/19/21 08:30 97.6 F 92 24 H 133/96 H 98 - My Orders Last 24 Hours: My Active Orders 09/19/21 08:43 Sodium Chloride 0.9% [Saline Flush] 10 ml FLUSH ASDIRECTED PRN Sodium Chloride 0.9% [Saline Flush] 2.5 ml FLUSH ASDIRECTED PRN Saline Lock Insert [OM.PC] Stat 09/19/21 11:10 CORONAVIRUS COVID-19 JESSICA [MOLEC] Stat 09/19/21 11:15 Sodium Chloride 0.9% [Normal Saline] 1,000 ml IV ASDIRECTED - Assessment/Plan Last 24 Hours: My Active Orders 09/19/21 08:43 Sodium Chloride 0.9% [Saline Flush] 10 ml FLUSH ASDIRECTED PRN Sodium Chloride 0.9% [Saline Flush] 2.5 ml FLUSH ASDIRECTED PRN Saline Lock Insert [OM.PC] Stat 09/19/21 11:10 CORONAVIRUS COVID-19 JESSICA [MOLEC] Stat 09/19/21 11:15 Sodium Chloride 0.9% [Normal Saline] 1,000 ml IV ASDIRECTED Assessment:: 71-year-old male history of multiple medical problems presenting with abdominal pain as described above. Acute first chronic pancreatitis is a consideration given the focal tenderness in the left lower quadrant diverticulitis is a consideration. ACS felt less likely EKG is without ischemia. Troponin and chest x-ray pending. CBC, CMP, lipase, CT abdomen pelvis as well to exclude diverticulitis. Morphine Zofran given for symptoms. No findings suggest AAA no findings suggest aortic dissection. 1111: Labs with leukocytosis. CT shows no diverticulitis but does show some acute pancreatitis no necrosis no cirrhosis. On reassessment patient's pain has improved with morphine. He reports severe pain with solid or liquid p.o. intake including the Ensure drink the last had last night. Given his persistent severe pain with any p.o. intake the ongoing elevated lipase and findings on CT will discuss with hospitalist regarding admission for ongoing pancreatitis. 1114: Pt discussed with Dr. Slater, will admit for further care.
[2021-09-19 09:09] LABS: BLOOD UREA NITROGEN,BUN 12 mg/dL (7.0-18.0); CARBON DIOXIDE,CO2 24.2 mmol/L (21.0-32.0); CHLORIDE,CL 99 mmol/L (98-107); GLUCOSE RANDOM 102 mg/dL (74-106); LIPASE 346 U/L (73-393); POTASSIUM,K 3.6 mmol/L (3.5-5.1); SODIUM,NA 138 mmol/L (136-148)
--- NOTE | 2021-09-19 09:15 | CR ---
INDICATION: Chest pain. TECHNIQUE: Chest 1 view. COMPARISON: Chest radiograph 08/23/2021. FINDINGS: No focal consolidation, pleural effusion, or pneumothorax. Normal heart size and pulmonary vascularity. Aortic calcification. Stimulator leads over the mid thoracic spine. Degenerative changes of the acromioclavicular joints. IMPRESSION: No acute cardiopulmonary findings. Dictated by Rachel Kirby MD @ 09/19/2021 9:12:35 AM (Electronically Signed)
[2021-09-19] MEDS ORDERED: Iopamidol 755 MG/ML 500 ML Multipack Bottle IVPUSH STA (10:07)
--- NOTE | 2021-09-19 10:57 | CT ---
INDICATION: Epigastric pain and left lower quadrant pain. History of diverticulitis and pancreatitis. TECHNIQUE: CT of the abdomen and pelvis with 100 cc Isovue 370 IV contrast. Coronal and sagittal reconstructions. COMPARISON: CTA chest, abdomen, pelvis 09/14/2021. FINDINGS: Diffuse hepatic steatosis. The gallbladder, spleen, and adrenal glands are negative. No biliary dilation. Tiny splenule inferiorly. There is subtle fat stranding about the pancreatic tail which could represent mild acute pancreatitis. No dilation of the pancreatic duct. Hepatic and portal veins are patent. Symmetric enhancement of the kidneys. No hydronephrosis or ureteral dilation. No obstructing urinary calculi. Stable diffuse bladder wall thickening which may be due to underdistention and/or chronic outlet obstruction. Mildly enlarged prostate gland. No bowel dilation. Colonic diverticulosis without evidence of diverticulitis. Negative appendix. No intraperitoneal free air or fluid. Aortoiliac vascular calcifications. Tiny fat containing umbilical hernia. No lymphadenopathy by size criteria. Left flank spinal stimulator pack with lead tip at the level of T7. Posterior instrumented fusion of L5-S1. Stable scarring in the medial right lower lobe. The lung bases are otherwise clear. Dense coronary artery calcifications. Mitral annulus calcifications. The visualized ascending thoracic aorta is mildly dilated similar to prior exam. IMPRESSION: 1. Subtle fat stranding about the pancreatic tail could represent mild acute pancreatitis. Correlate with amylase and lipase values. 2. No other acute findings in the abdomen or pelvis. 3. Diffuse hepatic steatosis. Please note that all CT scans at this facility use dose modulation, iterative reconstruction, and/or weight-based dosing when appropriate to reduce radiation dose to as low as reasonably achievable. Dictated by Rachel Kirby MD @ 09/19/2021 10:55:33 AM (Electronically Signed)
[2021-09-19] MEDS ORDERED: Sodium Chloride 0.9% 1,000 ML IV SCH (11:15)
[2021-09-19] MEDS ORDERED: Ondansetron 4 MG/2 ML SDV IVPUSH PRN (14:35)
[2021-09-19] MEDS ORDERED: Albuterol/Ipratropium 3.0-0.5 MG/3 ML Neb Soln NEB PRN (14:35)
[2021-09-19] MEDS ORDERED: Lactated Ringers 1,000 ML IV SCH (14:45)
[2021-09-19] MEDS ORDERED: Pantoprazole 40 MG Vial IV SCH (14:45)
[2021-09-19] MEDS: Morphine 2 MG/ML SYRINGE IVPUSH PRN ×3 (15:17→21:59)
--- NOTE | 2021-09-19 15:56 | PCM.HP.2 ---
H&P History of Present Illness - General Date of Service: 09/19/21 Admit Problem/Dx: Admission Diagnosis/Problem Admission Diagnosis/Problem Pancreatitis - History of Present Illness Initial Comments - Free Text/Narative: 71-year-old male with a history of CAD, HTN, HLD, COPD, aortic aneurysm presents to the ER complaining of epigastric pain Patient has had multiple ER visits and was admitted recently for acute pancreatitis secondary to alcohol abuse. Patient states that after discharge he felt good for a day but after that he had a heart spicy noodle soup and ever since that he started having recurrent abd ominal pain. He felt that the food was in his stomach for 2 days and it was not digesting. Patient states that he took milk of mag which helped him pass stool and he felt a little better but after that the pain just kept getting worse, patient states that he has been nauseated but has not really had any vomiting episode. Patient is also seen at the [place] [facility] where he had a HIDA scan done. Patient has been taking p.o. vancomycin for possible C. difficile infection. Patient denies palpitations, vomiting, abdominal distention, obstipation, bloody stools, fever or chills. Denies headaches, dizziness, loss of consciousness. Patient states that he was supposed to get a EGD and colonoscopy done but due to the Covid the procedure got delayed, and ever since he has not been able to get it scheduled. The ER patient underwent CT abdomen which showed some fat stranding around the pancreas indicating of acute pancreatitis, lipase was upper limit of normal. Patient was admitted to the hospital for further management Chest Pain Score (Numeric/FACES): 7 Upper Abdominal Pain Score (Numeric/FACES): 2 - Related Data Allergies/Adverse Reactions: Allergies Allergy/AdvReac Type Severity Reaction Status Date / Time No Known Allergies Allergy Verified 09/19/21 13:58 Home Medications: Home Meds Clopidogrel Bisulfate [Clopidogrel] 75 mg PO DAILY 03/11/19 [History] Isosorbide Mononitrate [Imdur] 30 mg PO DAILY 03/11/19 [History] Latanoprost/Pf [Latanoprost 0.005% Eye Drop] 1 drop EYEBOTH BEDTIME 03/11/19 [History] Levothyroxine Sodium 50 mcg PO ACBREAKFAST 03/11/19 [History] Losartan [Cozaar] 25 mg PO DAILY 03/11/19 [History] Potassium Chloride 10 meq PO TID 03/11/19 [History] atorvaSTATin Calcium [Atorvastatin Calcium] 80 mg PO BEDTIME 03/11/19 [History] metFORMIN HCl [Metformin HCl] 1,000 mg PO BID 03/11/19 [History] Albuterol [Ventolin HFA] 2 puff IH Q6H PRN 06/01/19 [History] Pantoprazole Sodium 40 mg PO DAILY 11/22/19 [History] Tamsulosin HCl [Flomax] 0.4 mg PO WITHDINNER 11/22/19 [History] Fluticasone Propionate [Flonase Allergy Relief] 2 spray NASBOTH DAILY 01/28/21 [History] Aspirin [Halfprin] 81 mg PO DAILY 09/15/21 [History] Dicyclomine [Bentyl] 10 mg PO TID 09/15/21 [History] Fluticasone Propion/Salmeterol [Advair 250-50 Diskus] 1 inh IH Q12H 09/15/21 [History] Nitroglycerin 0.4 mg SL .EVERY 5 MINUTES PRN MDD 3 TABLETS 09/15/21 [History] Tiotropium [place] [Spiriva Respimat] 2.5 mcg INH Q24H 09/15/21 [History] Vancomycin [Vancocin 125 MG Capsule] 125 mg PO QID 09/15/21 [History] Vancomycin [First-Vancomycin 25 Compounding Kit] 125 mg PO Q6H bottle 09/17/21 [Rx] Past Medical History HEENT History: Reports: Glaucoma, Impaired Vision, Other (See Below) Other HEENT History: wears glasses Cardiovascular History: Reports: Aneurysm, CAD, High Cholesterol, Hypertension, MS, Stents, Other (See Below) Other Cardiovascular History: MS x3. Carotid atherosclerosis. thoracic aneurysm Respiratory History: Reports: COPD, SOB Gastrointestinal History: Reports: Pancreatitis, Other (See Below) Other Gastrointestinal History: c diff Genitourinary History: Reports: BPH Musculoskeletal History: Reports: Back Pain, Chronic Other Musculoskeletal History: chronic neck and back pain, lumbar stenosis, chronic pain syndrome Neurological History: Reports: None Endocrine/Metabolic History: Reports: Diabetes, Type II, Hypothyroidism Other Endocrine/Metabolic History: states "pre diabetic" Immunologic History: Reports: None Oncologic (Cancer) History: Reports: None Dermatologic History: Reports: Other (See Below) Other Dermatologic History: Granuloma annulare - Infectious Disease History Infectious Disease History: Reports: Chicken Pox, Measles, Mumps, Rubella - Past Surgical History Head Surgeries/Procedures: Reports: None HEENT Surgical History: Reports: Cataract Surgery, Eye Surgery, LASIK Cardiovascular Surgical History: Reports: Aneurysm, Coronary Artery Stent Respiratory Surgical History: Reports: None GI Surgical History: Reports: None Male Surgical History: Reports: None Endocrine Surgical History: Reports: None Neurological Surgical History: Reports: Lumbar Spine Other Neurological Surgeries/Procedures: TENS unit Other Musculoskeletal Surgeries/Procedures:: back surgery x2 Dermatological Surgical History: Reports: Other (See Below) Social & Family History - Family History Family Medical History: No Pertinent Family History HEENT: Reports: Cataract Cardiac: Reports: CAD, MS OBGYN: Reports: Neurological: Reports: CVA, TIA Endocrine/Metabolic: Reports: Diabetes, Type I, Diabetes, type II - Tobacco Use Tobacco Use Status *Q: Former Tobacco User Years of Tobacco use: 30 Packs/Tins Daily: 2 Used Tobacco, but Quit: Yes Month/Year Tobacco Last Used: May 1998 - Caffeine Use Caffeine Use: Reports: None Other Caffeine Use: 1 cup a day Caffeine Use Comment: 2 cups of coffee in morning - Alcohol Use Days Per Week of Alcohol Use: 7 Number of Drinks Per Day: 3 Total Drinks Per Week: 21 Date of Last Drink: 08/21/21 Time of Last Drink: 12:00 - Recreational Drug Use Recreational Drug Use: Yes Recreational Drug Type: Reports: Marijuana/Hashish Recreational Drug Use Frequency: Socially H&P Review of Systems - Review of Systems: Review Of Systems: See Below General: Reports: Weakness, Fatigue. Denies: Fever, Chills, Malaise HEENT: Denies: Sore Throat Pulmonary: Denies: Shortness of Breath Cardiovascular: Denies: Chest Pain, Palpitations, Dyspnea on Exertion, Orthopnea Gastrointestinal: Reports: Abdominal Pain, Anorexia, Diarrhea, Decreased Appetite, Nausea. Denies: Black Stool, Bloody Stool, Constipation, Vomiting Genitourinary: Denies: Dysuria, Frequency, Burning Musculoskeletal: Denies: Neck Pain, Shoulder Pain, Arm Pain Skin: Denies: Cyanosis, Jaundice, Mottled Psychiatric: Denies: Confusion, Depression Neurological: Denies: Confusion, Dizziness, Headache Hematologic/Lymphatic: Denies: Anemia, Easy Bleeding, Easy Bruising Exam - Exam Exam: See Below - Vital Signs Vital Signs: Last Vital Signs Temp 36.2 C 09/19/21 14:04 Pulse 65 09/19/21 14:04 Resp 16 09/19/21 14:04 BP 125/71 09/19/21 14:04 Pulse Ox 96 09/19/21 14:04 Weight: 80.286 kg - Exam General: Alert, Oriented Neck: Supple Lungs: Clear to Auscultation, Normal Respiratory Effort Cardiovascular: Regular Rate, Regular Rhythm, Normal S1, Normal S2 GI/Abdominal Exam: Normal Bowel Sounds, Soft, No Mass, Tender, Abnormal Bowel Sounds, Hepatomegaly - Patient Data Lab Results Last 24 hrs: Laboratory Results - last 24 hr 09/19/21 09/19/21 09/19/21 Range/Units 08:35 08:35 12:16 WBC 13.89 H (4.0-11.0) K/uL RBC 4.70 (4.50-5.90) M/uL Hgb 14.8 (13.0-17.0) g/dL Hct 42.8 (38.0-50.0) % MCV 91.1 (80.0-98.0) fL MCH 31.5 (27.0-32.0) pg MCHC 34.6 (31.0-37.0) g/dL RDW Std Deviation 46.0 (28.0-62.0) fl RDW Coeff of Samantha 14 (11.0-15.0) % Plt Count 380 (150-400) K/uL MPV 10.40 (7.40-12.00) fL Neut % (Auto) 70.7 (48.0-80.0) % Lymph % (Auto) 19.8 (16.0-40.0) % [place] % (Auto) 6.8 (0.0-15.0) % Eos % (Auto) 2.5 (0.0-7.0) % Baso % (Auto) 0.2 (0.0-1.5) % Neut # (Auto) 9.8 H (1.4-5.7) K/uL Lymph # (Auto) 2.8 H (0.6-2.4) K/uL [place] # (Auto) 0.9 H (0.0-0.8) K/uL Eos # (Auto) 0.4 (0.0-0.7) K/uL Baso # (Auto) 0.0 (0.0-0.1) K/uL Nucleated RBC % 0.0 /100WBC Nucleated RBCs # 0 K/uL Sodium 138 (136-148) mmol/L Potassium 3.6 (3.5-5.1) mmol/L Chloride 99 (98-107) mmol/L Carbon Dioxide 24.2 (21.0-32.0) mmol/L BUN 12 (7.0-18.0) mg/dL Creatinine 0.8 (0.8-1.3) mg/dL Est Cr Clr Drug Dosing 84.91 mL/min Estimated GFR (MDRD) > 60.0 ml/min Glucose 102 (74-106) mg/dL Calcium 9.2 (8.5-10.1) mg/dL Total Bilirubin 0.8 (0.2-1.0) mg/dL AST 22 (15-37) IU/L ALT 30 (14-63) IU/L Alkaline Phosphatase 68 (46-116) U/L Troponin I < 0.050 (0.000-0.056) ng/mL Total Protein 7.8 (6.4-8.2) g/dL Albumin 3.5 (3.4-5.0) g/dL Globulin 4.3 H (2.6-4.0) g/dL Albumin/Globulin Ratio 0.8 L (0.9-1.6) Lipase 346 (73-393) U/L SARS-CoV-2 RNA (JESSICA) NEGATIVE (NEGATIVE) Result Diagrams: 09/19/21 08:35 09/19/21 08:35 Sepsis Event Note - Evaluation Sepsis Screening Result: No Definite Risk - Focused Exam Vital Signs: Vital Signs Temp Pulse Resp BP Pulse Ox 09/19/21 14:04 36.2 C 65 16 125/71 96 09/19/21 08:30 36.4 C 92 24 H 133/96 H 98 - Problem List (1) COPD (chronic obstructive pulmonary disease) SNOMED Code(s): 75485746 ICD Code: J44.9 - CHRONIC OBSTRUCTIVE PULMONARY DISEASE, UNSPECIFIED Status: Acute Current Visit: Yes (2) Pancreatitis SNOMED Code(s): 12466197 ICD Code: K85.90 - ACUTE PANCREATITIS WITHOUT NECROSIS OR INFECTION, UNSP Status: Acute Current Visit: Yes Qualifiers: Pancreatitis type: unspecified pancreatitis type Acute pancreatitis complication: unspecified (3) CAD (coronary artery disease) SNOMED Code(s): 29501638 ICD Code: I25.10 - ATHSCL HEART DISEASE OF [place] CORONARY ARTERY W/O ANG PCTRS Status: Chronic Current Visit: No (4) HTN (hypertension) SNOMED Code(s): 01156129 ICD Code: I10 - ESSENTIAL (PRIMARY) HYPERTENSION Status: Chronic Current Visit: No (5) History of coronary artery stent placement SNOMED Code(s): 682101647, 689630218 ICD Code: Z95.5 - PRESENCE OF CORONARY ANGIOPLASTY IMPLANT AND GRAFT Status: Chronic Current Visit: No Problem List Initiated/Reviewed/Updated: Yes Orders Last 24hrs: Active Orders 24 hr Category Date Time Status Patient Status [ADT] Routine ADT 09/19/21 11:16 Active Ambulate [RC] ASDIRECTED Care 09/19/21 14:35 Active Antiembolic Devices [RC] PER UNIT ROUTINE Care 09/19/21 14:36 Active Blood Glucose Check, Bedside [RC] Q6H Care 09/19/21 14:35 Active Oxygen Therapy [RC] PRN Care 09/19/21 14:35 Active RT Aerosol Therapy [RC] ASDIRECTED Care 09/19/21 14:37 Active VTE/DVT Education [RC] PER UNIT ROUTINE Care 09/19/21 14:35 Active Vital Signs [RC] Q4H Care 09/19/21 14:35 Active Nothing per Oral Now Diet [DIET] Diet 09/19/21 Dinner Active Albuterol/Ipratropium [DuoNeb 3.0-0.5 MG/3 ML] Med 09/19/21 14:35 Active 3 ml NEB Q4HRRT PRN Enoxaparin [Lovenox] Med 09/19/21 18:00 Active 40 mg SUBCUT Q24H Lactated Ringers [Ringers, Lactated] 1,000 ml Med 09/19/21 14:45 Active IV ASDIRECTED Morphine Med 09/19/21 14:35 Active 2 mg IVPUSH Q3H PRN Ondansetron [Zofran] Med 09/19/21 14:35 Active 4 mg IVPUSH Q4H PRN Pantoprazole [ProTONIX IV] 40 mg Med 09/19/21 18:00 Active Sodium Chloride 0.9% [Normal Saline] 10 ml IV Q24H Sodium Chloride 0.9% [Normal Saline] 1,000 ml Med 09/19/21 11:15 Active IV ASDIRECTED Sodium Chloride 0.9% [Saline Flush] Med 09/19/21 08:43 Active 10 ml FLUSH ASDIRECTED PRN Sodium Chloride 0.9% [Saline Flush] Med 09/19/21 08:43 Active 2.5 ml FLUSH ASDIRECTED PRN Saline Lock Insert [OM.PC] Stat Oth 09/19/21 08:43 Ordered Sequential Compression Device [OM.PC] Per Unit Routine Oth 09/19/21 14:36 Ordered Resuscitation Status Routine Resus Stat 09/19/21 14:35 Ordered Medication Orders Albuterol/Ipratropium (Albuterol/Ipratropium 3.0-0.5 Mg/3 Ml Neb Soln) 3 ml NEB Q4HRRT PRN PRN Reason: Shortness Of Breath/wheezing Enoxaparin Sodium (Enoxaparin 40 Mg/0.4 Ml Syringe) 40 mg SUBCUT Q24H RICHARD Sodium Chloride (Normal Saline) 1,000 mls @ 125 mls/hr IV ASDIRECTED [facility] Last Admin: 09/19/21 11:16 Dose: 125 mls/hr Documented by: SAMIR Lactated Ringer's (Ringers, Lactated) 1,000 mls @ 125 mls/hr IV ASDIRECTED [facility] Last Admin: 09/19/21 15:18 Dose: 125 mls/hr Documented by: CHRISTINA Pantoprazole Sodium 40 mg/ (Sodium Chloride) 10 mls @ 300 mls/hr IV Q24H RICHARD Morphine Sulfate (Morphine 2 Mg/Ml Syringe) 2 mg IVPUSH Q3H PRN PRN Reason: Pain (severe 7-10) Stop: 09/20/21 14:36 Last Admin: 09/19/21 15:17 Dose: 2 mg Documented by: CHRISTINA Ondansetron HCl (Ondansetron 4 Mg/2 Ml Sdv) 4 mg IVPUSH Q4H PRN PRN Reason: Nausea/Vomiting Sodium Chloride (Sodium Chloride 0.9% 10 Ml Syringe) 10 ml FLUSH ASDIRECTED PRN PRN Reason: Keep Vein Open Last Admin: 09/19/21 08:49 Dose: 10 ml Documented by: SAMIR Sodium Chloride (Sodium Chloride 0.9% 2.5 Ml Syringe) 2.5 ml FLUSH ASDIRECTED PRN PRN Reason: Keep Vein Open Last Admin: 09/19/21 08:49 Dose: 2.5 ml Documented by: SAMIR Assessment/Plan Comment:: 71-year-old male admitted for acute pancreatitis. -NPO. -Lactated Ringer's at 125 mL/h. -Pain management with 2 mg IV morphine q 3hrs prn. -We will advance diet as tolerated. Patient was started on vancomycin p.o. on 09/12/2021 for C. difficile. We will resume oral vancomycin to complete the course
[2021-09-19] MEDS: Enoxaparin 40 MG/0.4 ML Syringe SUBCUT SCH (18:16)
[2021-09-19] MEDS: Pantoprazole 40 MG in Sodium Chloride 0.9% 10 ML IV SCH (18:17)
[2021-09-19] MEDS ORDERED: Nitroglycerin 0.4 MG Tab.SL SL PRN (19:25)
[2021-09-19] MEDS ORDERED: 50% Dextrose in Water 50 ML Syringe IVPUSH PRN (19:29)
[2021-09-19] MEDS ORDERED: Glucagon,Human Recombinant 1 MG Vial IM PRN (19:29)
[2021-09-19] MEDS: Piperacillin/Tazobactam 3.375 GM in Sodium Chloride 0.9% 50 ML IV SCH (20:39)
[2021-09-19] MEDS: Insulin Aspart 100 Units/ML 3 ML Pen SUBCUT SCH (20:44)
[2021-09-19] MEDS: Latanoprost 0.005% Ophth Soln 2.5 ML Bottle EYEBOTH SCH (20:47)
[2021-09-19] MEDS: Fluticasone/Salmeterol 250-50 MCG Inhalation Powder 14/Diskus INH SCH (20:47)
[2021-09-19] MEDS: atorvaSTATin 40 MG Tab PO SCH (20:48)
[2021-09-19] MEDS ORDERED: Melatonin 3 MG Tab PO PRN (21:55)
[2021-09-19] MEDS: Dextrose 5%-Lactated Ringers 1,000 ML IV SCH (23:50)
[2021-09-20] MEDS: Insulin Aspart 100 Units/ML 3 ML Pen SUBCUT SCH ×4 (02:15→20:12)
[2021-09-20] MEDS: Piperacillin/Tazobactam 3.375 GM in Sodium Chloride 0.9% 50 ML IV SCH ×3 (03:43→20:13)
[2021-09-20] MEDS: Vancomycin 125 MG Cap PO SCH ×3 (06:04→18:16)
[2021-09-20] MEDS: Fluticasone/Salmeterol 250-50 MCG Inhalation Powder 14/Diskus INH SCH ×2 (06:04→20:13)
[2021-09-20 07:24] LABS: BLOOD UREA NITROGEN,BUN 15 mg/dL (7.0-18.0); CARBON DIOXIDE,CO2 27.2 mmol/L (21.0-32.0); CHLORIDE,CL 105 mmol/L (98-107); GLUCOSE RANDOM 132 mg/dL (74-106); POTASSIUM,K 4.4 mmol/L (3.5-5.1); SODIUM,NA 143 mmol/L (136-148)
[2021-09-20] MEDS: Levothyroxine 50 MCG Tab PO SCH (08:24)
[2021-09-20] MEDS: Isosorbide Mononitrate 30 MG Tab.ER PO SCH (08:24)
[2021-09-20] MEDS: Losartan 50 MG Tab PO SCH (08:25)
[2021-09-20] MEDS: Clopidogrel 75 MG Tab PO SCH (08:26)
[2021-09-20] MEDS: Aspirin 81 MG Tab.EC PO SCH (08:26)
[2021-09-20] MEDS: Fluticasone Propionate Nasal Spray 16 GM Bottle NASBOTH SCH (08:26)
[2021-09-20] MEDS: Morphine 2 MG/ML SYRINGE IVPUSH PRN ×4 (09:36→22:35)
[2021-09-20] MEDS: Dextrose 5%-Lactated Ringers 1,000 ML IV SCH (09:38)
--- NOTE | 2021-09-20 14:42 | PCM.PN ---
- General Info Date of Service: 09/20/21 Admission Dx/Problem (Free Text): Admission Diagnosis/Problem Admission Diagnosis/Problem Pancreatitis Subjective Update: Patient seen at bedside, states that he was feeling much better this morning but now his pain has come back, he does have some appetite. Denies any nausea or vomiting or diarrhea. Functional Status: Denies: Pain Controlled, Tolerating Diet, Ambulating - Review of Systems General: Reports: Fatigue, Malaise. Denies: Fever, Weakness Pulmonary: Denies: Shortness of Breath Cardiovascular: Denies: Chest Pain, Palpitations Gastrointestinal: Reports: Abdominal Pain, Decreased Appetite. Denies: Constipation, Diarrhea, Difficulty Swallowing, Nausea, Vomiting Genitourinary: Denies: Dysuria, Frequency, Burning Musculoskeletal: Denies: Neck Pain, Shoulder Pain, Arm Pain Skin: Denies: Cyanosis, Jaundice, Mottled Neurological: Denies: Confusion, Dizziness, Headache - Patient Data Vitals - Most Recent: Last Vital Signs Temp 36.6 C 09/20/21 11:45 Pulse 72 09/20/21 11:45 Resp 16 09/20/21 11:45 BP 134/74 09/20/21 11:45 Pulse Ox 96 09/20/21 11:45 Weight - Most Recent: 80.286 kg I&O - Last 24 Hours: Intake & Output 09/19/21 09/20/21 09/20/21 22:59 06:59 14:59 Intake Total 350 1225 Output Total 300 750 Balance 50 475 Lab Results Last 24 Hours: Laboratory Results - last 24 hr 09/19/21 09/19/21 09/20/21 Range/Units 16:23 20:42 02:01 WBC (4.0-11.0) K/uL RBC (4.50-5.90) M/uL Hgb (13.0-17.0) g/dL Hct (38.0-50.0) % MCV (80.0-98.0) fL MCH (27.0-32.0) pg MCHC (31.0-37.0) g/dL RDW Std Deviation (28.0-62.0) fl RDW Coeff of Samantha (11.0-15.0) % Plt Count (150-400) K/uL MPV (7.40-12.00) fL Neut % (Auto) (48.0-80.0) % Lymph % (Auto) (16.0-40.0) % [place] % (Auto) (0.0-15.0) % Eos % (Auto) (0.0-7.0) % Baso % (Auto) (0.0-1.5) % Neut # (Auto) (1.4-5.7) K/uL Lymph # (Auto) (0.6-2.4) K/uL [place] # (Auto) (0.0-0.8) K/uL Eos # (Auto) (0.0-0.7) K/uL Baso # (Auto) (0.0-0.1) K/uL Nucleated RBC % /100WBC Nucleated RBCs # K/uL Sodium (136-148) mmol/L Potassium (3.5-5.1) mmol/L Chloride (98-107) mmol/L Carbon Dioxide (21.0-32.0) mmol/L BUN (7.0-18.0) mg/dL Creatinine (0.8-1.3) mg/dL Est Cr Clr Drug Dosing mL/min Estimated GFR (MDRD) ml/min Glucose (74-106) mg/dL POC Glucose 85 75 112 H (70-99) mg/dL Calcium (8.5-10.1) mg/dL Phosphorus (2.6-4.7) mg/dL Magnesium (1.8-2.4) mg/dL Total Bilirubin (0.2-1.0) mg/dL AST (15-37) IU/L ALT (14-63) IU/L Alkaline Phosphatase (46-116) U/L Total Protein (6.4-8.2) g/dL Albumin (3.4-5.0) g/dL Globulin (2.6-4.0) g/dL Albumin/Globulin Ratio (0.9-1.6) 09/20/21 09/20/21 09/20/21 Range/Units 06:00 06:00 08:17 WBC 10.85 (4.0-11.0) K/uL RBC 4.27 L (4.50-5.90) M/uL Hgb 13.1 (13.0-17.0) g/dL Hct 39.6 (38.0-50.0) % MCV 92.7 (80.0-98.0) fL MCH 30.7 (27.0-32.0) pg MCHC 33.1 (31.0-37.0) g/dL RDW Std Deviation 47.9 (28.0-62.0) fl RDW Coeff of Samantha 14 (11.0-15.0) % Plt Count 305 (150-400) K/uL MPV 10.10 (7.40-12.00) fL Neut % (Auto) 74.4 (48.0-80.0) % Lymph % (Auto) 14.2 L (16.0-40.0) % [place] % (Auto) 8.1 (0.0-15.0) % Eos % (Auto) 3.0 (0.0-7.0) % Baso % (Auto) 0.3 (0.0-1.5) % Neut # (Auto) 8.1 H (1.4-5.7) K/uL Lymph # (Auto) 1.5 (0.6-2.4) K/uL [place] # (Auto) 0.9 H (0.0-0.8) K/uL Eos # (Auto) 0.3 (0.0-0.7) K/uL Baso # (Auto) 0.0 (0.0-0.1) K/uL Nucleated RBC % 0.0 /100WBC Nucleated RBCs # 0 K/uL Sodium 143 (136-148) mmol/L Potassium 4.4 (3.5-5.1) mmol/L Chloride 105 (98-107) mmol/L Carbon Dioxide 27.2 (21.0-32.0) mmol/L BUN 15 (7.0-18.0) mg/dL Creatinine 0.9 (0.8-1.3) mg/dL Est Cr Clr Drug Dosing 75.48 mL/min Estimated GFR (MDRD) > 60.0 ml/min Glucose 132 H (74-106) mg/dL POC Glucose 152 H (70-99) mg/dL Calcium 8.5 (8.5-10.1) mg/dL Phosphorus 3.6 (2.6-4.7) mg/dL Magnesium 1.7 L (1.8-2.4) mg/dL Total Bilirubin 0.7 (0.2-1.0) mg/dL AST 19 (15-37) IU/L ALT 26 (14-63) IU/L Alkaline Phosphatase 57 (46-116) U/L Total Protein 6.2 L (6.4-8.2) g/dL Albumin 3.1 L (3.4-5.0) g/dL Globulin 3.1 (2.6-4.0) g/dL Albumin/Globulin Ratio 1.0 (0.9-1.6) 09/20/21 Range/Units 13:13 WBC (4.0-11.0) K/uL RBC (4.50-5.90) M/uL Hgb (13.0-17.0) g/dL Hct (38.0-50.0) % MCV (80.0-98.0) fL MCH (27.0-32.0) pg MCHC (31.0-37.0) g/dL RDW Std Deviation (28.0-62.0) fl RDW Coeff of Samantha (11.0-15.0) % Plt Count (150-400) K/uL MPV (7.40-12.00) fL Neut % (Auto) (48.0-80.0) % Lymph % (Auto) (16.0-40.0) % [place] % (Auto) (0.0-15.0) % Eos % (Auto) (0.0-7.0) % Baso % (Auto) (0.0-1.5) % Neut # (Auto) (1.4-5.7) K/uL Lymph # (Auto) (0.6-2.4) K/uL [place] # (Auto) (0.0-0.8) K/uL Eos # (Auto) (0.0-0.7) K/uL Baso # (Auto) (0.0-0.1) K/uL Nucleated RBC % /100WBC Nucleated RBCs # K/uL Sodium (136-148) mmol/L Potassium (3.5-5.1) mmol/L Chloride (98-107) mmol/L Carbon Dioxide (21.0-32.0) mmol/L BUN (7.0-18.0) mg/dL Creatinine (0.8-1.3) mg/dL Est Cr Clr Drug Dosing mL/min Estimated GFR (MDRD) ml/min Glucose (74-106) mg/dL POC Glucose 117 H (70-99) mg/dL Calcium (8.5-10.1) mg/dL Phosphorus (2.6-4.7) mg/dL Magnesium (1.8-2.4) mg/dL Total Bilirubin (0.2-1.0) mg/dL AST (15-37) IU/L ALT (14-63) IU/L Alkaline Phosphatase (46-116) U/L Total Protein (6.4-8.2) g/dL Albumin (3.4-5.0) g/dL Globulin (2.6-4.0) g/dL Albumin/Globulin Ratio (0.9-1.6) Med Orders - Current: Current Medications Albuterol/Ipratropium (Albuterol/Ipratropium 3.0-0.5 Mg/3 Ml Neb Soln) 3 ml NEB Q4HRRT PRN PRN Reason: Shortness Of Breath/wheezing Aspirin (Aspirin 81 Mg Tab.Ec) 81 mg PO DAILY [facility] Last Admin: 09/20/21 08:26 Dose: 81 mg Documented by: Atorvastatin Calcium (Atorvastatin 40 Mg Tab) 80 mg PO BEDTIME [facility] Last Admin: 09/19/21 20:48 Dose: 80 mg Documented by: Clopidogrel Bisulfate (Clopidogrel 75 Mg Tab) 75 mg PO DAILY [facility] Last Admin: 09/20/21 08:26 Dose: 75 mg Documented by: Dextrose/Water (50% Dextrose In Water 50 Ml Syringe) 50 ml IVPUSH ASDIRECTED PRN PRN Reason: Hypoglycemia Enoxaparin Sodium (Enoxaparin 40 Mg/0.4 Ml Syringe) 40 mg SUBCUT Q24H [facility] Last Admin: 09/19/21 18:16 Dose: 40 mg Documented by: Fluticasone Propionate (Fluticasone Propionate Nasal Bells 16 Gm Bottle) 0 gm NASBOTH DAILY [facility] Last Admin: 09/20/21 08:26 Dose: 2 spray Documented by: Glucagon (Glucagon,Human Recombinant 1 Mg Vial) 1 mg IM ASDIRECTED PRN PRN Reason: Hypoglycemia Pantoprazole Sodium 40 mg/ (Sodium Chloride) 10 mls @ 300 mls/hr IV Q24H [facility] Last Admin: 09/19/21 18:17 Dose: 300 mls/hr Documented by: Piperacillin Sod/Tazobactam (Sod 3.375 gm/ Sodium Chloride) 50 mls @ 100 mls/hr IV Q8H [facility] Last Admin: 09/20/21 11:24 Dose: 100 mls/hr Documented by: Dextrose/Lactated Ringer's (Dextrose 5%-Lactated Ringers) 1,000 mls @ 125 mls/hr IV ASDIRECTED [facility] Last Admin: 09/20/21 09:38 Dose: 125 mls/hr Documented by: Insulin Aspart (Insulin Aspart 100 Units/Ml 3 Ml Pen) 0 unit SUBCUT Q6H [facility]; Protocol Last Admin: 09/20/21 13:15 Dose: Not Given Documented by: Isosorbide Mononitrate (Isosorbide Mononitrate 30 Mg Tab.Er) 30 mg PO DAILY [facility] Last Admin: 09/20/21 08:24 Dose: 30 mg Documented by: Latanoprost (Latanoprost 0.005% Ophth Soln 2.5 Ml Bottle) 0 ml EYEBOTH BEDTIME [facility] Last Admin: 09/19/21 20:47 Dose: 1 drop Documented by: Levothyroxine Sodium (Levothyroxine 50 Mcg Tab) 50 mcg PO ACBREAKFAST [facility] Last Admin: 09/20/21 08:24 Dose: 50 mcg Documented by: Losartan Potassium (Losartan 50 Mg Tab) 25 mg PO DAILY [facility] Last Admin: 09/20/21 08:25 Dose: 25 mg Documented by: Melatonin (Melatonin 3 Mg Tab) 6 mg PO BEDTIME PRN PRN Reason: Insomnia Morphine Sulfate (Morphine 2 Mg/Ml Syringe) 2 mg IVPUSH Q3H PRN PRN Reason: Pain (severe 7-10) Stop: 09/20/21 14:36 Last Admin: 09/20/21 13:15 Dose: 2 mg Documented by: Nitroglycerin (Nitroglycerin 0.4 Mg Tab.Sl) 0.4 mg SL Q5M PRN PRN Reason: Chest Pain Ondansetron HCl (Ondansetron 4 Mg/2 Ml Sdv) 4 mg IVPUSH Q4H PRN PRN Reason: Nausea/Vomiting Fluticasone/Salmeterol (Fluticasone/Salmeterol 250-50 Mcg Inhalation Powder 14/Diskus) 1 puff INH BIDRT [facility] Last Admin: 09/20/21 06:04 Dose: 1 puff Documented by: Sodium Chloride (Sodium Chloride 0.9% 10 Ml Syringe) 10 ml FLUSH ASDIRECTED PRN PRN Reason: Keep Vein Open Last Admin: 09/19/21 08:49 Dose: 10 ml Documented by: Sodium Chloride (Sodium Chloride 0.9% 2.5 Ml Syringe) 2.5 ml FLUSH ASDIRECTED PRN PRN Reason: Keep Vein Open Last Admin: 09/19/21 08:49 Dose: 2.5 ml Documented by: Tamsulosin HCl (Tamsulosin 0.4 Mg Cap.Er) [facility] Vancomycin HCl (Vancomycin 125 Mg Cap) 125 mg PO QID [facility] Last Admin: 09/20/21 11:22 Dose: 125 mg Documented by: Discontinued Medications Sodium Chloride (Normal Saline) 1,000 mls @ 125 mls/hr IV ASDIRECTED [facility] Last Admin: 09/19/21 11:16 Dose: 125 mls/hr Documented by: Lactated Ringer's (Ringers, Lactated) 1,000 mls @ 125 mls/hr IV ASDIRECTED [facility] Last Admin: 09/19/21 15:18 Dose: 125 mls/hr Documented by: Iopamidol (Iopamidol 755 Mg/Ml 500 Ml Multipack Bottle) 100 ml IVPUSH ONETIME STA Stop: 09/19/21 10:08 Last Admin: 09/19/21 10:08 Dose: 100 ml Documented by: Morphine Sulfate (Morphine 4 Mg/Ml Syringe) 4 mg IVPUSH ONETIME ONE Stop: 09/19/21 08:50 Last Admin: 09/19/21 09:26 Dose: Not Given Documented by: Morphine Sulfate (Morphine 4 Mg/Ml Vial) 4 mg IVPUSH ONETIME ONE Stop: 09/19/21 09:01 Last Admin: 09/19/21 09:26 Dose: 4 mg Documented by: Ondansetron HCl (Ondansetron 4 Mg/2 Ml Sdv) 4 mg IVPUSH ONETIME ONE Stop: 09/19/21 08:50 Last Admin: 09/19/21 08:54 Dose: 4 mg Documented by: - Exam Quality Assessment: Supplemental Oxygen General: Alert, Oriented Neck: Supple Lungs: Clear to Auscultation, Normal Respiratory Effort Cardiovascular: Regular Rate, Regular Rhythm GI/Abdominal Exam: Normal Bowel Sounds, Soft, Tender, Hepatomegaly. No: Splenomegaly Extremities: Normal Inspection, Normal Range of Motion - Patient Data Lab Results Last 24 hrs: Laboratory Results - last 24 hr 09/19/21 09/19/21 09/20/21 Range/Units 16:23 20:42 02:01 WBC (4.0-11.0) K/uL RBC (4.50-5.90) M/uL Hgb (13.0-17.0) g/dL Hct (38.0-50.0) % MCV (80.0-98.0) fL MCH (27.0-32.0) pg MCHC (31.0-37.0) g/dL RDW Std Deviation (28.0-62.0) fl RDW Coeff of Samantha (11.0-15.0) % Plt Count (150-400) K/uL MPV (7.40-12.00) fL Neut % (Auto) (48.0-80.0) % Lymph % (Auto) (16.0-40.0) % [place] % (Auto) (0.0-15.0) % Eos % (Auto) (0.0-7.0) % Baso % (Auto) (0.0-1.5) % Neut # (Auto) (1.4-5.7) K/uL Lymph # (Auto) (0.6-2.4) K/uL [place] # (Auto) (0.0-0.8) K/uL Eos # (Auto) (0.0-0.7) K/uL Baso # (Auto) (0.0-0.1) K/uL Nucleated RBC % /100WBC Nucleated RBCs # K/uL Sodium (136-148) mmol/L Potassium (3.5-5.1) mmol/L Chloride (98-107) mmol/L Carbon Dioxide (21.0-32.0) mmol/L BUN (7.0-18.0) mg/dL Creatinine (0.8-1.3) mg/dL Est Cr Clr Drug Dosing mL/min Estimated GFR (MDRD) ml/min Glucose (74-106) mg/dL POC Glucose 85 75 112 H (70-99) mg/dL Calcium (8.5-10.1) mg/dL Phosphorus (2.6-4.7) mg/dL Magnesium (1.8-2.4) mg/dL Total Bilirubin (0.2-1.0) mg/dL AST (15-37) IU/L ALT (14-63) IU/L Alkaline Phosphatase (46-116) U/L Total Protein (6.4-8.2) g/dL Albumin (3.4-5.0) g/dL Globulin (2.6-4.0) g/dL Albumin/Globulin Ratio (0.9-1.6) 09/20/21 09/20/21 09/20/21 Range/Units 06:00 06:00 08:17 WBC 10.85 (4.0-11.0) K/uL RBC 4.27 L (4.50-5.90) M/uL Hgb 13.1 (13.0-17.0) g/dL Hct 39.6 (38.0-50.0) % MCV 92.7 (80.0-98.0) fL MCH 30.7 (27.0-32.0) pg MCHC 33.1 (31.0-37.0) g/dL RDW Std Deviation 47.9 (28.0-62.0) fl RDW Coeff of Samantha 14 (11.0-15.0) % Plt Count 305 (150-400) K/uL MPV 10.10 (7.40-12.00) fL Neut % (Auto) 74.4 (48.0-80.0) % Lymph % (Auto) 14.2 L (16.0-40.0) % [place] % (Auto) 8.1 (0.0-15.0) % Eos % (Auto) 3.0 (0.0-7.0) % Baso % (Auto) 0.3 (0.0-1.5) % Neut # (Auto) 8.1 H (1.4-5.7) K/uL Lymph # (Auto) 1.5 (0.6-2.4) K/uL [place] # (Auto) 0.9 H (0.0-0.8) K/uL Eos # (Auto) 0.3 (0.0-0.7) K/uL Baso # (Auto) 0.0 (0.0-0.1) K/uL Nucleated RBC % 0.0 /100WBC Nucleated RBCs # 0 K/uL Sodium 143 (136-148) mmol/L Potassium 4.4 (3.5-5.1) mmol/L Chloride 105 (98-107) mmol/L Carbon Dioxide 27.2 (21.0-32.0) mmol/L BUN 15 (7.0-18.0) mg/dL Creatinine 0.9 (0.8-1.3) mg/dL Est Cr Clr Drug Dosing 75.48 mL/min Estimated GFR (MDRD) > 60.0 ml/min Glucose 132 H (74-106) mg/dL POC Glucose 152 H (70-99) mg/dL Calcium 8.5 (8.5-10.1) mg/dL Phosphorus 3.6 (2.6-4.7) mg/dL Magnesium 1.7 L (1.8-2.4) mg/dL Total Bilirubin 0.7 (0.2-1.0) mg/dL AST 19 (15-37) IU/L ALT 26 (14-63) IU/L Alkaline Phosphatase 57 (46-116) U/L Total Protein 6.2 L (6.4-8.2) g/dL Albumin 3.1 L (3.4-5.0) g/dL Globulin 3.1 (2.6-4.0) g/dL Albumin/Globulin Ratio 1.0 (0.9-1.6) 09/20/21 Range/Units 13:13 WBC (4.0-11.0) K/uL RBC (4.50-5.90) M/uL Hgb (13.0-17.0) g/dL Hct (38.0-50.0) % MCV (80.0-98.0) fL MCH (27.0-32.0) pg MCHC (31.0-37.0) g/dL RDW Std Deviation (28.0-62.0) fl RDW Coeff of Samantha (11.0-15.0) % Plt Count (150-400) K/uL MPV (7.40-12.00) fL Neut % (Auto) (48.0-80.0) % Lymph % (Auto) (16.0-40.0) % [place] % (Auto) (0.0-15.0) % Eos % (Auto) (0.0-7.0) % Baso % (Auto) (0.0-1.5) % Neut # (Auto) (1.4-5.7) K/uL Lymph # (Auto) (0.6-2.4) K/uL [place] # (Auto) (0.0-0.8) K/uL Eos # (Auto) (0.0-0.7) K/uL Baso # (Auto) (0.0-0.1) K/uL Nucleated RBC % /100WBC Nucleated RBCs # K/uL Sodium (136-148) mmol/L Potassium (3.5-5.1) mmol/L Chloride (98-107) mmol/L Carbon Dioxide (21.0-32.0) mmol/L BUN (7.0-18.0) mg/dL Creatinine (0.8-1.3) mg/dL Est Cr Clr Drug Dosing mL/min Estimated GFR (MDRD) ml/min Glucose (74-106) mg/dL POC Glucose 117 H (70-99) mg/dL Calcium (8.5-10.1) mg/dL Phosphorus (2.6-4.7) mg/dL Magnesium (1.8-2.4) mg/dL Total Bilirubin (0.2-1.0) mg/dL AST (15-37) IU/L ALT (14-63) IU/L Alkaline Phosphatase (46-116) U/L Total Protein (6.4-8.2) g/dL Albumin (3.4-5.0) g/dL Globulin (2.6-4.0) g/dL Albumin/Globulin Ratio (0.9-1.6) Result Diagrams: 09/20/21 06:00 09/20/21 06:00 Sepsis Event Note - Evaluation Sepsis Screening Result: No Definite Risk - Focused Exam Vital Signs: Vital Signs Temp Pulse Resp BP BP Pulse Ox 09/20/21 11:45 36.6 C 72 16 134/74 96 09/20/21 08:25 160/82 H 09/20/21 08:24 160/82 H 09/20/21 07:55 36.6 C 70 18 160/82 H 98 09/20/21 04:00 36.3 C 72 18 132/68 98 - Problem List & Annotations (1) COPD (chronic obstructive pulmonary disease) SNOMED Code(s): 20898802 Code(s): J44.9 - CHRONIC OBSTRUCTIVE PULMONARY DISEASE, UNSPECIFIED Status: Acute Current Visit: Yes (2) Pancreatitis SNOMED Code(s): 59681599 Code(s): K85.90 - ACUTE PANCREATITIS WITHOUT NECROSIS OR INFECTION, UNSP Status: Acute Current Visit: Yes Qualifiers: Pancreatitis type: unspecified pancreatitis type Acute pancreatitis complication: unspecified (3) CAD (coronary artery disease) SNOMED Code(s): 91934005 Code(s): I25.10 - ATHSCL HEART DISEASE OF [place] CORONARY ARTERY W/O ANG PCTRS Status: Chronic Current Visit: No (4) HTN (hypertension) SNOMED Code(s): 09764862 Code(s): I10 - ESSENTIAL (PRIMARY) HYPERTENSION Status: Chronic Current Visit: No (5) History of coronary artery stent placement SNOMED Code(s): 351460068, 211746742 Code(s): Z95.5 - PRESENCE OF CORONARY ANGIOPLASTY IMPLANT AND GRAFT Status: Chronic Current Visit: No - Problem List Review Problem List Initiated/Reviewed/Updated: Yes - My Orders Last 24 Hours: My Active Orders 09/19/21 14:35 Ambulate [RC] ASDIRECTED Blood Glucose Check, Bedside [RC] Q6H Oxygen Therapy [RC] PRN VTE/DVT Education [RC] PER UNIT ROUTINE Vital Signs [RC] Q4H Albuterol/Ipratropium [DuoNeb 3.0-0.5 MG/3 ML] 3 ml NEB Q4HRRT PRN Morphine 2 mg IVPUSH Q3H PRN Ondansetron [Zofran] 4 mg IVPUSH Q4H PRN Resuscitation Status Routine 09/19/21 14:36 Antiembolic Devices [RC] PER UNIT ROUTINE Sequential Compression Device [OM.PC] Per Unit Routine 09/19/21 14:37 RT Aerosol Therapy [RC] ASDIRECTED 09/19/21 Dinner Nothing per Oral Now Diet [DIET] 09/19/21 18:00 Enoxaparin [Lovenox] 40 mg SUBCUT Q24H Pantoprazole [ProTONIX IV] 40 mg Sodium Chloride 0.9% [Normal Saline] 10 ml IV Q24H 09/19/21 19:25 Nitroglycerin [Nitrostat] 0.4 mg SL Q5M PRN 09/19/21 19:29 Dextrose 50% in Water 50 ml IVPUSH ASDIRECTED PRN Glucagon,Human Recombinant [GlucaGen] 1 mg IM ASDIRECTED PRN 09/19/21 19:30 Dextrose 5%-Lactated Ringers 1,000 ml IV ASDIRECTED 09/19/21 20:00 Insulin Aspart [NovoLOG] See Protocol SUBCUT Q6H Piperacillin/Tazobactam [Piperacil-Tazobact] 3.375 gm Sodium Chloride 0.9% [Normal Saline AdvBag] 50 ml IV Q8H 09/19/21 21:00 Fluticasone/Salmeterol [Advair Diskus 250-50] 1 puff INH BIDRT Latanoprost [Xalatan 0.005% Ophth Soln] 0 ml EYEBOTH BEDTIME atorvaSTATin [Lipitor] 80 mg PO BEDTIME 09/19/21 21:55 Melatonin 6 mg PO BEDTIME PRN 09/20/21 06:00 Vancomycin [Vancocin 125 MG Capsule] 125 mg PO QID 09/20/21 07:30 Levothyroxine [Synthroid] 50 mcg PO ACBREAKFAST 09/20/21 09:00 Aspirin [Halfprin] 81 mg PO DAILY Clopidogrel [Plavix] 75 mg PO DAILY Fluticasone Propionate [Flonase] 0 gm NASBOTH DAILY Isosorbide Mononitrate [Imdur] 30 mg PO DAILY Losartan [Cozaar] 25 mg PO DAILY 09/20/21 17:30 Tamsulosin [Flomax] 0.4 mg PO WITHDINNER - Plan Plan:: 71-year-old male admitted for acute pancreatitis. -NPO for now, -Continue Lactated Ringer's at 125 mL/h. -Pain management with 2 mg IV morphine q 3hrs prn. -We will advance diet as tolerated. -Patient was started on vancomycin p.o. on 09/12/2021 for C. difficile. We will resume oral vancomycin to complete the course
[2021-09-20] MEDS ORDERED: Magnesium Sulfate/Water 4 GM in Premix Bag 1 BAG IV ONE (14:49)
[2021-09-20] MEDS: Tamsulosin 0.4 MG Cap.ER PO SCH (16:32)
[2021-09-20] MEDS: Carboxymethylcellulose Sodium 0.5% Ophth Soln 0.4 ML UD Box of 30 EYEBOTH PRN (16:33)
[2021-09-20] MEDS: Enoxaparin 40 MG/0.4 ML Syringe SUBCUT SCH (18:16)
[2021-09-20] MEDS: Pantoprazole 40 MG in Sodium Chloride 0.9% 10 ML IV SCH (18:17)
[2021-09-20] MEDS: atorvaSTATin 40 MG Tab PO SCH (20:13)
[2021-09-20] MEDS: Latanoprost 0.005% Ophth Soln 2.5 ML Bottle EYEBOTH SCH (20:14)
[2021-09-20] MEDS: Lactated Ringers 1,000 ML IV SCH (22:50)
[2021-09-21] MEDS: Vancomycin 125 MG Cap PO SCH ×5 (00:18→23:40)
[2021-09-21] MEDS: Piperacillin/Tazobactam 3.375 GM in Sodium Chloride 0.9% 50 ML IV SCH ×2 (04:11→11:46)
[2021-09-21] MEDS: Fluticasone/Salmeterol 250-50 MCG Inhalation Powder 14/Diskus INH SCH ×2 (06:46→21:04)
[2021-09-21] MEDS: Levothyroxine 50 MCG Tab PO SCH (06:47)
[2021-09-21] MEDS: Morphine 2 MG/ML SYRINGE IVPUSH PRN ×4 (06:49→18:42)
[2021-09-21 07:42] LABS: BLOOD UREA NITROGEN,BUN 7 mg/dL (7.0-18.0); CARBON DIOXIDE,CO2 23.4 mmol/L (21.0-32.0); CHLORIDE,CL 103 mmol/L (98-107); GLUCOSE RANDOM 99 mg/dL (74-106); POTASSIUM,K 3.6 mmol/L (3.5-5.1); SODIUM,NA 141 mmol/L (136-148)
[2021-09-21] MEDS: Insulin Aspart 100 Units/ML 3 ML Pen SUBCUT SCH ×4 (08:15→21:04)
[2021-09-21] MEDS: Lactated Ringers 1,000 ML IV SCH ×2 (08:17→18:42)
[2021-09-21] MEDS: Clopidogrel 75 MG Tab PO SCH (08:23)
[2021-09-21] MEDS: Isosorbide Mononitrate 30 MG Tab.ER PO SCH (08:23)
[2021-09-21] MEDS: Fluticasone Propionate Nasal Spray 16 GM Bottle NASBOTH SCH (08:23)
[2021-09-21] MEDS: Losartan 50 MG Tab PO SCH (08:24)
[2021-09-21] MEDS: Aspirin 81 MG Tab.EC PO SCH (08:24)
[2021-09-21] MEDS: Carboxymethylcellulose Sodium 0.5% Ophth Soln 0.4 ML UD Box of 30 EYEBOTH PRN (08:26)
--- NOTE | 2021-09-21 13:42 | PCM.PN ---
- General Info Date of Service: 09/21/21 Admission Dx/Problem (Free Text): Admission Diagnosis/Problem Admission Diagnosis/Problem Pancreatitis Subjective Update: Patient seen at bedside, states pain is better, 3/10, Denies any nausea or vom iting or diarrhea. Functional Status: Reports: Tolerating Diet, Ambulating, Urinating - Review of Systems General: Denies: Fever, Weakness, Fatigue Pulmonary: Denies: Shortness of Breath, Pleuritic Chest Pain Cardiovascular: Denies: Chest Pain, Palpitations Gastrointestinal: Reports: Abdominal Pain (improved). Denies: Constipation, Difficulty Swallowing, Nausea, Vomiting Genitourinary: Denies: Dysuria, Frequency, Burning Musculoskeletal: Reports: Back Pain. Denies: Neck Pain, Shoulder Pain, Leg Pain, Foot Pain - Patient Data Vitals - Most Recent: Last Vital Signs Temp 36.5 C 09/21/21 08:00 Pulse 83 09/21/21 08:00 Resp 16 09/21/21 08:00 BP 156/80 H 09/21/21 08:24 Pulse Ox 96 09/21/21 08:00 Weight - Most Recent: 80.286 kg I&O - Last 24 Hours: Intake & Output 09/20/21 09/21/21 09/21/21 22:59 06:59 14:59 Intake Total 1763 550 Output Total 750 600 Balance 1013 -50 Lab Results Last 24 Hours: Laboratory Results - last 24 hr 09/20/21 09/21/21 09/21/21 Range/Units 20:11 05:39 05:39 WBC 10.74 (4.0-11.0) K/uL RBC 4.26 L (4.50-5.90) M/uL Hgb 13.4 (13.0-17.0) g/dL Hct 39.0 (38.0-50.0) % MCV 91.5 (80.0-98.0) fL MCH 31.5 (27.0-32.0) pg MCHC 34.4 (31.0-37.0) g/dL RDW Std Deviation 46.5 (28.0-62.0) fl RDW Coeff of Samantha 14 (11.0-15.0) % Plt Count 308 (150-400) K/uL MPV 10.90 (7.40-12.00) fL Neut % (Auto) 76.2 (48.0-80.0) % Lymph % (Auto) 13.3 L (16.0-40.0) % [place] % (Auto) 6.5 (0.0-15.0) % Eos % (Auto) 3.7 (0.0-7.0) % Baso % (Auto) 0.3 (0.0-1.5) % Neut # (Auto) 8.2 H (1.4-5.7) K/uL Lymph # (Auto) 1.4 (0.6-2.4) K/uL [place] # (Auto) 0.7 (0.0-0.8) K/uL Eos # (Auto) 0.4 (0.0-0.7) K/uL Baso # (Auto) 0.0 (0.0-0.1) K/uL Nucleated RBC % 0.0 /100WBC Nucleated RBCs # 0 K/uL Sodium 141 (136-148) mmol/L Potassium 3.6 (3.5-5.1) mmol/L Chloride 103 (98-107) mmol/L Carbon Dioxide 23.4 (21.0-32.0) mmol/L BUN 7 (7.0-18.0) mg/dL Creatinine 0.6 L (0.8-1.3) mg/dL Est Cr Clr Drug Dosing 113.22 mL/min Estimated GFR (MDRD) > 60.0 ml/min Glucose 99 (74-106) mg/dL POC Glucose 146 H (70-99) mg/dL Calcium 8.1 L (8.5-10.1) mg/dL Phosphorus 2.8 (2.6-4.7) mg/dL Magnesium 1.9 (1.8-2.4) mg/dL 09/21/21 09/21/21 Range/Units 06:40 12:01 WBC (4.0-11.0) K/uL RBC (4.50-5.90) M/uL Hgb (13.0-17.0) g/dL Hct (38.0-50.0) % MCV (80.0-98.0) fL MCH (27.0-32.0) pg MCHC (31.0-37.0) g/dL RDW Std Deviation (28.0-62.0) fl RDW Coeff of Samantha (11.0-15.0) % Plt Count (150-400) K/uL MPV (7.40-12.00) fL Neut % (Auto) (48.0-80.0) % Lymph % (Auto) (16.0-40.0) % [place] % (Auto) (0.0-15.0) % Eos % (Auto) (0.0-7.0) % Baso % (Auto) (0.0-1.5) % Neut # (Auto) (1.4-5.7) K/uL Lymph # (Auto) (0.6-2.4) K/uL [place] # (Auto) (0.0-0.8) K/uL Eos # (Auto) (0.0-0.7) K/uL Baso # (Auto) (0.0-0.1) K/uL Nucleated RBC % /100WBC Nucleated RBCs # K/uL Sodium (136-148) mmol/L Potassium (3.5-5.1) mmol/L Chloride (98-107) mmol/L Carbon Dioxide (21.0-32.0) mmol/L BUN (7.0-18.0) mg/dL Creatinine (0.8-1.3) mg/dL Est Cr Clr Drug Dosing mL/min Estimated GFR (MDRD) ml/min Glucose (74-106) mg/dL POC Glucose 98 158 H (70-99) mg/dL Calcium (8.5-10.1) mg/dL Phosphorus (2.6-4.7) mg/dL Magnesium (1.8-2.4) mg/dL Med Orders - Current: Current Medications Albuterol/Ipratropium (Albuterol/Ipratropium 3.0-0.5 Mg/3 Ml Neb Soln) 3 ml NEB Q4HRRT PRN PRN Reason: Shortness Of Breath/wheezing Artificial Tears (Carboxymethylcellulose Sodium 0.5% Ophth Soln 0.4 Ml Ud Box Of 30) 1 each EYEBOTH Q6H PRN PRN Reason: Dry Eyes Last Admin: 09/21/21 08:26 Dose: 1 ea Documented by: Aspirin (Aspirin 81 Mg Tab.Ec) 81 mg PO DAILY RICHARD Last Admin: 09/21/21 08:24 Dose: 81 mg Documented by: Atorvastatin Calcium (Atorvastatin 40 Mg Tab) 80 mg PO BEDTIME [facility] Last Admin: 09/20/21 20:13 Dose: 80 mg Documented by: Clopidogrel Bisulfate (Clopidogrel 75 Mg Tab) 75 mg PO DAILY [facility] Last Admin: 09/21/21 08:23 Dose: 75 mg Documented by: Dextrose/Water (50% Dextrose In Water 50 Ml Syringe) 50 ml IVPUSH ASDIRECTED PRN PRN Reason: Hypoglycemia Enoxaparin Sodium (Enoxaparin 40 Mg/0.4 Ml Syringe) 40 mg SUBCUT Q24H [facility] Last Admin: 09/20/21 18:16 Dose: 40 mg Documented by: Fluticasone Propionate (Fluticasone Propionate Nasal Andreas 16 Gm Bottle) 0 gm NASBOTH DAILY [facility] Last Admin: 09/21/21 08:23 Dose: 2 spray Documented by: Glucagon (Glucagon,Human Recombinant 1 Mg Vial) 1 mg IM ASDIRECTED PRN PRN Reason: Hypoglycemia Pantoprazole Sodium 40 mg/ (Sodium Chloride) 10 mls @ 300 mls/hr IV Q24H [facility] Last Admin: 09/20/21 18:17 Dose: 300 mls/hr Documented by: Piperacillin Sod/Tazobactam (Sod 3.375 gm/ Sodium Chloride) 50 mls @ 100 mls/hr IV Q8H [facility] Last Admin: 09/21/21 11:46 Dose: 100 mls/hr Documented by: Dextrose/Lactated Ringer's (Dextrose 5%-Lactated Ringers) 1,000 mls @ 125 mls/hr IV ASDIRECTED [facility] Last Admin: 09/20/21 09:38 Dose: 125 mls/hr Documented by: Lactated Ringer's (Ringers, Lactated) 1,000 mls @ 125 mls/hr IV ASDIRECTED [facility] Last Admin: 09/21/21 08:17 Dose: 125 mls/hr Documented by: Insulin Aspart (Insulin Aspart 100 Units/Ml 3 Ml Pen) 0 unit SUBCUT QIDACANDBED [facility]; Protocol Last Admin: 09/21/21 12:36 Dose: 1 unit Documented by: Isosorbide Mononitrate (Isosorbide Mononitrate 30 Mg Tab.Er) 30 mg PO DAILY [facility] Last Admin: 09/21/21 08:23 Dose: 30 mg Documented by: Latanoprost (Latanoprost 0.005% Ophth Soln 2.5 Ml Bottle) 0 ml EYEBOTH BEDTIME [facility] Last Admin: 09/20/21 20:14 Dose: 1 drop Documented by: Levothyroxine Sodium (Levothyroxine 50 Mcg Tab) 50 mcg PO ACBREAKFAST [facility] Last Admin: 09/21/21 06:47 Dose: 50 mcg Documented by: Losartan Potassium (Losartan 50 Mg Tab) 25 mg PO DAILY [facility] Last Admin: 09/21/21 08:24 Dose: 25 mg Documented by: Melatonin (Melatonin 3 Mg Tab) 6 mg PO BEDTIME PRN PRN Reason: Insomnia Morphine Sulfate (Morphine 2 Mg/Ml Syringe) 2 mg IVPUSH Q3H PRN PRN Reason: Pain (severe 7-10) Last Admin: 09/21/21 11:56 Dose: 2 mg Documented by: Nitroglycerin (Nitroglycerin 0.4 Mg Tab.Sl) 0.4 mg SL Q5M PRN PRN Reason: Chest Pain Ondansetron HCl (Ondansetron 4 Mg/2 Ml Sdv) 4 mg IVPUSH Q4H PRN PRN Reason: Nausea/Vomiting Fluticasone/Salmeterol (Fluticasone/Salmeterol 250-50 Mcg Inhalation Powder 14/Diskus) 1 puff INH BIDRT [facility] Last Admin: 09/21/21 06:46 Dose: 1 puff Documented by: Sodium Chloride (Sodium Chloride 0.9% 10 Ml Syringe) 10 ml FLUSH ASDIRECTED PRN PRN Reason: Keep Vein Open Last Admin: 09/19/21 08:49 Dose: 10 ml Documented by: Sodium Chloride (Sodium Chloride 0.9% 2.5 Ml Syringe) 2.5 ml FLUSH ASDIRECTED PRN PRN Reason: Keep Vein Open Last Admin: 09/19/21 08:49 Dose: 2.5 ml Documented by: Tamsulosin HCl (Tamsulosin 0.4 Mg Cap.Er) 0.4 mg PO WITHDINNER [facility] Last Admin: 09/20/21 16:32 Dose: 0.4 mg Documented by: Vancomycin HCl (Vancomycin 125 Mg Cap) 125 mg PO QID [facility] Last Admin: 09/21/21 11:46 Dose: 125 mg Documented by: Discontinued Medications Sodium Chloride (Normal Saline) 1,000 mls @ 125 mls/hr IV ASDIRECTED [facility] Last Admin: 09/19/21 11:16 Dose: 125 mls/hr Documented by: Lactated Ringer's (Ringers, Lactated) 1,000 mls @ 125 mls/hr IV ASDIRECTED [facility] Last Admin: 09/19/21 15:18 Dose: 125 mls/hr Documented by: Magnesium Sulfate 4 gm/ Premix 100 mls @ 50 mls/hr IV ONETIME ONE Stop: 09/20/21 16:48 Last Admin: 09/20/21 15:57 Dose: 50 mls/hr Documented by: Insulin Aspart (Insulin Aspart 100 Units/Ml 3 Ml Pen) 0 unit SUBCUT Q6H [facility]; Protocol Last Admin: 09/20/21 20:12 Dose: Not Given Documented by: Iopamidol (Iopamidol 755 Mg/Ml 500 Ml Multipack Bottle) 100 ml IVPUSH ONETIME STA Stop: 09/19/21 10:08 Last Admin: 09/19/21 10:08 Dose: 100 ml Documented by: Morphine Sulfate (Morphine 4 Mg/Ml Syringe) 4 mg IVPUSH ONETIME ONE Stop: 09/19/21 08:50 Last Admin: 09/19/21 09:26 Dose: Not Given Documented by: Morphine Sulfate (Morphine 4 Mg/Ml Vial) 4 mg IVPUSH ONETIME ONE Stop: 09/19/21 09:01 Last Admin: 09/19/21 09:26 Dose: 4 mg Documented by: Morphine Sulfate (Morphine 2 Mg/Ml Syringe) 2 mg IVPUSH Q3H PRN PRN Reason: Pain (severe 7-10) Stop: 09/20/21 14:36 Last Admin: 09/20/21 13:15 Dose: 2 mg Documented by: Ondansetron HCl (Ondansetron 4 Mg/2 Ml Sdv) 4 mg IVPUSH ONETIME ONE Stop: 09/19/21 08:50 Last Admin: 09/19/21 08:54 Dose: 4 mg Documented by: - Exam Quality Assessment: No: Supplemental Oxygen General: Alert, Oriented, Cooperative, Mild Distress Lungs: Clear to Auscultation, Normal Respiratory Effort Cardiovascular: Regular Rate, Regular Rhythm GI/Abdominal Exam: Normal Bowel Sounds, Soft, Guarding, Tender, Hepatomegaly. No: Distended, Rigid, Rebound, Splenomegaly Extremities: Normal Inspection, Normal Range of Motion, Non-Tender - Patient Data Lab Results Last 24 hrs: Laboratory Results - last 24 hr 09/20/21 09/21/21 09/21/21 Range/Units 20:11 05:39 05:39 WBC 10.74 (4.0-11.0) K/uL RBC 4.26 L (4.50-5.90) M/uL Hgb 13.4 (13.0-17.0) g/dL Hct 39.0 (38.0-50.0) % MCV 91.5 (80.0-98.0) fL MCH 31.5 (27.0-32.0) pg MCHC 34.4 (31.0-37.0) g/dL RDW Std Deviation 46.5 (28.0-62.0) fl RDW Coeff of Samantha 14 (11.0-15.0) % Plt Count 308 (150-400) K/uL MPV 10.90 (7.40-12.00) fL Neut % (Auto) 76.2 (48.0-80.0) % Lymph % (Auto) 13.3 L (16.0-40.0) % [place] % (Auto) 6.5 (0.0-15.0) % Eos % (Auto) 3.7 (0.0-7.0) % Baso % (Auto) 0.3 (0.0-1.5) % Neut # (Auto) 8.2 H (1.4-5.7) K/uL Lymph # (Auto) 1.4 (0.6-2.4) K/uL [place] # (Auto) 0.7 (0.0-0.8) K/uL Eos # (Auto) 0.4 (0.0-0.7) K/uL Baso # (Auto) 0.0 (0.0-0.1) K/uL Nucleated RBC % 0.0 /100WBC Nucleated RBCs # 0 K/uL Sodium 141 (136-148) mmol/L Potassium 3.6 (3.5-5.1) mmol/L Chloride 103 (98-107) mmol/L Carbon Dioxide 23.4 (21.0-32.0) mmol/L BUN 7 (7.0-18.0) mg/dL Creatinine 0.6 L (0.8-1.3) mg/dL Est Cr Clr Drug Dosing 113.22 mL/min Estimated GFR (MDRD) > 60.0 ml/min Glucose 99 (74-106) mg/dL POC Glucose 146 H (70-99) mg/dL Calcium 8.1 L (8.5-10.1) mg/dL Phosphorus 2.8 (2.6-4.7) mg/dL Magnesium 1.9 (1.8-2.4) mg/dL 09/21/21 09/21/21 Range/Units 06:40 12:01 WBC (4.0-11.0) K/uL RBC (4.50-5.90) M/uL Hgb (13.0-17.0) g/dL Hct (38.0-50.0) % MCV (80.0-98.0) fL MCH (27.0-32.0) pg MCHC (31.0-37.0) g/dL RDW Std Deviation (28.0-62.0) fl RDW Coeff of Samantha (11.0-15.0) % Plt Count (150-400) K/uL MPV (7.40-12.00) fL Neut % (Auto) (48.0-80.0) % Lymph % (Auto) (16.0-40.0) % [place] % (Auto) (0.0-15.0) % Eos % (Auto) (0.0-7.0) % Baso % (Auto) (0.0-1.5) % Neut # (Auto) (1.4-5.7) K/uL Lymph # (Auto) (0.6-2.4) K/uL [place] # (Auto) (0.0-0.8) K/uL Eos # (Auto) (0.0-0.7) K/uL Baso # (Auto) (0.0-0.1) K/uL Nucleated RBC % /100WBC Nucleated RBCs # K/uL Sodium (136-148) mmol/L Potassium (3.5-5.1) mmol/L Chloride (98-107) mmol/L Carbon Dioxide (21.0-32.0) mmol/L BUN (7.0-18.0) mg/dL Creatinine (0.8-1.3) mg/dL Est Cr Clr Drug Dosing mL/min Estimated GFR (MDRD) ml/min Glucose (74-106) mg/dL POC Glucose 98 158 H (70-99) mg/dL Calcium (8.5-10.1) mg/dL Phosphorus (2.6-4.7) mg/dL Magnesium (1.8-2.4) mg/dL Result Diagrams: 09/21/21 05:39 09/21/21 05:39 Sepsis Event Note - Evaluation Sepsis Screening Result: No Definite Risk - Focused Exam Vital Signs: Vital Signs Temp Pulse Resp BP BP Pulse Ox 09/21/21 08:24 156/80 H 09/21/21 08:23 156/80 H 09/21/21 08:00 36.5 C 83 16 122/76 96 09/21/21 04:00 36.4 C 81 18 138/65 95 - Problem List & Annotations (1) COPD (chronic obstructive pulmonary disease) SNOMED Code(s): 41331240 Code(s): J44.9 - CHRONIC OBSTRUCTIVE PULMONARY DISEASE, UNSPECIFIED Status: Acute Current Visit: Yes (2) Pancreatitis SNOMED Code(s): 63135137 Code(s): K85.90 - ACUTE PANCREATITIS WITHOUT NECROSIS OR INFECTION, UNSP Status: Acute Current Visit: Yes Qualifiers: Pancreatitis type: unspecified pancreatitis type Acute pancreatitis complication: unspecified (3) CAD (coronary artery disease) SNOMED Code(s): 37705098 Code(s): I25.10 - ATHSCL HEART DISEASE OF [place] CORONARY ARTERY W/O ANG PCTRS Status: Chronic Current Visit: No (4) HTN (hypertension) SNOMED Code(s): 54525755 Code(s): I10 - ESSENTIAL (PRIMARY) HYPERTENSION Status: Chronic Current Visit: No (5) History of coronary artery stent placement SNOMED Code(s): 461656311, 020293134 Code(s): Z95.5 - PRESENCE OF CORONARY ANGIOPLASTY IMPLANT AND GRAFT Status: Chronic Current Visit: No - Problem List Review Problem List Initiated/Reviewed/Updated: Yes - My Orders Last 24 Hours: My Active Orders 09/20/21 15:47 Morphine 2 mg IVPUSH Q3H PRN 11/02/21 Dinner Advance Diet Instructions [DIET] 09/20/21 16:18 Carboxymethylcellulose Sodium [Refresh Plus 0.5%] 1 each EYEBOTH Q6H PRN 09/20/21 17:30 Tamsulosin [Flomax] 0.4 mg PO WITHDINNER 09/20/21 22:45 Lactated Ringers [Ringers, Lactated] 1,000 ml IV ASDIRECTED 09/21/21 01:46 Blood Glucose Check, Bedside [RC] WITHMEALSANDBED 09/21/21 Breakfast Full Liquid Diet [DIET] 09/21/21 07:30 Insulin Aspart [NovoLOG] See Protocol SUBCUT QIDACANDBED - Plan Plan:: 71-year-old male admitted for acute pancreatitis. -started full clear diet today -Continue Lactated Ringer's at 125 mL/h. -Pain management with 2 mg IV morphine q 3hrs prn. -We will advance diet as tolerated. -Patient was started on vancomycin p.o. on 09/12/2021 for C. difficile. We will resume oral vancomycin to complete the course , needs another 3 day.
[2021-09-21] MEDS: Tamsulosin 0.4 MG Cap.ER PO SCH (17:45)
[2021-09-21] MEDS: Enoxaparin 40 MG/0.4 ML Syringe SUBCUT SCH (17:46)
[2021-09-21] MEDS: Pantoprazole 40 MG in Sodium Chloride 0.9% 10 ML IV SCH (17:46)
[2021-09-21] MEDS: Latanoprost 0.005% Ophth Soln 2.5 ML Bottle EYEBOTH SCH (21:03)
[2021-09-21] MEDS: atorvaSTATin 40 MG Tab PO SCH (21:03)
[2021-09-21] MEDS: Acetaminophen/oxyCODONE 325-5 MG Tab PO PRN (23:41)
[2021-09-22] MEDS: Acetaminophen/oxyCODONE 325-5 MG Tab PO PRN (06:11)
[2021-09-22] MEDS: Vancomycin 125 MG Cap PO SCH (06:12)
[2021-09-22] MEDS: Fluticasone/Salmeterol 250-50 MCG Inhalation Powder 14/Diskus INH SCH (06:13)
[2021-09-22] MEDS: Insulin Aspart 100 Units/ML 3 ML Pen SUBCUT SCH ×2 (06:58→12:57)
[2021-09-22 07:00] LABS: BLOOD UREA NITROGEN,BUN 3 mg/dL (7.0-18.0); CARBON DIOXIDE,CO2 29.5 mmol/L (21.0-32.0); CHLORIDE,CL 103 mmol/L (98-107); GLUCOSE RANDOM 105 mg/dL (74-106); POTASSIUM,K 3.7 mmol/L (3.5-5.1); SODIUM,NA 140 mmol/L (136-148)
[2021-09-22] MEDS: Levothyroxine 50 MCG Tab PO SCH (07:01)
[2021-09-22] MEDS: Losartan 50 MG Tab PO SCH (09:10)
[2021-09-22] MEDS: Isosorbide Mononitrate 30 MG Tab.ER PO SCH (09:11)
[2021-09-22] MEDS: Aspirin 81 MG Tab.EC PO SCH (09:11)
[2021-09-22] MEDS: Clopidogrel 75 MG Tab PO SCH (09:11)
[2021-09-22] MEDS: Fluticasone Propionate Nasal Spray 16 GM Bottle NASBOTH SCH (09:12)
[2021-09-22] MEDS ORDERED: Magnesium Sulfate/Water 2 GM/50 ML Premix Bag IV ONE (10:24)
[2021-09-22] MEDS ORDERED: Magnesium Sulfate/Water 50 ML IV ONE (10:30)
--- NOTE | 2021-09-22 11:25 | PCM.DCSUM1 ---
Discharge Summary - Discharge Data Discharge Date: 09/22/21 Discharge Disposition: Home, Self-Care 01 Condition: Stable - Referral to Home Health Primary Care Physician: Eliezer Edwards NP - Patient Summary/Data Hospital Course: 71-year-old male with a history of CAD, HTN, HLD, COPD, aortic aneurysm who was admitted for pancreatitis. Patient was recently admitted for ETOH pancreatitis. He presented to the ED again with two days of abdominal pain. CT abdomen showed some fat stranding around the pancreas indicating of acute pancreatitis. Lipase was upper limit of normal. Patient was treated with IV fluids and bowel rest. His abdominal pain has resolved and is tolerating an oral diet. Patient is requesting discharge home. He is to follow up with Eliezer Edwards. - Patient Instructions Diet: No Alcoholic Beverages, Clear Liquid Diet (clear liquid diet for 24 hours then advance as tolerated) - Discharge Plan Home Medications: Home Meds Clopidogrel Bisulfate [Clopidogrel] 75 mg PO DAILY 03/11/19 [History] Isosorbide Mononitrate [Imdur] 30 mg PO DAILY 03/11/19 [History] Latanoprost/Pf [Latanoprost 0.005% Eye Drop] 1 drop EYEBOTH BEDTIME 03/11/19 [History] Levothyroxine Sodium 50 mcg PO ACBREAKFAST 03/11/19 [History] Losartan [Cozaar] 25 mg PO DAILY 03/11/19 [History] Potassium Chloride 10 meq PO TID 03/11/19 [History] atorvaSTATin Calcium [Atorvastatin Calcium] 80 mg PO BEDTIME 03/11/19 [History] metFORMIN HCl [Metformin HCl] 1,000 mg PO BID 03/11/19 [History] Albuterol [Ventolin HFA] 2 puff IH Q6H PRN 06/01/19 [History] Pantoprazole Sodium 40 mg PO DAILY 11/22/19 [History] Tamsulosin HCl [Flomax] 0.4 mg PO WITHDINNER 11/22/19 [History] Fluticasone Propionate [Flonase Allergy Relief] 2 spray NASBOTH DAILY 01/28/21 [History] Aspirin [Halfprin] 81 mg PO DAILY 09/15/21 [History] Dicyclomine [Bentyl] 10 mg PO TID 09/15/21 [History] Fluticasone Propion/Salmeterol [Advair 250-50 Diskus] 1 inh IH Q12H 09/15/21 [History] Nitroglycerin 0.4 mg SL .EVERY 5 MINUTES PRN MDD 3 TABLETS 09/15/21 [History] Tiotropium [place] [Spiriva Respimat] 2.5 mcg INH Q24H 09/15/21 [History] Vancomycin [Vancocin 125 MG Capsule] 125 mg PO QID 09/15/21 [History] Vancomycin [First-Vancomycin 25 Compounding Kit] 125 mg PO Q6H bottle 09/17/21 [Rx] Patient Handouts: Chronic Obstructive Pulmonary Disease Exacerbation, [id number], Acute Pancreatitis, [id number], Pancreatitis Eating Plan, Chronic Obstructive Pulmonary Disease, [id number], Eating Plan for Chronic Obstructive Pulmonary Disease, COPD and Physical Activity Referrals: Eliezer Edwards, [employer] [Primary Care Provider] - 09/27/21 3:00 pm (3pm with the nurse 3:30pm with provider) - Discharge Summary/Plan Comment DC Time >30 min.: No Total # of Minutes for Discharge Time: 15 - Patient Data Vitals - Most Recent: Last Vital Signs Temp 36.3 C 09/22/21 07:56 Pulse 68 09/22/21 07:56 Resp 20 09/22/21 07:56 BP 150/85 H 09/22/21 09:11 Pulse Ox 97 09/22/21 07:56 Weight - Most Recent: 80.286 kg I&O - Last 24 hours: Intake & Output 09/21/21 09/22/21 09/22/21 22:59 06:59 14:59 Intake Total 1925 250 Output Total 1 Balance 1925 249 Lab Results - Last 24 hrs: Laboratory Results - last 24 hr 09/21/21 09/21/21 09/21/21 Range/Units 12:01 17:06 20:59 WBC (4.0-11.0) K/uL RBC (4.50-5.90) M/uL Hgb (13.0-17.0) g/dL Hct (38.0-50.0) % MCV (80.0-98.0) fL MCH (27.0-32.0) pg MCHC (31.0-37.0) g/dL RDW Std Deviation (28.0-62.0) fl RDW Coeff of Samantha (11.0-15.0) % Plt Count (150-400) K/uL MPV (7.40-12.00) fL Neut % (Auto) (48.0-80.0) % Lymph % (Auto) (16.0-40.0) % [place] % (Auto) (0.0-15.0) % Eos % (Auto) (0.0-7.0) % Baso % (Auto) (0.0-1.5) % Neut # (Auto) (1.4-5.7) K/uL Lymph # (Auto) (0.6-2.4) K/uL [place] # (Auto) (0.0-0.8) K/uL Eos # (Auto) (0.0-0.7) K/uL Baso # (Auto) (0.0-0.1) K/uL Sodium (136-148) mmol/L Potassium (3.5-5.1) mmol/L Chloride (98-107) mmol/L Carbon Dioxide (21.0-32.0) mmol/L BUN (7.0-18.0) mg/dL Creatinine (0.8-1.3) mg/dL Est Cr Clr Drug Dosing mL/min Estimated GFR (MDRD) ml/min Glucose (74-106) mg/dL POC Glucose 158 H 86 132 H (70-99) mg/dL Calcium (8.5-10.1) mg/dL Phosphorus (2.6-4.7) mg/dL Magnesium (1.8-2.4) mg/dL Total Bilirubin (0.2-1.0) mg/dL AST (15-37) IU/L ALT (14-63) IU/L Alkaline Phosphatase (46-116) U/L Total Protein (6.4-8.2) g/dL Albumin (3.4-5.0) g/dL Globulin (2.6-4.0) g/dL Albumin/Globulin Ratio (0.9-1.6) 09/22/21 09/22/21 09/22/21 Range/Units 05:29 05:29 06:19 WBC 10.20 (4.0-11.0) K/uL RBC 4.43 L (4.50-5.90) M/uL Hgb 13.7 (13.0-17.0) g/dL Hct 40.6 (38.0-50.0) % MCV 91.6 (80.0-98.0) fL MCH 30.9 (27.0-32.0) pg MCHC 33.7 (31.0-37.0) g/dL RDW Std Deviation 44.7 (28.0-62.0) fl RDW Coeff of Samantha 14 (11.0-15.0) % Plt Count 296 (150-400) K/uL MPV 10.10 (7.40-12.00) fL Neut % (Auto) 72.2 (48.0-80.0) % Lymph % (Auto) 15.6 L (16.0-40.0) % [place] % (Auto) 7.6 (0.0-15.0) % Eos % (Auto) 4.4 (0.0-7.0) % Baso % (Auto) 0.2 (0.0-1.5) % Neut # (Auto) 7.4 H (1.4-5.7) K/uL Lymph # (Auto) 1.6 (0.6-2.4) K/uL [place] # (Auto) 0.8 (0.0-0.8) K/uL Eos # (Auto) 0.5 (0.0-0.7) K/uL Baso # (Auto) 0.0 (0.0-0.1) K/uL Sodium 140 (136-148) mmol/L Potassium 3.7 (3.5-5.1) mmol/L Chloride 103 (98-107) mmol/L Carbon Dioxide 29.5 (21.0-32.0) mmol/L BUN 3 L (7.0-18.0) mg/dL Creatinine 0.7 L (0.8-1.3) mg/dL Est Cr Clr Drug Dosing 97.04 mL/min Estimated GFR (MDRD) > 60.0 ml/min Glucose 105 (74-106) mg/dL POC Glucose 120 H (70-99) mg/dL Calcium 8.4 L (8.5-10.1) mg/dL Phosphorus 3.1 (2.6-4.7) mg/dL Magnesium 1.6 L (1.8-2.4) mg/dL Total Bilirubin 0.7 (0.2-1.0) mg/dL AST 15 (15-37) IU/L ALT 22 (14-63) IU/L Alkaline Phosphatase 62 (46-116) U/L Total Protein 6.5 (6.4-8.2) g/dL Albumin 3.3 L (3.4-5.0) g/dL Globulin 3.2 (2.6-4.0) g/dL Albumin/Globulin Ratio 1.0 (0.9-1.6) Med Orders - Current: Current Medications Albuterol/Ipratropium (Albuterol/Ipratropium 3.0-0.5 Mg/3 Ml Neb Soln) 3 ml NEB Q4HRRT PRN PRN Reason: Shortness Of Breath/wheezing Artificial Tears (Carboxymethylcellulose Sodium 0.5% Ophth Soln 0.4 Ml Ud Box Of 30) 1 each EYEBOTH Q6H PRN PRN Reason: Dry Eyes Last Admin: 09/21/21 08:26 Dose: 1 ea Documented by: Aspirin (Aspirin 81 Mg Tab.Ec) 81 mg PO DAILY [facility] Last Admin: 09/22/21 09:11 Dose: 81 mg Documented by: Atorvastatin Calcium (Atorvastatin 40 Mg Tab) 80 mg PO BEDTIME [facility] Last Admin: 09/21/21 21:03 Dose: 80 mg Documented by: Clopidogrel Bisulfate (Clopidogrel 75 Mg Tab) 75 mg PO DAILY [facility] Last Admin: 09/22/21 09:11 Dose: 75 mg Documented by: Dextrose/Water (50% Dextrose In Water 50 Ml Syringe) 50 ml IVPUSH ASDIRECTED PRN PRN Reason: Hypoglycemia Enoxaparin Sodium (Enoxaparin 40 Mg/0.4 Ml Syringe) 40 mg SUBCUT Q24H [facility] Last Admin: 09/21/21 17:46 Dose: 40 mg Documented by: Fluticasone Propionate (Fluticasone Propionate Nasal [place] 16 Gm Bottle) 0 gm NASBOTH DAILY [facility] Last Admin: 09/22/21 09:12 Dose: 2 spray Documented by: Glucagon (Glucagon,Human Recombinant 1 Mg Vial) 1 mg IM ASDIRECTED PRN PRN Reason: Hypoglycemia Pantoprazole Sodium 40 mg/ (Sodium Chloride) 10 mls @ 300 mls/hr IV Q24H [facility] Last Admin: 09/21/21 17:46 Dose: 300 mls/hr Documented by: Dextrose/Lactated Ringer's (Dextrose 5%-Lactated Ringers) 1,000 mls @ 125 mls/hr IV ASDIRECTED [facility] Last Admin: 09/20/21 09:38 Dose: 125 mls/hr Documented by: Magnesium Sulfate (Magnesium Sulfate In Water 2 Gm/50 Ml) 50 mls @ 50 mls/hr IV ASDIRECTED ONE Stop: 09/22/21 11:29 Last Admin: 09/22/21 10:38 Dose: 50 mls/hr Documented by: Insulin Aspart (Insulin Aspart 100 Units/Ml 3 Ml Pen) 0 unit SUBCUT QIDACANDBED [facility]; Protocol Last Admin: 09/22/21 06:58 Dose: Not Given Documented by: Isosorbide Mononitrate (Isosorbide Mononitrate 30 Mg Tab.Er) 30 mg PO DAILY [facility] Last Admin: 09/22/21 09:11 Dose: 30 mg Documented by: Latanoprost (Latanoprost 0.005% Ophth Soln 2.5 Ml Bottle) 0 ml EYEBOTH BEDTIME [facility] Last Admin: 09/21/21 21:03 Dose: 1 drop Documented by: Levothyroxine Sodium (Levothyroxine 50 Mcg Tab) 50 mcg PO ACBREAKFAST [facility] Last Admin: 09/22/21 07:01 Dose: 50 mcg Documented by: Losartan Potassium (Losartan 50 Mg Tab) 25 mg PO DAILY [facility] Last Admin: 09/22/21 09:10 Dose: 25 mg Documented by: Melatonin (Melatonin 3 Mg Tab) 6 mg PO BEDTIME PRN PRN Reason: Insomnia Nitroglycerin (Nitroglycerin 0.4 Mg Tab.Sl) 0.4 mg SL Q5M PRN PRN Reason: Chest Pain Ondansetron HCl (Ondansetron 4 Mg/2 Ml Sdv) 4 mg IVPUSH Q4H PRN PRN Reason: Nausea/Vomiting Oxycodone/Acetaminophen (Acetaminophen/Oxycodone 325-5 Mg Tab) 1 tab PO Q4H PRN PRN Reason: Pain (moderate 4-6) Last Admin: 09/22/21 06:11 Dose: 1 tab Documented by: Fluticasone/Salmeterol (Fluticasone/Salmeterol 250-50 Mcg Inhalation Powder 14/Diskus) 1 puff INH BIDRT [facility] Last Admin: 09/22/21 06:13 Dose: 1 puff Documented by: Sodium Chloride (Sodium Chloride 0.9% 10 Ml Syringe) 10 ml FLUSH ASDIRECTED PRN PRN Reason: Keep Vein Open Last Admin: 09/19/21 08:49 Dose: 10 ml Documented by: Sodium Chloride (Sodium Chloride 0.9% 2.5 Ml Syringe) 2.5 ml FLUSH ASDIRECTED PRN PRN Reason: Keep Vein Open Last Admin: 09/19/21 08:49 Dose: 2.5 ml Documented by: Tamsulosin HCl (Tamsulosin 0.4 Mg Cap.Er) 0.4 mg PO WITHDINNER [facility] Last Admin: 09/21/21 17:45 Dose: 0.4 mg Documented by: Vancomycin HCl (Vancomycin 125 Mg Cap) 125 mg PO QID [facility] Last Admin: 09/22/21 06:12 Dose: 125 mg Documented by: Discontinued Medications Sodium Chloride (Normal Saline) 1,000 mls @ 125 mls/hr IV ASDIRECTED [facility] Last Admin: 09/19/21 11:16 Dose: 125 mls/hr Documented by: Lactated Ringer's (Ringers, Lactated) 1,000 mls @ 125 mls/hr IV ASDIRECTED [facility] Last Admin: 09/19/21 15:18 Dose: 125 mls/hr Documented by: Piperacillin Sod/Tazobactam (Sod 3.375 gm/ Sodium Chloride) 50 mls @ 100 mls/hr IV Q8H [facility] Last Admin: 09/21/21 11:46 Dose: 100 mls/hr Documented by: Magnesium Sulfate 4 gm/ Premix 100 mls @ 50 mls/hr IV ONETIME ONE Stop: 09/20/21 16:48 Last Admin: 09/20/21 15:57 Dose: 50 mls/hr Documented by: Lactated Ringer's (Ringers, Lactated) 1,000 mls @ 125 mls/hr IV ASDIRECTED [facility] Stop: 09/21/21 23:55 Last Admin: 09/21/21 18:42 Dose: 125 mls/hr Documented by: Insulin Aspart (Insulin Aspart 100 Units/Ml 3 Ml Pen) 0 unit SUBCUT Q6H [facility]; Protocol Last Admin: 09/20/21 20:12 Dose: Not Given Documented by: Iopamidol (Iopamidol 755 Mg/Ml 500 Ml Multipack Bottle) 100 ml IVPUSH ONETIME STA Stop: 09/19/21 10:08 Last Admin: 09/19/21 10:08 Dose: 100 ml Documented by: Morphine Sulfate (Morphine 4 Mg/Ml Syringe) 4 mg IVPUSH ONETIME ONE Stop: 09/19/21 08:50 Last Admin: 09/19/21 09:26 Dose: Not Given Documented by: Morphine Sulfate (Morphine 4 Mg/Ml Vial) 4 mg IVPUSH ONETIME ONE Stop: 09/19/21 09:01 Last Admin: 09/19/21 09:26 Dose: 4 mg Documented by: Morphine Sulfate (Morphine 2 Mg/Ml Syringe) 2 mg IVPUSH Q3H PRN PRN Reason: Pain (severe 7-10) Stop: 09/20/21 14:36 Last Admin: 09/20/21 13:15 Dose: 2 mg Documented by: Morphine Sulfate (Morphine 2 Mg/Ml Syringe) 2 mg IVPUSH Q3H PRN PRN Reason: Pain (severe 7-10) Last Admin: 09/21/21 18:42 Dose: 2 mg Documented by: Ondansetron HCl (Ondansetron 4 Mg/2 Ml Sdv) 4 mg IVPUSH ONETIME ONE Stop: 09/19/21 08:50 Last Admin: 09/19/21 08:54 Dose: 4 mg Documented by:
[2021-09-22 12:01] VITALS: BP 134/84; PULSE 76
== END 2021-09-22 13:20 | disposition home or self-care (01) | DRG 439 ==
LOC: MW.ED 08:24 → MW.MS 11:16
PROVIDERS: ADMIT Student in an Organized Health Care Education/Training Program; ATTEND Student in an Organized Health Care Education/Training Program
DX: K85.90 Acute pancreatitis without necrosis or infection, unspecified (principal); A04.72 Enterocolitis due to Clostridium difficile, not specified as recurrent; H40.9 Unspecified glaucoma; H54.7 Unspecified visual loss; I25.10 Atherosclerotic heart disease of native coronary artery without angina pectoris; E78.00 Pure hypercholesterolemia, unspecified; J44.9 Chronic obstructive pulmonary disease, unspecified; N40.0 Benign prostatic hyperplasia without lower urinary tract symptoms; M54.9 Dorsalgia, unspecified; G89.29 Other chronic pain; Z20.822 Contact with and (suspected) exposure to COVID-19; M54.2 Cervicalgia; M48.061 Spinal stenosis, lumbar region without neurogenic claudication; G89.4 Chronic pain syndrome; E11.9 Type 2 diabetes mellitus without complications; E03.9 Hypothyroidism, unspecified; I10 Essential (primary) hypertension; Z79.02 Long term (current) use of antithrombotics/antiplatelets; Z79.84 Long term (current) use of oral hypoglycemic drugs; Z79.890 Hormone replacement therapy; I25.2 Old myocardial infarction; Z95.5 Presence of coronary angioplasty implant and graft; Z87.891 Personal history of nicotine dependence; Z98.49 Cataract extraction status, unspecified eye; Z79.82 Long term (current) use of aspirin; Z79.899 Other long term (current) drug therapy
CPT/HCPCS: 36415; 71045; 71045-26; 74177; 74177-26; 80048; 80053; 82947; 83690; 83735; 84100; 84484; 85025; 93005; 96374; 96375; 99285-25; A9270-GY; C9113; J1650; J1815-GY; J2270; J2405; J2543; J3475; J7030; J7120; J7121; Q9967; U0002

== ENCOUNTER 2021-12-07 10:43 | Day surgery (SDC) | payer OTHER, MEDICARE ==
[~2021-12-07 10:43] MED LIST: Lactated Ringers 1,000 ML IV SCH
[2021-12-07] MEDS ORDERED: fentaNYL 100 MCG/2 ML SDV ONE (12:17)
[2021-12-07] MEDS ORDERED: Propofol 200 MG/20 ML SDV ONE ×3 (12:17→14:22)
[2021-12-07] MEDS ORDERED: Lidocaine 2% 5 ML SDV ONE (12:20)
[2021-12-07 15:01] VITALS: BP 112/72; PULSE 64
== END 2021-12-07 15:10 | disposition home or self-care (01) ==
LOC: MW.SDS 10:43
PROVIDERS: ATTEND Surgery
DX: D12.6 Benign neoplasm of colon, unspecified (principal); K29.70 Gastritis, unspecified, without bleeding; K64.8 Other hemorrhoids; K57.30 Diverticulosis of large intestine without perforation or abscess without bleeding; K25.9 Gastric ulcer, unspecified as acute or chronic, without hemorrhage or perforation; K31.89 Other diseases of stomach and duodenum; I25.10 Atherosclerotic heart disease of native coronary artery without angina pectoris; J44.9 Chronic obstructive pulmonary disease, unspecified; E11.9 Type 2 diabetes mellitus without complications; K21.9 Gastro-esophageal reflux disease without esophagitis; E03.9 Hypothyroidism, unspecified; I10 Essential (primary) hypertension; I25.2 Old myocardial infarction; E78.00 Pure hypercholesterolemia, unspecified; Z79.82 Long term (current) use of aspirin; Z79.899 Other long term (current) drug therapy; Z79.890 Hormone replacement therapy; Z87.891 Personal history of nicotine dependence
CPT/HCPCS: 43239; 45381; 45385; 82947; J2704; J3010; J7120; 00813; 99100

== ENCOUNTER 2022-03-10 11:56 | Emergency (ER) | payer MEDICARE ==
[2022-03-10] MEDS ORDERED: Ondansetron 4 MG/2 ML SDV IVPUSH ONE (12:16)
[2022-03-10] MEDS ORDERED: Sodium Chloride 0.9% 10 ML Syringe FLUSH PRN (12:16)
[2022-03-10] MEDS ORDERED: fentaNYL 50 MCG/ML SDV IVPUSH ONE ×2 (12:16→13:55)
[2022-03-10] MEDS ORDERED: Sodium Chloride 0.9% 2.5 ML Syringe FLUSH PRN (12:16)
[2022-03-10] MEDS ORDERED: Sodium Chloride 0.9% 1,000 ML IV ONE (12:16)
[2022-03-10 13:54] LABS: BLOOD UREA NITROGEN,BUN 19 mg/dL (7.0-18.0); CARBON DIOXIDE,CO2 27.2 mmol/L (21.0-32.0); CHLORIDE,CL 101 mmol/L (98-107); GLUCOSE RANDOM 120 mg/dL (74-106); POTASSIUM,K 3.9 mmol/L (3.5-5.1); SODIUM,NA 138 mmol/L (136-148)
[2022-03-10] MEDS ORDERED: Lidocaine 5% 700 MG Patch TRDERM ONE (13:56)
[2022-03-10] MEDS ORDERED: Orphenadrine 60 MG/2 ML Inj IV ONE (13:56)
[2022-03-10] MEDS ORDERED: Iopamidol 755 MG/ML 500 ML Multipack Bottle IVPUSH ONE (14:51)
[2022-03-10 16:28] VITALS: BP 103/60; PULSE 68
== END 2022-03-10 17:26 | disposition home or self-care (01) ==
LOC: MW.ED 11:56
DX: R07.9 Chest pain, unspecified (principal); M54.50 Low back pain, unspecified; I25.10 Atherosclerotic heart disease of native coronary artery without angina pectoris; J44.9 Chronic obstructive pulmonary disease, unspecified; I10 Essential (primary) hypertension; I25.2 Old myocardial infarction; E11.9 Type 2 diabetes mellitus without complications; F17.210 Nicotine dependence, cigarettes, uncomplicated
CPT/HCPCS: 36415; 71275; 80053; 84484; 85025; 93005; 96374; 96375; 96376; 99285; A9270; J2360; J2405; J3010; J3490; J7030; Q9967

== ENCOUNTER 2022-03-13 08:57 | Emergency (ER) | payer MEDICARE, OTHER ==
[2022-03-13 09:08] VITALS: BP 137/74; PULSE 76
[2022-03-13] MEDS ORDERED: fentaNYL 50 MCG/ML SDV IM ONE (09:31)
[2022-03-13] MEDS ORDERED: Orphenadrine 60 MG/2 ML Inj IM ONE (09:31)
[2022-03-13] MEDS ORDERED: predniSONE 10 MG Tab PO ONE (09:32)
== END 2022-03-13 10:05 | disposition home or self-care (01) ==
LOC: MW.ED 08:57
DX: M54.50 Low back pain, unspecified (principal); G89.29 Other chronic pain; I25.10 Atherosclerotic heart disease of native coronary artery without angina pectoris; I25.2 Old myocardial infarction; J44.9 Chronic obstructive pulmonary disease, unspecified; E03.9 Hypothyroidism, unspecified; E11.9 Type 2 diabetes mellitus without complications; E78.00 Pure hypercholesterolemia, unspecified; Z79.84 Long term (current) use of oral hypoglycemic drugs; Z79.82 Long term (current) use of aspirin; Z79.899 Other long term (current) drug therapy
CPT/HCPCS: 96372; 99283; A9270; J2360; J3010

== ENCOUNTER 2022-04-19 15:54 | Emergency (ER) | payer MEDICARE, OTHER ==
[2022-04-19] MEDS ORDERED: Ondansetron 4 MG/2 ML SDV IVPUSH ONE (16:17)
[2022-04-19] MEDS ORDERED: Morphine 4 MG/ML VIAL IVPUSH ONE (16:17)
[2022-04-19 16:32] LABS: BLOOD UREA NITROGEN,BUN 17 mg/dL (7.0-18.0); CARBON DIOXIDE,CO2 29.9 mmol/L (21.0-32.0); CHLORIDE,CL 101 mmol/L (98-107); GLUCOSE RANDOM 119 mg/dL (74-106); POTASSIUM,K 3.9 mmol/L (3.5-5.1); SODIUM,NA 139 mmol/L (136-148)
[2022-04-19] MEDS ORDERED: Lidocaine 1% 5 ML VIAL INJECT ONE (17:32)
[2022-04-19] MEDS ORDERED: cefTRIAXone 1 GM in Sodium Chloride 0.9% 50 ML IV ONE (18:35)
[2022-04-19] MEDS ORDERED: Morphine 2 MG/ML SYRINGE IVPUSH ONE (18:36)
[2022-04-19 19:48] VITALS: BP 122/76; PULSE 79
== END 2022-04-19 20:00 | disposition home or self-care (01) ==
LOC: MW.ED 15:54
DX: R60.0 Localized edema (principal); J44.9 Chronic obstructive pulmonary disease, unspecified; I10 Essential (primary) hypertension; E11.9 Type 2 diabetes mellitus without complications; N40.0 Benign prostatic hyperplasia without lower urinary tract symptoms; I25.2 Old myocardial infarction; E03.9 Hypothyroidism, unspecified; Z79.02 Long term (current) use of antithrombotics/antiplatelets; Z79.899 Other long term (current) drug therapy; Z79.82 Long term (current) use of aspirin
CPT/HCPCS: 20605; 36415; 73610-26-LT; 73610-LT; 80048; 84550; 85025; 85652; 86140; 87040; 87070; 87205; 93005; 93971-26-LT; 93971-LT; 96365; 96375; 96376; 99285-25; J0696; J2270; J2405

== ENCOUNTER 2022-04-20 19:50 | Inpatient (IN) | payer OTHER, MEDICARE ==
[2022-04-20] MEDS ORDERED: Sodium Chloride 0.9% 2.5 ML Syringe FLUSH PRN (20:18)
[2022-04-20] MEDS ORDERED: Sodium Chloride 0.9% 10 ML Syringe FLUSH PRN (20:18)
[2022-04-20] MEDS ORDERED: cefTRIAXone 2 GM in Sodium Chloride 0.9% 100 ML IV ONE (20:20)
[2022-04-20 20:32] LABS: BLOOD UREA NITROGEN,BUN 27 mg/dL (7.0-18.0); CHLORIDE,CL 101 mmol/L (98-107); GLUCOSE RANDOM 153 mg/dL (74-106); POTASSIUM,K 3.4 mmol/L (3.5-5.1); SODIUM,NA 137 mmol/L (136-148)
[2022-04-20] MEDS ORDERED: Morphine 4 MG/ML VIAL IVPUSH ONE (20:42)
[2022-04-20] MEDS ORDERED: cefTRIAXone 2 GM/50 ML BAG IV ONE (21:00)
[2022-04-20] MEDS ORDERED: Lidocaine 1% 5 ML VIAL INJECT ONE (21:45)
[2022-04-20] MEDS ORDERED: Lidocaine 1% 5 ML VIAL ONE (22:00)
[2022-04-20] MEDS ORDERED: Lidocaine 1% 5 ML VIAL INJECT STA (22:06)
[2022-04-21] MEDS: Acetaminophen/oxyCODONE 325-5 MG Tab PO PRN ×4 (00:18→18:06)
[2022-04-21] MEDS: Enoxaparin 40 MG/0.4 ML Syringe SUBCUT SCH ×2 (00:46→23:24)
[2022-04-21] MEDS: Levothyroxine 50 MCG Tab PO SCH (06:33)
[2022-04-21] MEDS: Pantoprazole 40 MG Tab.CR PO SCH (06:34)
[2022-04-21 07:39] LABS: BLOOD UREA NITROGEN,BUN 21 mg/dL (7.0-18.0); CARBON DIOXIDE,CO2 25.7 mmol/L (21.0-32.0); CHLORIDE,CL 103 mmol/L (98-107); GLUCOSE RANDOM 88 mg/dL (74-106); POTASSIUM,K 3.5 mmol/L (3.5-5.1); SODIUM,NA 139 mmol/L (136-148)
[2022-04-21] MEDS: Losartan 50 MG Tab PO SCH (08:59)
[2022-04-21] MEDS: Aspirin 81 MG Tab.EC PO SCH (08:59)
[2022-04-21] MEDS: Clopidogrel 75 MG Tab PO SCH (08:59)
[2022-04-21] MEDS: Isosorbide Mononitrate 30 MG Tab.ER PO SCH (08:59)
[2022-04-21] MEDS: Fluticasone/Salmeterol 100-50 MCG Inhalation Powder 14/Diskus INH SCH (10:44)
[2022-04-21] MEDS ORDERED: Gadobenate Dimeglumine 529 MG/ML 20 ML SDV IVPUSH STA (13:16)
[2022-04-21] MEDS ORDERED: Tamsulosin 0.4 MG Cap.ER PO SCH (17:30)
[2022-04-21] MEDS ORDERED: cefTRIAXone 1 GM in Sodium Chloride 0.9% 50 ML IV SCH (20:00)
[2022-04-21] MEDS ORDERED: atorvaSTATin 40 MG Tab PO SCH (21:00)
[2022-04-22] MEDS: Acetaminophen/oxyCODONE 325-5 MG Tab PO PRN (04:48)
[2022-04-22] MEDS: Levothyroxine 50 MCG Tab PO SCH (06:33)
[2022-04-22] MEDS: Pantoprazole 40 MG Tab.CR PO SCH (06:33)
[2022-04-22] MEDS: Isosorbide Mononitrate 30 MG Tab.ER PO SCH (08:33)
[2022-04-22] MEDS: Aspirin 81 MG Tab.EC PO SCH (08:33)
[2022-04-22] MEDS: Losartan 50 MG Tab PO SCH (08:33)
[2022-04-22] MEDS: Fluticasone/Salmeterol 100-50 MCG Inhalation Powder 14/Diskus INH SCH (08:35)
[2022-04-22] MEDS: Clopidogrel 75 MG Tab PO SCH (08:35)
[2022-04-22 13:46] VITALS: BP 122/72; PULSE 86
== END 2022-04-22 12:12 | disposition home or self-care (01) | DRG 603 ==
LOC: MW.ED 19:50 → MW.MS 23:27
PROVIDERS: ADMIT Internal Medicine; ATTEND Internal Medicine
PROC: 0S9G3ZZ Drainage of Left Ankle Joint, Percutaneous Approach (ICD-10-PCS; principal; 2022-04-20)
DX: L03.116 Cellulitis of left lower limb (principal); R78.81 Bacteremia; I25.10 Atherosclerotic heart disease of native coronary artery without angina pectoris; I10 Essential (primary) hypertension; M25.472 Effusion, left ankle; E78.5 Hyperlipidemia, unspecified; J44.9 Chronic obstructive pulmonary disease, unspecified; E78.00 Pure hypercholesterolemia, unspecified; Z20.822 Contact with and (suspected) exposure to COVID-19; N40.0 Benign prostatic hyperplasia without lower urinary tract symptoms; G89.4 Chronic pain syndrome; G89.29 Other chronic pain; M54.9 Dorsalgia, unspecified; Z79.02 Long term (current) use of antithrombotics/antiplatelets; E03.9 Hypothyroidism, unspecified; Z79.890 Hormone replacement therapy; E11.9 Type 2 diabetes mellitus without complications; Z79.82 Long term (current) use of aspirin; I25.2 Old myocardial infarction; Z95.5 Presence of coronary angioplasty implant and graft; Z79.899 Other long term (current) drug therapy
CPT/HCPCS: 20605; 36415; 80053; 85025; 87635; 89050; 96365; 96367; 96375; 99284; J0696; J2270; J3370; J3490; J7050; 73723-26-LT; 73723-LT; 80048; 80202; 97110-GP; 97116-GP; 97161-GP; 97530-GP; A9270-GY; A9577; J1650; U0002

== ENCOUNTER 2023-07-17 16:45 | Emergency (ER) | payer OTHER, MEDICARE ==
[2023-07-17] MEDS ORDERED: Sodium Chloride 0.9% 10 ML Syringe FLUSH PRN (18:16)
[2023-07-17] MEDS ORDERED: Sodium Chloride 0.9% 2.5 ML Syringe FLUSH PRN (18:16)
[2023-07-17 18:17] LABS: CORONAVIRUS COVID-19 NAA NEGATIVE (NEGATIVE); INFLUENZA A NAA NEGATIVE (NEGATIVE); INFLUENZA B NAA NEGATIVE (NEGATIVE)
[2023-07-17 19:07] LABS: BASOPHILS PERCENT AUTO 0.2 % (0.0-1.5); EOSINOPHILS ABSOLUTE AUTO 0.1 K/uL (0.0-0.7); EOSINOPHILS PERCENT AUTO 0.7 % (0.0-7.0); HEMATOCRIT 44.9 % (38.0-50.0); LYMPHOCYTES ABSOLUTE AUTO 1.1 K/uL (0.6-2.4); LYMPHOCYTES PERCENT AUTO 6.8 % (16.0-40.0); MEAN CORPUSCULAR HEMOGLOBIN 30.7 pg (27.0-32.0); MEAN CORPUSCULAR HGB CONC 33.4 g/dL (31.0-37.0); MEAN CORPUSCULAR VOLUME 91.8 fL (80.0-98.0); MONOCYTES ABSOLUTE AUTO 1.2 K/uL (0.0-0.8); MONOCYTES PERCENT AUTO 7.5 % (0.0-15.0); NEUTROPHILS ABSOLUTE AUTO 13.5 K/uL (1.4-5.7); NEUTROPHILS PERCENT AUTO 84.8 % (48.0-80.0); NRBC ABSOLUTE 0 K/uL; PLATELET COUNT,PLT 204 K/uL (150-400); RED BLOOD CELL COUNT 4.89 M/uL (4.50-5.90)
[2023-07-17] MEDS ORDERED: Albuterol/Ipratropium 3.0-0.5 MG/3 ML Neb Soln NEB ONE (19:38)
[2023-07-17 19:39] LABS: A/G RATIO 0.8 (0.9-1.6); ALBUMIN 3.6 g/dL (3.4-5.0); BILIRUBIN TOTAL 1.9 mg/dL (0.2-1.0); CALCIUM 9.3 mg/dL (8.5-10.1); CARBON DIOXIDE,CO2 25.9 mmol/L (21.0-32.0); CREATININE 1.1 mg/dL (0.8-1.3); EST CRCL DRUG DOSING (CG) 59.91 mL/min; LACTIC ACID 1.9 mmol/L (0.4-2.0); POTASSIUM,K 3.9 mmol/L (3.5-5.1); PROTEIN TOTAL,TP 8.3 g/dL (6.4-8.2)
[2023-07-17] MEDS ORDERED: cefTRIAXone 1 GM in Sodium Chloride 0.9% 50 ML IV ONE (20:12)
[2023-07-17] MEDS ORDERED: methylPREDNISolone Sodium Succinate 125 MG/2 ML SDV IVPUSH ONE (20:31)
[2023-07-17] MEDS ORDERED: Doxycycline 100 MG Cap PO ONE (21:00)
[2023-07-18 01:46] VITALS: BP 135/89; PULSE 89
== END 2023-07-17 21:05 | disposition home or self-care (01) ==
LOC: MW.ED 16:45
DX: J18.9 Pneumonia, unspecified organism (principal); J44.1 Chronic obstructive pulmonary disease with (acute) exacerbation; I25.10 Atherosclerotic heart disease of native coronary artery without angina pectoris; I10 Essential (primary) hypertension; I25.2 Old myocardial infarction; E78.00 Pure hypercholesterolemia, unspecified; E11.9 Type 2 diabetes mellitus without complications; E03.9 Hypothyroidism, unspecified; Z79.01 Long term (current) use of anticoagulants; Z87.891 Personal history of nicotine dependence; Z79.02 Long term (current) use of antithrombotics/antiplatelets; Z79.899 Other long term (current) drug therapy; Z79.82 Long term (current) use of aspirin; Z79.84 Long term (current) use of oral hypoglycemic drugs; Z20.822 Contact with and (suspected) exposure to COVID-19
CPT/HCPCS: 0240U; 36415; 71046; 80053; 83605; 83880; 84484; 85025; 87040; 87154; 93005; 96365; 96375; 99285; A9270; J0696; J2930; J3490; 87077; 87186; 93010; 99284; J7620-GY

== ENCOUNTER 2023-07-19 11:40 | Observation (INO) | payer OTHER ==
[2023-07-19] MEDS ORDERED: Albuterol/Ipratropium 3.0-0.5 MG/3 ML Neb Soln NEB ONE (12:20)
[2023-07-19] MEDS ORDERED: Sodium Chloride 0.9% 10 ML Syringe FLUSH PRN ×2 (12:20→13:51)
[2023-07-19] MEDS ORDERED: Sodium Chloride 0.9% 2.5 ML Syringe FLUSH PRN ×2 (12:20→13:51)
[2023-07-19] MEDS ORDERED: methylPREDNISolone Sodium Succinate 125 MG/2 ML SDV IVPUSH ONE (12:20)
[2023-07-19] MEDS ORDERED: Sodium Chloride 0.9% 1,000 ML IV ONE (12:20)
[2023-07-19] MEDS ORDERED: Cefepime 2 GM in Sodium Chloride 0.9% 50 ML IV ONE (12:23)
[2023-07-19 12:33] LABS: BASOPHILS PERCENT AUTO 0.2 % (0.0-1.5); EOSINOPHILS PERCENT AUTO 0.1 % (0.0-7.0); HEMATOCRIT 41.6 % (38.0-50.0); HEMOGLOBIN 13.7 g/dL (13.0-17.0); LYMPHOCYTES ABSOLUTE AUTO 1.8 K/uL (0.6-2.4); LYMPHOCYTES PERCENT AUTO 9.9 % (16.0-40.0); MEAN CORPUSCULAR HGB CONC 32.9 g/dL (31.0-37.0); MEAN CORPUSCULAR VOLUME 91.2 fL (80.0-98.0); MONOCYTES ABSOLUTE AUTO 1.3 K/uL (0.0-0.8); MONOCYTES PERCENT AUTO 7.1 % (0.0-15.0); NEUTROPHILS ABSOLUTE AUTO 14.8 K/uL (1.4-5.7); NEUTROPHILS PERCENT AUTO 82.7 % (48.0-80.0); NRBC ABSOLUTE 0 K/uL; PLATELET COUNT,PLT 293 K/uL (150-400); RED BLOOD CELL COUNT 4.56 M/uL (4.50-5.90); WHITE BLOOD CELL COUNT,WBC 17.93 K/uL (4.0-11.0)
[2023-07-19 12:44] LABS: INR 1.07 (0.86-1.11)
[2023-07-19] MEDS ORDERED: VANCOmycin 1.75 GM/350 ML 1.75 GM in Premix Bag 1 BAG IV ONE (12:45)
[2023-07-19 12:47] LABS: BASE EXCESS VENOUS 0.1 (-2.0-3.0); PH,VENOUS 7.4 (7.31-7.41)
[2023-07-19 12:57] LABS: LACTIC ACID 1.2 mmol/L (0.4-2.0)
[2023-07-19 13:04] LABS: A/G RATIO 0.9 (0.9-1.6); ALBUMIN 3.5 g/dL (3.4-5.0); BILIRUBIN TOTAL 0.7 mg/dL (0.2-1.0); CALCIUM 8.9 mg/dL (8.5-10.1); CARBON DIOXIDE,CO2 24.6 mmol/L (21.0-32.0); CREATININE 1.2 mg/dL (0.8-1.3); EST CRCL DRUG DOSING (CG) 54.92 mL/min; MAGNESIUM 1.9 mg/dL (1.8-2.4); POTASSIUM,K 3.5 mmol/L (3.5-5.1); PROTEIN TOTAL,TP 7.6 g/dL (6.4-8.2)
[2023-07-19] MEDS ORDERED: Iopamidol 755 MG/ML 500 ML Multipack Bottle IVPUSH STA (13:49)
[2023-07-19] MEDS ORDERED: Albuterol 0.083% 2.5 MG/3 ML Neb Soln NEB PRN (13:51)
[2023-07-19] MEDS ORDERED: Ondansetron 4 MG/2 ML SDV IVPUSH PRN (13:51)
[2023-07-19] MEDS ORDERED: Acetaminophen/oxyCODONE 325-5 MG Tab PO PRN (13:55)
[2023-07-19] MEDS ORDERED: Baclofen 10 MG Tab PO PRN (13:55)
[2023-07-19] MEDS ORDERED: Heparin Sodium 5,000 Units/ML Vial SUBCUT SCH (14:00)
[2023-07-19] MEDS ORDERED: Polymyxin B/Trimethoprim 10 ML Bottle EYEBOTH SCH (15:30)
[2023-07-19 16:00] LABS: APPEARANCE,URINE CLEAR; BILIRUBIN,URINE NEGATIVE (NEGATIVE); COLOR,URINE YELLOW; GLUCOSE,URINE 100 mg/dL (NEGATIVE); KETONES,URINE NEGATIVE (NEGATIVE); LEUKOCYTE ESTERASE,URINE NEGATIVE (NEGATIVE); NITRITE,URINE NEGATIVE (NEGATIVE); OCCULT BLOOD,URINE NEGATIVE (NEGATIVE); PROTEIN,URINE NEGATIVE (NEGATIVE); UROBILINOGEN,URINE 0.2 EU/dL (<2.0)
[2023-07-19] MEDS ORDERED: POLYMYXIN B EYEBOTH SCH (16:00)
[2023-07-19] MEDS ORDERED: TRIMETHOPRIM EYEBOTH SCH (16:00)
[2023-07-19] MEDS: Acetaminophen 325 MG Tab PO PRN ×2 (16:03→20:16)
[2023-07-19] MEDS: Ciprofloxacin 0.3% Ophth Soln 2.5 ML Bottle EYEBOTH SCH ×4 (17:23→23:53)
[2023-07-19] MEDS ORDERED: Tamsulosin 0.4 MG Cap.ER PO SCH (17:30)
[2023-07-19] MEDS: Albuterol/Ipratropium 3.0-0.5 MG/3 ML Neb Soln NEB SCH ×2 (17:38→23:53)
[2023-07-19] MEDS: Doxycycline 100 MG Cap PO SCH (20:16)
[2023-07-19] MEDS ORDERED: atorvaSTATin 40 MG Tab PO SCH (21:00)
[2023-07-19] MEDS ORDERED: Latanoprost 0.005% Ophth Soln 2.5 ML Bottle EYEBOTH SCH ×2 (21:00)
[2023-07-19] MEDS ORDERED: Non-Formulary Medication 1 Each (Fluticasone Propion/Salmeterol [Wixela 250-50 Inhub] 1 EA INH SCH (21:00)
[2023-07-19] MEDS ORDERED: Sodium Chloride 0.65% Nasal Spray 45 ML Bottle NAS PRN (21:25)
[2023-07-20] MEDS: Ciprofloxacin 0.3% Ophth Soln 2.5 ML Bottle EYEBOTH SCH ×5 (01:16→09:44)
[2023-07-20 06:15] LABS: BASOPHILS PERCENT AUTO 0.1 % (0.0-1.5); HEMATOCRIT 37.3 % (38.0-50.0); HEMOGLOBIN 12.3 g/dL (13.0-17.0); LYMPHOCYTES ABSOLUTE AUTO 1.2 K/uL (0.6-2.4); LYMPHOCYTES PERCENT AUTO 9.5 % (16.0-40.0); MEAN CORPUSCULAR HEMOGLOBIN 30.1 pg (27.0-32.0); MEAN CORPUSCULAR VOLUME 91.2 fL (80.0-98.0); MONOCYTES ABSOLUTE AUTO 0.9 K/uL (0.0-0.8); MONOCYTES PERCENT AUTO 6.8 % (0.0-15.0); NEUTROPHILS ABSOLUTE AUTO 10.7 K/uL (1.4-5.7); NEUTROPHILS PERCENT AUTO 83.6 % (48.0-80.0); NRBC ABSOLUTE 0 K/uL; PLATELET COUNT,PLT 250 K/uL (150-400); RED BLOOD CELL COUNT 4.09 M/uL (4.50-5.90); WHITE BLOOD CELL COUNT,WBC 12.78 K/uL (4.0-11.0)
[2023-07-20] MEDS: Levothyroxine 50 MCG Tab PO SCH ×2 (06:22→06:30)
[2023-07-20] MEDS: Albuterol/Ipratropium 3.0-0.5 MG/3 ML Neb Soln NEB SCH (06:22)
[2023-07-20 06:44] LABS: CALCIUM 8.5 mg/dL (8.5-10.1); CARBON DIOXIDE,CO2 19.5 mmol/L (21.0-32.0); CREATININE 1.1 mg/dL (0.8-1.3); EST CRCL DRUG DOSING (CG) 59.91 mL/min; POTASSIUM,K 3.7 mmol/L (3.5-5.1)
[2023-07-20] MEDS: Doxycycline 100 MG Cap PO SCH (08:00)
[2023-07-20] MEDS ORDERED: predniSONE 20 MG Tab PO SCH (08:00)
[2023-07-20] MEDS ORDERED: 50% Dextrose in Water 50 ML Syringe IVPUSH PRN (08:03)
[2023-07-20] MEDS ORDERED: Glucagon,Human Recombinant 1 MG Vial IM PRN (08:03)
[2023-07-20] MEDS ORDERED: Insulin Aspart 100 Units/ML 3 ML Pen SUBCUT SCH (08:05)
[2023-07-20] MEDS ORDERED: Clopidogrel 75 MG Tab PO SCH (09:00)
[2023-07-20] MEDS ORDERED: LOSARTAN 50 MG TABLET PO SCH (09:00)
[2023-07-20] MEDS ORDERED: Isosorbide Mononitrate 30 MG Tab.ER PO SCH (09:00)
[2023-07-20] MEDS ORDERED: Pantoprazole 40 MG Tab.CR PO SCH (09:00)
[2023-07-20] MEDS ORDERED: Aspirin 81 MG Tab.EC PO SCH (09:00)
[2023-07-20 12:04] VITALS: BP 144/94; PULSE 78
[2023-07-20] MEDS ORDERED: VANCOmycin 1.75 GM/350 ML 1.75 GM in Premix Bag 1 BAG IV SCH (13:00)
== END 2023-07-20 11:41 | disposition home or self-care (01) ==
LOC: MW.ED 11:40 → MW.MS 13:32
PROVIDERS: ADMIT Internal Medicine; ATTEND Internal Medicine
DX: J44.1 Chronic obstructive pulmonary disease with (acute) exacerbation (principal); R78.81 Bacteremia; I25.10 Atherosclerotic heart disease of native coronary artery without angina pectoris; J18.9 Pneumonia, unspecified organism; E78.5 Hyperlipidemia, unspecified; I65.23 Occlusion and stenosis of bilateral carotid arteries; I71.20 Thoracic aortic aneurysm, without rupture, unspecified; G47.33 Obstructive sleep apnea (adult) (pediatric); K85.90 Acute pancreatitis without necrosis or infection, unspecified; M54.9 Dorsalgia, unspecified; N40.0 Benign prostatic hyperplasia without lower urinary tract symptoms; E03.9 Hypothyroidism, unspecified; E11.9 Type 2 diabetes mellitus without complications; I63.9 Cerebral infarction, unspecified; H10.33 Unspecified acute conjunctivitis, bilateral; I11.0 Hypertensive heart disease with heart failure; I50.9 Heart failure, unspecified; I25.2 Old myocardial infarction; Z20.822 Contact with and (suspected) exposure to COVID-19; Z87.891 Personal history of nicotine dependence; Z86.73 Personal history of transient ischemic attack (TIA), and cerebral infarction without residual deficits; Z95.5 Presence of coronary angioplasty implant and graft; Z79.01 Long term (current) use of anticoagulants; Z79.82 Long term (current) use of aspirin; Z79.899 Other long term (current) drug therapy; G89.29 Other chronic pain
CPT/HCPCS: 36415; 71045; 71260; 80048; 80053; 80202; 81003; 82803; 82947; 83605; 83735; 84145; 84484; 85025; 85610; 87040; 87635; 93005; 96365; 96367; 96375; 99291; A9270; J0692; J1815; J2930; J3370; J3490; J7030; Q9967; 93010; G0378; J7620-GY; U0002

== ENCOUNTER 2023-09-19 10:34 | Emergency (ER) | payer OTHER, MEDICARE ==
[2023-09-19] MEDS ORDERED: Albuterol/Ipratropium 3.0-0.5 MG/3 ML Neb Soln NEB ONE (10:40)
[2023-09-19] MEDS ORDERED: Sodium Chloride 0.9% 2.5 ML Syringe FLUSH PRN (10:48)
[2023-09-19] MEDS ORDERED: Sodium Chloride 0.9% 10 ML Syringe FLUSH PRN (10:48)
[2023-09-19] MEDS ORDERED: Albuterol 0.083% 2.5 MG/3 ML Neb Soln NEB ONE (10:48)
[2023-09-19] MEDS ORDERED: Dexamethasone 10 MG/ML SDV IVPUSH ONE (10:48)
[2023-09-19] MEDS ORDERED: Magnesium Sulfate/Water 2 GM in Premix Bag 1 BAG IV ONE (10:51)
[2023-09-19 11:18] LABS: BASOPHILS ABSOLUTE AUTO 0.09 K/uL (0.00-0.20); BASOPHILS PERCENT AUTO 0.7 % (0.0-1.0); EOSINOPHILS ABSOLUTE AUTO 1.43 K/uL (0.00-0.45); EOSINOPHILS PERCENT AUTO 11.2 % (0.0-6.0); HEMATOCRIT 42.9 % (42.0-52.0); IMMATURE GRAN ABSOLUTE AUTO 0.08 K/uL (0.00-0.05); IMMATURE GRAN PERCENT AUTO 0.6 % (0.0-0.4); LYMPHOCYTES ABSOLUTE AUTO 2.43 K/uL (1.00-4.80); LYMPHOCYTES PERCENT AUTO 19.1 % (24.0-44.0); MEAN CORPUSCULAR HEMOGLOBIN 31.1 pg (28.0-32.0); MEAN CORPUSCULAR VOLUME 88.8 fL (83.0-99.0); MEAN PLATELET VOLUME 10.1 fL (9.4-12.4); MONOCYTES PERCENT AUTO 5.5 % (0.0-8.0); NEUTROPHILS ABSOLUTE AUTO 8.01 K/uL (1.80-7.70); NEUTROPHILS PERCENT AUTO 62.9 % (41.0-71.0); PLATELET COUNT,PLT 238 K/uL (150-400); RED BLOOD CELL COUNT 4.83 M/uL (4.52-5.90); WHITE BLOOD CELL COUNT,WBC 12.74 K/uL (3.9-11.3)
[2023-09-19 11:30] LABS: BASE EXCESS VENOUS 2.1 (-2.0-3.0); BICARBONATE,VENOUS 25 mEq/L (23-28); PCO2 VENOUS 32 mmHG (41-51); PH,VENOUS 7.49 (7.31-7.41)
[2023-09-19 11:43] LABS: PO2 VENOUS < 30 mmHG
[2023-09-19] MEDS ORDERED: Lidocaine 4% 1 each Patch TOP STA (11:48)
[2023-09-19] MEDS ORDERED: Methocarbamol 750 MG TAB PO STA (11:51)
[2023-09-19 11:54] LABS: INR 1.02 (0.86-1.11)
[2023-09-19 12:01] LABS: A/G RATIO 1.2 (0.9-1.6); ALBUMIN 3.9 g/dL (3.4-5.0); BILIRUBIN TOTAL 1.1 mg/dL (0.2-1.0); CALCIUM 9.1 mg/dL (8.5-10.1); CARBON DIOXIDE,CO2 24.3 mmol/L (21.0-32.0); CREATININE 1.1 mg/dL (0.8-1.3); EST CRCL DRUG DOSING (CG) 59.91 mL/min; MAGNESIUM 1.5 mg/dL (1.8-2.4); POTASSIUM,K 4.1 mmol/L (3.5-5.1); PROTEIN TOTAL,TP 7.1 g/dL (6.4-8.2)
[2023-09-19 12:04] LABS: CORONAVIRUS COVID-19 NAA NEGATIVE (NEGATIVE); INFLUENZA A NAA NEGATIVE (NEGATIVE); INFLUENZA B NAA NEGATIVE (NEGATIVE); RESPIRATORY SYNCYTIAL VIR NAA NEGATIVE (NEGATIVE)
[2023-09-19] MEDS ORDERED: Cefepime 2 GM in Sodium Chloride 0.9% 50 ML IV ONE (12:06)
[2023-09-19 13:16] LABS: D-DIMER QUANTITATIVE 0.24 mg/L FEU (0.0-0.50)
[2023-09-19 14:27] VITALS: BP 136/80; PULSE 96
== END 2023-09-19 14:25 | disposition home or self-care (01) ==
LOC: MW.ED 10:34
DX: J44.1 Chronic obstructive pulmonary disease with (acute) exacerbation (principal); I25.10 Atherosclerotic heart disease of native coronary artery without angina pectoris; I10 Essential (primary) hypertension; I25.2 Old myocardial infarction; E78.00 Pure hypercholesterolemia, unspecified; E11.9 Type 2 diabetes mellitus without complications; E03.9 Hypothyroidism, unspecified; Z79.01 Long term (current) use of anticoagulants; Z79.82 Long term (current) use of aspirin; Z79.899 Other long term (current) drug therapy; Z20.822 Contact with and (suspected) exposure to COVID-19
CPT/HCPCS: 0241U; 36415; 71045; 80053; 82803; 83605; 83735; 83880; 84484; 85025; 85379; 85610; 87040; 94640; 96365; 96367; 96375; 99285; A9270; J0692; J1100; J3475; J3490; 93010; 99291; J7620-GY

== ENCOUNTER 2023-12-07 10:04 | Day surgery (SDC) | payer OTHER, MEDICARE ==
[2023-12-07] MEDS ORDERED: propofoL 50 ML ONE ×2 (11:26→11:54)
[2023-12-07] MEDS ORDERED: fentaNYL 100 MCG/2 ML SDV ONE (11:26)
[2023-12-07] MEDS ORDERED: ePHEDrine 50 MG/ML SDV ONE (11:55)
[2023-12-07 13:55] VITALS: BP 117/73; PULSE 78
== END 2023-12-07 12:54 | disposition home or self-care (01) ==
LOC: MW.SDS 10:04
PROVIDERS: ATTEND Surgery
DX: Z12.11 Encounter for screening for malignant neoplasm of colon (principal); D12.2 Benign neoplasm of ascending colon; D12.6 Benign neoplasm of colon, unspecified; K63.5 Polyp of colon; K57.30 Diverticulosis of large intestine without perforation or abscess without bleeding; J44.9 Chronic obstructive pulmonary disease, unspecified; E78.5 Hyperlipidemia, unspecified; K21.9 Gastro-esophageal reflux disease without esophagitis; I10 Essential (primary) hypertension; E03.9 Hypothyroidism, unspecified; E11.42 Type 2 diabetes mellitus with diabetic polyneuropathy; Z79.899 Other long term (current) drug therapy; Z98.890 Other specified postprocedural states; Z79.890 Hormone replacement therapy; Z87.891 Personal history of nicotine dependence; Z88.8 Allergy status to other drugs, medicaments and biological substances
CPT/HCPCS: 45380; 45385; 82947; J2704; J3010; J7120; 00811; 88305; 99100; J3490

== ENCOUNTER 2023-12-10 12:41 | Emergency (ER) | payer OTHER, MEDICARE ==
[2023-12-10] MEDS ORDERED: Morphine 4 MG/ML Syringe IVPUSH ONE (14:36)
[2023-12-10] MEDS ORDERED: Ondansetron 4 MG/2 ML SDV IVPUSH ONE (14:36)
[2023-12-10 15:05] LABS: BASOPHILS ABSOLUTE AUTO 0.05 K/uL (0.00-0.20); BASOPHILS PERCENT AUTO 0.3 % (0.0-1.0); EOSINOPHILS ABSOLUTE AUTO 0.15 K/uL (0.00-0.45); HEMOGLOBIN 15.2 g/dL (14.0-18.0); IMMATURE GRAN PERCENT AUTO 0.7 % (0.0-0.4); LYMPHOCYTES ABSOLUTE AUTO 1.69 K/uL (1.00-4.80); LYMPHOCYTES PERCENT AUTO 11.8 % (24.0-44.0); MEAN CORPUSCULAR HEMOGLOBIN 31.7 pg (28.0-32.0); MEAN CORPUSCULAR HGB CONC 33.8 g/dL (32.0-36.0); MEAN CORPUSCULAR VOLUME 93.8 fL (83.0-99.0); MEAN PLATELET VOLUME 9.6 fL (9.4-12.4); MONOCYTES ABSOLUTE AUTO 1.05 K/uL (0.00-0.80); MONOCYTES PERCENT AUTO 7.3 % (0.0-8.0); NEUTROPHILS ABSOLUTE AUTO 11.31 K/uL (1.80-7.70); NEUTROPHILS PERCENT AUTO 78.9 % (41.0-71.0); PLATELET COUNT,PLT 199 K/uL (150-400); WHITE BLOOD CELL COUNT,WBC 14.35 K/uL (3.9-11.3)
[2023-12-10 15:20] LABS: INR 1.09 (0.86-1.11); PTT,PARTIAL THROMBOPLSTIN TIME 28.2 SEC (23.9-30.7)
[2023-12-10 15:30] LABS: A/G RATIO 0.8 (0.9-1.6); ALBUMIN 3.3 g/dL (3.4-5.0); BILIRUBIN TOTAL 2.1 mg/dL (0.2-1.0); CALCIUM 9.3 mg/dL (8.5-10.1); CREATININE 1.3 mg/dL (0.8-1.3); EST CRCL DRUG DOSING (CG) 52.29 mL/min; MAGNESIUM 1.5 mg/dL (1.8-2.4); POTASSIUM,K 3.8 mmol/L (3.5-5.1); PROTEIN TOTAL,TP 7.3 g/dL (6.4-8.2); URIC ACID 4.9 mg/dL (2.6-7.2)
[2023-12-10 15:33] LABS: LACTIC ACID 1.1 mmol/L (0.4-2.0)
[2023-12-10 19:53] VITALS: BP 125/45; PULSE 105
== END 2023-12-10 16:06 | disposition home or self-care (01) ==
LOC: MW.ED 12:41
DX: R22.41 Localized swelling, mass and lump, right lower limb (principal); I10 Essential (primary) hypertension; I25.2 Old myocardial infarction; I25.10 Atherosclerotic heart disease of native coronary artery without angina pectoris; K21.9 Gastro-esophageal reflux disease without esophagitis; E78.00 Pure hypercholesterolemia, unspecified; E11.9 Type 2 diabetes mellitus without complications; E03.9 Hypothyroidism, unspecified; Z86.16 Personal history of COVID-19; Z88.8 Allergy status to other drugs, medicaments and biological substances; Z79.82 Long term (current) use of aspirin; Z79.899 Other long term (current) drug therapy; Z79.2 Long term (current) use of antibiotics
CPT/HCPCS: 36415; 73610; 80053; 83605; 83735; 84550; 85025; 85610; 85730; 96374; 96375; 99283; J2270; J2405; 99284

== ENCOUNTER 2024-03-20 14:59 | Emergency (ER) | payer OTHER, MEDICARE ==
[2024-03-20] MEDS: Sodium Chloride 0.9% 2.5 ML Syringe FLUSH PRN (16:33)
[2024-03-20] MEDS: Sodium Chloride 0.9% 10 ML Syringe FLUSH PRN (16:33)
[2024-03-20] MEDS: Sodium Chloride 0.9% 1,000 ML IV SCH (16:33)
[2024-03-20 16:37] LABS: BASOPHILS ABSOLUTE AUTO 0.08 K/uL (0.00-0.20); BASOPHILS PERCENT AUTO 0.4 % (0.0-1.0); EOSINOPHILS ABSOLUTE AUTO 0.13 K/uL (0.00-0.45); EOSINOPHILS PERCENT AUTO 0.6 % (0.0-6.0); HEMATOCRIT 44.1 % (42.0-52.0); HEMOGLOBIN 15.2 g/dL (14.0-18.0); IMMATURE GRAN ABSOLUTE AUTO 0.22 K/uL (0.00-0.05); IMMATURE GRAN PERCENT AUTO 1.1 % (0.0-0.4); LYMPHOCYTES ABSOLUTE AUTO 1.56 K/uL (1.00-4.80); LYMPHOCYTES PERCENT AUTO 7.6 % (24.0-44.0); MEAN CORPUSCULAR HEMOGLOBIN 32.3 pg (28.0-32.0); MEAN CORPUSCULAR HGB CONC 34.5 g/dL (32.0-36.0); MEAN CORPUSCULAR VOLUME 93.8 fL (83.0-99.0); MEAN PLATELET VOLUME 9.6 fL (9.4-12.4); MONOCYTES ABSOLUTE AUTO 1.24 K/uL (0.00-0.80); NEUTROPHILS PERCENT AUTO 84.3 % (41.0-71.0); PLATELET COUNT,PLT 280 K/uL (150-400); WHITE BLOOD CELL COUNT,WBC 20.63 K/uL (3.9-11.3)
[2024-03-20] MEDS: Morphine 4 MG/ML Syringe IVPUSH ONE (16:53)
[2024-03-20] MEDS: Piperacillin/Tazobactam 4.5 GM in Sodium Chloride 0.9% 100 ML IV ONE (16:56)
[2024-03-20] MEDS: VANCOmycin 1.75 GM/350 ML 1.75 GM in Premix Bag 1 BAG IV ONE (16:56)
[2024-03-20 16:59] LABS: INR 1.06 (0.86-1.11); PTT,PARTIAL THROMBOPLSTIN TIME 27.6 SEC (23.9-30.7)
[2024-03-20 17:12] LABS: LACTIC ACID 1.2 mmol/L (0.4-2.0)
[2024-03-20 17:19] LABS: A/G RATIO 0.7 (0.9-1.6); ALBUMIN 3.3 g/dL (3.4-5.0); BILIRUBIN TOTAL 1.7 mg/dL (0.2-1.0); CALCIUM 8.8 mg/dL (8.5-10.1); CARBON DIOXIDE,CO2 22.9 mmol/L (21.0-32.0); CREATININE 1.5 mg/dL (0.8-1.3); EST CRCL DRUG DOSING (CG) 43.26 mL/min; MAGNESIUM 1.6 mg/dL (1.8-2.4); POTASSIUM,K 3.8 mmol/L (3.5-5.1); PROTEIN TOTAL,TP 8.2 g/dL (6.4-8.2)
[2024-03-20 19:09] VITALS: BP 119/79
[2024-03-20 22:35] VITALS: PULSE 88
== END 2024-03-20 19:49 | disposition left against medical advice (07) ==
LOC: MW.ED 14:59
DX: N49.2 Inflammatory disorders of scrotum (principal); I25.10 Atherosclerotic heart disease of native coronary artery without angina pectoris; J44.9 Chronic obstructive pulmonary disease, unspecified; E03.9 Hypothyroidism, unspecified; I10 Essential (primary) hypertension; I25.2 Old myocardial infarction; M19.90 Unspecified osteoarthritis, unspecified site; K21.9 Gastro-esophageal reflux disease without esophagitis; E78.00 Pure hypercholesterolemia, unspecified; E11.9 Type 2 diabetes mellitus without complications; Z79.899 Other long term (current) drug therapy; Z79.02 Long term (current) use of antithrombotics/antiplatelets; Z79.82 Long term (current) use of aspirin; Z88.8 Allergy status to other drugs, medicaments and biological substances; Z75.8 Other problems related to medical facilities and other health care
CPT/HCPCS: 36415; 76870; 80053; 83605; 83735; 85025; 85610; 85730; 87040; 93976; 96365; 96366; 96367; 96375; 99284; J2270; J2543; J3370; J3490; J7030

== ENCOUNTER 2024-03-26 10:23 | Inpatient (IN) | payer MEDICARE, OTHER ==
[2024-03-26] MEDS: Sodium Chloride 0.9% 1,000 ML IV ONE ×2 (10:52→12:05)
[2024-03-26 10:57] LABS: BASOPHILS ABSOLUTE AUTO 0.07 K/uL (0.00-0.20); BASOPHILS PERCENT AUTO 0.5 % (0.0-1.0); EOSINOPHILS ABSOLUTE AUTO 0.18 K/uL (0.00-0.45); EOSINOPHILS PERCENT AUTO 1.4 % (0.0-6.0); HEMOGLOBIN 14.1 g/dL (14.0-18.0); IMMATURE GRAN ABSOLUTE AUTO 0.05 K/uL (0.00-0.05); IMMATURE GRAN PERCENT AUTO 0.4 % (0.0-0.4); LYMPHOCYTES ABSOLUTE AUTO 1.14 K/uL (1.00-4.80); LYMPHOCYTES PERCENT AUTO 8.7 % (24.0-44.0); MEAN CORPUSCULAR HEMOGLOBIN 31.5 pg (28.0-32.0); MEAN CORPUSCULAR HGB CONC 33.6 g/dL (32.0-36.0); MEAN CORPUSCULAR VOLUME 93.8 fL (83.0-99.0); MEAN PLATELET VOLUME 9.5 fL (9.4-12.4); MONOCYTES ABSOLUTE AUTO 0.73 K/uL (0.00-0.80); MONOCYTES PERCENT AUTO 5.6 % (0.0-8.0); NEUTROPHILS ABSOLUTE AUTO 10.88 K/uL (1.80-7.70); NEUTROPHILS PERCENT AUTO 83.4 % (41.0-71.0); PLATELET COUNT,PLT 288 K/uL (150-400); RED BLOOD CELL COUNT 4.48 M/uL (4.52-5.90); WHITE BLOOD CELL COUNT,WBC 13.05 K/uL (3.9-11.3)
[2024-03-26] MEDS: Piperacillin/Tazobactam 4.5 GM in Sodium Chloride 0.9% 100 ML IV ONE (11:07)
[2024-03-26 11:29] LABS: A/G RATIO 0.8 (0.9-1.6); ALBUMIN 3.3 g/dL (3.4-5.0); BILIRUBIN TOTAL 0.6 mg/dL (0.2-1.0); CALCIUM 8.9 mg/dL (8.5-10.1); CARBON DIOXIDE,CO2 24.1 mmol/L (21.0-32.0); CREATININE 1.2 mg/dL (0.8-1.3); EST CRCL DRUG DOSING (CG) 54.07 mL/min; MAGNESIUM 1.8 mg/dL (1.8-2.4); POTASSIUM,K 3.8 mmol/L (3.5-5.1); PROTEIN TOTAL,TP 7.7 g/dL (6.4-8.2)
[2024-03-26 11:31] LABS: LACTIC ACID 1.2 mmol/L (0.4-2.0)
[2024-03-26] MEDS: fentaNYL 50 MCG/ML SDV IVPUSH ONE (12:05)
[2024-03-26] MEDS: Lidocaine 1% 5 ML VIAL INJECT ONE (12:45)
[2024-03-26] MEDS: Doxycycline 200 MG in Dextrose 5% in Water 250 ML IV STA (12:57)
[2024-03-26] MEDS ORDERED: Morphine 4 MG/ML Syringe IVPUSH ONE (14:10)
[2024-03-26] MEDS: Morphine 2 MG/ML SYRINGE IVPUSH ONE (14:19)
[2024-03-26] MEDS: Iopamidol 755 MG/ML 500 ML Multipack Bottle IVPUSH STA (14:45)
[2024-03-26 14:53] LABS: APPEARANCE,URINE CLEAR; BILIRUBIN,URINE NEGATIVE (NEGATIVE); GLUCOSE,URINE NEGATIVE (NEGATIVE); KETONES,URINE NEGATIVE (NEGATIVE); LEUKOCYTE ESTERASE,URINE NEGATIVE (NEGATIVE); NITRITE,URINE NEGATIVE (NEGATIVE); OCCULT BLOOD,URINE NEGATIVE (NEGATIVE); PROTEIN,URINE NEGATIVE (NEGATIVE); UROBILINOGEN,URINE 0.2 EU/dL (<2.0)
[2024-03-26 14:55] LABS: COLOR,URINE STRAW
[2024-03-26] MEDS ORDERED: Polyethylene Glycol 3350 Powder 17 GM Packet PO PRN (15:48)
[2024-03-26] MEDS ORDERED: Acetaminophen 325 MG Tab PO PRN (15:48)
[2024-03-26] MEDS ORDERED: Ondansetron 4 MG Tab.DIS PO PRN (15:48)
[2024-03-26] MEDS ORDERED: Glucagon,Human Recombinant 1 MG Vial IM PRN (16:51)
[2024-03-26] MEDS ORDERED: 50% Dextrose in Water 50 ML Syringe IVPUSH PRN (16:51)
[2024-03-26] MEDS ORDERED: Naloxone 0.4 MG/ML SDV IVPUSH PRN (16:55)
[2024-03-26] MEDS: Insulin Aspart 100 Units/ML 3 ML Pen SUBCUT SCH (17:14)
[2024-03-26] MEDS ORDERED: Lidocaine 5% Oint 35.44 GM Tube TOP PRN (17:19)
[2024-03-26] MEDS: Piperacillin/Tazobactam 4.5 GM in Sodium Chloride 0.9% 100 ML IV SCH (17:21)
[2024-03-26] MEDS ORDERED: Acetaminophen/oxyCODONE 325-5 MG Tab PO PRN (20:01)
[2024-03-26] MEDS: Baclofen 10 MG Tab PO PRN (21:40)
[2024-03-26] MEDS: Enoxaparin 40 MG/0.4 ML Syringe SUBCUT SCH (21:42)
[2024-03-26] MEDS: Morphine 2 MG/ML SYRINGE IVPUSH PRN (21:42)
[2024-03-26] MEDS ORDERED: Doxycycline 100 MG in Sodium Chloride 0.9% 100 ML IV SCH (23:00)
[2024-03-26] MEDS: Acetaminophen 325 MG Tab PO SCH (23:42)
[2024-03-26] MEDS: Doxycycline 100 MG in Sodium Chloride 0.9% 100 ML IV SCH (23:44)
[2024-03-27] MEDS ORDERED: Acetaminophen 325 MG Tab PO PRN (02:01)
[2024-03-27] MEDS: Piperacillin/Tazobactam 4.5 GM in Sodium Chloride 0.9% 100 ML IV SCH (02:26)
[2024-03-27] MEDS ORDERED: Doxycycline 100 MG Cap PO SCH (06:00)
[2024-03-27] MEDS: Levothyroxine 50 MCG Tab PO SCH (06:35)
[2024-03-27] MEDS: Pantoprazole 40 MG Tab.CR PO SCH (06:36)
[2024-03-27] MEDS: Acetaminophen/oxyCODONE 325-5 MG Tab PO PRN ×2 (06:39→14:24)
[2024-03-27 07:31] LABS: BASOPHILS ABSOLUTE AUTO 0.07 K/uL (0.00-0.20); BASOPHILS PERCENT AUTO 0.7 % (0.0-1.0); EOSINOPHILS PERCENT AUTO 4.1 % (0.0-6.0); HEMATOCRIT 39.8 % (42.0-52.0); HEMOGLOBIN 13.4 g/dL (14.0-18.0); IMMATURE GRAN ABSOLUTE AUTO 0.04 K/uL (0.00-0.05); IMMATURE GRAN PERCENT AUTO 0.4 % (0.0-0.4); LYMPHOCYTES ABSOLUTE AUTO 1.62 K/uL (1.00-4.80); LYMPHOCYTES PERCENT AUTO 16.7 % (24.0-44.0); MEAN CORPUSCULAR HEMOGLOBIN 31.6 pg (28.0-32.0); MEAN CORPUSCULAR HGB CONC 33.7 g/dL (32.0-36.0); MEAN CORPUSCULAR VOLUME 93.9 fL (83.0-99.0); MEAN PLATELET VOLUME 9.5 fL (9.4-12.4); MONOCYTES ABSOLUTE AUTO 0.72 K/uL (0.00-0.80); MONOCYTES PERCENT AUTO 7.4 % (0.0-8.0); NEUTROPHILS ABSOLUTE AUTO 6.86 K/uL (1.80-7.70); NEUTROPHILS PERCENT AUTO 70.7 % (41.0-71.0); PLATELET COUNT,PLT 272 K/uL (150-400); RED BLOOD CELL COUNT 4.24 M/uL (4.52-5.90); WHITE BLOOD CELL COUNT,WBC 9.71 K/uL (3.9-11.3)
[2024-03-27 07:47] LABS: CALCIUM 8.7 mg/dL (8.5-10.1); CARBON DIOXIDE,CO2 24.6 mmol/L (21.0-32.0); CREATININE 1.1 mg/dL (0.8-1.3); EST CRCL DRUG DOSING (CG) 58.99 mL/min; POTASSIUM,K 3.8 mmol/L (3.5-5.1)
[2024-03-27] MEDS: Losartan 25 MG Tab PO SCH (08:05)
[2024-03-27] MEDS: Isosorbide Mononitrate 30 MG Tab.ER PO SCH (08:06)
[2024-03-27] MEDS: Tamsulosin 0.4 MG Cap.ER PO SCH (08:07)
[2024-03-27] MEDS: Clopidogrel 75 MG Tab PO SCH (08:07)
[2024-03-28] MEDS: Doxycycline 100 MG in Sodium Chloride 0.9% 100 ML IV SCH (00:28)
[2024-03-28 08:05] VITALS: BP 175/107
[2024-03-28 08:09] VITALS: PULSE 96
[2024-03-28 08:17] LABS: BASOPHILS ABSOLUTE AUTO 0.06 K/uL (0.00-0.20); BASOPHILS PERCENT AUTO 0.5 % (0.0-1.0); EOSINOPHILS ABSOLUTE AUTO 0.35 K/uL (0.00-0.45); EOSINOPHILS PERCENT AUTO 2.7 % (0.0-6.0); HEMOGLOBIN 15.1 g/dL (14.0-18.0); IMMATURE GRAN ABSOLUTE AUTO 0.05 K/uL (0.00-0.05); IMMATURE GRAN PERCENT AUTO 0.4 % (0.0-0.4); LYMPHOCYTES PERCENT AUTO 13.1 % (24.0-44.0); MEAN CORPUSCULAR HEMOGLOBIN 32.1 pg (28.0-32.0); MEAN CORPUSCULAR HGB CONC 34.3 g/dL (32.0-36.0); MEAN CORPUSCULAR VOLUME 93.6 fL (83.0-99.0); MEAN PLATELET VOLUME 9.3 fL (9.4-12.4); MONOCYTES ABSOLUTE AUTO 0.69 K/uL (0.00-0.80); MONOCYTES PERCENT AUTO 5.3 % (0.0-8.0); NEUTROPHILS ABSOLUTE AUTO 10.16 K/uL (1.80-7.70); PLATELET COUNT,PLT 310 K/uL (150-400); WHITE BLOOD CELL COUNT,WBC 13.01 K/uL (3.9-11.3)
[2024-03-28 08:54] LABS: A/G RATIO 0.7 (0.9-1.6); ALBUMIN 3.3 g/dL (3.4-5.0); BILIRUBIN TOTAL 0.5 mg/dL (0.2-1.0); CALCIUM 9.7 mg/dL (8.5-10.1); CARBON DIOXIDE,CO2 25.6 mmol/L (21.0-32.0); CREATININE 1.1 mg/dL (0.8-1.3); EST CRCL DRUG DOSING (CG) 58.99 mL/min; POTASSIUM,K 4.3 mmol/L (3.5-5.1); PROTEIN TOTAL,TP 7.9 g/dL (6.4-8.2)
== END 2024-03-28 09:55 | disposition home or self-care (01) | DRG 728 ==
LOC: MW.ED 10:23 → MW.MS 15:32 → MW.ED 16:50
PROVIDERS: ADMIT Family Medicine; ATTEND Family Medicine
PROC: 0V95XZZ Drainage of Scrotum, External Approach (ICD-10-PCS; principal; 2024-03-26)
DX: N49.2 Inflammatory disorders of scrotum (principal); K21.9 Gastro-esophageal reflux disease without esophagitis; N40.0 Benign prostatic hyperplasia without lower urinary tract symptoms; E78.00 Pure hypercholesterolemia, unspecified; E78.5 Hyperlipidemia, unspecified; I10 Essential (primary) hypertension; E03.9 Hypothyroidism, unspecified; E11.9 Type 2 diabetes mellitus without complications; I25.10 Atherosclerotic heart disease of native coronary artery without angina pectoris; D72.829 Elevated white blood cell count, unspecified; J44.9 Chronic obstructive pulmonary disease, unspecified; Z75.8 Other problems related to medical facilities and other health care; I25.2 Old myocardial infarction; G89.29 Other chronic pain; M54.2 Cervicalgia; M54.9 Dorsalgia, unspecified; M19.90 Unspecified osteoarthritis, unspecified site; Z88.8 Allergy status to other drugs, medicaments and biological substances; Z95.5 Presence of coronary angioplasty implant and graft; Z98.49 Cataract extraction status, unspecified eye; Z79.82 Long term (current) use of aspirin; Z79.02 Long term (current) use of antithrombotics/antiplatelets; Z86.010 Personal history of colon polyps; Z79.899 Other long term (current) drug therapy; Z79.890 Hormone replacement therapy
CPT/HCPCS: 10060; 36415; 55100; 74177; 74177-26; 76870; 76870-26; 80048; 80053; 81003; 82947; 83605; 83735; 85025; 87040; 93976; 93976-26; 96361; 96365; 96366; 96367; 96375; 99222; 99232; 99239; 99284-25; 99285; A9270-GY; J1650; J2270; J2543; J3010; J3490; J7030; J7060; Q9967